=== PATIENT | male | born 1940 | race Caucasian/White ===

== ENCOUNTER → 2018-06-19 09:41 | Outpatient (CLI) | payer MEDICARE, OTHER, SELFPAY ==
[2018-06-19 12:58] LABS: AST(SGOT) 15 U/L (15-37); Alanine Aminotransfer ALT/SGPT 25 U/L (16-61); Albumin, Serum 3.4 g/dL (3.2-5.0); Alkaline Phosphatase 57 U/L (45-117); Anion Gap 9 (5-15); BUN 15 mg/dL (7-18); BUN/Creat Ratio 12.3 RATIO (10-20); Calcium,Total 8.4 mg/dL (8.5-10.1); Chloride 105 mmol/L (98-107); Cholesterol 121 mg/dL (200); Creatinine, Serum 1.22 mg/dL (0.70-1.30); EST Glomerular Filtration Rate 61 mL/min (>60); Est Glom Filt Rate - Afr Amer 74 mL/min (>60); Globulin 3.5 g/dL (2.2-4.2); Glucose 121 mg/dL (74-106); High Density Lipoprotein 38 mg/dL; Potassium 3.9 mmol/L (3.5-5.1); Protein, Total 6.9 g/dL (6.4-8.2); Sodium Level 142 mmol/L (136-145); Thyroid Stim Hormone (TSH) 1.68 uIU/mL (0.358-3.74); Triglycerides 117 mg/dL; Very Low Density Lipoprotein 23 mg/dL (5-40)
== END ==
PROVIDERS: Visit Provider Family Medicine
DX: E11.9 Type 2 diabetes mellitus without complications (principal)
CPT/HCPCS: 36415; 80053; 80061; 84443

== ENCOUNTER → 2018-11-09 12:41 | Outpatient (CLI) | payer MEDICARE, OTHER, SELFPAY ==
[2018-11-09 14:32] LABS: Erythrocyte Sedimentation Rate 11 mm/hr (0-20)
[2018-11-09 14:35] LABS: Hemoglobin 14.3 g/dl (13.0-16.5); Mean Corp Hgb Conc 33.3 g/gl (32-36); Mean Corpuscular Hgb 32.5 pg (27.0-32.0); Mean Corpuscular Volume 97.7 fL (80-94); Mean Platelet Vol. 9.5 fl (6.2-12.0); Platelet Count 201 K/mm3 (150-450); RBC Distribution Width CV 12.6 % (11.6-14.6); RBC Distribution Width SD 45.4 fl (35.1-43.9); White Blood Count 7.2 K/mm3 (4.4-11.0)
[2018-11-09 14:37] LABS: Scan Indicated on CBC? Y/N NO
[2018-11-09 15:00] LABS: Vitamin B12 381 pg/mL (211-911); Vitamin D,25 Hydroxy 15.9 ng/mL (29.95-100.01)
[2018-11-09 15:07] LABS: AST(SGOT) 19 U/L (15-37); Alanine Aminotransfer ALT/SGPT 28 U/L (16-61); Albumin, Serum 3.8 g/dL (3.2-5.0); Alkaline Phosphatase 73 U/L (45-117); Anion Gap 8 (5-15); BUN 19 mg/dL (7-18); BUN/Creat Ratio 15.1 RATIO (10-20); Calcium,Total 8.8 mg/dL (8.5-10.1); Chloride 106 mmol/L (98-107); Creatinine, Serum 1.26 mg/dL (0.70-1.30); EST Glomerular Filtration Rate 59 mL/min (>60); Est Glom Filt Rate - Afr Amer 71 mL/min (>60); Globulin 3.8 g/dL (2.2-4.2); Glucose 89 mg/dL (74-106); Iron 137 ug/dL (65-175); Protein, Total 7.6 g/dL (6.4-8.2); Sodium Level 141 mmol/L (136-145); Thyroid Stim Hormone (TSH) 1.56 uIU/mL (0.358-3.74)
== END ==
PROVIDERS: Family Provider Family Medicine; PCP Family Medicine; Referring Provider Family Medicine; Visit Provider Family Medicine
DX: R53.83 Other fatigue (principal)
CPT/HCPCS: 36415; 80053; 82306; 82607; 83540; 84443; 85027; 85652

== ENCOUNTER → 2019-10-16 10:22 | Outpatient (CLI) | payer MEDICARE, OTHER, SELFPAY ==
[2019-10-16 13:14] LABS: ALB/GLOB Ratio 0.9 RATIO (0.9-2.4); AST(SGOT) 15 U/L (15-37); Alanine Aminotransfer ALT/SGPT 29 U/L (16-61); Albumin, Serum 3.7 g/dL (3.2-5.0); Alkaline Phosphatase 77 U/L (45-117); Anion Gap 4 (5-15); BUN 23 mg/dL (7-18); BUN/Creat Ratio 18.7 RATIO (10-20); Calcium,Total 9.3 mg/dL (8.5-10.1); Chloride 105 mmol/L (98-107); Cholesterol 171 mg/dL (200); Creatinine, Serum 1.23 mg/dL (0.70-1.30); EST Glomerular Filtration Rate 61 mL/min (>60); Est Glom Filt Rate - Afr Amer 73 mL/min (>60); Globulin 4.1 g/dL (2.2-4.2); Glucose 125 mg/dL (74-106); High Density Lipoprotein 44 mg/dL; Potassium 3.7 mmol/L (3.5-5.1); Protein, Total 7.8 g/dL (6.4-8.2); Sodium Level 140 mmol/L (136-145); Thyroid Stim Hormone (TSH) 1.53 uIU/mL (0.358-3.74); Triglycerides 126 mg/dL; Very Low Density Lipoprotein 25 mg/dL (5-40)
== END ==
PROVIDERS: PCP Family Medicine; Referring Provider Family Medicine; Visit Provider Family Medicine
DX: E11.9 Type 2 diabetes mellitus without complications (principal)
CPT/HCPCS: 36415; 80053; 80061; 84403; 84443

== ENCOUNTER → 2020-06-03 14:36 | Outpatient (CLI) | payer MEDICARE, OTHER, SELFPAY ==
--- NOTE | 2020-06-03 14:39 | RAD_ITS ---
STUDY: X-RAY - RIGHT SHOULDER REASON FOR EXAM: Male, 79 years old. Lingle pop in right shoulder, pain x3 days. TECHNIQUE: 3 view(s) of the shoulder. COMPARISON: None. FINDINGS: There is cephalad migration of the humeral head consistent with rotator cuff pathology. There are mild degenerative osteoarthritic changes of the right shoulder. There is degenerative arthrosis of the acromioclavicular joint without inferior osseous spur formation. Normal acromion. Normal humeral head and visualized proximal humerus. The soft tissue structures are unremarkable. Normal visualized pulmonary apex. Carotid artery atherosclerosis noted. RAD/Shoulder min 2 Views IMPRESSION: Cephalad migration of the right humeral head suggesting chronic rotator cuff pathology. Glenohumeral and acromioclavicular joint arthrosis. Carotid atherosclerosis. Electronically Signed: Julio Cesar Corona MD ([place]) at 9:09 EDT , Service support ,
== END ==
PROVIDERS: PCP Family Medicine; Referring Provider Family Medicine; Visit Provider Family Medicine
DX: M25.519 Pain in unspecified shoulder (principal)
CPT/HCPCS: 73030

== ENCOUNTER → 2020-07-31 10:36 | Outpatient (CLI) | payer MEDICARE, OTHER, SELFPAY ==
[2020-07-31 12:54] LABS: AST(SGOT) 20 U/L (15-37); Alanine Aminotransfer ALT/SGPT 36 U/L (16-61); Albumin, Serum 3.9 g/dL (3.2-5.0); Alkaline Phosphatase 90 U/L (45-117); Anion Gap 6 (5-15); BUN 21 mg/dL (7-18); BUN/Creat Ratio 14.7 RATIO (10-20); Calcium,Total 9.6 mg/dL (8.5-10.1); Chloride 106 mmol/L (98-107); Cholesterol 165 mg/dL (200); Creatinine, Serum 1.43 mg/dL (0.70-1.30); EST Glomerular Filtration Rate 51 mL/min (>60); Est Glom Filt Rate - Afr Amer 61 mL/min (>60); Globulin 4.1 g/dL (2.2-4.2); Glucose 118 mg/dL (74-106); High Density Lipoprotein 41 mg/dL; Potassium 3.6 mmol/L (3.5-5.1); Sodium Level 138 mmol/L (136-145); Triglycerides 117 mg/dL; Very Low Density Lipoprotein 23 mg/dL (5-40)
== END ==
PROVIDERS: PCP Family Medicine; Referring Provider Family Medicine; Visit Provider Family Medicine
DX: I10 Essential (primary) hypertension (principal)
CPT/HCPCS: 36415; 80053; 80061

== ENCOUNTER → 2020-08-01 13:22 | Outpatient (CLI) | payer MEDICARE, OTHER, SELFPAY ==
[2020-08-01 15:21] LABS: Erythrocyte Sedimentation Rate 25 mm/hr (0-20)
[2020-08-01 15:25] LABS: Absolute Lymphocyte Count 2.07 X10^3/uL (0.83-4.51); Absolute Neutrophil Count 4.8 X10^3/uL (2.0-7.7); Basophil# 0.04 X10^3/uL; Basophil% 0.5 % (0-1); Eosinophil# 0.15 X10^3/uL; Eosinophils% 1.9 % (0-5); Hematocrit 43.2 % (40-54); Lymphocyte # 2.07 X10^3/ul (4.0); Lymphocyte % 26.5 % (19-41); Mean Corp Hgb Conc 34.7 g/dL (32-36); Mean Corpuscular Hgb 33.4 pg (27.0-32.0); Mean Corpuscular Volume 96.2 fL (80-94); Mean Platelet Vol. 9.6 fl (6.2-12.0); Monocyte# 0.73 X10^3/uL; Monocyte% 9.3 % (0-10); NRBC Flagged by Analyzer 0 % (0-5); Neutrophil % 61.5 % (47-70); Platelet Count 235 K/mm3 (150-450); RBC Distribution Width CV 12.1 % (11.6-14.6); RBC Distribution Width SD 43.1 fl (35.1-43.9); Red Blood Count 4.49 M/mm3 (4.6-6.2); White Blood Count 7.8 K/mm3 (4.4-11.0)
[2020-08-01 15:54] LABS: ALB/GLOB Ratio 0.9 RATIO (0.9-2.4); AST(SGOT) 25 U/L (15-37); Alanine Aminotransfer ALT/SGPT 48 U/L (16-61); Albumin, Serum 3.7 g/dL (3.2-5.0); Alkaline Phosphatase 84 U/L (45-117); Anion Gap 8 (5-15); BUN 22 mg/dL (7-18); BUN/Creat Ratio 16.5 RATIO (10-20); Calcium,Total 9.3 mg/dL (8.5-10.1); Chloride 104 mmol/L (98-107); Creatinine, Serum 1.33 mg/dL (0.70-1.30); EST Glomerular Filtration Rate 55 mL/min (>60); Est Glom Filt Rate - Afr Amer 67 mL/min (>60); Globulin 4.1 g/dL (2.2-4.2); Glucose 136 mg/dL (74-106); Potassium 3.8 mmol/L (3.5-5.1); Protein, Total 7.8 g/dL (6.4-8.2); Sodium Level 137 mmol/L (136-145); Thyroid Stim Hormone (TSH) 1.02 uIU/mL (0.358-3.74)
== END ==
PROVIDERS: PCP Family Medicine; Referring Provider Family Medicine; Visit Provider Family Medicine
DX: R53.83 Other fatigue (principal)
CPT/HCPCS: 36415; 80053; 84443; 84484; 85025; 85652

== ENCOUNTER → 2020-08-13 10:23 | Outpatient (CLI) | payer MEDICARE, OTHER, SELFPAY ==
[2020-08-15 07:10] LABS: SARS-COV-2 TOTAL ABS Reactive (Nonreactive)
== END ==
PROVIDERS: PCP Family Medicine; Referring Provider Family Medicine; Visit Provider Family Medicine
DX: U07.1 COVID-19 (principal)
CPT/HCPCS: 36415; 86769

== ENCOUNTER → 2020-12-17 14:33 | Outpatient (CLI) | payer MEDICARE, OTHER, SELFPAY ==
--- NOTE | 2020-12-17 14:36 | RAD_ITS ---
INDICATION: LEG PAIN EXAMINATION/TECHNIQUE: X-RAY - XR Spine Lumbar Min 4 Views COMPARISON: None. FINDINGS: VERTEBRAE: Age indeterminate severe compression deformity of T12. 5 mm anterolisthesis L3 on L4. Preservation of the normal lumbar lordosis. Moderate to severe multilevel facet arthropathy. DISCS: Moderate to severe multilevel disc space narrowing and osteophytosis. INCLUDED ABDOMEN: Included bowel gas pattern is non-obstructive. Vascular calcifications. RAD/L/S Spine Min 4 Views IMPRESSION: Age indeterminate severe compression deformity of T12. Grade 1 anterolisthesis L3 on L4. Moderate to severe multilevel lumbar spondylosis and facet arthropathy. Electronically Signed: Adelfo Asher MD at 16:12 EDT Tel , Service support ,
== END ==
PROVIDERS: PCP Family Medicine; Referring Provider Family Medicine; Visit Provider Family Medicine
DX: M79.605 Pain in left leg (principal); M79.604 Pain in right leg
CPT/HCPCS: 72110

== ENCOUNTER → 2021-01-01 13:36 | Outpatient (CLI) | payer MEDICARE, OTHER, SELFPAY ==
--- NOTE | 2021-01-01 13:39 | ART_ITS ---
Reason For Study: PVD Procedure A bilateral lower extremity continuous wave Doppler with analog waveform analysis and ankle brachial indexes. Left Segmental Pressures Left brachial= 145mmHg. Left posterior tibial artery = 188mmHg. Left dorsalis pedis artery = 186mmHg. Left digit = 130 mmHg. The left dorsalis pedis waveforms are triphasic. The left posterior tibial artery waveforms are triphasic. Right Segmental Pressures Right brachial= 149mmHg. Right posterior tibial artery = 187mmHg. Right dorsalis pedis artery = 154mmHg. Right digit = 120 mmHg. The right dorsalis pedis waveforms are triphasic. The right posterior tibial artery waveforms are triphasic. Indices The right ankle brachial index by the dorsalis pedis is 1.03. The right ankle brachial index by the posterior tibial artery is 1.26. The right digital-brachial index is 0.81. The left ankle brachial index by the dorsalis pedis is 1.25. The left ankle brachial index by the posterior tibial artery is 1.26. The left digital-brachial index is 0.87. VL/Ankle Brachial Index Interpretation Summary Triphasic Doppler waveforms are noted at ankle level bilaterally. Pulse-volume recordings appear satisfactory at ankle and digital level bilaterally. Resting ankle-brachial ind ices are normal bilaterally. Digital-brachial indices are normal bilaterally. There is no evidence of significant arterial occlusive disease in the lower ext remities bilaterally. Ordering Physician: Jaciel Garcia Referring Physician: Jaciel Garcia Performed By: Audrey Sanchez RVT and Student
== END ==
PROVIDERS: PCP Family Medicine; Referring Provider Family Medicine; Visit Provider Family Medicine
DX: I73.9 Peripheral vascular disease, unspecified (principal); M79.604 Pain in right leg; M79.605 Pain in left leg
CPT/HCPCS: 93922

== ENCOUNTER → 2021-02-25 15:01 | Outpatient (CLI) | payer MEDICARE, OTHER, SELFPAY ==
[2021-02-25 17:49] LABS: Absolute Lymphocyte Count 1.96 X10^3/uL (0.83-4.51); Absolute Neutrophil Count 4.2 X10^3/uL (2.0-7.7); Basophil# 0.04 X10^3/uL; Basophil% 0.6 % (0-1); Eosinophil# 0.21 X10^3/uL; Eosinophils% 2.9 % (0-5); Hematocrit 42.2 % (40-54); Hemoglobin 14.3 g/dL (13.0-16.5); Lymphocyte # 1.96 X10^3/ul (0.83-4.51); Lymphocyte % 27.5 % (19-41); Mean Corp Hgb Conc 33.9 g/dL (32-36); Mean Corpuscular Hgb 32.6 pg (27.0-32.0); Mean Corpuscular Volume 96.3 fL (80-94); Mean Platelet Vol. 9.7 fl (6.2-12.0); Monocyte% 9.8 % (0-10); NRBC Flagged by Analyzer 0 % (0-5); Neutrophil # 4.21 X10^3/uL (2.7-7.7); Neutrophil % 58.9 % (47-70); Platelet Count 228 K/mm3 (150-450); RBC Distribution Width CV 12.5 % (11.6-14.6); RBC Distribution Width SD 44.7 fl (35.1-43.9); Red Blood Count 4.38 M/mm3 (4.6-6.2); White Blood Count 7.1 K/mm3 (4.4-11.0)
[2021-02-25 18:05] LABS: Vitamin B12 290 pg/mL (211-911); Vitamin D,25 Hydroxy 73.8 ng/mL
[2021-02-25 18:07] LABS: Microalbumin,Random Urine 12.5 mg/L (NO RANGE EST.); Microalbumin:Creatinine Ratio 30.3 mg/g CRE (<30 mg/g CRE)
[2021-02-25 18:08] LABS: Anion Gap 7 (5-15); BUN 26 mg/dL (7-18); BUN/Creat Ratio 20.2 RATIO (10-20); Chloride 104 mmol/L (98-107); Cholesterol 175 mg/dL (200); Creatinine, Serum 1.29 mg/dL (0.70-1.30); EST Glomerular Filtration Rate 57 mL/min (>60); Est Glom Filt Rate - Afr Amer 69 mL/min (>60); Glucose 91 mg/dL (74-106); High Density Lipoprotein 38 mg/dL; Potassium 3.8 mmol/L (3.5-5.1); Sodium Level 138 mmol/L (136-145); Thyroid Stim Hormone (TSH) 1.53 uIU/mL (0.358-3.74); Triglycerides 208 mg/dL; Very Low Density Lipoprotein 42 mg/dL (5-40)
== END ==
PROVIDERS: PCP Family Medicine; Visit Provider Family Medicine
DX: N18.30 Chronic kidney disease, stage 3 unspecified (principal); E55.9 Vitamin D deficiency, unspecified; E53.8 Deficiency of other specified B group vitamins; E11.9 Type 2 diabetes mellitus without complications
CPT/HCPCS: 36415; 80048; 80061; 82043; 82306; 82570; 82607; 84443; 85025

== ENCOUNTER → 2021-05-18 08:57 | Outpatient (CLI) | payer MEDICARE, OTHER, SELFPAY | PROVIDERS: PCP Family Medicine; Referring Provider Family Medicine; Visit Provider Family Medicine | DX: Z20.822 Contact with and (suspected) exposure to COVID-19 (principal) | CPT/HCPCS: 87635; U0005; U0003 ==

== ENCOUNTER → 2021-07-22 10:11 | Outpatient (CLI) | payer MEDICARE, OTHER, SELFPAY ==
[2021-07-22 12:21] LABS: Absolute Lymphocyte Count 2.06 X10^3/uL (0.83-4.51); Absolute Neutrophil Count 4.1 X10^3/uL (2.0-7.7); Basophil# 0.03 X10^3/uL; Basophil% 0.4 % (0-1); Eosinophil# 0.23 X10^3/uL; Eosinophils% 3.2 % (0-5); Hematocrit 43.3 % (40-54); Hemoglobin 15.1 g/dL (13.0-16.5); Lymphocyte # 2.06 X10^3/ul (0.83-4.51); Mean Corp Hgb Conc 34.9 g/dL (32-36); Mean Corpuscular Hgb 33.5 pg (27.0-32.0); Mean Platelet Vol. 9.7 fl (6.2-12.0); Monocyte# 0.66 X10^3/uL; Monocyte% 9.3 % (0-10); NRBC Flagged by Analyzer 0 % (0-5); Neutrophil # 4.11 X10^3/uL (2.7-7.7); Platelet Count 235 K/mm3 (150-450); RBC Distribution Width SD 45.8 fl (35.1-43.9); Red Blood Count 4.51 M/mm3 (4.6-6.2); White Blood Count 7.1 K/mm3 (4.4-11.0)
[2021-07-22 12:38] LABS: ALB/GLOB Ratio 0.8 RATIO (0.9-2.4); AST(SGOT) 27 U/L (15-37); Alanine Aminotransfer ALT/SGPT 50 U/L (16-61); Albumin, Serum 3.5 g/dL (3.2-5.0); Alkaline Phosphatase 79 U/L (45-117); Anion Gap 10 (5-15); BUN 19 mg/dL (7-18); BUN/Creat Ratio 14.2 RATIO (10-20); CRP 3.94 mg/L (0.0-3.0); Calcium,Total 9.5 mg/dL (8.5-10.1); Chloride 103 mmol/L (98-107); Creatinine, Serum 1.34 mg/dL (0.70-1.30); EST Glomerular Filtration Rate 55 mL/min (>60); Est Glom Filt Rate - Afr Amer 66 mL/min (>60); Globulin 4.3 g/dL (2.2-4.2); Glucose 140 mg/dL (74-106); Potassium 3.9 mmol/L (3.5-5.1); Protein, Total 7.8 g/dL (6.4-8.2); Sodium Level 140 mmol/L (136-145); Thyroid Stim Hormone (TSH) 1.36 uIU/mL (0.358-3.74)
== END ==
PROVIDERS: PCP Family Medicine; Referring Provider Family Medicine; Visit Provider Family Medicine
DX: R53.83 Other fatigue (principal)
CPT/HCPCS: 36415; 80053; 84443; 85025; 86140

== ENCOUNTER 2021-11-23 14:00 | Outpatient (RCR) | payer MEDICARE, OTHER, SELFPAY ==
--- NOTE | 2021-08-04 09:54 | HP.PTEVAL_ITS ---
Patient's Visit Information CHET TODD is a 81 year old M referred to Physical Therapy by Dr. Jaciel Garcia MD with a diagnosis of Cervical DDD. Date of Evaluation: 08/03/21 Physical Therapist: Renzo Garcia DPT - Visit Plan Frequency: 2x /Week Duration: 4 Weeks Plan: Improve cervical ROM using manual traction, cross friction massage, or trigger point massage and continued stretching. Continue to progress pt with exercises to strengthen and improve posture, as well as strengthen deep neck flexors. - Subjective Pt present to PT with neck pain, he states he went through therapy at [facility], and was seeing neurosurgeon about 10-15 years ago. Pt reports he was maintaining on his own, but now he has been having difficulty turning head in car. Pt reports waking up in the morning with arms tingly. Pt reports he needs to have a pillow under his head just right to sleep, otherwise he is up at night. Pt states turning his head either direction causes increased pain. Pt reports he is driving still, and it is hard to turn head to look back. Pt states he will take a tylenol if pain is really bad. Pt states he still does a lot of physical work including cutting and splaying wood, this also can cause some pain in his neck. Patient states to make pain in neck have some relief he will extend his neck and that typically improves symptoms. Pt states the pain is a constant dull ache, and he states he experiences headaches almost everyday in the morning. - Pain Neck Pain Intensity (Out of 10): 0 Pain Intensity Range: 0, 5 - Objective ROM: cervical : flexion WNL, extension min loss (painful), right sidebending max loss (painful), right rotation min loss , left sidebending max loss, left rotation min loss. STRENGTH: Cervical WFL. PALPATION: tenderness with palpation to cervical spinous processes C2-C7, TTP to upper traps and levator scap bilaterally (right side is worse), several trigger points in upper trapezius muscle on R side. Pt felt relief with sub-occipital release. OBSERVATION: forward shoulder posture. NEURO: light touch WNL B UE, reflexes biceps and triceps: 2+ - Special Tests C/S Radiculapathy - Left Spurlings: Negative C/S Radiculapathy - Right Spurlings: Negative - Balance/Special Test Scores Oswestry Neck Score: 13 - Goals Goal 1:: Pt will be independent with HEP. Goal Time Frame: 2-4 Weeks Goal 2:: STG: Pt will be able to turn head when driving with 0-2/10 pain to improve daily function. Goal Time Frame: 2-4 Weeks Goal 3:: LTG: Pt will improve cervical R and L sidebending to mod loss of motion. Goal Time Frame: 2-4 Weeks Goal 4:: LTG: Pt will improve bilateral cervical rotation to WNL to improve ability to backup when driving. Goal Time Frame: 2-4 Weeks Goal 5:: LTG: Pt will be able to make it through day with 0-2/10 pain in c ervical spine. Goal Time Frame: 2-4 Weeks Goal 6:: LTG: Pt will improve neck oswestry index to < 20% disability to indicate improved daily function. Goal Time Frame: 2-4 Weeks - Rehabilitation Potential Physical Therapy Diagnosis: limited cervical ROM, neck pain, poor posture Rehabilitation Potential: Good - Anticipated Interventions Patient/Client Instruction: Educate patient on: Condition, Plan of Care, Benefits of Fitness Program For the Purpose of:: To decrease pain, To increase ROM, To improve ability to perform ADL's, To increase tolerance to activity/condition/position, To improve performance and independence with ADL's, To improve ability of physical actions for home/community/work/leisure, To improve health of tissue, To decrease soft tissue restriction, To increase flexibility/ROM, To improve health and function, To improve self management Therapeutic Exercise to Include: Strength training, Postural training, Flexibilty training, Passive ROM, Active ROM For the Purpose of:: To decrease pain, To increase ROM, To improve ability to perform ADL's, To increase tolerance to activity/condition/position, To improve performance and independence with ADL's, To improve ability of physical actions for home/community/work/leisure, To improve health of tissue, To decrease soft tissue restriction, To increase flexibility/ROM, To improve health and function, To improve tolerance to ADL's Manual Therapy Techniques to Include: Trigger point massage, Massage, Mobilization, Passive ROM, Soft tissue mobilization For the Purpose of:: To decrease pain, To increase ROM, To improve ability to perform ADL's, To increase tolerance to activity/condition/position, To improve performance and independence with ADL's, To improve ability of physical actions for home/community/work/leisure, To improve health of tissue, To decrease soft tissue restriction, To increase flexibility/ROM, To improve self management, To improve tolerance to ADL's TENS: Yes Other electric stimulation: Yes For the Purpose of:: To decrease pain, To increase ROM, To increase flexibility/ROM Thank you for the opportunity to evaluate your patient. For Medicare and Medicare HMO plans, please review the plan of care and approve it. It will need to be FAXED BACK to us at [phone] for Medicare purposes. For Medicare only, by signing this I certify the plan of care. Please let me know if there are questions or concerns regarding this plan of care. Physician Signature: Date:
--- NOTE | 2021-09-11 11:51 | HP.PTREVAL ---
Dr. Jaciel Garcia MD, It has been my pleasure to treat CHET TODD over the last 8 visits for Cervical DDD. Please see the progress note below for an update on the physical therapy plan of care! Subjective: Pt. reports he was out sick with a sinus infection. Pt. reports being able to look up at the stars which he has not been able to do for years. He has been able to look over his shoulders with driving without less issues. Pt. arrived today with a script for his R shoulder pain, weak external rotators. Objective/Function: CERVICAL ROM: flexion full no issues, ext min loss mild increase NW, SB min loss bilat NE, rotation min loss to R, mod loss to L rotation. Stiffness noted throughout, decreased overall pain. R shoulder: flexion 170ded mild increase NW, abd 160 deg mild increase NW, functional ER C3 mild increase NW, functional IR L2 increase NW. MMT: R shoulder flexion 4+/5 increase NW, abd 4/5 increase NW, IR 5/5, ER 4-/5 increase NW. Plan Plan: Cont. with cervical spine ROM and stability. I assessed his shoulder today. He has marked weakness with his external rotators and some slight tightness with over head motions. I want to add in shoulder stability, RTC strengthening and deltoid strengthening in minimal painful ranges. 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 HEP: shoulder ER in SL, mid row, LAE, and to continue with towel SNAGS. Balance/Gait/Functional tests - Balance/Special Test Scores Oswestry Neck Score: 8 Goals Goal 1:: Pt will be independent with HEP. Goal Time Frame: 2-4 Weeks Goal Progress: Progressing Goal 2:: STG: Pt will be able to turn head when driving with 0-2/10 pain to improve daily function. 09/10/21 NEW GOAL: Pt. to chop wood and complete all house hold chores without increase in symptoms. Goal Time Frame: 2-4 Weeks Goal Progress: Progressing Goal 3:: LTG: Pt will improve cervical R and L side bending to mod loss of motion. 09/10/21 NEW GOAL: Pt. to have full ROM of R shoulder without increase in symptoms. Goal Time Frame: 2-4 Weeks Goal Progress: Progressing Goal 4:: LTG: Pt will improve bilateral cervical rotation to WNL to improve ability to backup when driving. Goal Time Frame: 2-4 Weeks Goal Progress: Progressing Goal 5:: LTG: Pt will be able to make it through day with 0-2/10 pain in cervical spine. 09/10/21 NEW GOAL: Pt. to have increased R shoulder strength to 5-/5 throughout without increase in symptoms. Goal Time Frame: 2-4 Weeks Goal Progress: Progressing Goal 6:: LTG: Pt will improve neck oswestry index to < 20% disability to indicate improved daily function. Goal Time Frame: 2-4 Weeks Goal Progress: Progressing Anticipated Interventions Patient/Client Instruction: Educate patient on: Condition, Plan of Care, Benefits of Fitness Program For the Purpose of:: To decrease pain, To increase ROM, To improve ability to perform ADL's, To increase tolerance to activity/condition/position, To improve performance and independence with ADL's, To improve ability of physical actions for home/community/work/leisure, To improve health of tissue, To decrease soft tissue restriction, To increase flexibility/ROM, To improve health and function, To improve self management Therapeutic Exercise to Include: Strength training, Postural training, Flexibilty training, Passive ROM, Active ROM For the Purpose of:: To decrease pain, To increase ROM, To improve ability to perform ADL's, To increase tolerance to activity/condition/position, To improve performance and independence with ADL's, To improve ability of physical actions for home/community/work/leisure, To improve health of tissue, To decrease soft tissue restriction, To increase flexibility/ROM, To improve health and function, To improve tolerance to ADL's Manual Therapy Techniques to Include: Trigger point massage, Massage, Mobilization, Passive ROM, Soft tissue mobilization For the Purpose of:: To decrease pain, To increase ROM, To improve ability to perform ADL's, To increase tolerance to activity/condition/position, To improve performance and independence with ADL's, To improve ability of physical actions for home/community/work/leisure, To improve health of tissue, To decrease soft tissue restriction, To increase flexibility/ROM, To improve self management, To improve tolerance to ADL's TENS: Yes Other electric stimulation: Yes For the Purpose of:: To decrease pain, To increase ROM, To increase flexibility/ROM Please do not hesitate to contact me at [phone] by phone or if you have questions or concerns regarding this new plan of care! Sincerely, AMY VillarealT
--- NOTE | 2021-09-30 14:38 | HP.PTREVAL ---
Dr. Jaciel Garcia MD, It has been my pleasure to treat CHET TODD over the last 12 visits for Cervical DDD. Please see the progress note below for an update on the physical therapy plan of care! Subjective: The pain in my shoulder and neck increases to 4/10 at worst. Objective/Function: B shoulder ROM is WNL and equal at this time. MMT: R shoulder flex and ER= 4-/5. All other B UE MMT= 5/5 throughout. Cervical spine ROM is now WNL all planes with the exception of B sidebend which is moderately limited. R shoulder and cervical spine pain 0/10 at rest, 4/10 at worst. Pt is I with HEP Plan Plan: cont or discharge Balance/Gait/Functional tests - Balance/Special Test Scores Oswestry Low Back Score: 0 Oswestry Neck Score: 8 Goals Goal 1:: Pt will be independent with HEP. Goal Time Frame: 2-4 Weeks Goal Progress: Goal Met Goal 2:: STG: Pt will be able to turn head when driving with 0-2/10 pain to improve daily function. 09/10/21 NEW GOAL: Pt. to chop wood and complete all house hold chores without increase in symptoms. Goal Time Frame: 2-4 Weeks Goal Progress: Progressing Goal 3:: LTG: Pt will improve cervical R and L side bending to mod loss of motion. 09/10/21 NEW GOAL: Pt. to have full ROM of R shoulder without increase in symptoms. Goal Time Frame: 2-4 Weeks Goal Progress: Goal Met Goal 4:: LTG: Pt will improve bilateral cervical rotation to WNL to improve ability to backup when driving. Goal Time Frame: 2-4 Weeks Goal Progress: Goal Met Goal 5:: LTG: Pt will be able to make it through day with 0-2/10 pain in cervical spine. 09/10/21 NEW GOAL: Pt. to have increased R shoulder strength to 5-/5 throughout without increase in symptoms. Goal Time Frame: 2-4 Weeks Goal Progress: Progressing Goal 6:: LTG: Pt will improve neck oswestry index to < 20% disability to indicate improved daily function. Goal Time Frame: 2-4 Weeks Goal Progress: Progressing Anticipated Interventions Patient/Client Instruction: Educate patient on: Condition, Plan of Care, Benefits of Fitness Program For the Purpose of:: To decrease pain, To increase ROM, To improve ability to perform ADL's, To increase tolerance to activity/condition/position, To improve performance and independence with ADL's, To improve ability of physical actions for home/community/work/leisure, To improve health of tissue, To decrease soft tissue restriction, To increase flexibility/ROM, To improve health and function, To improve self management Therapeutic Exercise to Include: Strength training, Postural training, Flexibilty training, Passive ROM, Active ROM For the Purpose of:: To decrease pain, To increase ROM, To improve ability to perform ADL's, To increase tolerance to activity/condition/position, To improve performance and independence with ADL's, To improve ability of physical actions for home/community/work/leisure, To improve health of tissue, To decrease soft tissue restriction, To increase flexibility/ROM, To improve health and function, To improve tolerance to ADL's Manual Therapy Techniques to Include: Trigger point massage, Massage, Mobilization, Passive ROM, Soft tissue mobilization For the Purpose of:: To decrease pain, To increase ROM, To improve ability to perform ADL's, To increase tolerance to activity/condition/position, To improve performance and independence with ADL's, To improve ability of physical actions for home/community/work/leisure, To improve health of tissue, To decrease soft tissue restriction, To increase flexibility/ROM, To improve self management, To improve tolerance to ADL's TENS: Yes Other electric stimulation: Yes For the Purpose of:: To decrease pain, To increase ROM, To increase flexibility/ROM Please do not hesitate to contact me at [phone] by phone or if you have questions or concerns regarding this new plan of care! Sincerely, Cristi Alvarado, PT, ATC
--- NOTE | 2021-10-27 15:15 | HP.PTREVAL ---
Dr. Jaciel Garcia MD, It has been my pleasure to treat CHET TODD over the last 13 visits for Cervical DDD. Please see the progress note below for an update on the physical therapy plan of care! Subjective: Pt. arrives today with reports of overall doing better. HE has increased reps and resistances with all exercises well. Pt. reports having some stiffness in his neck, but is moving his arm much better. Pt. still has weakness with ER motions. Objective/Function: Cervical spine: good ROM, mild loss of Cervical rotation to L side no pain. Pt. has mod/min loss with B Sidebending. R shoulder ROM: Pt. has great ROM of B shoulders without increase in symptoms. flexion: 175deg, abd 170deg mild increase NW, functional ER C6 mild increase NW, T 10 mild increase NW. MMT: flexion 4+/5 increase NW, abd 4+/5 increase NW, ext 5/5, ER 4/5, IR 5/5. + speeds testing, + empty can, + tenderness to palpation of biceps tendon in groove. He still has signs of rotator and biceps pathology. I would like him to work on ER and deltoid strength to his routine. Plan Plan: Pt. to follow up in ~1 month after working on ER strengthening, deltoid strengthening and bicep eccentrics. Balance/Gait/Functional tests - Balance/Special Test Scores Oswestry Low Back Score: 0 Oswestry Neck Score: 3 Goals Goal 1:: Pt will be independent with HEP. Goal Time Frame: 2-4 Weeks Goal Progress: Goal Met Goal 2:: STG: Pt will be able to turn head when driving with 0-2/10 pain to improve daily function. 09/10/21 NEW GOAL: Pt. to chop wood and complete all house hold chores without increase in symptoms. Goal Time Frame: 2-4 Weeks Goal Progress: Progressing Goal 3:: LTG: Pt will improve cervical R and L side bending to mod loss of motion. 09/10/21 NEW GOAL: Pt. to have full ROM of R shoulder without increase in symptoms. Goal Time Frame: 2-4 Weeks Goal Progress: Goal Met Goal 4:: LTG: Pt will improve bilateral cervical rotation to WNL to improve ability to backup when driving. Goal Time Frame: 2-4 Weeks Goal Progress: Goal Met Goal 5:: LTG: Pt will be able to make it through day with 0-2/10 pain in cervical spine. 09/10/21 NEW GOAL: Pt. to have increased R shoulder strength to 5-/5 throughout without increase in symptoms. Goal Time Frame: 2-4 Weeks Goal Progress: Progressing Goal 6:: LTG: Pt will improve neck oswestry index to < 20% disability to indicate improved daily function. Goal Time Frame: 2-4 Weeks Goal Progress: Goal Met Anticipated Interventions Patient/Client Instruction: Educate patient on: Condition, Plan of Care, Benefits of Fitness Program For the Purpose of:: To decrease pain, To increase ROM, To improve ability to perform ADL's, To increase tolerance to activity/condition/position, To improve performance and independence with ADL's, To improve ability of physical actions for home/community/work/leisure, To improve health of tissue, To decrease soft tissue restriction, To increase flexibility/ROM, To improve health and function, To improve self management Therapeutic Exercise to Include: Strength training, Postural training, Flexibilty training, Passive ROM, Active ROM For the Purpose of:: To decrease pain, To increase ROM, To improve ability to perform ADL's, To increase tolerance to activity/condition/position, To improve performance and independence with ADL's, To improve ability of physical actions for home/community/work/leisure, To improve health of tissue, To decrease soft tissue restriction, To increase flexibility/ROM, To improve health and function, To improve tolerance to ADL's Manual Therapy Techniques to Include: Trigger point massage, Massage, Mobilization, Passive ROM, Soft tissue mobilization For the Purpose of:: To decrease pain, To increase ROM, To improve ability to perform ADL's, To increase tolerance to activity/condition/position, To improve performance and independence with ADL's, To improve ability of physical actions for home/community/work/leisure, To improve health of tissue, To decrease soft tissue restriction, To increase flexibility/ROM, To improve self management, To improve tolerance to ADL's TENS: Yes Other electric stimulation: Yes For the Purpose of:: To decrease pain, To increase ROM, To increase flexibility/ROM Please do not hesitate to contact me at [phone] by phone or if you have questions or concerns regarding this new plan of care! Sincerely, Renzo Garcia DPT
--- NOTE | 2021-11-24 14:42 | HP.PTDCSUM ---
It has been my pleasure to treat CHET TODD referred by Dr. Jaciel Garcia MD, with the diagnosis of Cervical DDD for a total of 14 visit(s). Discharge Date: 11/23/21 Please see the following information for a summary of their discharge status. Subjective: Pt. reports overall doing well. I feel like I am 90% better. He reports being HEP compliant. He reports working on his arm strength without issues. Pt. reports no neck pain. Neck Pain Intensity (Out of 10): 0 R shoulder Pain Intensity (Out of 10): 0 % Improvement: 90 Objective/Function: Pt. overall has good R shoulder ROM both passively and actively. Pt. still has weakness in his R external rotators R side 8#, L side 14#. So about 2/3rds the strength for R to L. Pt. has close to equal else where, ~3-4# difference from R to L. I want him to continue to work on this increase his strength. He most likely has some sort of RTC pathology, but he is increasing his strength and is tolerating well. He no longer has any pain in his neck. He will be DC to [facility] with RTC external rotation strengthening as this point in time. Goal 1:: Pt will be independent with HEP. Goal Progress: Goal Met Goal 2:: STG: Pt will be able to turn head when driving with 0-2/10 pain to improve daily function. 09/10/21 NEW GOAL: Pt. to chop wood and complete all house hold chores without increase in symptoms. Goal Progress: Goal Met Goal 3:: LTG: Pt will improve cervical R and L side bending to mod loss of motion. 09/10/21 NEW GOAL: Pt. to have full ROM of R shoulder without increase in symptoms. Goal Progress: Goal Met Goal 4:: LTG: Pt will improve bilateral cervical rotation to WNL to improve ability to backup when driving. Goal Progress: Goal Met Goal 5:: LTG: Pt will be able to make it through day with 0-2/10 pain in cervical spine. 09/10/21 NEW GOAL: Pt. to have increased R shoulder strength to 5-/5 throughout without increase in symptoms. Goal Progress: Progressing Goal 6:: LTG: Pt will improve neck oswestry index to < 20% disability to indicate improved daily function. Goal Progress: Goal Met Plan: DC to [facility]P. Discharge Comments: Pt. reports overall doing well. He was initially treated with cervical ROM which improved. He was then evaluated for his R shoulder ER weakness. He has been working on this over the past few months, mostly independent after PT instruction. He is doing much better. He still has some weakness in his R shoulder, but has improved. At this point in time I would like him to continue to work on his strengthening independently. Pt. consents. Pt. will be DC from PT at this point in time. If there are questions or concerns regarding this patient's physical therapy, please feel free to call me at [phone]. Thank you for the referral of this patient. Sincerely, Rnezo Espinoza Sipos, DPT Balance/Gait/Functional tests - Balance/Special Test Scores Oswestry Low Back Score: 0 Oswestry Neck Score: 1
== END 2021-11-23 19:00 | disposition home or self-care (01) ==
LOC: PT 14:00
PROVIDERS: PCP Family Medicine; Referring Provider Family Medicine; Visit Provider Family Medicine
DX: M50.30 Other cervical disc degeneration, unspecified cervical region (principal)
CPT/HCPCS: 97110; 97140; 97161; 97164

== ENCOUNTER → 2021-12-17 | Outpatient (CLI) | payer MEDICARE, OTHER, SELFPAY ==
[2021-12-17 18:26] LABS: Anion Gap 8 (5-15); BUN 25 mg/dL (7-18); BUN/Creat Ratio 16.9 RATIO (10-20); Calcium,Total 8.8 mg/dL (8.5-10.1); Chloride 104 mmol/L (98-107); Creatinine, Serum 1.48 mg/dL (0.70-1.30); EST Glomerular Filtration Rate 49 mL/min (>60); Est Glom Filt Rate - Afr Amer 59 mL/min (>60); Glucose 113 mg/dL (74-106); Potassium 3.3 mmol/L (3.5-5.1); Sodium Level 140 mmol/L (136-145)
== END | disposition home or self-care (01) ==
LOC: MFPLAB 16:55
PROVIDERS: PCP Family Medicine; Visit Provider Nurse Practitioner Family
DX: R11.2 Nausea with vomiting, unspecified (principal)
CPT/HCPCS: 36415; 80048

== ENCOUNTER → 2022-01-06 | Outpatient (CLI) | payer MEDICARE, OTHER, SELFPAY ==
--- NOTE | 2022-01-06 14:27 | RAD_ITS ---
STUDY: X-RAY - LUMBOSACRAL SPINE REASON FOR EXAM: Male, 81 years old. DORSALGIA- HIP/ BACK PAIN TECHNIQUE: 7 view(s) of the lumbosacral spine were obtained. COMPARISON: 12/17/2020 FINDINGS: Normal lumbar lordosis. Stable spondylolisthesis at L4-5. Flexion-extension views show no instability. Stable T12 compression fracture. No acute compression fractures. Stable diffuse disc space narrowing lower lumbar spine. Normal bilateral sacral ala, sacroiliac joints, and visualized sacrum. RAD/L/S Spine w Bend Min 6 Vw IMPRESSION: Stable degenerative disc disease and spondylolisthesis. No acute bony abnormalities. Electronically Signed: Bentley Burdick MD at 21:39 EDT ,
== END | disposition home or self-care (01) ==
PROVIDERS: PCP Family Medicine; Referring Provider Family Medicine; Visit Provider Family Medicine
DX: M54.9 Dorsalgia, unspecified (principal)
CPT/HCPCS: 72114

== ENCOUNTER → 2022-01-19 | Outpatient (CLI) | payer MEDICARE, OTHER, SELFPAY ==
--- NOTE | 2022-01-19 13:54 | BD_ITS ---
STUDY: DUAL ENERGY X-RAY ABSORPTIOMETRY / DXA REASON FOR EXAM: Male, 81 years old. M85.89. Compression of the T12 vertebrae. TECHNIQUE: Bone Mineral Density (BMD) measurements of lumbar spine and bilateral hips were obtained. COMPARISON: None. FINDINGS: Lumbar Spine (L1-L4): g/cm2 (1.158) / T-score (0.8) / Z-score (2.0) Findings are suggestive of normal bone density with a low fracture risk. Left Femur Total: g/cm2 (1.100) / T-score (0.4) / Z-score (1.5) Left Femoral Neck: g/cm2 (0.837) / T-score (-0.7) / Z-score (0.9) Right Femur Total: g/cm2 (1.149) / T-score (0.8) / Z-score (1.8) Right Femoral Neck: g/cm2 (0.860) / T-score (-0.5) / Z-score (1.0) BD/Dexa Bone Density Study IMPRESSION: The patient is considered normal as outlined below according to World Higinio Organization (WHO) criteria with a low fracture risk. Reference Information: The T-score is the number of standard deviations above or below the standard which is normal for young adults at their peak bone mineral density. The World Health Organization (WHO) interprets the T-scores as follows: Above -1 Normal bone density Between -1 and -2.5 Osteopenia Equal to / or below -2.5 Osteoporosis As a practical clinical guideline, osteopenia may be graded as follows: Mild -1 through -1.5 Moderate -1.6 through -2.0 Severe -2.1 through -2.4 The Z-score is the number of standard deviations above or below age-matched controls. A Z-score of less than -1.5 would be considered abnormal. References: 1. NIH Osteoporosis and Related Bone Diseases www osteo.org 2. International Society for Clinical Densitometry www iscd.org 3. National Osteoporosis Foundation www nof.org Electronically Signed: Greg Carlos MD at 9:40 EDT ,
== END | disposition home or self-care (01) ==
LOC: OPBD 13:38
PROVIDERS: PCP Family Medicine; Visit Provider Family Medicine
DX: M85.89 Other specified disorders of bone density and structure, multiple sites (principal); M51.37 Other intervertebral disc degeneration, lumbosacral region
CPT/HCPCS: 77080

== ENCOUNTER → 2022-05-05 | Outpatient (CLI) | payer MEDICARE, OTHER, SELFPAY ==
[2022-05-05 18:10] LABS: Erythrocyte Sedimentation Rate 26 mm/hr (0-20)
[2022-05-05 18:17] LABS: Hematocrit 42.8 % (40-54); Hemoglobin 14.6 g/dL (13.0-16.5); Mean Corp Hgb Conc 34.1 g/dL (32-36); Mean Corpuscular Hgb 32.9 pg (27.0-32.0); Mean Corpuscular Volume 96.4 fL (80-94); Mean Platelet Vol. 9.7 fl (6.2-12.0); Platelet Count 221 K/mm3 (150-450); RBC Distribution Width CV 12.7 % (11.6-14.6); RBC Distribution Width SD 44.4 fl (35.1-43.9); Red Blood Count 4.44 M/mm3 (4.6-6.2); White Blood Count 7.6 K/mm3 (4.4-11.0)
[2022-05-05 18:47] LABS: Vitamin D,25 Hydroxy 69.2 ng/mL
[2022-05-05 18:56] LABS: Anion Gap 7 (5-15); BUN 23 mg/dL (7-18); BUN/Creat Ratio 19.3 RATIO (10-20); CRP < 2.90 mg/L (0.0-3.0); Calcium,Total 9.2 mg/dL (8.5-10.1); Chloride 104 mmol/L (98-107); Creatinine, Serum 1.19 mg/dL (0.70-1.30); EST Glomerular Filtration Rate 62 mL/min (>60); Est Glom Filt Rate - Afr Amer 76 mL/min (>60); Ferritin 84 ng/mL (26-388); Glucose 106 mg/dL (74-106); Iron 124 ug/dL (65-175); Magnesium 1.7 mg/dL (1.6-2.6); Potassium 4.3 mmol/L (3.5-5.1); Sodium Level 140 mmol/L (136-145); Thyroid Stim Hormone (TSH) 1.66 uIU/mL (0.358-3.74)
[2022-05-09 16:34] LABS: ANTINUCLEAR ANTIBODIES DIRECT Negative (Negative)
== END | disposition home or self-care (01) ==
LOC: MFPLAB 14:46
PROVIDERS: PCP Family Medicine; Referring Provider Family Medicine; Visit Provider Family Medicine
DX: G62.9 Polyneuropathy, unspecified (principal); E11.9 Type 2 diabetes mellitus without complications; E55.9 Vitamin D deficiency, unspecified
CPT/HCPCS: 36415; 80048; 82306; 82728; 83540; 83735; 84443; 85027; 85652; 86038; 86140

== ENCOUNTER → 2022-05-11 | Outpatient (CLI) | payer MEDICARE, OTHER, SELFPAY ==
[2022-05-11 16:05] LABS: Vitamin B12 977 pg/mL (211-911)
== END | disposition home or self-care (01) ==
LOC: MFPLAB 14:00
PROVIDERS: PCP Family Medicine; Visit Provider Family Medicine
DX: E53.8 Deficiency of other specified B group vitamins (principal)
CPT/HCPCS: 36415; 82607

== ENCOUNTER → 2022-08-04 | Outpatient (CLI) | payer MEDICARE, OTHER, SELFPAY ==
--- NOTE | 2022-08-04 15:01 | RAD_ITS ---
STUDY: X-RAY - RIGHT KNEE REASON FOR EXAM: Male, 82 years old. PAIN TECHNIQUE: 4 view(s) of the knee. COMPARISON: None. FINDINGS: Normal visualized distal femur. Normal visualized proximal tibia and fibula. Normal proximal tibiofibular articulation. There is severe degenerative arthrosis of the medial femorotibial compartment with severe joint space narrowing. Normal lateral femorotibial compartment. There is moderate degenerative arthrosis of the patellofemoral articulation. There is deformity of the knee joint. There are atherosclerotic calcifications. RAD/Knee 4 or More Views IMPRESSION: Degenerative arthrosis. Varus deformity of the knee joint. Electronically Signed: Greg Carlos MD at 15:39 EST ,
== END | disposition home or self-care (01) ==
LOC: MTRAD 15:00
PROVIDERS: PCP Family Medicine; Referring Provider Family Medicine; Visit Provider Family Medicine
DX: M25.561 Pain in right knee (principal)
CPT/HCPCS: 73564

== ENCOUNTER → 2022-11-10 | Outpatient (CLI) | payer MEDICARE, OTHER, SELFPAY ==
--- NOTE | 2022-11-10 10:00 | MRI_ITS ---
HISTORY: Low back pain, left leg pain x several months. TECHNIQUE: Multiplanar and multisequence MR images of the lumbar spine were obtained without intravenous contrast. 108 images. COMPARISON: Complex R5 1122. FINDINGS: VERTEBRAE: Chronic mild T12 compression fracture. Lumbar vertebral body heights maintained. Degenerative bone marrow endplate changes at multiple levels particularly L2-3 and L3-4. ALIGNMENT: Mild scoliosis. Chronic 3 mm retrolisthesis of L1-2 and 4 mm anterolisthesis of L4-5. CONUS: Normal morphology and position of the conus medullaris at T12. INTERVERTEBRAL DISCS: T12-L1: Mild disc bulge without significant central canal stenosis or foraminal narrowing based on the sagittal images. L1-2: Mild disc bulge and facet arthropathy without significant central canal stenosis. Mild bilateral foraminal narrowing. L2-3: Moderate posterior disc bulge osteophyte complex with facet arthropathy resulting in mild-moderate central canal stenosis, moderate left foraminal narrowing with abutment of the left L2 nerve root, and moderate right foraminal narrowing. L3-4: Moderate posterior disc bulge osteophyte complex with facet arthropathy and mildly prominent dorsal epidural fat resulting in moderate-severe narrowing of the thecal sac and bilateral foraminal narrowing with probable left L3 nerve root impingement and right L3 nerve root abutment. L4-5: Moderate posterior disc bulge osteophyte complex with facet arthropathy and prominent dorsal epidural fat resulting in moderate-severe narrowing of the thecal sac, moderate-severe left foraminal narrowing with probable left L4 nerve root impingement, and moderate right foraminal narrowing. L5-S1: Moderate posterior disc bulge osteophyte complex with facet arthropathy resulting in mild central canal stenosis and moderate bilateral foraminal narrowing with probable right L5 nerve root impingement. SOFT TISSUES: Mild posterior subcutaneous cutaneous edema. MRI/Spine Lumbar (Routine) IMPRESSION: Multilevel degenerative disc disease of the lumbar spine resulting in spinal canal stenosis, foraminal narrowing, and probable nerve root impingement as above. Electronically Signed: Dayanara Regan MD at 10:20 EDT ,
== END | disposition home or self-care (01) ==
LOC: MRI 09:36
PROVIDERS: PCP Family Medicine; Referring Provider Family Medicine; Visit Provider Family Medicine
DX: M51.36 Other intervertebral disc degeneration, lumbar region (principal)
CPT/HCPCS: 72148

== ENCOUNTER → 2023-03-09 | Outpatient (CLI) | payer MEDICARE, OTHER, SELFPAY ==
[2023-03-09 10:08] LABS: Absolute Lymphocyte Count 2.16 X10^3/uL (0.83-4.51); Absolute Neutrophil Count 5.9 X10^3/uL (2.0-7.7); Basophil# 0.04 X10^3/uL; Basophil% 0.4 % (0-1); Eosinophil# 0.12 X10^3/uL; Eosinophils% 1.3 % (0-5); Hematocrit 46.5 % (40-54); Hemoglobin 16.1 g/dL (13.0-16.5); Lymphocyte # 2.16 X10^3/ul (0.83-4.51); Lymphocyte % 23.9 % (19-41); Mean Corp Hgb Conc 34.6 g/dL (32-36); Mean Corpuscular Hgb 32.4 pg (27.0-32.0); Mean Corpuscular Volume 93.6 fL (80-94); Mean Platelet Vol. 9.4 fl (6.2-12.0); Monocyte# 0.74 X10^3/uL; Monocyte% 8.2 % (0-10); NRBC Flagged by Analyzer 0 % (0-5); Neutrophil # 5.94 X10^3/uL (2.7-7.7); Neutrophil % 65.8 % (47-70); POSITIVE MORPHOLOGY YES; Platelet Count 197 K/mm3 (150-450); RBC Distribution Width CV 12.4 % (11.6-14.6); RBC Distribution Width SD 43.2 fl (35.1-43.9); Red Blood Count 4.97 M/mm3 (4.6-6.2)
[2023-03-09 10:29] LABS: Differential Indicated SCAN CRITERIA MET
[2023-03-09 10:42] LABS: Vitamin B12 1109 pg/mL (211-911)
[2023-03-09 11:12] LABS: ALB/GLOB Ratio 0.7 RATIO (0.9-2.4); AST(SGOT) 29 U/L (15-37); Alanine Aminotransfer ALT/SGPT 51 U/L (16-61); Albumin, Serum 3.2 g/dL (3.2-5.0); Alkaline Phosphatase 119 U/L (45-117); Anion Gap 10 (5-15); BUN 20 mg/dL (7-18); BUN/Creat Ratio 13.4 RATIO (10-20); Calcium,Total 8.9 mg/dL (8.5-10.1); Chloride 103 mmol/L (98-107); Cholesterol 145 mg/dL (200); Creatinine, Serum 1.49 mg/dL (0.70-1.30); EST Glomerular Filtration Rate 48 mL/min (>60); Est Glom Filt Rate - Afr Amer 58 mL/min (>60); Globulin 4.7 g/dL (2.2-4.2); Glucose 159 mg/dL (74-106); High Density Lipoprotein 28 mg/dL; Potassium 3.3 mmol/L (3.5-5.1); Protein, Total 7.9 g/dL (6.4-8.2); Sodium Level 136 mmol/L (136-145); Thyroid Stim Hormone (TSH) 2.38 uIU/mL (0.358-3.74); Triglycerides 203 mg/dL; Very Low Density Lipoprotein 41 mg/dL (5-40)
== END | disposition home or self-care (01) ==
PROVIDERS: PCP Family Medicine; Referring Provider Family Medicine; Visit Provider Family Medicine
DX: R11.0 Nausea (principal); E11.40 Type 2 diabetes mellitus with diabetic neuropathy, unspecified; R82.998 Other abnormal findings in urine
CPT/HCPCS: 36415; 80053; 80061; 82607; 84403; 84443; 85025; 87086

== ENCOUNTER → 2023-03-18 | Outpatient (CLI) | payer MEDICARE, OTHER, SELFPAY ==
[2023-03-18 18:39] LABS: Anion Gap 7 (5-15); BUN 16 mg/dL (7-18); Calcium,Total 9.1 mg/dL (8.5-10.1); Chloride 102 mmol/L (98-107); Creatinine, Serum 1.33 mg/dL (0.70-1.30); EST Glomerular Filtration Rate 55 mL/min (>60); Est Glom Filt Rate - Afr Amer 66 mL/min (>60); Glucose 165 mg/dL (74-106); Potassium 4.3 mmol/L (3.5-5.1); Sodium Level 136 mmol/L (136-145)
== END | disposition home or self-care (01) ==
LOC: MTLAB 14:58
PROVIDERS: PCP Family Medicine; Referring Provider Family Medicine; Visit Provider Family Medicine
DX: R79.89 Other specified abnormal findings of blood chemistry (principal)
CPT/HCPCS: 36415; 80048

== ENCOUNTER → 2023-04-05 | Outpatient (CLI) | payer MEDICARE, OTHER, SELFPAY ==
--- NOTE | 2023-04-05 09:13 | RAD_ITS ---
STUDY: X-RAY - RIGHT KNEE REASON FOR EXAM: Male, 82 years old patient with right-sided knee pain. TECHNIQUE: 4 view(s) of the knee. COMPARISON: Radiographs of the right knee dated August 04, 2022. FINDINGS: Normal visualized distal femur. Normal visualized proximal tibia and fibula. Normal proximal tibiofibular articulation. There is no demonstrated fracture. There is severe degenerative arthrosis of the medial femorotibial compartment with severe joint space narrowing. There is moderate degenerative arthrosis of the lateral femorotibial compartment with moderate joint space narrowing. There is moderate degenerative arthrosis of the patellofemoral articulation. There is a soft tissue prominence in the suprapatellar region suggesting a small volume joint effusion. There are atherosclerotic calcifications. There is mild soft tissue swelling. RAD/Knee 4 or More Views IMPRESSION: Moderate to severe degenerative arthropathy with mild subluxation of the tibia. Electronically Signed: Yane Peres MD at 5:55 EDT ,
--- NOTE | 2023-04-05 09:15 | RAD_ITS ---
STUDY: X-RAY - LEFT KNEE REASON FOR EXAM: Male, 82 years old patient with knee pain. TECHNIQUE: 4 view(s) of the knee. COMPARISON: Prior comparable comparison studies are not available for review at this time. FINDINGS: The patient has had a total knee arthroplasty. There is a distal femoral and proximal tibial prosthesis. There are posterior changes of the posterior patella. Normal proximal tibiofibular articulation. Normal medial femorotibial compartment. Normal lateral femorotibial compartment. Normal patellofemoral articulation. There is no demonstrated joint effusion. There are atherosclerotic calcifications. There is mild soft tissue swelling. RAD/Knee 4 or More Views IMPRESSION: Postoperative changes of the knee without obvious complication. Electronically Signed: Yane Peres MD at 5:50 EDT ,
== END | disposition home or self-care (01) ==
LOC: MTRAD 08:52
PROVIDERS: PCP Family Medicine; Referring Provider Family Medicine; Visit Provider Family Medicine
DX: M17.0 Bilateral primary osteoarthritis of knee (principal); Z96.652 Presence of left artificial knee joint
CPT/HCPCS: 73564

== ENCOUNTER → 2023-07-11 | Outpatient (CLI) | payer MEDICARE, OTHER, SELFPAY ==
--- NOTE | 2023-07-11 08:24 | RAD_ITS ---
STUDY: X-RAY - ESOPHAGUS (BARIUM SWALLOW) WITH FLUOROSCOPY REASON FOR EXAM: Male, 82 years old. DYSPHAGIA TECHNIQUE: 19 view(s) of the esophagus were obtained following swallowing of barium. FLUOROSCOPY TIME (if supplied): (30 seconds) minutes/seconds. 17.19 mGy COMPARISON: None. FINDINGS: There is no demonstrated esophageal foreign body. There is no demonstrated stricture or mucosal abnormality. Normal gastroesophageal junction, without a demonstrated hiatal hernia. The patient ingested a 12 mm tablet of barium. The tablet is trapped at the gastroesophageal junction. Normal visualized aortic arch and descending thoracic aorta. Normal visualized pulmonary parenchyma. Normal visualized osseous structures of the thorax. RAD/Esophagus Dual Contrast IMPRESSION: The ingested 12 mm tablet of barium is trapped at the gastroesophageal junction. Electronically Signed: Greg Carlos MD at 10:59 EST ,
== END | disposition home or self-care (01) ==
LOC: RAD 08:12
PROVIDERS: PCP Family Medicine; Visit Provider Family Medicine
DX: R13.10 Dysphagia, unspecified (principal)
CPT/HCPCS: 74221

== ENCOUNTER → 2023-10-03 | Outpatient (CLI) | payer MEDICARE, OTHER, SELFPAY ==
--- OUTSIDE RECORDS SUMMARY | 2023-10-03 17:09 | XMS RPT_ITS | CCD ---
Author Name Unknown Address [address] [place] [address] Organization [facility] Care Team Providers Care Repair Armature Winder Name Role Phone DARCY MECHE L Unavailable Unavailable BACHCINDYER MECHE L Unavailable Unavailable NO REFERRING Unavailable Unavailable JIE GARCIA Unavailable Unavailable JIE GARCIA Unavailable Unavailable NO REFERRING Unavailable Unavailable BACHELDER, MECHE L Unavailable Unavailable BACHELDER, MECHE L Unavailable Unavailable BACHELDER, MECHE L Unavailable Unavailable IM[facility] Unavailable Unavailable BACHELDER, MECHE L Unavailable Unavailable [facility] Unavailable Unavailable BACHCINDYER, MECHE L Unavailable Unavailable [facility] Unavailable Unavailable Adelfo aGrcia MD Primary Care Provider Allergies Allergy Classification Reported Allergen(s) Allergy Type Date of Onset Reaction(s) Facility (3 sources) Angiotensin Converting Enzyme (Tonny) Inhibitors; Translations: [TONNY INHIBITORS] Propensity to adverse reactions (disorder) 6 Cough [facility] Repository (3 sources) Penicillins; Translations: [PENICILLINS] Propensity to adverse reactions (disorder) 6 Hives [facility] Repository (1 source) A.C.E INHIBITORS; Translations: [A.C.E INHIBITORS] Propensity to adverse reactions (disorder) [facility] Repository Medications Completed/Discontinued Medications Medication Drug Class(es) Dates Sig (Normalized) Sig (Original) amLODIPine 5 mg oral tablet (2 sources) Dihydropyridine Calcium Channel Mirna Start: 09-22-2021 take 1 tablet by mouth once daily amLODIPine (NORVASC) 5 mg tablet Take 5 mg by mouth once daily. 0 09/22/2021 Active Problems Active Problems Problem Classification Problem Date Documented Da te Episodic/Chronic Diabetes mellitus without complication (5 sources) Type 2 diabetes mellitus without complications; Translations: [Type 2 diabetes mellitus] Onset: 04-05-2017 11-17-2015 Chronic Disorders of lipid metabolism (3 sources) Hyperlipidemia, unspecified; Translations: [Hyperlipidemia] Onset: 04-15-2017 11-17-2015 Chronic Essential hypertension (5 sources) Essential (primary) hypertension; Translations: [Essential hypertension] Onset: 04-05-2017 11-17-2015 Chronic Other ear and sense organ disorders (1 source) Unspecified otitis externa, right ear; Translations: [UNS OTITIS EXTERNA RT EA] Onset: 04-13-2017 Chronic Other skin disorders (1 source) Seborrheic keratosis; Translations: [Other seborrheic keratosis] Episodic Superficial injury; contusion (1 source) Tick bite; Translations: [Insect bite (nonvenomous) of other part of head, initial encounter] Episodic Unclassified (3 sources) Pure hypercholesterolemi a, unspecified; Translations: [PURE HYPERCHOLESTEROLEMI ] Onset: 04-05-2017 Unclassified (1 source) Unknown / UNK(Unknown) Onset: 11-17-2015 Past or Other Problems Problem Classification Problem Date Documented Da te Episodic/Chronic Other ear and sense organ disorders (2 sources) Otalgia, right ear; Translations: [OTALGIA RIGHT EAR] Onset: 04-13-2017 Episodic Results Test Name Value Interpretation Reference Range Facil ity Vital Signs Date Time Vital Sign Value Performing Clinician Tara blair 01-08-2022 18:09-0400 Body temperature 98.01 [degF] Matias Willis MD Work Phone: [facility] 01-08-2022 18:09-0400 Body weight 77.38 kg Matias Willis MD Work Phone: [facility] 01-08-2022 18:09-0400 Diastolic blood pressure 82 mm[Hg] Matias Willis MD Work Phone: [facility] 01-08-2022 18:09-0400 Heart rate 77 /min Matias Willis MD Work Phone: [facility] 01-08-2022 18:09-0400 Respiratory rate 18 /min Matias Willis MD Work Phone: [facility] 01-08-2022 18:09-0400 SaO2% (BldA) [Mass fraction] 97 % Matias Willis MD Work Phone: [facility] 01-08-2022 18:09-0400 Systolic blood pressure 128 mm[Hg] Matias Willis MD Work Phone: [facility] 01-06-2022 19:32-0400 Body temperature 97.5 [degF] Dianne Erickson APRN.PERSONAL [employer]ES INSURANCE ADVISOR Work Phone: [facility] 01-06-2022 19:32-0400 Body weight 78.2 kg Dianne Erickson APRN.PERSONAL LINES INSURANCE ADVISOR Work Phone: [facility] 01-06-2022 19:32-0400 Diastolic blood pressure 82 mm[Hg] Dianne Erickson APRN.PERSONAL LINES INSURANCE ADVISOR Work Phone: [facility] 01-06-2022 19:32-0400 Heart rate 57 /min Dianne Erickson APRN.PERSONAL LINES INSURANCE ADVISOR Work Phone: [facility] 01-06-2022 19:32-0400 Respiratory rate 16 /min Dianne Erickson APRN.PERSONAL LINES INSURANCE ADVISOR Work Phone: [facility] 01-06-2022 19:32-0400 SaO2% (BldA) [Mass fraction] 97 % Dianne Erickson APRN.PERSONAL LINES INSURANCE ADVISOR Work Phone: [facility] 01-06-2022 19:32-0400 Systolic blood pressure 136 mm[Hg] Dianne Erickson APRN.PERSONAL LINES INSURANCE ADVISOR Work Phone: [facility] Encounters Encounter Date Encounter Type Care Provider Facility Start: 01-08-2022 End: 01-08-2022 Patient encounter procedure Matias Willis MD Work Phone: [facility] Plan of Treatment Date Care Activity Detail Author Start: 08-29-2021 ADVANCE DIRECTIVE DISCUSSION ADVANCE DIRECTIVE DISCUSSION [facility] Start: 12-12-2018 Hepatitis B surface antibody level LDL CHOLESTEROL [facility] Start: 05-31-2018 ANNUAL PCP TEAM CLINICAL LAB SPECIALIST ZORAIDA DISEASE VISIT ANNUAL PCP TEAM CHRONIC DISEASE VISIT [facility] Start: 04-05-2018 Hepatitis B screening URINE AL BUMIN:CREATININE RATIO [facility] Start: 11-02-2017 3 comp foot exam completed DIABETIC FOOT EXAM [facility] Start: 10-06-2017 Hemoglobin A1c/Hemoglobin.total in Blood HBA1C [facility] Start: 07-08-2016 Hepatitis C antibody , confirmatory test DILATED RETINAL EXAM [facility] Start: 1991 SHINGRIX VACCINE (1 of 2) ESPINO GRIX VACCINE (1 of 2) [facility] Start: 1960 Urine microalbumin profile DTAP,TDAP ,TD (1 - Tdap) [facility] Start: 1959 BP CONTROLLED (<130/80) BP CONTROLLE D (<130/80) [facility] Start: 1953 Adult depression scr eening assessment DEPRESSION SCREENING [facility] Start: 1946 COVID-19 VACCINE (#1) COVID-19 VACCI NE (#1) [facility] Immunizations Immunization Date Immunization Notes Care Provider Drew wilhelm 05-31-2017 influenza, high dose seasonal, preservative-free Dianne Dre MOBILE PHLEBOTOMIST.PERSONAL LINES INSURANCE ADVISOR Work Phone: [facility] 05-14-2016 pneumococcal conjuga te vaccine, 13 valent Dianne Dre MOBILE PHLEBOTOMIST.PERSONAL LINES INSURANCE ADVISOR Work Phone: [facility] 05-19-2015 influenza, high dose seasonal, preservative-free Dianne Dre MOBILE PHLEBOTOMIST.PERSONAL LINES INSURANCE ADVISOR Work Phone: [facility] 08-29-2009 pneumococcal polysaccharide vaccine, 23 valent Dianne Dre MOBILE PHLEBOTOMIST.PERSONAL LINES INSURANCE ADVISOR Work Phone: [facility] Payers Date Payer Category Payer Private Health Insurance [employer] A ETNA MEDICARE SUPPLEMENT [id number] 2015-Present [phone] [address] [address] [place] [address] Indemnity [id number] 2006 Medicare MEDICARE MEDICAR E A AND B [id number] 2006-Present [phone] [address] [address] [place] [address] Medicare [id number] Medicare [id number] Social History Date Type Detail Facility Start: 11-17-2015 Tobacco smoking stat us NHIS Ex-smoker [facility] Start: 11-17-2015 Tobacco use and exposure Smoke less tobacco non-user [facility] Start: 01-06-2022 End: 01-08-2022 Alcohol intake Current non-drinker of alcohol (finding) [facility] Start: 1940 Sex Assigned At Not on file [facility] Start: 12-27-2021 End: 01-06-2022 Exposure to SARS-CoV-2 (event) Not sure [facility] Progress note 01-08-2022 Note Date & Type Note Facility 01-08-2022 Note HNO ID: [id number] Author: Matias Willis MD Service: ? Author Type: Physician Type: Progress Notes Filed: 01/08/2022 6:30 PM Note Text: Patient presents with: tick in lower back: noticed it today HPI: Noticed a tick on his back after his shower today. He has tried no treatment. He had a tick removed from his kline here 2 days ago. MEDICATIONS: amLODIPine (NORVASC) 5 mg tablet Take 5 mg by mouth once daily. celecoxib (CELEBREX) 200 mg capsule Take 200 mg by mouth once daily. omeprazole (PRILOSEC) 40 mg capsule Take 40 mg by mouth once daily. lovastatin (MEVACOR) 20 mg tablet Take 1 tablet by mouth once daily. 1 tablet(s) By mouth Daily metFORMIN (GLUCOPHAGE) 500 mg tablet Take 1 tablet by mouth once daily. 1 tablet(s) by mouth daily metoprolol tartrate, short acting, (LOPRESSOR) 50 mg tablet Take 1 tablet by mouth once daily. 1 tablet(s) by mouth daily aspirin, enteric coated (ASPIRIN, ENTERIC COATED) 81 mg EC tablet Take 81 mg by mouth once daily. 1 tablet(s) by mouth daily ALLERGIES: ALLERGIES Allergen Reactions - Tonny Inhibitors Cough - Penicillins Hives VITALS: BP 128/82 Pulse 77 Temp 36.7 ?C (98 ?F) (Tympanic) Resp 18 Wt 77.4 kg (170 lb 9.6 oz) SpO2 97% BMI 29.28 kg/m? PE: Pleasant, in no acute distress. SKIN: 5mm brown waxy flattened papule mid back. ASSESSMENT/PLAN: 1. 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 Education about tick removal provided. Matias Willis MD [facility] History of Present illness Narrative 01-08-2022 Matias Willis MD - 01/08/2022 6:17 PM EDT Note Date & Type Note Facility 01-08-2022 History of Presen t illness Narrative Patient presents with: tick in lower back: noticed it today HPI: Noticed a tick on his back after his shower today. He has tried no treatment. He had a tick removed from his kline here 2 days ago. MEDICATIONS: amLODIPine (NORVASC) 5 mg tablet Take 5 mg by mouth once daily. celecoxib (CELEBREX) 200 mg capsule Take 200 mg by mouth once daily. omeprazole (PRILOSEC) 40 mg capsule Take 40 mg by mouth once daily. lovastatin (MEVACOR) 20 mg tablet Take 1 tablet by mouth once daily. 1 tablet(s) By mouth Daily metFORMIN (GLUCOPHAGE) 500 mg tablet Take 1 tablet by mouth once daily. 1 tablet(s) by mouth daily metoprolol tartrate, short acting, (LOPRESSOR) 50 mg tablet Take 1 tablet by mouth once daily. 1 tablet(s) by mouth daily aspirin, enteric coated (ASPIRIN, ENTERIC COATED) 81 mg EC tablet Take 81 mg by mouth once daily. 1 tablet(s) by mouth daily ALLERGIES: ALLERGIES Allergen Reactions Tonny Inhibitors Cough Penicillins Hives VITALS: BP 128/82 Pulse 77 Temp 36.7 C (98 F) (Tympanic) Resp 18 Wt 77.4 kg (170 lb 9.6 oz) SpO2 97% BMI 29.28 kg/m PE: Pleasant, in no acute distress. SKIN: 5mm brown waxy flattened papule mid back. ASSESSMENT/PLAN: 1. 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 Education about tick removal provided. Matias Willis MD documented in this encounter [facility] Progress note 01-06-2022 Note Date & Type Note Facility 01-06-2022 Note HNO ID: [id number] Author: Dianne Erickson APRN.PERSONAL LINES INSURANCE ADVISOR Service: ? Author Type: Nurse Practitioner Type: Progress Notes Filed: 01/06/2022 7:45 PM Note Text: Subjective Patient came in with complains of tick on right side of jaw under kline. patient said he was just outside a couple hours ago. could not have been on any longer than that. deneis any other symptoms at this time. The history is provided by the patient. No director of corporate communications was used. Review of Systems Constitutional: Negative. Skin: Negative. Objective Physical Exam Constitutional: Appearance: Normal appearance. HENT: Head: Comments: Tick removed successfully. Cardiovascular: Pulses: Normal pulses. Neurological: Mental Status: He is alert. PAST MEDICAL HISTORY Diagnosis Date - Acute sinusitis - Allergic rhinitis seasonal allergies - Backache T12 compression fracture - Benign polyp of large intestine - Biliary calculus - Bunion - Constipation - Essential hypertension - Ex-smoker - Fatigue - Gastroesophageal reflux disease - Hyperlipidemia - Hypokalemia - Impaired glucose tolerance - Knee pain - Neck pain - Osteoarthritis of multiple joints - Radiculitis - Type 2 diabetes mellitus (HCC) PAST SURGICAL HISTORY Procedure Laterality Date - ARTHRODESIS ANKLE OPEN - ARTHRP KNE CONDYLEANDPLATU MEDIALANDLAT COMPARTMENTS - CHOLECYSTECTOMY 2016 DR RICHMOND ALLERGIES Tonny Inhibitors and Penicillins MEDICATIONS amLODIPine (NORVASC) 5 mg tablet Take 5 mg by mouth once daily. celecoxib (CELEBREX) 200 mg capsule Take 200 mg by mouth once daily. omeprazole (PRILOSEC) 40 mg capsule Take 40 mg by mouth once daily. lovastatin (MEVACOR) 20 mg tablet Take 1 tablet by mouth once daily. 1 tablet(s) By mouth Daily metFORMIN (GLUCOPHAGE) 500 mg tablet Take 1 tablet by mouth once daily. 1 tablet(s) by mouth daily metoprolol tartrate, short acting, (LOPRESSOR) 50 mg tablet Take 1 tablet by mouth once daily. 1 tablet(s) by mouth daily aspirin, enteric coated (ASPIRIN, ENTERIC COATED) 81 mg EC tablet Take 81 mg by mouth once daily. 1 tablet(s) by mouth daily FAMILY HISTORY Problem Relation Age of Onset - Cancer Maternal Grandfather - Coronary Artery Disease Father - other (Heart disease) Father - other (Endometrial cancer) Paternal Grandmother - Hypertension Mother - Coronary Artery Disease Paternal Grandfather - other (Heart disease) Paternal Grandfather Social History Tobacco Use - Smoking status: Former Smoker - Smokeless tobacco: Never Used Substance Use Topics - Alcohol use: No - Drug use: Not on file Comment: None Reported PAST MEDICAL HISTORY Diagnosis Date - Acute sinusitis - Allergic rhinitis seasonal allergies - Backache T12 compression fracture - Benign polyp of large intestine - Biliary calculus - Bunion - Constipation - Essential hypertension - Ex-smoker - Fatigue - Gastroesophageal reflux disease - Hyperlipidemia - Hypokalemia - Impaired glucose tolerance - Knee pain - Neck pain - Osteoarthritis of multiple joints - Radiculitis - Type 2 diabetes mellitus (HCC) PAST SURGICAL HISTORY Procedure Laterality Date - ARTHRODESIS ANKLE OPEN - ARTHRP KNE CONDYLEANDPLATU MEDIALANDLAT COMPARTMENTS - CHOLECYSTECTOMY 2016 DR RICHMOND ALLERGIES Tonny Inhibitors and Penicillins MEDICATIONS amLODIPine (NORVASC) 5 mg tablet Take 5 mg by mouth once daily. celecoxib (CELEBREX) 200 mg capsule Take 200 mg by mouth once daily. omeprazole (PRILOSEC) 40 mg capsule Take 40 mg by mouth once daily. lovastatin (MEVACOR) 20 mg tablet Take 1 tablet by mouth once daily. 1 tablet(s) By mouth Daily metFORMIN (GLUCOPHAGE) 500 mg tablet Take 1 tablet by mouth once daily. 1 tablet(s) by mouth daily metoprolol tartrate, short acting, (LOPRESSOR) 50 mg tablet Take 1 tablet by mouth once daily. 1 tablet(s) by mouth daily aspirin, enteric coated (ASPIRIN, ENTERIC COATED) 81 mg EC tablet Take 81 mg by mouth once daily. 1 tablet(s) by mouth daily FAMILY HISTORY Problem Relation Age of Onset - Cancer Maternal Grandfather - Coronary Artery Disease Father - other (Heart disease) Father - other (Endometrial cancer) Paternal Grandmother - Hypertension Mother - Coronary Artery Disease Paternal Grandfather - other (Heart disease) Paternal Grandfather Social History Tobacco Use - Smoking status: Former Smoker - Smokeless tobacco: Never Used Substance Use Topics - Alcohol use: No - Drug use: Not on file Comment: None Reported ASSESSMENT/PLAN: 1. Tick bite of other part of head, initial encounter - ICD9: 910.4, E906.4, ICD10: S00.86XA, W57.XXXA Tick removed successfully no medication needed at this time. Instructed to monitor for any symptoms. Patient was okay with this care plan. Dianne Erickson APRN.BEST [facility] History of Present illness Narrative 01-06-2022 Dianne Erickson APRN.BEST - 01/06/2022 7:31 PM EDT Note Date & Type Note Facility 01-06-2022 History of Presen t illness Narrative Images from the original note were not included. Subjective Patient came in with complains of tick on right side of jaw under kline. patient said he was just outside a couple hours ago. could not have been on any longer than that. deneis any other symptoms at this time. The history is provided by the patient. No director of corporate communications was used. Review of Systems Constitutional: Negative. Skin: Negative. Objective Physical Exam Constitutional: Appearance: Normal appearance. HENT: Head: Comments: Tick removed successfully. Cardiovascular: Pulses: Normal pulses. Neurological: Mental Status: He is alert. PAST MEDICAL HISTORY Diagnosis Date Acute sinusitis Allergic rhinitis seasonal allergies Backache T12 compression fracture Benign polyp of large intestine Biliary calculus Bunion Constipation Essential hypertension Ex-smoker Fatigue Gastroesophageal reflux disease Hyperlipidemia Hypokalemia Impaired glucose tolerance Knee pain Neck pain Osteoarthritis of multiple joints Radiculitis Type 2 diabetes mellitus (HCC) PAST SURGICAL HISTORY Procedure Laterality Date ARTHRODESIS ANKLE OPEN ARTHRP KNE CONDYLE&PLATU MEDIAL&LAT COMPARTMENTS CHOLECYSTECTOMY 2016 DR RICHMOND ALLERGIES Tonny Inhibitors and Penicillins MEDICATIONS amLODIPine (NORVASC) 5 mg tablet Take 5 mg by mouth once daily. celecoxib (CELEBREX) 200 mg capsule Take 200 mg by mouth once daily. omeprazole (PRILOSEC) 40 mg capsule Take 40 mg by mouth once daily. lovastatin (MEVACOR) 20 mg tablet Take 1 tablet by mouth once daily. 1 tablet(s) By mouth Daily metFORMIN (GLUCOPHAGE) 500 mg tablet Take 1 tablet by mouth once daily. 1 tablet(s) by mouth daily metoprolol tartrate, short acting, (LOPRESSOR) 50 mg tablet Take 1 tablet by mouth once daily. 1 tablet(s) by mouth daily aspirin, enteric coated (ASPIRIN, ENTERIC COATED) 81 mg EC tablet Take 81 mg by mouth once daily. 1 tablet(s) by mouth daily FAMILY HISTORY Problem Relation Age of Onset Cancer Maternal Grandfather Coronary Artery Disease Father other (Heart disease) Father other (Endometrial cancer) Paternal Grandmother Hypertension Mother Coronary Artery Disease Paternal Grandfather other (Heart disease) Paternal Grandfather Social History Tobacco Use Smoking status: Former Smoker Smokeless tobacco: Never Used Substance Use Topics Alcohol use: No Drug use: Not on file Comment: None Reported PAST MEDICAL HISTORY Diagnosis Date Acute sinusitis Allergic rhinitis seasonal allergies Backache T12 compression fracture Benign polyp of large intestine Biliary calculus Bunion Constipation Essential hypertension Ex-smoker Fatigue Gastroesophageal reflux disease Hyperlipidemia Hypokalemia Impaired glucose tolerance Knee pain Neck pain Osteoarthritis of multiple joints Radiculitis Type 2 diabetes mellitus (HCC) PAST SURGICAL HISTORY Procedure Laterality Date ARTHRODESIS ANKLE OPEN ARTHRP KNE CONDYLE&PLATU MEDIAL&LAT COMPARTMENTS CHOLECYSTECTOMY 2016 DR RICHMOND ALLERGIES Tonny Inhibitors and Penicillins MEDICATIONS amLODIPine (NORVASC) 5 mg tablet Take 5 mg by mouth once daily. celecoxib (CELEBREX) 200 mg capsule Take 200 mg by mouth once daily. omeprazole (PRILOSEC) 40 mg capsule Take 40 mg by mouth once daily. lovastatin (MEVACOR) 20 mg tablet Take 1 tablet by mouth once daily. 1 tablet(s) By mouth Daily metFORMIN (GLUCOPHAGE) 500 mg tablet Take 1 tablet by mouth once daily. 1 tablet(s) by mouth daily metoprolol tartrate, short acting, (LOPRESSOR) 50 mg tablet Take 1 tablet by mouth once daily. 1 tablet(s) by mouth daily aspirin, enteric coated (ASPIRIN, ENTERIC COATED) 81 mg EC tablet Take 81 mg by mouth once daily. 1 tablet(s) by mouth daily FAMILY HISTORY Problem Relation Age of Onset Cancer Maternal Grandfather Coronary Artery Disease Father other (Heart disease) Father other (Endometrial cancer) Paternal Grandmother Hypertension Mother Coronary Artery Disease Paternal Grandfather other (Heart disease) Paternal Grandfather Social History Tobacco Use Smoking status: Former Smoker Smokeless tobacco: Never Used Substance Use Topics Alcohol use: No Drug use: Not on file Comment: None Reported ASSESSMENT/PLAN: 1. Tick bite of other part of head, initial encounter - ICD9: 910.4, E906.4, ICD10: S00.86XA, W57.XXXA Tick removed successfully no medication needed at this time. Instructed to monitor for any symptoms. Patient was okay with this care plan. Dianne Erickson APRN.CNP documented in this encounter [facility] History of Past illness Narrative 04-04-2017 Note Date & Type Note Facility documented as of this encounter (statuses as of 01/06/2022) [facility] History of Past illness Narrative 04-04-2017 Note Date & Type Note Facility documented as of this encounter (statuses as of 01/08/2022) [facility] Evaluation note Note Date & Type Note Facility documented in this encounter [facility] Evaluation note Note Date & Type Note Facility documented in this encounter [facility] Summary Purpose Family History No Family History Records FoundNo Family History Records FoundNo Family History Records Found Advance Directives Documents on File Type Date Recorded Patient Professor Of Communication Expl 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 Advance Directive(s) 12/13/2021 8:54 AM Additional Source Comments (unrecognized sect ion and content) No Status Records FoundNo Status Records FoundNo Status Records Found INFORMATION SOURCE (unrecogn ized section and content) DATE CREATED AUTHOR AUTHOR'S ORGANIZ ATION 08/23/2018 [facility] DATE CREATED AUTHOR AUTHOR'S ORGANIZ ATION 01/08/2022 [facility] Source Comments (unrecognize d section and content) In the event this informatio n is protected by the Federal Confidentiality of Alcohol and Drug Abuse Patient Records regulations: The Federal rules restrict any use of the information to criminally investigate or prosecute any alcohol or drug abuse patient[facility] the event this information is protected by the Federal Confidentiality of Alcohol and Drug Abuse Patient Records regulations: The Federal rules restrict any use of the information to criminally investigate or prosecute any alcohol or drug abuse patient.[facility] Reason for Visit (unrecogniz ed section and content) Reason Comments tick in lower back noticed it today Care Teams (unrecognized sec tion and content) FOR RECORDS PERTAINING TO PATIENTS WHO ARE OR HAVE BEEN ENROLLED IN A CHEMICAL DEPENDENCY/SUBSTANCEABUSE PROGRAM, SOME INFORMATION MAY BE OMITTED. This clinical summary was aggregated from multiple sources. Caution should be exercised in using it in the provision of clinical care. This summary normalizes information from multiple sources, and as a consequence, information in this document may materially change the coding, format and clinical context of patient data. In addition, data may be omitted in some cases. CLINICAL DECISIONS SHOULD BE BASED ON THE PRIMARY CLINICAL RECORDS. [facility] [employer] [facility]. provides no warranty or guarantee of the accuracy or completeness of information in this document.
[2023-10-03 18:15] LABS: Anion Gap 4 (5-15); BUN 21 mg/dL (7-18); BUN/Creat Ratio 18.8 RATIO (10-20); Calcium,Total 9.1 mg/dL (8.5-10.1); Chloride 106 mmol/L (98-107); Creatinine, Serum 1.12 mg/dL (0.70-1.30); EST Glomerular Filtration Rate 67 mL/min (>60); Est Glom Filt Rate - Afr Amer 81 mL/min (>60); Glucose 103 mg/dL (74-106); Potassium 3.8 mmol/L (3.5-5.1); Sodium Level 137 mmol/L (136-145)
== END | disposition home or self-care (01) ==
LOC: MFPLAB 14:58
PROVIDERS: PCP Family Medicine; Visit Provider Family Medicine
DX: N18.30 Chronic kidney disease, stage 3 unspecified (principal)
CPT/HCPCS: 36415; 80048

== ENCOUNTER → 2023-11-08 | Outpatient (CLI) | payer MEDICARE, OTHER, SELFPAY ==
[2023-11-08 18:45] LABS: Anion Gap 7 (5-15); BUN 21 mg/dL (7-18); BUN/Creat Ratio 17.4 RATIO (10-20); Calcium,Total 8.8 mg/dL (8.5-10.1); Chloride 105 mmol/L (98-107); Creatinine, Serum 1.21 mg/dL (0.70-1.30); EST Glomerular Filtration Rate 61 mL/min (>60); Est Glom Filt Rate - Afr Amer 74 mL/min (>60); Glucose 119 mg/dL (74-106); Potassium 3.9 mmol/L (3.5-5.1); Sodium Level 139 mmol/L (136-145)
== END | disposition home or self-care (01) ==
LOC: MFPLAB 14:00
PROVIDERS: PCP Family Medicine; Visit Provider Family Medicine
DX: N18.30 Chronic kidney disease, stage 3 unspecified (principal)
CPT/HCPCS: 36415; 80048

== ENCOUNTER → 2023-12-28 | Outpatient (CLI) | payer MEDICARE, OTHER, SELFPAY ==
[2023-12-28 12:36] LABS: Anion Gap 7 (5-15); BUN 23 mg/dL (7-18); BUN/Creat Ratio 18.1 RATIO (10-20); Calcium,Total 9.5 mg/dL (8.5-10.1); Chloride 105 mmol/L (98-107); Creatinine, Serum 1.27 mg/dL (0.70-1.30); EST Glomerular Filtration Rate 58 mL/min (>60); Est Glom Filt Rate - Afr Amer 70 mL/min (>60); Glucose 163 mg/dL (74-106); Potassium 3.7 mmol/L (3.5-5.1); Sodium Level 139 mmol/L (136-145)
== END | disposition home or self-care (01) ==
LOC: MFPLAB 11:18
PROVIDERS: PCP Family Medicine; Visit Provider Family Medicine
DX: E11.59 Type 2 diabetes mellitus with other circulatory complications (principal)
CPT/HCPCS: 36415; 80048

== ENCOUNTER → 2024-04-17 | Outpatient (CLI) | payer MEDICARE, OTHER, SELFPAY ==
[2024-04-17 12:35] LABS: Vitamin B12 350 pg/mL (211-911); Vitamin D,25 Hydroxy 89.2 ng/mL
[2024-04-17 12:36] LABS: Absolute Lymphocyte Count 2.18 X10^3/uL (0.83-4.51); Absolute Neutrophil Count 3.4 X10^3/uL (2.0-7.7); Basophil# 0.03 X10^3/uL; Basophil% 0.5 % (0-1); Eosinophil# 0.16 X10^3/uL; Eosinophils% 2.5 % (0-5); Hematocrit 41.4 % (40-54); Hemoglobin 14.1 g/dL (13.0-16.5); Lymphocyte # 2.18 X10^3/ul (0.83-4.51); Lymphocyte % 34.2 % (19-41); Mean Corp Hgb Conc 34.1 g/dL (32-36); Mean Corpuscular Hgb 33.6 pg (27.0-32.0); Mean Corpuscular Volume 98.6 fL (80-94); Mean Platelet Vol. 9.3 fl (6.2-12.0); Monocyte# 0.63 X10^3/uL; Monocyte% 9.9 % (0-10); NRBC Flagged by Analyzer 0 % (0-5); Neutrophil # 3.35 X10^3/uL (2.7-7.7); Neutrophil % 52.4 % (47-70); Platelet Count 224 K/mm3 (150-450); RBC Distribution Width CV 12.9 % (11.6-14.6); RBC Distribution Width SD 46.6 fl (35.1-43.9); White Blood Count 6.4 K/mm3 (4.4-11.0)
[2024-04-17 13:17] LABS: ALB/GLOB Ratio 0.9 RATIO (0.9-2.4); AST(SGOT) 19 U/L (15-37); Alanine Aminotransfer ALT/SGPT 27 U/L (16-61); Albumin, Serum 3.5 g/dL (3.2-5.0); Alkaline Phosphatase 85 U/L (45-117); Anion Gap 8 (5-15); BUN 19 mg/dL (7-18); BUN/Creat Ratio 15.3 RATIO (10-20); Calcium,Total 9.9 mg/dL (8.5-10.1); Chloride 105 mmol/L (98-107); Cholesterol 164 mg/dL (200); Creatinine, Serum 1.24 mg/dL (0.70-1.30); EST Glomerular Filtration Rate 59 mL/min (>60); Est Glom Filt Rate - Afr Amer 72 mL/min (>60); Globulin 3.9 g/dL (2.2-4.2); Glucose 144 mg/dL (74-106); High Density Lipoprotein 44 mg/dL; Iron 140 ug/dL (65-175); Potassium 3.7 mmol/L (3.5-5.1); Protein, Total 7.4 g/dL (6.4-8.2); Sodium Level 141 mmol/L (136-145); Triglycerides 156 mg/dL; Very Low Density Lipoprotein 31 mg/dL (5-40)
== END | disposition home or self-care (01) ==
LOC: MFPLAB 10:14
PROVIDERS: PCP Family Medicine; Visit Provider Family Medicine
DX: K14.5 Plicated tongue (principal); E11.9 Type 2 diabetes mellitus without complications; E55.9 Vitamin D deficiency, unspecified
CPT/HCPCS: 36415; 80053; 80061; 82306; 82607; 83540; 84443; 85025

== ENCOUNTER → 2024-06-04 | Outpatient (CLI) | payer MEDICARE, OTHER, SELFPAY ==
[2024-06-04 18:07] LABS: Absolute Lymphocyte Count 2.48 X10^3/uL (0.83-4.51); Absolute Neutrophil Count 5.6 X10^3/uL (2.0-7.7); Basophil# 0.04 X10^3/uL; Basophil% 0.4 % (0-1); Eosinophil# 0.11 X10^3/uL; Eosinophils% 1.2 % (0-5); Hematocrit 42.6 % (40-54); Hemoglobin 14.5 g/dL (13.0-16.5); Lymphocyte # 2.48 X10^3/ul (0.83-4.51); Lymphocyte % 27.3 % (19-41); Mean Corpuscular Hgb 33.2 pg (27.0-32.0); Mean Corpuscular Volume 97.5 fL (80-94); Monocyte# 0.84 X10^3/uL; Monocyte% 9.3 % (0-10); NRBC Flagged by Analyzer 0 % (0-5); Neutrophil # 5.57 X10^3/uL (2.7-7.7); Neutrophil % 61.4 % (47-70); Platelet Count 282 K/mm3 (150-450); RBC Distribution Width CV 12.2 % (11.6-14.6); RBC Distribution Width SD 44.6 fl (35.1-43.9); Red Blood Count 4.37 M/mm3 (4.6-6.2); White Blood Count 9.1 K/mm3 (4.4-11.0)
[2024-06-04 18:34] LABS: ALB/GLOB Ratio 0.8 RATIO (0.9-2.4); AST(SGOT) 15 U/L (15-37); Alanine Aminotransfer ALT/SGPT 19 U/L (16-61); Albumin, Serum 3.6 g/dL (3.2-5.0); Alkaline Phosphatase 93 U/L (45-117); Anion Gap 9 (5-15); BUN 24 mg/dL (7-18); Calcium,Total 9.8 mg/dL (8.5-10.1); Chloride 99 mmol/L (98-107); Creatinine, Serum 1.33 mg/dL (0.70-1.30); EST Glomerular Filtration Rate 55 mL/min (>60); Est Glom Filt Rate - Afr Amer 66 mL/min (>60); Globulin 4.5 g/dL (2.2-4.2); Glucose 146 mg/dL (74-106); Magnesium 2.2 mg/dL (1.6-2.6); Potassium 3.5 mmol/L (3.5-5.1); Protein, Total 8.1 g/dL (6.4-8.2); Sodium Level 136 mmol/L (136-145); Troponin-I HS 8 pg/mL (3.0-78.0)
== END | disposition home or self-care (01) ==
PROVIDERS: PCP Family Medicine; Referring Provider Family Medicine; Visit Provider Family Medicine
DX: I48.91 Unspecified atrial fibrillation (principal)
CPT/HCPCS: 36415; 80053; 83735; 84443; 84484; 85025

== ENCOUNTER → 2024-06-15 | Outpatient (CLI) | payer MEDICARE, OTHER, SELFPAY ==
--- NOTE | 2024-06-15 13:35 | ECHOD_ITS ---
Reason For Study: New onset A. fib Procedure This was a 2D Doppler, Color Flow transthoracic echocardiogram. Exam performed in department. Left Ventricle Normal LV size. Left ventricular systolic function is normal. The left ventricular ejection fraction is 60 %. Stage 1 diastolic dysfunction. No regional wall motion abnormalities noted. Right Ventricle Normal right ventricle. Normal systolic function. Atria Normal left atrium. Normal right atrium. Mitral Valve Normal mitral valve. Mild (1+) eccentric mitral valve insufficiency. Tricuspid Valve Normal tricuspid valve. Mild tricuspid valve insufficiency. Pulmonary artery systolic pressure is 26 mmHg. Aortic Valve Trisinus/trileaflet aortic valve. Mild (1+) aortic valve insufficiency. Pulmonic Valve Normal pulmonic valve. Great Vessels Normal aortic root. The pulmonary artery is normal size. Inferior vena cava collapse with respiration. Pericardium/Pleural No pericardial effusion. MMode/2D Measurements & Calculations LVIDd: 4.5 cm IVSd: 0.85 cm Ao root diam: 3.0 cm LVIDs: 2.7 cm LVPWd: 1.00 cm RVDd: 3.6 cm FS: 39.1 % LAV(MOD-bp): 49.7 ml LVAd ap4: 28.2 cm2 LVAd ap2: 31.0 cm2 LAV(MOD-bp) Indexed: 27.5 ml/m2 LVLd ap4: 8.4 cm LVLd ap2: 8.4 cm LAV(MOD-sp2): 55.3 ml EDV(MOD-sp4): 77.2 ml EDV(MOD-sp2): 96.0 ml LAV(MOD-sp4): 43.4 ml EDV(sp4-el): 80.0 ml EDV(sp2-el): 96.9 ml LVAs ap4: 16.6 cm2 LVAs ap2: 16.5 cm2 LVLs ap4: 7.2 cm LVLs ap2: 7.3 cm ESV(MOD-sp4): 32.2 ml ESV(MOD-sp2): 33.0 ml ESV(sp4-el): 32.5 ml ESV(sp2-el): 31.7 ml EF(MOD-sp4): 58.3 % EF(MOD-sp2): 65.6 % EF(sp4-el): 59.4 % SV(MOD-sp4): 45.0 ml SV(MOD-sp2): 63.0 ml SV(sp4-el): 47.5 ml LA dimension(2D): 3.5 cm LA A4 area: 17.7 cm2 RA A4 area: 15.7 cm2 TAPSE: 1.7 cm Time Measurements MV dec time: 0.33 sec Doppler Measurements & Calculations MV E max elliot: 48.9 cm/sec Lat Peak E' Elliot: 10.6 cm/sec Med Peak E' Elliot: 5.5 cm/sec MV A max elliot: 72.0 cm/sec E/E' lat: 4.6 E/E' med: 8.8 MV E/A: 0.68 MV dec slope: 150.3 cm/sec2 Ao V2 max: 164.9 cm/sec AI max elliot: 359.2 cm/sec Ao max P.9 mmHg AI max P.7 mmHg Ao V2 mean: 105.3 cm/sec AI dec slope: 116.3 cm/sec2 Ao mean P.1 mmHg AI P1/2t: 904.9 msec Ao V2 VTI: 38.1 cm AV (velocity ratio): 0.80 LV V1 max: 117.6 cm/sec PA V2 max: 126.4 cm/sec TR max elliot: 241.0 cm/sec LV V1 max P.5 mmHg TR max P.2 mmHg LV V1 mean P.9 mmHg LV V1 mean: 79.4 cm/sec LV V1 VTI: 30.3 cm ECHO/Echo Complete Interpretation Summary Normal LV size. Left ventricular systolic function is normal. The left ventricular ejection fraction is 60 %. Stage 1 diastolic dysfunction. The global longitudinal strain is normal. The global longitudinal strain = -19. 9 % (normal). Ordering Physician: Adelfo Garcia Referring Physician: Adelfo Garcia Performed By: Faviola Sage RDCS
== END | disposition home or self-care (01) ==
LOC: CVS 13:31
PROVIDERS: PCP Family Medicine; Referring Provider Family Medicine; Visit Provider Family Medicine
DX: I48.91 Unspecified atrial fibrillation (principal); R06.2 Wheezing
CPT/HCPCS: 93306

== ENCOUNTER → 2024-09-21 | Outpatient (CLI) | payer MEDICARE, OTHER, SELFPAY ==
[2024-09-24 12:56] LABS: Vitamin B12 522 pg/mL (211-911)
== END | disposition home or self-care (01) ==
LOC: MFPLAB 15:10
PROVIDERS: PCP Family Medicine; Referring Provider Family Medicine; Visit Provider Family Medicine
DX: E53.8 Deficiency of other specified B group vitamins (principal)
CPT/HCPCS: 36415; 82607

== ENCOUNTER → 2024-10-03 | Outpatient (CLI) | payer MEDICARE, OTHER, SELFPAY ==
[2024-10-03 18:21] LABS: Erythrocyte Sedimentation Rate 12 mm/hr (0-20)
[2024-10-03 18:22] LABS: Absolute Lymphocyte Count 2.27 X10^3/uL (0.83-4.51); Absolute Neutrophil Count 4.4 X10^3/uL (2.0-7.7); Basophil# 0.04 X10^3/uL; Basophil% 0.5 % (0-1); Eosinophil# 0.26 X10^3/uL; Eosinophils% 3.3 % (0-5); Hematocrit 41.7 % (40-54); Hemoglobin 14.2 g/dL (13.0-16.5); Lymphocyte # 2.27 X10^3/ul (0.83-4.51); Lymphocyte % 29.1 % (19-41); Mean Corp Hgb Conc 34.1 g/dL (32-36); Mean Corpuscular Hgb 32.7 pg (27.0-32.0); Mean Corpuscular Volume 96.1 fL (80-94); Mean Platelet Vol. 9.9 fl (6.2-12.0); Monocyte# 0.77 X10^3/uL; Monocyte% 9.9 % (0-10); NRBC Flagged by Analyzer 0 % (0-5); Neutrophil # 4.43 X10^3/uL (2.7-7.7); Neutrophil % 56.8 % (47-70); Platelet Count 239 K/mm3 (150-450); RBC Distribution Width CV 12.3 % (11.6-14.6); RBC Distribution Width SD 43.6 fl (35.1-43.9); Red Blood Count 4.34 M/mm3 (4.6-6.2); White Blood Count 7.8 K/mm3 (4.4-11.0)
[2024-10-03 18:30] LABS: Vitamin D,25 Hydroxy 99.7 ng/mL
[2024-10-03 18:33] LABS: ALB/GLOB Ratio 0.9 RATIO (0.9-2.4); AST(SGOT) 15 U/L (15-37); Alanine Aminotransfer ALT/SGPT 25 U/L (16-61); Albumin, Serum 3.5 g/dL (3.2-5.0); Alkaline Phosphatase 73 U/L (45-117); Anion Gap 8 (5-15); BUN 22 mg/dL (7-18); BUN/Creat Ratio 16.4 RATIO (10-20); Calcium,Total 9.1 mg/dL (8.5-10.1); Chloride 103 mmol/L (98-107); Creatinine, Serum 1.34 mg/dL (0.70-1.30); EST Glomerular Filtration Rate 54 mL/min (>60); Est Glom Filt Rate - Afr Amer 65 mL/min (>60); Glucose 127 mg/dL (74-106); Protein, Total 7.5 g/dL (6.4-8.2); Sodium Level 138 mmol/L (136-145)
== END | disposition home or self-care (01) ==
PROVIDERS: PCP Family Medicine; Referring Provider Family Medicine; Visit Provider Family Medicine
DX: R53.83 Other fatigue (principal); E55.9 Vitamin D deficiency, unspecified
CPT/HCPCS: 36415; 80053; 82306; 84443; 85025; 85652

== ENCOUNTER → 2025-01-08 | Outpatient (CLI) | payer MEDICARE, OTHER, SELFPAY ==
--- NOTE | 2025-01-09 10:20 | STRESSREP ---
Stress Test Report Pharmacologic myocardial perfusion stress test. 84-year-old man with a history of shortness of breath and atrial fibrillation Resting EKG demonstrates sinus rhythm with a rate of 64 bpm. Resting blood pressure is 178/90 mmHg. 0.4 mg of regadenoson was infused per usual protocol followed by rapid intravenous saline flush injection. Continuous EKG monitoring was performed. The maximum heart rate was 90 bpm which was 65% of max impacted heart rate the maximum workload was 1 metabolic equivalent. At rest there were no ST or T wave changes noted to suggest ischemia and at peak infusion nonspecific ST changes were noted which did not meet the criteria for ischemia. No clinical angina is noted. The final blood pressure was 158/72 mmHg. Myocardial perfusion protocol. 11.8 mCi of technetium 99m sestamibi was injected at rest. 0.4 mg of regadenoson was infused per usual protocol. At peak infusion 35.3 mCi of technetium 99m sestamibi was injected stress images were obtained stress and rest images were reconstructed and compared in the short axis vertical long and horizontal long axis. Gated images were also obtained. Perfusion SPECT analysis: Review of the stress images demonstrate normal uptake of tracer noted in all areas of the myocardium. The resting images similar demonstrated normal uptake of tracer noted in all areas of the myocardium. No areas of reversibility are noted to suggest ischemia and no previous infarct is noted. Gated SPECT analysis: The gated ejection fraction is 59%. Conclusion: Normal pharmacologic myocardial perfusion stress test. Preserved ejection fraction.
== END | disposition home or self-care (01) ==
LOC: CVS 06:45
PROVIDERS: PCP Family Medicine; Referring Provider Nurse Practitioner Family; Visit Provider Nurse Practitioner Family
DX: R06.02 Shortness of breath (principal); I48.91 Unspecified atrial fibrillation; E11.9 Type 2 diabetes mellitus without complications
CPT/HCPCS: 78452; 93017; A9500; A4216; J2785

== ENCOUNTER 2025-01-23 14:00 | Outpatient (RCR) | payer MEDICARE, OTHER, SELFPAY ==
--- NOTE | 2024-12-05 14:14 | HP.PTEVAL ---
Patient's Visit Information Visit Information Visit Information: CHET TODD is a 84 year old M referred to Physical Therapy by Dr. Mohan Brooke DO with a diagnosis of B bursitis of the hips. Date of Evaluation: 12/05/24 Physical Therapist: Spencer Manrique, DPT, OCS, CSCS Visit Plan Frequency: 3x /Week Duration: 4-6 Weeks Plan: 3x/week for 3-6 weeks... IE HEP: priiformis stretch 20 5x daily adn keep hips , knees, back and ankles moving when sitting. Treeat with 1. B nonthermal US to torchanteric bursa area. 2. rollout and stretch B gluts and ITB and stretch, teach for HEP, leg pulls 3. hip and core strength ex mat to HEP 4. Lumbar ROM ex on mat and core strength to HEP Gradual progression from modalities to ex during his duration of therapy. Montior R knee pain as it is bone on bone. Subjective Subjective: R knee hurts all time adn just had 3rd injectrion which will help. 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 will gt a brace for L ankle from [employer] and L ankle support. Is here b/c hips hurt, can walk a couple 100 feet and then L hip starts hurting then R. laterally. 02/05 with ambulating too much adn comforatble at rest. Sleeping is OK as far as hips go. Retired. 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 No regular ex. Hobbies: [employer] and sitting is fine. Live with who does grocery shopping. 2 story house. No problem but cannot run up and down them. Basic ADLS all I. Pain L hip: Pain Intensity (Out of 10): 0 Pain Intensity Range: 6 Comment: hips with walking. comfortable at rest. Objective Objective: R antalgia avoiding knee flexion with I gait, L toeing out. R foot fused and not pushing off, R knee varus. Short steps lacking weight shift and mild B trendelenberg. -3-91 AROM R knee with pain end range, 0-110 L. Hip AROM to 0 extension B, 20 abduction, 100 flexion, rotations are 45 er and 10 IR, slight pain IR L. + FADDIR L, - WILL B, - scour in hips. ankle aROM R is minimal and fused, L is WFL, strength 4-/5. knee strength 3+ R knee ext adn 4- knee flexion, L is 4-. reflexes 1/3 patella adn achilles B. Sensation LE WNL to gross light touch. Lumbar AROM max limited in ext adn flexion adn mod in B SB, some pain with ext. - SLR, - slump test. HS max tight at -40 90/90, itb mod tight not able to drop to table in sidelying, piriformis mod tight and tender through gluts and piriformis area moderately. Balance/Special Test Scores Lower Extremity Functional Score: 45 Goals Goal 1:: Pt feel hip pain is 75% better and 1/10 at worst Goal Time Frame: 4-6 Weeks Goal 2:: I appropriate HEP to minimize hip pain and max improved activity Goal Time Frame: 4-6 Weeks Goal 3:: LEFS sccore 50 Goal Time Frame: 4-6 Weeks Goal 4:: exit chair without hesitation or pain outside of knee Goal Time Frame: 4-6 Weeks Goal 5:: Back to chopping wood in [place] Goal Time Frame: 4-6 Weeks Rehabilitation Potential Physical Therapy Diagnosis: hip bursitis and sedentarism causing weakness tightness and diminished mobility. Rehabilitation Potential: Good Anticipated Interventions Patient/Client Instruction: Educate patient on: Condition and Plan of Care For the Purpose of:: To decrease pain, To increase ROM, To improve nutrient delivery to tissue, To improve muscle performance and motor function, To increase tolerance to activity/condition/position, To improve ability of physical actions for home/community/work/leisure and To improve gait and locomotor functions Therapeutic Exercise to Include: Strength training, Postural training, Flexibilty training, Passive ROM and Active ROM For the Purpose of:: To decrease pain, To increase ROM, To improve nutrient delivery to tissue, To improve muscle performance and motor function, To increase tolerance to activity/condition/position and To improve gait and locomotor functions Manual Therapy Techniques to Include: Mobilization, Passive ROM and Soft tissue mobilization For the Purpose of:: To decrease pain, To increase ROM and To improve nutrient delivery to tissue Thermo therapy (hot pack): Yes Ultrasound (thermal/non thermal): Yes (nonthermal) Text: Thank you for the opportunity to evaluate your patient. For Medicare and Medicare HMO plans, please review the plan of care and approve it. It will need to be FAXED BACK to us at [phone] for Medicare purposes. For Medicare only, by signing this I certify the plan of care. Please let me know if there are questions or concerns regarding this plan of care. Physician Signature: Date:
--- NOTE | 2025-01-23 14:18 | HP.PTDCSUM ---
Discharge Summary D/C summary: It has been my pleasure to treat CHET TODD referred by Dr. Mohan Brooke DO, with the diagnosis of B bursitis of the hips for a total of 10 visit(s). Discharge Date: 01/23/25 Please see the following information for a summary of their discharge status. Subjective Subjective: Doing good. I can be out and work and takes a long time before starts to hurt. 300% better. LB is mostly constant pain . L hip laterally is where it starts to hurt. Lasting way longer. Exercises are going well at home. No f/u with doctor Brendon. Pain L hip: Pain Intensity (Out of 10): 2 R hip: Pain Intensity (Out of 10): 2 Overall Improvement % Improvement: 80 Objective Objective/Function: Good back ROM today, still missing extension but only mild transient central pain. Walking with R antalgia slightly and diminished hip ROM but I and able to do what he needs to do at home. Feeling better overall, L knee and back are limiting factors now for which I recommneded he see his pain managemment doctor who he has not seen in a year and possibly back therapy a part of his future maybe in the pool. Goals Goal 1:: Pt feel hip pain is 75% better and 1/10 at worst Goal Progress: 80% Goal 2:: I appropriate HEP to minimize hip pain and max improved activity Goal Progress: Goal Met Goal 3:: LEFS sccore 50 Goal Progress: Progressing Goal 4:: exit chair without hesitation or pain outside of knee Goal Progress: Goal Met Goal 5:: Back to chopping wood in [place] Goal Progress: Progressing Plan Plan: d/c to HEP, pt to seek pain management doctor for his back pain whihc is now more limiting than hips. D/C Information d/c sentence: If there are questions or concerns regarding this patient's physical therapy, please feel free to call me at [phone]. Thank you for the referral of this patient. Sincerely, Spencer Manrique, DPT, OCS, CSCS Balance/Gait/Functional tests Balance/Special Test Scores Lower Extremity Functional Score: 48 Improvement % Improvement: 80
== END 2025-01-23 19:00 | disposition home or self-care (01) ==
LOC: PT 14:00
PROVIDERS: PCP Family Medicine; Referring Provider Orthopaedic Surgery; Visit Provider Orthopaedic Surgery
DX: M25.551 Pain in right hip (principal); M25.552 Pain in left hip
CPT/HCPCS: 97035; 97110; 97140; 97162; 97164; 97530

== ENCOUNTER → 2025-03-22 | Outpatient (CLI) | payer MEDICARE, OTHER, SELFPAY ==
[2025-03-22 12:30] LABS: Hematocrit 39.8 % (40-54); Hemoglobin 14.1 g/dL (13.0-16.5); Immature Granulocytes Count 0.070 X10^3/uL (0.0-0.0); Mean Corp Hgb Conc 35.4 g/dL (32-36); Mean Corpuscular Volume 94.8 fL (80-94); Mean Platelet Vol. 10.0 fl (6.2-12.0); NRBC Flagged by Analyzer 0 % (0-5); Platelet Count 220 K/mm3 (150-450); RBC Distribution Width CV 12.0 % (11.6-14.6); RBC Distribution Width SD 41.5 fl (35.1-43.9); Red Blood Count 4.20 M/mm3 (4.6-6.2); White Blood Count 7.9 K/mm3 (4.4-11.0)
[2025-03-22 14:05] LABS: Anion Gap 11 (5-15); BUN 21 mg/dL (4-19); BUN/Creat Ratio 15.0 RATIO (10-20); Calcium,Total 9.2 mg/dL (7.6-11.0); Carbon Dioxide 24.5 mmol/L (21.0-32.0); Chloride 98 mmol/L (98-108); Glucose 465 mg/dL (70-99); Potassium 4.3 mmol/L (3.3-5.1)
--- OUTSIDE RECORDS SUMMARY | 2025-03-22 18:34 | XMS RPT_ITS | CCD ---
Author Organization [facility] Care Team Providers Care Production Underwriter Name Role Phone BACHCINDYER MECHE L Unavailable Unavailable BACHELDER, MECHE L Unavailable Unavailable NO REFERRING DR Unavailable Unavailable BASCH, JIE Unavailable Unavailable BASCH, JIE Unavailable Unavailable NO REFERRING DR Unavailable Unavailable BACHELDER, MECHE L Unavailable Unavailable BACHELDER, MECHE L Unavailable Unavailable BACHELDER, MECHE L Unavailable Unavailable IMCA Unavailable Unavailable BACHELDER, MECHE L Unavailable Unavailable [facility] Unavailable Unavailable BACHELDER, MECHE L Unavailable Unavailable [facility] Unavailable Unavailable Adelfo Garcia MD Primary Care Provider Unavailable Primary Care Provider Unavailabl e Dr. Adelfo Garcia MD Primary Care Provider Dr. Adelfo Garcia MD Attending Provider Dr. Adelfo Garcia MD Referring Provider Dr. Mohan Brooke DO Attending Provider Santa ROLLED GOLD PLATER-C, Gilmer Vo Attending Provider Dr. Mohan Brooke DO Referring Provider Roof ROLLED GOLD PLATER-C, Gilmer Vo Referring Provider Roof ROLLED GOLD PLATER-C, Gilmer H Other Provider Julita MARTINEZ, Dr. Quiñones Attending Provider Dr. Adelfo Garcia MD Primary Care Provider Dr. Aedlfo Garcia MD Referring Provider [phone] Dr. Mohan Brooke DO Referring Provider [place] ROLLED GOLD PLATER-C, Galo Attending Provider Adelfo Garcia Primary Care Unavailable Roof ROLLED GOLD PLATER, Gilmer H Referring Unavailable Roof ROLLED GOLD PLATER, Gilmer H Attending Unavailable [place]available Mohan Brooke Attending Unavailable Mohan Brooke Referring Unavailable Roof ROLLED GOLD PLATER, Gilmer Vo Attending Unavailable [facility], [facility] Unavailable Ranney, Christopher Referring Unavailable [place], [facility] Unavailable Ranney, Christopher Referring Unavailable Ranney, Adelfo Attending Unavailable [place], [facility] Unavailable Ranney, Christopher Referring Unavailable Ranney, Fidencioer Attending Unavailable [place], [facility] Unavailable Ranney, Christopher Referring Unavailable Danny Lopez Attending Unavailable [facility], [facility] Unavailable Ishmael Cancino Attending Unavailable [place] [employer] G[employer]ATER, Gilmer H Consulting Unavailable [facility], [facility] Unavailable Ishmael Cancino Attending Unavailable [place] ROLLED GOLD PLATER, Gilmer H Referring Unavailable [place], [facility] Unavailable Kaelney, Christopher Referring Unavailable Mohan Brooke Attending Unavailable [facility], [facility] Unavailable Ranney, Christopher Referring Unavailable Mohan Brooke Attending Unavailable [facility], [place] Primary Care Unavailable Ranney, Christopher Referring Unavailable Ranney, Fidencioer Attending Unavailable [place] Referring Unavailable [place] Unavailable KaelneyAdelfo Attending Unavailable [facility], [place] Primary Care Unavailable KaelneyAdelfo Attending [facility]available [place] Referring Unavailable [place], [facility] Unavailable Roof ROLLED GOLD PLATER, Gilmer Vo Attending Unavailable Kaelney, Christopher Referring Unavailable Mohan Brooke Attending Unavailable [facility], [facility] Unavailable [place], Christopher Referring Unavailable [place], [facility] Unavailable Mohan Brooke Attending Unavailable [place], Christopher Referring Unavailable Galo Dupont Attending Unavailable [place], [facility] Unavailable [place], Christopher Referring Unavailable [place], [facility] Unavailable Patricio Alves Attending Unavailable [facility], [facility] Unavailable [place] ROLLED GOLD PLATER, Gilmer H Attending Unavailable Ranney, Christopher Referring Unavailable Ranney, Christopher Referring Unavailable Mohan Brooke Attending Unavailable [place], [facility] Unavailable [place], [facility] Unavailable Kaelney, Christopher Referring Unavailable Mohan Brooke Attending Unavailable Allergies Allergy Classification Reported Allergen(s) Allergy Type Date of Onset Reaction(s) Facility (3 sources) Angiotensin Converting Enzyme (Sherri) Inhibitors; Translations: [SHERRI INHIBITORS] Propensity to adverse reactions (disorder) 6 Cough [facility] Repository (9 sources) Penicillins; Translations: [PENICILLINS] Propensity to adverse reactions (disorder) 6 Hives [facility] Repository (1 source) A.C.E INHIBITORS; Translations: [A.C.E INHIBITORS] Propensity to adverse reactions (disorder) [facility] Repository Medications Current Medications Medication Drug Class(es) Dates Sig (Normalized) Sig (Original) apixaban 5 mg oral tablet (20 sources) Factor Xa Inhibitor Start: 01-16-2025 take 1 tablet by mouth twice daily Apixaban (Eliquis) 5 mg tablet Active 5 mg PO TWICE A DAY 180 3 January 16, 2025 12:00am Faxing to [facility] This is a dose increase! Start: 06-26-2024 End: 01-16-2025 take 1 tablet by mouth twice daily Apixaban (Eliquis) 2.5 mg tablet Discontinued 2.5 mg PO TWICE A DAY 180 3 December 12, 2024 4:22pm January 16, 2025 2:19pm Sending to [facility] cholecalciferol 0.05 mg oral capsule (5 sources) Vitamin D Start: 06-26-2024 take 1 capsule by mouth once daily Cholecalciferol (Vitamin D3) 50 mcg (2,000 unit) capsule Active 50 ug PO daily June 26, 2024 12:00am hydroCHLOROthiazide 12.5 mg oral capsule (10 sources) Thiazide Diuretic Start: 02-29-2024 End: 07-17-2024 take 1 capsule by mouth once daily Hydrochlorothiazide 12.5 mg capsule Active 12.5 mg PO daily 90 July 17, 2024 2:23pm hydrocortisone 25 mg/ml topical cream (5 sources) Corticosteroid Start: 06-26-2024 Hydrocortisone 2.5 % cream Active 1 NMA TOPICAL TWICE A DAY as needed June 26, 2024 12:00am ipratropium bromide 0.042 mg/actuat metered dose nasal spray (5 sources) Anticholinergic Start: 06-26-2024 Ipratropium [place] 42 mcg (0.06 %) spray,non-aerosol Active 2 NMA INTRANASAL TWICE A DAY June 26, 2024 12:00am metoprolol tartrate 25 mg oral tablet (14 sources) beta-Adrenergic Mirna Start: 02-18-2025 take 1 tablet by mouth twice daily Metoprolol Tartrate 25 mg tablet Active 25 mg PO TWICE A DAY 180 February 18, 2025 2:14pm Start: 07-17-2024 End: 01-23-2025 take 1 tablet by mouth twice daily Metoprolol Tartrate 25 mg tablet Discontinued 25 mg PO TWICE A DAY 180 August 06, 2024 3:47pm January 23, 2025 10:06am Start: 05-31-2017 take 1 tablet by zaheer th once daily, then take 1 tablet by mouth once daily metoprolol tartrate, short acting, (LOPRESSOR) 50 mg tablet Indications: Essential hypertension Take 1 tablet by mouth once daily. 1 tablet(s) by mouth daily 90 tablet 1 05/31/2017 Active Comment on above: Take 1 tablet by zaheer once daily. 1 tablet(s) by mouth daily omeprazole 40 mg delayed release oral capsule (7 sources) Proton Pump Inhibitor Start: 02-29-2024 take 1 capsule by mouth once daily Omeprazole 40 mg capsule,delayed release(DR/EC) Active 40 mg PO daily February 29, 2024 12:00am Start: 10-27-2021 take 1 capsule by mo [facility] once daily omeprazole (PRILOSEC) 40 mg capsule Take 40 mg by mouth once daily. 0 10/27/2021 Active Comment on above: Take 40 mg by mouth once daily. Completed/Discontinued Medications Medication Drug Class(es) Dates Sig (Normalized) Sig (Original) acetaminophen 250 mg / aspirin 250 mg / caffeine 65 mg oral tablet (5 sources) Platelet Aggregation Inhibitor, Nonsteroidal Anti-inflammatory Drug, Central Nervous System Stimulant, Methylxanthine Start: 06-26-2024 End: 11-28-2024 Aspirin-Acetaminoph en-Caffeine (Excedrin Extra Strength) 250-250-65 mg tablet Discontinued 1 {tbl} PO EVERY 4-6 HOURS as needed June 26, 2024 12:00am November 28, 2024 1:09pm amLODIPine 5 mg oral tablet (2 sources) Dihydropyridine Calcium Channel Mirna Start: 01-25-2022 take 1 tablet by mouth once daily amLODIPine (NORVASC) 5 mg tablet Take 5 mg by mouth once daily. 0 09/22/2021 Active Comment on above: Take 5 mg by mouth o nce daily. aspirin 81 mg delayed release oral tablet (2 sources) Platelet Aggregation Inhibitor, Nonsteroidal Anti-inflammatory Drug take 1 tablet by mouth once daily aspirin, enteric coated (ASPIRIN, ENTERIC COATED) 81 mg EC tablet Take 81 mg by mouth once daily. 1 tablet(s) by mouth daily 0 Active Comment on above: Take 81 mg by mouth once daily. 1 tablet(s) by mouth daily celecoxib 200 mg oral capsule (2 sources) Nonsteroidal Anti-inflammatory Drug Start: 11-16-2021 take 1 capsule by mouth once daily celecoxib (CELEBREX) 200 mg capsule Take 200 mg by mouth once daily. 0 11/16/2021 Active Comment on above: Take 200 mg by mouth once daily. 24 hr dilTIAZem hydrochloride 120 mg extended release oral capsule (3 sources) Calcium Channel Mirna Start: 01-23-2025 End: 02-18-2025 take 1 capsule by mouth once daily Diltiazem Hcl 120 mg capsule,extended release 24 hr Discontinued 120 mg PO DAILY 30 January 23, 2025 12:00am February 18, 2025 2:14pm lovastatin 20 mg oral tablet (2 sources) HMG-CoA Reductase Inhibitor Start: 05-31-2017 take 1 tablet by mouth once daily, then take 1 tablet by mouth once daily lovastatin (MEVACOR) 20 mg tablet Indications: Hyperlipidemia, unspecified hyperlipidemia type Take 1 tablet by mouth once daily. 1 tablet(s) By mouth Daily 90 tablet 1 05/31/2017 Active Comment on above: Take 1 tablet by zaheer th once daily. 1 tablet(s) By mouth Daily metFORMIN hydrochloride 500 mg oral tablet (2 sources) Biguanide Start: 05-31-2017 take 1 tablet by mouth once daily, then take 1 tablet by mouth once daily metFORMIN (GLUCOPHAGE) 500 mg tablet Indications: Type 2 diabetes mellitus without complication, without long-term current use of insulin (HCC) Take 1 tablet by mouth once daily. 1 tablet(s) by mouth daily 90 tablet 1 05/31/2017 Active Comment on above: Take 1 tablet by zaheer th once daily. 1 tablet(s) by mouth daily Problems Active Problems Problem Classification Problem Date Documented Date Episodic/Chronic Cardiac dysrhythmias (18 sources) Atrial fibrillation; Translations: [Unspecified atrial fibrillation] Onset: 12-12-2024 07-17-2024 Chronic Diabetes mellitus without complication (20 sources) Type 2 diabetes mellitus without complications; Translations: [Type 2 diabetes mellitus] Onset: 04-05-2017 11-17-2015 Chronic Disorders of lipid metabolism (3 sources) Hyperlipidemia, unspecified; Translations: [Hyperlipidemia] Onset: 04-15-2017 11-17-2015 Chronic Essential hypertension (5 sources) Essential (primary) hypertension; Translations: [Essential hypertension] Onset: 04-05-2017 11-17-2015 Chronic Headache; including migraine (1 source) Headache; including migraine; Translations: [Headache, unspecified] Onset: 05-11-2024 Nausea and vomiting (16 sources) Nausea; Translations: [Nausea] 12-12-2024 Episodic Osteoarthritis (20 sources) Osteoarthritis of right knee joint; Translations: [Unilateral primary osteoarthritis, right knee] Onset: 11-14-2024 06-26-2024 Chronic Other connective tissue disease (10 sources) Trochanteric bursitis; Translations: [Trochanteric bursitis, right hip] 11-28-2024 Episodic Other ear and sense organ disorders (1 source) Unspecified otitis externa, right ear; Translations: [UNS OTITIS EXTERNA RT EA] Onset: 04-13-2017 Chronic Other lower respiratory disease (16 sources) Dyspnea; Translations: [Shortness of breath] 12-12-2024 Episodic Other lower respiratory disease (2 sources) Shortness of breath; Translations: [Shortness of breath] Onset: 01-30-2025 Episodic Other non-traumatic joint disorders (1 source) Pain in right hip; Translations: [Pain in right hip] Onset: 02-26-2025 Episodic Other non-traumatic joint disorders (1 source) Pain in left hip; Translations: [Pain in left hip] Onset: 02-26-2025 Episodic Other skin disorders (1 source) Seborrheic keratosis; Translations: [Other seborrheic keratosis] Episodic Other upper respiratory disease (5 sources) Congestion of nasal sinus; Translations: [Nasal congestion] 04-28-2024 Episodic Other upper respiratory infections (2 sources) Bacterial sinusitis; Translations: [Chronic sinusitis, unspecified] 02-27-2025 Chronic Spondylosis; intervertebral disc disorders; other back problems (11 sources) Low back pain; Translations: [Low back pain] 11-28-2024 Episodic Superficial injury; contusion (1 source) Tick bite; Translations: [Insect bite (nonvenomous) of other part of head, initial encounter] Episodic Unclassified (3 sources) Pure hypercholesterolemia, unspecified; Translations: [PURE HYPERCHOLESTEROLEMI] Onset: 04-05-2017 Unclassified (1 source) Unknown / UNK(Unknown) Onset: 11-17-2015 Unclassified (5 sources) M25.551 - Pain in right hip,M25.552 - Pain in left hip,M54.50 - Low back pain, unspecified Unclassified (1 source) Bilateral hip pain Past or Other Problems Problem Classification Problem Date Documented Da te Episodic/Chronic Diseases of mouth; excluding dental (1 source) Plicated tongue; Translations: [Plicated tongue] Onset: 05-04-2024 Episodic Malaise and fatigue (6 sources) Fatigue; Translations: [Other fatigue] Onset: 10-19-2024 07-17-2024 Episodic Nutritional deficiencies (1 source) Deficiency of other specified B group vitamins; Translations: [Deficiency of other specified B group vitamins] Onset: 10-12-2024 Episodic Other ear and sense organ disorders (2 sources) Otalgia, right ear; Translations: [OTALGIA RIGHT EAR] Onset: 04-13-2017 Episodic Other upper respiratory disease (1 source) Nasal congestion; Translations: [Nasal congestion] Onset: 05-11-2024 Episodic Results Test Name Value Interpretation Reference Range Facility Urgent Care Visit Reporton 0 02-27-2025 Urgent Care Visit Report [facility] [address], [address] [place] [address] OFFICE VISIT Date of Service: 02/27/25 MR#: [id number] Acct: [id number] Name: CHET JERONIMO Rep #: [id number] : 1940 Provider: MARIE Dupont Age/Sex: 84/M Location: [facility] Status: Signed Intake Vital Signs 02/18/25 13:01 02/27/25 14:28 Height 5 ft 4 in Weight: 174 lb BMI 29.8 BP 121/72 H 128/56 H Blood Pressure Location Lt brachial Lt brachial Position Sitting Sitting Respiration 18 16 Pulse 72 50 L Pulse Source Monitor NIBP Temp 97.9 F Temp Source Oral Pulse Oximetry (%) 95 96 Oxygen Delivery Method room air Intake Visit Reasons: CONCERN FOR SINUS INFECTION Chief Complaint: fatigue, ear pressure, congest, drainage, ST Allergies Penicillins Adverse Reaction (Verified 02/27/25 14:29) Hives Have you fallen in the past year?: No [facility] Medical History (Updated 02/27/25 @ 14:33 by MARIE Rocha) Bacterial sinusitis Shortness of breath Fatigue Osteoarthritis of right knee Type 2 diabetes mellitus Atrial fibrillation Surgical History History of cholecystectomy History of ankle surgery History of arthroplasty of left knee Family History Father Heart disease Social History household members: spouse Smoking Status: Former smoker how long ago did patient quit smokin alcohol intake: never substance use type: does not use caffeine: Yes Type: coffee Number of servings: 3 HPI HPI Chief Complaint: fatigue, ear pressure, congest, drainage, ST Details: CHET JERONIMO, is a 84 M who presents to the office today for HPI: Patient presents today with concerns for possible early onset of sinus infection. He states that for the last 2 days he has had sinus pain, pressure, drainage, and cough. He also notes irritation of his throat. He states that he typically gets these type of sinus infections about twice a year. ROS: As noted in HPI Physical Exam: VITALS: Reviewed. GEN: Healthy appearing, well-developed, NAD. PSYCH: AOx3. Normal memory, mood, and affect. HEENT -Eyes: -No discharge or redness; -Ears: -Mouth and throat: Moist mucous membranes. NECK: CV: Regular rate and rhythm LUNGS: Normal respiratory effort. Lungs clear bilaterally. SKIN: Warm, well perfused. No skin rashes or abnormal lesions noted. MSK: Normal gait. NEURO: Ambulating with no limitations. Normal muscle strength and tone. No focal deficits. Coding Level of Care Code Off vis,new,level 3 Diagnoses Bacterial sinusitis J32.9; B96.89 Assessment and Plan Assessment and Plan (1) Bacterial sinusitis: Status: Acute Plan: Discussed with patient that recommendations would be to delay antibiotic treatment for another week with sinus issues however patient states that his symptoms feel typical of his sinus infections. Patient was given a prescription as noted below and I did recommend that he delay filling this for several days to see if his symptoms do otherwise improved. Discussed with him that symptoms may be viral in origin. Medications: New doxycycline monohydrate 100 mg PO BID 10 caps 0RF Clinical Quality Measures Falls Risk Screening/Assistive Devices Have you fallen in the past year?: No 02/27/25 1436 Date Galo Lu Signature: Date (if applicable) CC: Normal [facility] Urgent Care Visit Report [facility] [address], [address] [place] [address] OFFICE VISIT Date of Service: 02/27/25 MR#: [id number] Acct: [id number] Name: CHET JERONIMO Rep #: [id number] : 1940 Provider: MARIE Dupont Age/Sex: 84/M Location: [facility] Status: Signed Intake Vital Signs 02/18/25 13:01 02/27/25 14:28 Height 5 ft 4 in Weight: 174 lb BMI 29.8 BP 121/72 H 128/56 H Blood Pressure Location Lt brachial Lt brachial Position Sitting Sitting Respiration 18 16 Pulse 72 50 L Pulse Source Monitor NIBP Temp 97.9 F Temp Source Oral Pulse Oximetry (%) 95 96 Oxygen Delivery Method room air Intake Visit Reasons: CONCERN FOR SINUS INFECTION Chief Complaint: fatigue, ear pressure, congest, drainage, ST Press Cleaner Required: No Is patient in pain?: No Allergies Penicillins Adverse Reaction (Verified 02/27/25 14:29) Hives Have you fallen in the past year?: No Nurse's Note: fatigue, ear pressure, congest, drainage, ST x 2 days. significant hx sinus infections, feels same. denies fever. B12 injection today with PCP but they would not see for MD visit same day. [facility] Medical History (Updated 02/27/25 @ 14:33 by MARIE Rocha) Bacterial sinusitis Shortness of breath Fatigue Osteoarthritis of right knee Type 2 diabetes mellitus Atrial fibrillation Surgical History History of cholecystectomy History of ankle surgery History of arthroplasty of left knee Family History Father Heart disease Social History household members: spouse Smoking Status: Former smoker how long ago did patient quit smokin alcohol intake: never substance use type: does not use caffeine: Yes Type: coffee Number of servings: 3 HPI HPI Chief Complaint: fatigue, ear pressure, congest, drainage, ST Details: CHET JERONIMO, is a 84 M who presents to the office today for Coding Level of Care Code Off vis,est,level 3 Assessment and Plan Assessment and Plan Medications: New doxycycline monohydrate 100 mg PO BID 10 caps 0RF Clinical Quality Measures Falls Risk Screening/Assistive Devices Have you fallen in the past year?: No 02/27/25 1513 Date Galo SALAZAR Cosigner Signature: Date (if applicable) CC: Normal [facility] Cardiology Visit Reporton Cardiology Visit Report [facility] [address] [place] [address] OFFICE VISIT Date of Service: 02/18/25 MR#: [id number] Acct: [id number] Name: CHET JERONIMO Rep #: [id number] : 1940 Provider: MARIE jay Age/Sex: 84/M Location: [facility] Status: Signed HPI HPI History of Present Illness Details: Patient is a pleasant 84-year-old white male that comes in today for new patient visit. The patient was in [place] earlier in fall and developed a severe sinusitis. He noticed in mid May that he was getting more short of breath than usual which started about a year ago. He was also profoundly fatigued. The patient was evaluated in his primary care office and was noted to be in atrial fibrillation by report. The ECG that was sent dated June 04, 2024 appears to be sinus rhythm with PACs but it is very difficult to read. IT is a photocopy. The computer read it as atrial fibrillation. The EKG in the office here on 07/17/2024 shows sinus bradycardia with first-degree AV block and occasional PACs. He denies chest, arm, jaw, or neck discomfort. He denies palpitations. He denies bilateral lower extremity edema. He denies claudication. He denies shortness of breath with activity, shortness of breath at rest, orthopnea, or PND. He denies chronic cough. He denies significant, sudden weight gain. He states dizziness and lightheadedness. He denies near-syncope or syncope. He denies blood in urine, blood in stool, or epistaxis. He denies fever with chills. He denies myalgia. He denies fatigue. His exercise level has remained stable, however; he notes hard to breath intermittently. Intake Vital Signs 01/16/25 13:35 02/18/25 13:01 Height 5 ft 4 in 5 ft 4 in Weight: 174 lb 174 lb BMI 29.8 29.8 BP 146/74 H 121/72 H Blood Pressure Location Lt brachial Lt brachial Position Sitting Sitting Respiration 16 18 Pulse 52 L 72 Pulse Source NIBP Monitor Pulse Oximetry (%) 95 Intake Visit Reasons: 4-6 W FU Press Cleaner Required: No Is patient in pain?: No Allergies Penicillins Adverse Reaction (Verified 02/18/25 14:00) Hives Medications ???Medication ???Instructions ???Recorded ???Confirmed ???Type omeprazole 40 mg capsule,delayed 40 mg PO QDAY 02/29/24 02/18/25 Hi story release cholecalciferol (vitamin D3) 50 50 mcg PO QDAY 06/26/24 02/18/25 H istory mcg (2,000 unit) capsule hydrocortisone 2.5 % topical cream 1 applic topical BID PRN 4 02/18/25 History ipratropium bromide 42 mcg (0.06 2 spray intranasal BID 06/26/24 History %) nasal spray hydrochlorothiazide 12.5 mg capsule 12.5 mg PO QDAY #90 caps 02/18/25 Rx apixaban 5 mg tablet (Eliquis) 5 mg PO BID [facility]ing [facility] 02/18[facility]25 Rx [facility] tabs metoprolol tartrate 25 mg tablet 25 mg PO BID #180 tabs 02/18/25 Rx Ejection fraction %: 60 Have you fallen in the past year?: No Nurse's Note: patient thinks he is is taking diltiazem but not sure [facility] Medical History Shortness of breath Fatigue Osteoarthritis of right knee Type 2 diabetes mellitus Atrial fibrillation Surgical History History of cholecystectomy History of ankle surgery History of arthroplasty of left knee Family History Father Heart disease Social History household members: spouse Smoking Status: Former smoker how long ago did patient quit smokin alcohol intake: never substance use type: does not use caffeine: Yes Type: coffee Number of servings: 3 ROS Const Const: Negative for fatigue, weakness, headache(s) or frequent falls Eyes Eyes: Negative for blurry vision ENT ENT: Positive for dizziness; Negative for headache(s), Nosebleed/epistaxis, lip swelling or tongue swelling Cardio Chest Pain: No Palpitations: No Edema: None Muscle aches with walking: None Resp Respiratory: Negative for SOB with activity, SOB at rest or SOB orthopnea SOB lying down GI GI: Negative nausea, vomiting, heartburn, bright, red blood in stools or black,tarry stools : Negative for hematuria Musc Musc: Negative for joint pain Neuro Neuro: Positive for dizziness and lightheadedness; Negative for near syncope, syncope, frequent falls, headache(s), weakness or blurry vision Endo Endo: Negative for fatigue Allergy Allergy/Immunology: Negative for throat swelling, Negative for tongue swelling and Negative for lip swelling Cardiology Exam Const Appearance: cooperative, healthy appearing, comfortable and no acute distress Nutritional Appearance: overweight Orientation: alert, awake and orient (more content not included)... Normal [facility] PT D/C Summary (1)on 025 PT D/C Summary (1) [facility] [address] [place] [address] / REHABILITATION SERVICES DISCHARGE SUMMARY MR#: [id number] Acct: [id number] Name: CHET JERONIMO Rep #: [id number] : 1940 84 From: Spencer Manrique DPT, OCS, CSCS Referring Dr.: Dr. Mohan Brooke DO Status: R EG RCR Insurance: MEDICARE PART A B [employer] SR SUPPLEMENT INS Discharge Summary D/C summary: It has been my pleasure to treat CHET JERONIMO referred by Dr. Mohan Brooke DO, with the diagnosis of B bursitis of the hips for a total of 10 visit(s). Discharge Date: 01/23/25 Please see the following information for a summary of their discharge status. Subjective Subjective: Doing good. I can be out and work and takes a long time before starts to hurt. 300% better. LB is mostly constant pain . L hip laterally is where it starts to hurt. Lasting way longer. Exercises are going well at home. No f/u with doctor Brendon. Pain L hip: Pain Intensity (Out of 10): 2 R hip: Pain Intensity (Out of 10): 2 Overall Improvement % Improvement: 80 Objective Objective/Function: Good back ROM today, still missing extension but only mild transient central pain. Walking with R antalgia slightly and diminished hip ROM but I and able to do what he needs to do at home. Feeling better overall, L knee and back are limiting factors now for which I recommneded he see his pain managemment doctor who he has not seen in a year and possibly back therapy a part of his future maybe in the pool. Goals Goal 1:: Pt feel hip pain is 75% better and 1/10 at worst Goal Progress: 80% Goal 2:: I appropriate HEP to minimize hip pain and max improved activity Goal Progress: Goal Met Goal 3:: LEFS sccore 50 Goal Progress: Progressing Goal 4:: exit chair without hesitation or pain outside of knee Goal Progress: Goal Met Goal 5:: Back to chopping wood in [place] Goal Progress: Progressing Plan Plan: d/c to HEP, pt to seek pain management doctor for his back pain whihc is now more limiting than hips. D/C Information d/c sentence: If there are questions or concerns regarding this patient's physical therapy, please feel free to call me at [phone]. Thank you for the referral of this patient. Sincerely, Spencer Manrique, DPT, OCS, CSCS Balance/Gait/Functional tests Balance/Special Test Scores Lower Extremity Functional Score: 48 Improvement % Improvement: 80 01/23/25 1418 CC: Dr. Adelfo Garcia MD; Dr. Mohan Brooke DO EBG Signed Normal [facility] Cardiology Visit Reporton Cardiology Visit Report [facility] [address] [place] [address] OFFICE VISIT Date of Service: 01/16/25 MR#: [id number] Acct: [id number] Name: CHET JERONIMO Rep #: [id number] : 1940 Provider: MARIE jay Age/Sex: 84/M Location: [facility] Status: Signed HPI HPI History of Present Illness Details: Patient is a pleasant 84-year-old white male that comes in today for new patient visit. The patient was in [place] earlier in fall and developed a severe sinusitis. He noticed in mid May that he was getting more short of breath than usual which started about a year ago. He was also profoundly fatigued. The patient was evaluated in his primary care office and was noted to be in atrial fibrillation by report. The ECG that was sent dated June 04, 2024 appears to be sinus rhythm with PACs but it is very difficult to read. IT is a photocopy. The computer read it as atrial fibrillation. The EKG in the office here on 07/17/2024 shows sinus bradycardia with first-degree AV block and occasional PACs. He denies chest, arm, jaw, or neck discomfort. He denies palpitations. He denies bilateral lower extremity edema. He denies claudication. He states shortness of breath with activity after walking long distances. This is improved since last visit. He denies shortness of breath at rest, orthopnea, or PND. He denies chronic cough. He denies significant, sudden weight gain. He denies lightheadedness, dizziness, near-syncope, or syncope. He denies blood in urine, blood in stool, or epistaxis. He denies fever with chills. He denies myalgia. He denies fatigue. His exercise level has remained stable and limited by back and hip pain. Intake Vital Signs 12/12/24 13:40 01/16/25 13:35 Height 5 ft 4 in 5 ft 4 in Weight: 174 lb 174 lb BMI 29.8 29.8 BP 134/61 H 146/74 H Blood Pressure Location Lt brachial Lt brachial Position Sitting Sitting Respiration 18 16 Pulse 52 L 52 L Pulse Source NIBP NIBP Intake Visit Reasons: 4-6 WK FU Press Cleaner Required: No Is patient in pain?: No Allergies Penicillins Adverse Reaction (Verified 01/16/25 13:39) Hives Medications ???Medication ???Instructions ???Recorded ???Confirmed ???Type omeprazole 40 mg capsule,delayed 40 mg PO QDAY 02/29/24 01/16/25 Hi story release cholecalciferol (vitamin D3) 50 50 mcg PO QDAY 06/26/24 01/16/25 H istory mcg (2,000 unit) capsule hydrocortisone 2.5 % topical cream 1 applic topical BID PRN 2 4 01/16/25 History ipratropium bromide 42 mcg (0.06 2 spray intranasal BID 06/26/24 History %) nasal spray hydrochlorothiazide 12.5 mg capsule 12.5 mg PO QDAY #90 caps 01/16/25 Rx metoprolol tartrate 25 mg tablet 25 mg PO BID #180 tabs 08/06/24 Rx apixaban 2.5 mg tablet (Eliquis) 2.5 mg PO BID Sending to [facility] 12/12/24 01/16/25 Rx [facility] #180 tabs Ejection fraction %: 60 Have you fallen in the past year?: No PFSH Medical History Shortness of breath Fatigue Osteoarthritis of right knee Type 2 diabetes mellitus Atrial fibrillation Surgical History History of cholecystectomy History of ankle surgery History of arthroplasty of left knee Family History Father Heart disease Social History household members: spouse Smoking Status: Former smoker how long ago did patient quit smokin alcohol intake: never substance use type: does not use caffeine: Yes Type: coffee Number of servings: 3 ROS Const Const: Negative for fatigue or weakness Eyes Eyes: Negative for change in vision ENT ENT: Negative for dizziness or balance problems Cardio Chest Pain: No Palpitations: No Edema: None Resp Respiratory: Positive for SOB with activity; Negative for SOB at rest or SOB orthopnea SOB lying down GI GI: Positive for nausea (Get stomach pain and nausea with metoprolol); Negative heartburn Musc Musc: Negative for balance problems Neuro Neuro: Negative for dizziness, lightheadedness, near syncope, syncope or weakness Endo Endo: Negative for fatigue Cardiology Exam Const Appearance: cooperative, healthy appearing, comfortable and no acute distress Nutritional Appearance: well nourished and overweight Orientation: alert, awake and oriented x3 Head Head: normal to inspection Ears: hearing grossly normal bilaterally Nose: external nose normal Face and Sinus: face symmetric Mouth: moist mucous membranes Eyes General: appearance normal, both eyes and all related structures Eyelids: eyelids normal EOM: EOM intact bilaterally Neck Neck: normal visual inspection (more content not included)... Normal [facility] Cardiovascular stress test r eportOrdered By: Ishmael Cancino on 01-09-2025 Study report [facility] [address] [place] [address] MR#: [id number] Acct: [id number] Name: CHET JERONIMO Rep #: [id number] : 1940 84 From: Ishmael Cancino MD Primary Care: Dr. Adelfo Garcia MD Status: REG CLI Referring Dr: Gilmer Pratt NP, NP-Yovana Sex: M C Stress Test Report Pharmacologic myocardial perfusion stress test. 84-year-old man with a history of shortness of breath and atrial fibrillation Resting EKG demonstrates sinus rhythm with a rate of 64 bpm. Resting blood pressure is 178/90 mmHg. 0.4 mg of regadenoson was infused per usual protocol followed by rapid intravenous saline flush injection. Continuous EKG monitoringwas performed. The maximum heart rate was 90 bpm which was 65% of max impacted heart rate the maximum workload was 1 metabolic equivalent. At rest there were no ST or T wave changes noted to suggest ischemia and at peak infusion nonspecific ST changes were noted which did not meet the criteria for ischemia. No clinical angina is noted. The final blood pressure was 158/72 mmHg. Myocardial perfusion protocol. 11.8 mCi of technetium 99m sestamibi was injected at rest. 0.4 mg of regadenoson was infused per usual protocol. At peak infusion 35.3 mCi of technetium 99m sestamibi was injected stress images were obtained stress and rest images were reconstructed and compared in the short axis vertical long and horizontal long axis. Gated images were also obtained. Perfusion SPECT analysis: Review of the stress images demonstrate normal uptake of tracer noted in all areas of the myocardium. The resting images similar demonstrated normal uptake of tracer noted in all areas of the myocardium. No areas of reversibility are noted to suggest ischemia and no previous infarct is noted. Gated SPECT analysis: The gated ejection fraction is 59%. Conclusion: Normal pharmacologic myocardial perfusion stress test. Preserved ejection fraction. 01/09/25 1021 Date _ Ishmael Cancino MD CC: MARIE Pratt; Dr. Adelfo Garcia MD ~ Date Dictated: 01/09/25 1020 Date Transcribed: 01/09/25 1020 Mail Opener: CO Signed [facility] Work Phone: Stress Reporton 01-09-2025 Stress Report [facility] [address] [place] [address] MR#: [id number] Acct: [id number] Name: CHET JERONIMO Rep #: [id number] : 1940 84 From: Ishmael Cancino MD Primary Care: Dr. Adelfo Garcia MD Status: REG CLI Referring Dr: Gilmer Pratt NP ROLLED GOLD PLATER-C Sex: M C Stress Test Report Pharmacologic myocardial perfusion stress test. 84-year-old man with a history of shortness of breath and atrial fibrillation Resting EKG demonstrates sinus rhythm with a rate of 64 bpm. Resting blood pressure is 178/90 mmHg. 0.4 mg of regadenoson was infused per usual protocol followed by rapid intravenous saline flush injection. Continuous EKG monitoring was performed. The maximum heart rate was 90 bpm which was 65% of max impacted heart rate the maximum workload was 1 metabolic equivalent. At rest there were no ST or T wave changes noted to suggest ischemia and at peak infusion nonspecific ST changes were noted which did not meet the criteria for ischemia. No clinical angina is noted. The final blood pressure was 158/72 mmHg. Myocardial perfusion protocol. 11.8 mCi of technetium 99m sestamibi was injected at rest. 0.4 mg of regadenoson was infused per usual protocol. At peak infusion 35.3 mCi of technetium 99m sestamibi was injected stress images were obtained stress and rest images were reconstructed and compared in the short axis vertical long and horizontal long axis. Gated images were also obtained. Perfusion SPECT analysis: Review of the stress images demonstrate normal uptake of tracer noted in all areas of the myocardium. The resting images similar demonstrated normal uptake of tracer noted in all areas of the myocardium. No areas of reversibility are noted to suggest ischemia and no previous infarct is noted. Gated SPECT analysis: The gated ejection fraction is 59%. Conclusion: Normal pharmacologic myocardial perfusion stress test. Preserved ejection fraction. 01/09/25 1021 Date Ishmael Cancino MD CC: MARIE Pratt; Dr. Adelfo Garcia MD Date Dictated: 01/09/25 1020 Date Transcribed: 01/09/25 1020 Mail Opener: [place] Signed [facility] 36on 12-28-2024 36 S: Elena Purcell called the clinical access center B: Follow up on a fax that was sent to [facility] A: This patient is not listed as a patient at [facility]. R: They will call back during business hours. Patient instructed to call back with worsening symptoms, concerns or questions. Reason for Disposition ? [1] Caller requesting NON-URGENT health information AND [2] PCP's office is the best resource Protocols used: Information Only Call - [facility] Card[facility] Visit Reporton Cardiology Visit Report [facility] [address] [place] [address] OFFICE VISIT Date of Service: 12/12/24 MR#: [id number] Acct: [id number] Name: CHET JERONIMO Rep #: [id number] : 1940 Provider: MARIE jay Age/Sex: 84/M Location: [facility] Status: Signed HPI HPI History of Present Illness Details: Patient is a pleasant 84-year-old white male that comes in today for new patient visit. The patient was in [place] earlier in fall and developed a severe sinusitis. He noticed in mid May that he was getting more short of breath than usual which started about a year ago. He was also profoundly fatigued. The patient was evaluated in his primary care office and was noted to be in atrial fibrillation by report. The ECG that was sent dated June 04, 2024 appears to be sinus rhythm with PACs but it is very difficult to read. IT is a photocopy. The computer read it as atrial fibrillation. The EKG in the office here on 07/17/2024 shows sinus bradycardia with first-degree AV block and occasional PACs. He denies chest, arm, jaw, or neck discomfort. He denies palpitations. He denies bilateral lower extremity edema. He denies claudication. He states shortness of breath with activity after walking long distances. This is unchanged from previous. He denies shortness of breath at rest, orthopnea, or PND. He denies chronic cough. He denies significant, sudden weight gain. He denies lightheadedness, dizziness, near-syncope, or syncope. He denies blood in urine, blood in stool, or epistaxis. He denies fever with chills. He denies myalgia. He denies fatigue. His exercise level has remained stable. Intake Vital Signs 07/17/24 12:07 11/28/24 13:00 12/12/24 13:40 Height 5 ft 4 in 5 ft 4 in 5 ft 4 in Weight: 174 lb BMI 29.8 BP 134/61 H Blood Pressure Location Lt brachial Position Sitting Respiration 18 Pulse 52 L Pulse Source NIBP Intake Visit Reasons: 6 M FU Press Cleaner Required: No Is patient in pain?: No Allergies Penicillins Adverse Reaction (Verified 12/12/24 13:48) Hives Medications ???Medication ???Instructions ???Recorded ???Confirmed ???Type omeprazole 40 mg capsule,delayed 40 mg PO QDAY 02/29/24 12/12/24 Hi story release cholecalciferol (vitamin D3) 50 50 mcg PO QDAY 06/26/24 12/12/24 H istory mcg (2,000 unit) capsule hydrocortisone 2.5 % topical cream 1 applic topical BID PRN 4 12/12/24 History ipratropium bromide 42 mcg (0.06 2 spray intranasal BID 06/26/24 History %) nasal spray apixaban 2.5 mg tablet (Eliquis) 2.5 mg PO BID #60 tabs 07/17/24 Rx hydrochlorothiazide 12.5 mg capsule 12.5 mg PO QDAY #90 caps 12/12/24 Rx metoprolol tartrate 25 mg tablet 25 mg PO BID #180 tabs 08/06/24 Rx Ejection fraction %: 60 Have you fallen in the past year?: No Nurse's Note: Nauseated at times after taking metoprolol. [facility] Medical History (Updated 12/12/24 @ 14:29 by Gilmer Pratt ROLLED GOLD PLATER, ROLLED GOLD PLATER-C) Shortness of breath Fatigue Osteoarthritis of right knee Type 2 diabetes mellitus Atrial fibrillation Surgical History History of cholecystectomy History of ankle surgery History of arthroplasty of left knee Family History Father Heart disease Social History (Updated 12/12/24 @ 13:53 by Sydnee Cormier) household members: spouse Smoking Status: Former smoker how long ago did patient quit smokin alcohol intake: never substance use type: does not use caffeine: Yes Type: coffee Number of servings: 3 ROS Const Const: Negative for fatigue or weakness Eyes Eyes: Negative for change in vision ENT ENT: Negative for dizziness or balance problems Cardio Chest Pain: No Palpitations: No Edema: None Muscle aches with walking: None Resp Respiratory: Positive for SOB with activity (After walking short distance. Unchanged); Negative for SOB at rest or SOB orthopnea SOB lying down GI GI: Negative nausea or heartburn : Negative for hematuria or frequent nighttime urination/ nocturia Musc Musc: Negative for balance problems Skin Skin: Negative non-healing lesions or rash Neuro Neuro: Negative for dizziness, lightheadedness, near syncope, syncope or weakness Endo Endo: Negative for fatigue Allergy Allergy/Immunology: Negative for rash Cardiology Exam Const Appearance: cooperative, healthy appearing, comfortable and no acute distress Nutritional Appearance: well nourished and overweight Orientation: alert, awake and oriented x3 Head Head: normal to inspection Ears: hearing grossly normal bilaterally Nose: external nose normal Face and Sinus: face symmetric Mouth: moist mucous membranes Eyes (more content not included)... Normal [facility] Inital Evaluation (1) - PTon 12-05-2024 Inital Evaluation (1) - PT [facility] [address] [place] [address]. [address] [place] [address] / REHABILITATION SERVICES INITIAL EVALUATION MR#: [id number] Acct: [id number] Name: CHET JERONIMO Rep #: [id number] : 1940 84 From: Spencer Manrique DPT, OCS, CSCS Referring Dr.: Dr. Mohan Brooke, DO Status: R EG RCR Insurance: MEDICARE PART A B [employer] SR SUPPLEMENT INS Patient's Visit Information Visit Information Visit Information: CHET JERONIMO is a 84 year old M referred to Physical Therapy by Dr. Mohan Brooke DO with a diagnosis of B bursitis of the hips. Date of Evaluation: 12/05/24 Physical Therapist: Spencer Manrique, DPT, OCS, CSCS Visit Plan Frequency: 3x /Week Duration: 4-6 Weeks Plan: 3x/week for 3-6 weeks... IE HEP: priiformis stretch 20 5x daily adn keep hips , knees, back and ankles moving when sitting. Treeat with 1. B nonthermal US to torchanteric bursa area. 2. rollout and stretch B gluts and ITB and stretch, teach for HEP, leg pulls 3. hip and core strength ex mat to HEP 4. Lumbar ROM ex on mat and core strength to HEP Gradual progression from modalities to ex during his duration of therapy. Montior R knee pain as it is bone on bone. Subjective Subjective: R knee hurts all time adn just had 3rd injectrion which will help. 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 will gt a brace for L ankle from [employer] and L ankle support. Is here b/c hips hurt, can walk a couple 100 feet and then L hip starts hurting then R. laterally. 02/05 with ambulating too much adn comforatble at rest. Sleeping is OK as far as hips go. Retired. 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 No regular ex. Hobbies: [place] and sitting is fine. Live with who does grocery shopping. 2 story house. No problem but cannot run up and down them. Basic ADLS all I. Pain L hip: Pain Intensity (Out of 10): 0 Pain Intensity Range: 6 Comment: hips with walking. comfortable at rest. Objective Objective: R antalgia avoiding knee flexion with I gait, L toeing out. R foot fused and not pushing off, R knee varus. Short steps lacking weight shift and mild B trendelenberg. -3-91 AROM R knee with pain end range, 0-110 L. Hip AROM to 0 extension B, 20 abduction, 100 flexion, rotations are 45 er and 10 IR, slight pain IR L. + FADDIR L, - WILL B, - scour in hips. ankle aROM R is minimal and fused, L is WFL, strength 4-/5. knee strength 3+ R knee ext adn 4- knee flexion, L is 4-. reflexes 1/3 patella adn achilles B. Sensation LE WNL to gross light touch. Lumbar AROM max limited in ext adn flexion adn mod in B SB, some pain with ext. - SLR, - slump test. HS max tight at -40 90/90, itb mod tight not able to drop to table in sidelying, piriformis mod tight and tender through gluts and piriformis area moderately. Balance/Special Test Scores Lower Extremity Functional Score: 45 Goals Goal 1:: Pt feel hip pain is 75% better and 1/10 at worst Goal Time Frame: 4-6 Weeks Goal 2:: I appropriate HEP to minimize hip pain and max improved activity Goal Time Frame: 4-6 Weeks Goal 3:: LEFS sccore 50 Goal Time Frame: 4-6 Weeks Goal 4:: exit chair without hesitation or pain outside of knee Goal Time Frame: 4-6 Weeks Goal 5:: Back to chopping wood in [place] Goal Time Frame: 4-6 Weeks Rehabilitation Potential Physical Therapy Diagnosis: hip bursitis and sedentarism causing weakness tightness and diminished mobility. Rehabilitation Potential: Good Anticipated Interventions Patient/Client Instruction: Educate patient on: Condition and Plan of Care For the Purpose of:: To decrease pain, To increase ROM, To improve nutrient delivery to tissue, To improve muscle performance and motor function, To increase tolerance to activity/condition/posi tion, To improve ability of physical actions for home/community/work/lei sure and To improve gait and locomotor functions Therapeutic Exercise to Include: Strength training, Postural training, Flexibilty training, Passive ROM and Active ROM For the Purpose of:: To decrease pain, To increase ROM, To improve nutrient delivery to tissue, To improve muscle performance and motor function, To increase tolerance to activity/condition/posi tion and To improve gait and locomotor functions Manual Therapy Techniques to Include: Mobilization, Passive ROM and Soft tissue mobilization For the Purpose of:: To decrease pain, To increase ROM and To improve nutrient delivery to tissue Thermo therapy (hot pack): Yes Ultrasound (thermal/non thermal): Yes (nonthermal) Text: Thank you for the opportunity to evaluate your patient. For Medicare and Medicare HMO plans, please review the plan of care and approve it. It will need to be FAXED BA (more content not included)... Normal [facility] Orthopedic Visit Reporton Orthopedic Visit Report [facility] [address] [place] [address] OFFICE VISIT Date of Service: 11/28/24 MR#: [id number] Acct: [id number] Name: CHET JERONIMO Rep #: [id number] : 1940 Provider: Dr. Mohan shaw DO Age/Sex: 84/M Location: [facility] Status: Signed with Addenda ADDENDUM by Dr. Mohan Brooke DO on 12/10/24 at 1507 Assessment and Plan Assessment and Plan (1) Greater trochanteric bursitis of both hips: Status: Acute (2) Lumbago: Status: Acute Qualifiers: Chronicity: chronic Back pain laterality: bilateral (3) Osteoarthritis of right knee: Status: Acute Qualifiers: Osteoarthritis type: primary Qualified Code(s): M17.11 - Unilateral primary osteoarthritis, right knee Orders: Orders Euflexxa Injection 11/28/24 Referrals Physical Therapy Referral M25.551 - Pain in right hip, M25.552 - Pain in left hip, M54.50 - Low back pain, unspecified 12/10/24 1507 Date Mohan Brooke DO cc: * Signed Intake Vital Signs 07/17/24 12:07 11/21/24 13:23 11/28/24 13:00 Height 5 ft 4 in 5 ft 4 in 5 ft 4 in Intake Visit Reasons: RIGHT KNEE Chief Complaint: Right nancy 3rdEufelxxa Accompanied by: Self Is patient in pain?: No Allergies Penicillins Adverse Reaction (Verified 11/28/24 13:08) Hives Medications ???Medication ???Instructions ???Recorded ???Confirmed ???Type omeprazole 40 mg capsule,delayed 40 mg PO QDAY 02/29/24 11/28/24 Hi story release cholecalciferol (vitamin D3) 50 50 mcg PO QDAY 06/26/24 11/28/24 H istory mcg (2,000 unit) capsule hydrocortisone 2.5 % topical cream 1 applic topical BID PRN 2 4 11/28/24 History ipratropium bromide 42 mcg (0.06 2 spray intranasal BID 06/26/24 History %) nasal spray apixaban 2.5 mg tablet (Eliquis) 2.5 mg PO BID #60 tabs 07/17/24 Rx hydrochlorothiazide 12.5 mg capsule 12.5 mg PO QDAY #90 caps 11/28/24 Rx metoprolol tartrate 25 mg tablet 25 mg PO BID #180 tabs 08/06/24 Rx Have you fallen in the past year?: No PFSH Medical History Shortness of breath Fatigue Osteoarthritis of right knee Type 2 diabetes mellitus Atrial fibrillation Surgical History History of cholecystectomy History of ankle surgery History of arthroplasty of left knee Family History Father Heart disease Social History household members: spouse Smoking Status: Former smoker alcohol intake: never HPI RIGHT KNEE Details: This documentation accurately reflects the service provided and the decisions made by me, Dr. Mohan Brooke, DO 11/28/24 0828. Part of today???s visit was documented by Kalie Travis MA, acting as scribe. CHET JERONIMO is a 84 year old M here today for 3rd Euflexxa right knee injection. He also complains of chronic low back pain and bilateral lateral hip pain. Ortho Exam General General: Yes no acute distress Neurologic: Yes alert and Yes oriented x3 Psychologic: Yes reasonable and appropriate Right Knee Skin/Wound: Yes CDI, No erythema, No ecchymosis and No swelling Homans Sign: No 2+: Effusion Knee ROM: No ROM-Extension -20 to 0 (5) and Yes ROM-Flexion 0-140 (110) Examination: Yes Med jt line tenderness, No Lat jt line tenderness and Yes TTP Pes Anserine Stability: NML: Anterior Drawer, NML: Valgus 0, NML: Valgus 30, NML: Varus 0 and NML: Varus 30 Patella Grind: Yes KNEE: He does have varus deformity that is fixed 5 degree flexion contracture small joint effusion 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 Under sterile conditions, injected the patients right knee with 3rd Euflexxa. The patient tolerated the injection well without any noted complication. Patient should call our office if redness develops, pain worsens or if they have any concerns. Is this Buy Bill?: Yes Office Meds Euflexxa 10 mg/mL (mw 2.4-3.6 million) intra-articular syringe Performing Provider: Mohan Brooke DO Performing Location: [facility] Administered by: Mohan Brooke DO on 11/28/24 13:21 Dose Route Admin Location Dispensed Lot Number Expiration Date [facility] Man ufacturer 20 mg intra-articular Right knee 2 mL [id number] 08/18/25 [address]-5 [employer] Supplemental Info 04/05/2023 x-ray right knee: Advanc (more content not included)... Normal [facility] Orthopedic Visit Reporton Orthopedic Visit Report [facility] [address] [place] [address] [address] [place] [address] OFFICE VISIT Date of Service: 11/21/24 MR#: [id number] Acct: [id number] Name: CHET JERONIMO Rep #: [id number] : 1940 Provider: Dr. Mohan shaw DO Age/Sex: 84/M Location: [email or web address] Status: Signed Intake Vital Signs 07/17/24 12:07 03/26/25 13:23 Height 5 ft 4 in 5 ft 4 in Weight: 172 lb BMI 29.5 BP 150/70 H Blood Pressure Location Lt brachial Position Sitting Respiration 18 Pulse 57 L Pulse Source Monitor Pulse Oximetry (%) 98 Oxygen Delivery Method room air Intake Visit Reasons: RIGHT KNEE Chief Complaint: Right nancy 2nd Eufelxxa Accompanied by: Self Is patient in pain?: No Allergies Penicillins Adverse Reaction (Verified 11/21/24 13:25) Hives Medications ???Medication ???Instructions ???Recorded ???Confirmed ???Type omeprazole 40 mg capsule,delayed 40 mg PO QDAY 02/29/24 11/21/24 Hi story release mxaqtir-zesysnjqjwlhf-c affeine 250 1 tab PO Q4-6H PRN 06/26/2410/28 History mg-250 mg-65 mg tablet (Excedrin Extra Strength) cholecalciferol (vitamin D3) 50 50 mcg PO QDAY 06/26/24 11/21/24 H istory mcg (2,000 unit) capsule hydrocortisone 2.5 % topical cream 1 applic topical BID PRN 4 11/21/24 History ipratropium bromide 42 mcg (0.06 2 spray intranasal BID 06/26/24 History %) nasal spray apixaban 2.5 mg tablet (Eliquis) 2.5 mg PO BID #60 tabs 07/17/24 Rx hydrochlorothiazide 12.5 mg capsule 12.5 mg PO QDAY #90 caps 11/21/24 Rx metoprolol tartrate 25 mg tablet 25 mg PO BID #180 tabs 08/06/24 Rx Have you fallen in the past year?: No PFSH Medical History Shortness of breath Fatigue Osteoarthritis of right knee Type 2 diabetes mellitus Atrial fibrillation Surgical History History of cholecystectomy History of ankle surgery History of arthroplasty of left knee Family History Father Heart disease Social History (Reviewed 11/21/24 @ 13:25 by RORY Wood household members: spouse Smoking Status: Former smoker alcohol intake: never HPI RIGHT KNEE Details: This documentation accurately reflects the service provided and the decisions made by me, Dr. Mohan Brooke DO 11/21/24 0822. Part of today???s visit was documented by Kalie Pearce MA, acting as scribe. CHET JERONIMO is a 84 year old M here today for right knee 2nd Euflexxa injection. Patient thinks the injections are helping. Patient came into the office today for his 2nd Euflexxa injection for his right knee. Injection was given today, he tolerated it well. Patient will come back in one week for his 3rd Euflexxa. Ortho Exam General General: Yes no acute distress Neurologic: Yes alert and Yes oriented x3 Psychologic: Yes reasonable and appropriate Right Knee Skin/Wound: Yes CDI, No erythema, No ecchymosis and No swelling Homans Sign: No 2+: Effusion Knee ROM: No ROM-Extension -20 to 0 (5) and Yes ROM-Flexion 0-140 (110) Examination: Yes Med jt line tenderness, No Lat jt line tenderness and Yes TTP Pes Anserine Stability: NML: Anterior Drawer, NML: Valgus 0, NML: Valgus 30, NML: Varus 0 and NML: Varus 30 Patella Grind: Yes KNEE: He does have varus deformity that is fixed 5 degree flexion contracture small joint effusion 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 Under sterile conditions, injected the patients right knee with 20 mg Euflexxa . The patient tolerated the injection well without any noted complication. Patient should call our office if redness develops, pain worsens or if they have any concerns. Is this Buy Bill?: Yes Office Meds Euflexxa 10 mg/mL (mw 2.4-3.6 million) intra-articular syringe Performing Provider: Mohan Brooke DO Performing Location: [facility] Administered by: Mohan Brooke DO on 11/21/24 13:41 Dose Route Admin Location Dispensed Lot Number Expiration Date NDC Man ufacturer 10 mg intra-articular Right knee 2 mL [id number] 08/18/25 [address]-9 [employer] Supplemental Info 04/05/2023 x-ray right knee: Advanced knee arthrosis dcuz-um-aesk medial compartment with varus deformity moderate patellofemoral arthrosis Coding Level of Care Code Off vis,est,level 3 Diagnoses Primary osteoarthritis of right knee M17.11 Osteoarthritis type: primary Assessment and Plan Assessment and Plan (1) Osteoarthritis of right knee: Status: A (more content not included)... Normal [facility] Orthopedic Visit Reporton Orthopedic Visit Report [facility] [address] [place] [address] [address] [place] [address] OFFICE VISIT Date of Service: 11/14/24 MR#: [id number] Acct: [id number] Name: CHET JERONIMO Rep #: [id number] : 1940 Provider: Dr. Mohan shaw DO Age/Sex: 84/M Location: [email or web address] Status: Signed Intake Vital Signs 07/17/24 12:07 Height 5 ft 4 in Weight: 172 lb BMI 29.5 BP 150/70 H Blood Pressure Location Lt brachial Position Sitting Respiration 18 Pulse 57 L Pulse Source Monitor Pulse Oximetry (%) 98 Oxygen Delivery Method room air Intake Visit Reasons: RIGHT KNEE Allergies Penicillins Adverse Reaction (Verified 11/14/24 13:20) Hives Medications ???Medication ???Instructions ???Recorded ???Confirmed ???Type omeprazole 40 mg capsule,delayed 40 mg PO QDAY 02/29/24 11/14/24 Hi story release uxlfcbw-fzjystodxvciq-v affeine 250 1 tab PO Q4-6H PRN 06/26/2410/27 History mg-250 mg-65 mg tablet (Excedrin Extra Strength) cholecalciferol (vitamin D3) 50 50 mcg PO QDAY 06/26/24 11/14/24 H istory mcg (2,000 unit) capsule hydrocortisone 2.5 % topical cream 1 applic topical BID PRN 4 11/14/24 History ipratropium bromide 42 mcg (0.06 2 spray intranasal BID 06/26/24 History %) nasal spray apixaban 2.5 mg tablet (Eliquis) 2.5 mg PO BID #60 tabs 07/17/24 Rx hydrochlorothiazide 12.5 mg capsule 12.5 mg PO QDAY #90 caps 11/14/24 Rx metoprolol tartrate 25 mg tablet 25 mg PO BID #180 tabs 08/06/24 Rx Have you fallen in the past year?: No PFSH Medical History Shortness of breath Fatigue Osteoarthritis of right knee Type 2 diabetes mellitus Atrial fibrillation Surgical History History of cholecystectomy History of ankle surgery History of arthroplasty of left knee Family History Father Heart disease Social History household members: spouse Smoking Status: Former smoker alcohol intake: never HPI RIGHT KNEE Details: This documentation accurately reflects the service provided and the decisions made by me, Dr. Mohan Brooke, DO 11/14/24 0903. Part of today???s visit was documented by Suad AUGUSTIN, acting as scribe. CHET JERONIMO is a 84 year old M here today for 1st Euflexxa right knee. Ortho Exam General General: Yes no acute distress Neurologic: Yes alert and Yes oriented x3 Psychologic: Yes reasonable and appropriate Right Knee Skin/Wound: Yes CDI, No erythema, No ecchymosis and No swelling Homans Sign: No 2+: Effusion Knee ROM: No ROM-Extension -20 to 0 (5) and Yes ROM-Flexion 0-140 (110) Examination: Yes Med jt line tenderness, No Lat jt line tenderness and Yes TTP Pes Anserine Stability: NML: Anterior Drawer, NML: Valgus 0, NML: Valgus 30, NML: Varus 0 and NML: Varus 30 Patella Grind: Yes KNEE: He does have varus deformity that is fixed 5 degree flexion contracture small joint effusion 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 Under sterile conditions, injected the patients right knee with 20mg/2mL of Euflexxa. The patient tolerated the injection well without any noted complication. Patient should call our office if redness develops, pain worsens or if they have any concerns. Is this Buy Bill?: Yes Office Injections/Aspirations Procedure Detail Procedure performed by: Mohan Brooke Medication Given: Yes Ortho Injections/Aspirations Yes Knee Right Details: Obtained consent for aspiration. Under sterile conditions, aspirated 41cc of clear yellow synovial fluid from the patients right knee. The patient tolerated the aspiration well without any noted complications. Patient should call our office if redness develops, pain worsens or if they have any concerns. 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 Normal [facility] Absolute lymphocyte countOrd ered By: Adelfo Garcia on 10-03-2024 Lymphocytes Auto (Unsp spec) [#/Vol] 2.27 10*3/uL 0.83-4.51 [facility] Absolute neutrophil countOrd ered By: Adelfo Garcia on 10-03-2024 Neutrophils (Bld) [#/Vol] 4.4 10*3/uL 2.0-7.7 [facility] Albumin to globulin ratioOrd ered By: Adelfo Garcia on 10-03-2024 Albumin/Globulin [Mass ratio] 0.9 {ratio} 0.9-2.4 [facility] Automated lymphocyte count a s percentage of total leukocytesOrdered By: Adelfo Garcia on 10-03-2024 Lymphocytes/100 WBC Auto (Unsp spec) 29.1 % 19-41 [facility] Basophil percentageOrdered B y: Adelfo Garcia on 10-03-2024 Basophils/100 WBC (Bld) 0.5 % 0-1 [facility] Bilirubin, totalOrdered By: Adelfo Garcia on 10-03-2024 Bilirubin [Mass/Vol] 0.30 mg/dL 0.20-1.00 [facility] Comment on above: For patients on eltr ombopag therapy, use of Dimension Mckenney TBIL is not recommended. Blood urea nitrogen (BUN)/cr eatinine ratioOrdered By: Adelfo Garcia on 10-03-2024 Urea nitrogen/Creatinine [Mass ratio] 16.4 mg/mg 10-20 [facility] Carbon dioxide measurementOr dered By: Adelfo Garcia on 10-03-2024 CO2 [Moles/Vol] 27.0 mmol/L 21.0-32.0 [facility] Chloride measurementOrdered By: Adelfo Garcia on 10-03-2024 Chloride [Moles/Vol] 103 mmol/L 98-107 [facility] Comprehensive Metabolic Prof ilon 10-03-2024 Albumin [Mass/Vol] 3.5 g/dL Normal 3.2-5.0 [facility] Comment on above: Order Comment: Order Date: 10/03/24Order Info: 0786-1 - CMPOrder Info: 3016-3 - TSH Performed By: #### L 501.9520, L506.1000, L500.4050, L101.9900 ####[facility] [address] [place], [address] Albumin/Globulin [Mass ratio] 0.9 {ratio} Normal 0.9-2.4 [facility] Comment on above: Order Comment: Order Date: 10/03/24Order Info: 0786-1 - CMPOrder Info: 3016-3 - TSH Performed By: #### L 501.9520, L506.1000, L500.4050, L101.9900 ####[facility] [address] [place], [address] ALK P 73 U/L Normal 45-117 [facility] Comment on above: Order Comment: Order Date: 10/03/24Order Info: 0786-1 - CMPOrder Info: 3016-3 - TSH Performed By: #### L 501.9520, L506.1000, L500.4050, L101.9900 ####[facility] [address] [place], [address] ALT [Catalytic activity/Vol] 25 U/L Normal 16-61 [facility] Comment on above: Order Comment: Order Date: 10/03/24Order Info: 0786-1 - CMPOrder Info: 3016-3 - TSH Performed By: #### L 501.9520, L506.1000, L500.4050, L101.9900 ####[facility] [address] [place], [address] AST [Catalytic activity/Vol] 15 U/L Normal 15-37 [facility] Comment on above: Order Comment: Order Date: 10/03/24Order Info: 0786-1 - CMPOrder Info: 3015-3 - TSH Performed By: #### L 501.9520, L506.1000, L500.4050, L101.9900 ####[facility] [address] [place], [address] Bilirubin [Mass/Vol] 0.30 mg/dL Normal 0.20-1.00 [facility] Comment on above: Order Comment: Order Date: 10/03/24Order Info: 0786-1 - CMPOrder Info: 3016-3 - TSH Result Comment: For patients on eltrombopag therapy, use of Dimension Mckenney TBIL is not recommended. Performed By: #### L 501.9520, L506.1000, L500.4050, L101.9900 ####[facility] [address] [place], [address] BUN/CRE 16.4 RATIO Normal 10-20 [facility] Comment on above: Order Comment: Order Date: 10/03/24Order Info: 0786-1 - CMPOrder Info: 3016-3 - TSH Performed By: #### L 501.9520, L506.1000, L500.4050, L101.9900 ####[facility] [address] [place], [address] CA,Total 9.1 mg/dL Normal 8.5-10.1 [facility] Comment on above: Order Comment: Order Date: 10/03/24Order Info: 0786-1 - CMPOrder Info: 3015-10 - TSH Performed By: #### L 501.9520, L506.1000, L500.4050, L101.9900 ####[facility] [address] [place], [address] Chloride [Moles/Vol] 103 mmol/L Normal 98-107 [facility] Comment on above: Order Comment: Order Date: 10/03/24Order Info: 0786-1 - CMPOrder Info: 3015-10 - TSH Performed By: #### L 501.9520, L506.1000, L500.4050, L101.9900 ####[facility] [address] [place], [address] CO2 [Moles/Vol] 27.0 mmol/L Normal 21.0-32.0 [facility] Comment on above: Order Comment: Order Date: 10/03/24Order Info: 0786-1 - CMPOrder Info: 3015-10 - TSH Performed By: #### L 501.9520, L506.1000, L500.4050, L101.9900 ####[facility] [address] [place], [address] Creatinine [Mass/Vol] 1.34 mg/dL High 0.70-1.30 [facility] Comment on above: Order Comment: Order Date: 10/03/24Order Info: 0786-1 - CMPOrder Info: 3015-10 - TSH Result Comment: The validity of the calculated GFR GFRAA in patients over 70 years has not been determined. Clinical correlation is essential. Performed By: #### L 501.9520, L506.1000, L500.4050, L101.9900 ####[facility] [address] [place], [address] EST GFR - AA 65 mL/min Normal >60 [facility] Comment on above: Order Comment: Order Date: 10/03/24Order Info: 0786-1 - CMPOrder Info: 301-3 - TSH Result Comment: Afri can Zimbabwean GFR Calc Performed By: #### L 501.9520, L506.1000, L500.4050, L101.9900 ####[facility] [address] [place], [address] GAP 8 Normal 5-15 [facility] Comment on above: Order Comment: Order Date: 10/03/24Order Info: 0786-1 - CMPOrder Info: 3 - TSH Performed By: #### L 501.9520, L506.1000, L500.4050, L101.9900 ####[facility] [address] [place], [address] GFR/1.73 sq M.predicted among non-blacks MDRD (S/P/Bld) [Vol rate/Area] 54 mL/min/{1.73_m2} Low >60 [facility] Comment on above: Order Comment: Order Date: 10/03/24Order Info: 0786-1 - CMPOrder Info: 3015-3 - TSH Result Comment: Non- GFR Calc Performed By: #### L 501.9520, L506.1000, L500.4050, L101.9900 ####[facility] [address] [place], [address] Globulin (S) [Mass/Vol] 4.0 g/dL Normal 2.2-4.2 [facility] Comment on above: Order Comment: Order Date: 10/03/24Order Info: 0786-1 - CMPOrder Info: 3015-10 - TSH Performed By: #### L 501.9520, L506.1000, L500.4050, L101.9900 ####[facility] [address] [place], [address] Glucose [Mass/Vol] 127 mg/dL High 74-106 [facility] Comment on above: Order Comment: Order Date: 10/03/24Order Info: 0786-1 - CMPOrder Info: 3015-3 - TSH Result Comment: Fast ing Glucose result greater than or equal to 126 mg/dL suggests DIABETES MELLITUS per A.D.A. criteria. Performed By: #### L 501.9520, L506.1000, L500.4050, L101.9900 ####[facility] [address] [place], [address] Potassium [Moles/Vol] 4.0 mmol/L Normal 3.5-5.1 [facility] Comment on above: Order Comment: Order Date: 10/03/24Order Info: 0786-1 - CMPOrder Info: 3015-10 - TSH Performed By: #### L 501.9520, L506.1000, L500.4050, L101.9900 ####[facility] [address] [place], [address] Sodium [Moles/Vol] 138 mmol/L Normal 136-145 [facility] Comment on above: Order Comment: Order Date: 10/03/24Order Info: 0786-1 - CMPOrder Info: 3 - TSH Performed By: #### L 501.9520, L506.1000, L500.4050, L101.9900 ####[facility] [address] [place], [address] T PROT 7.5 g/dL Normal 6.4-8.2 [facility] Comment on above: Order Comment: Order Date: 10/03/24Order Info: 0786-1 - CMPOrder Info: 3 - TSH Performed By: #### L 501.9520, L506.1000, L500.4050, L101.9900 ####[facility] [address] [place], [place], [address] Urea nitrogen [Mass/Vol] 22 mg/dL High 7-18 [facility] Comment on above: Order Comment: Order Date: 10/03/24Order Info: 0786-1 - CMPOrder Info: 3016-3 - TSH Performed By: #### L 501.9520, L506.1000, L500.4050, L101.9900 ####[facility] [address] [place], [address] Eosinophil percentageOrdered By: Adelfo Garcia on 10-03-2024 Eosinophils/100 WBC (Bld) 3.3 % 0-5 [facility] Erythrocyte Sed Rateon 10-03 SED RATE 12 mm/hr Normal 0-20 [facility] Comment on above: Order Comment: Order Date: 10/03/24 Order Info: 0184-1 - CBCD Order Info: [id number] - SED Performed By: #### L 501.9520, L506.1000, L500.4050, L101.9900 #### [facility] [address] [place], [place], [address] Erythrocyte distribution wid th ratioOrdered By: Adelfo Garcia on 10-03-2024 Erythrocyte distribution width (RBC) [Ratio] 12.3 % 11.6-14.6 [facility] Erythrocyte distribution wid th standard deviationOrdered By: Adelfo Garcia on 10-03-2024 Erythrocyte distribution width (RBC) [Ratio] 43.6 fl 35.1-43.9 [facility] Erythrocyte sedimentation ra teOrdered By: Adelfo Garcia on 10-03-2024 ESR (Bld) [Velocity] 12 mm/h 0-20 [facility] Glomerular filtration rate ( GFR) estimationOrdered By: Adelfo Garcia on 10-03-2024 GFR/1.73 sq M.predicted among non-blacks MDRD (S/P/Bld) [Vol rate/Area] 54 mL/min/{1.73_m2} Low >60 [facility] Comment on above: Non- GFR Calc Glucose measurementOrdered B y: Adelfo Garcia on 10-03-2024 Glucose [Mass/Vol] 127 mg/dL High 74-106 [facility] Comment on above: Fasting Glucose resu lt greater than or equal to 126 mg/dL suggests DIABETES MELLITUS per A.D.A. criteria. Hematocrit Auto (Bld) [Volum e fraction]Ordered By: Adelfo Garcia on 10-03-2024 Hematocrit (Bld) [Volume fraction] 41.7 % 40-54 [facility] Hemoglobin measurementOrdere d By: Adelfo Garcia on 10-03-2024 Hemoglobin (Bld) [Mass/Vol] 14.2 g/dL 13.0-16.5 [facility] Immature granulocytes/100 WB C Auto (Bld)Ordered By: Adelfo Garcia on 10-03-2024 Immature granulocytes/100 WBC (Bld) 0.400 % 0.0-0.9 [facility] Comment on above: IG% - Immature Granu locytes (promyelocytes, myelocytes and metamyelocytes) > 1% indicates that a LEFT SHIFT is Present. Laboratory - Chemistry and C hemistry - challengeOrdered By: Adelfo Garcia on 10-03-2024 AST [Catalytic activity/Vol] 15 U/L 15-37 [facility] MCV (mean corpuscular volume ) determinationOrdered By: Adelfo Garcia on 10-03-2024 MCV (RBC) [Entitic vol] 96.1 fL High 80-94 [facility] Mean corpuscular hemoglobin (MCH) determinationOrdered By: Adelfo Garcia on 10-03-2024 MCH (RBC) [Entitic mass] 32.7 pg High 27.0-32.0 [facility] Mean corpuscular hemoglobin concentration (MCHC) determinationOrdered By: Adelfo Garcia on 10-03-2024 MCHC (RBC) [Mass/Vol] 34.1 g/dL 32-36 [facility] Mean platelet volume determi nationOrdered By: Adelfo Garcia on 10-03-2024 Platelet mean volume (Bld) [Entitic vol] 9.9 fL 6.2-12.0 [facility] Monocyte percentageOrdered B y: Adelfo Garcia on 10-03-2024 Monocytes/100 WBC (Bld) 9.9 % 0-10 [facility] Neutrophil percentageOrdered By: Adelfo Garcia on 10-03-2024 Neutrophils/100 WBC (Bld) 56.8 % 47-70 [facility] Nucleated red blood cell per centageOrdered By: Adelfo Garcia on 10-03-2024 Nucleated RBC/100 WBC (Bld) [Ratio] 0 % 0-5 [facility] Platelet countOrdered By: Amilcar Garcia on 10-03-2024 Platelets (Bld) [#/Vol] 239 10*3/uL 150-450 [facility] Potassium measurementOrdered By: Adelfo Garcia on 10-03-2024 Potassium [Moles/Vol] 4.0 mmol/L 3.5-5.1 [facility] RBC Auto (Bld) [#/Vol]Ordere d By: Adelfo Garcia on 10-03-2024 RBC (Bld) [#/Vol] 4.34 10*6/uL Low 4.6-6.2 [facility] Serum anion gap measurementO rdered By: Adelfo Garcia on 10-03-2024 Anion gap [Moles/Vol] 8 mmol/L 5-15 [facility] Serum globulin measurementOr dered By: Adelfo Garcia on 10-03-2024 Globulin (S) [Mass/Vol] 4.0 g/dL 2.2-4.2 [facility] Serum or plasma alanine toledo otransferase (ALT) measurementOrdered By: Adelfo Garcia on 10-03-2024 ALT [Catalytic activity/Vol] 25 U/L 16-61 [facility] Serum or plasma albumin june urement (mass/volume)Ordered By: Adelfo Garcia on 10-03-2024 Albumin [Mass/Vol] 3.5 g/dL 3.2-5.0 [facility] Serum or plasma alkaline tashi sphatase measurementOrdered By: Adelfo Garcia on 10-03-2024 ALP [Catalytic activity/Vol] 73 U/L 45-117 [facility] Serum or plasma calcium june urement (mass/volume)Ordered By: Adelfo Garcia on 10-03-2024 Calcium [Mass/Vol] 9.1 mg/dL 8.5-10.1 [facility] Serum or plasma creatinine m easurement (mass/volume)Ordered By: Adelfo Garcia on 10-03-2024 Creatinine [Mass/Vol] 1.34 mg/dL High 0.70-1.30 [facility] Comment on above: The validity of the calculated GFR & GFRAA in patients over 70 years has not been determined. Clinical correlation is essential. Serum or plasma thyroid stim ulating hormone (TSH) measurement (units/volume)Ordered By: Adelfo Garcia on 10-03-2024 TSH Qn 1.830 uIU/mL 0.358-3.740 [facility] Serum or plasma urea nitroge n measurement (mass/volume)Ordered By: Adelfo Garcia on 10-03-2024 Urea nitrogen [Mass/Vol] 22 mg/dL High 7-18 [facility] Sodium levelOrdered By: Gela Garcia on 10-03-2024 Sodium [Moles/Vol] 138 mmol/L 136-145 [facility] Thyroid Stim Hormone (TSH)on 10-03-2024 TSH 1.830 uIU/mL Normal 0.358-3.740 [facility] Comment on above: Order Comment: Order Date: 10/03/24Order Info: 0786-1 - CMPOrder Info: 3016-3 - TSH Performed By: #### L 501.9520, L506.1000, L500.4050, L101.9900 ####[facility] [address] [place], [address] Total proteinOrdered By: Jermaine Garcia on 10-03-2024 Protein [Mass/Vol] 7.5 g/dL 6.4-8.2 [facility] Vitamin D,25 Hydroxyon 10-03 Vitamin D 25-OH 99.7 ng/mL Normal [facility] Comment on above: Order Comment: Order Date: 10/03/24 Order Info: 32283-4 - VITD25 Result Comment: Patti min D 25(OH) Status Range Deficiency <20 ng/mL (50nmol/L) Insufficiency 20 - 30 ng/mL (50 - 75 nmol/L) Sufficiency 30 - 100 ng/mL (75 - 250 nmol/L) Toxicity >100 ng/mL (>250 nmol/L) Performed By: #### L 501.9520, L506.1000, L500.4050, L101.9900 #### [facility] [address] [place], [address] White blood cell (WBC) count Ordered By: Adelfo Garcia on 10-03-2024 WBC (Bld) [#/Vol] 7.8 10*3/uL 4.4-11.0 [facility] Vitamin B12on 09-24-2024 Cobalamin (Vitamin B12) [Mass/Vol] 522 pg/mL Normal -911 [facility] Comment on above: Order Comment: Order Date: 04/18/24Order Info: 9 - B12 Performed By: #### L 503.0105 ####[facility] [address] [place], [place], [address] Vitamin B12 measurementOrder ed By: Adelfo Garcia on 09-21-2024 Cobalamin (Vitamin B12) [Mass/Vol] 522 pg/mL -911 [facility] 12 Lead EKG performed by [facility] on 07-17-2024 12 Lead EKG performed by [facility] [address] [place] [address] 12 Lead EKG performed by [facility] 07/17/24 1317 MR#: [id number] Acct: [id number] Name: CHET JERONIMO Rep #: [id number] : 1940 83 From: Danny Lopez MD Attending Dr: Dr. Danny Lopez MD Status: DE P AMB Ordering Dr: Danny Lopez MD Date: 07/17/24 [place] [facility] Sex: M C Admitted: [facility]/12 Lead EKG performed by [facility] ECG Report Interpretation ---Sinus Bradycardia -First degree A-V block - occasional PAC Tom = 242 # PACs = 1.BORDERLINE RHYTHMElectronically signed on 07/17/2024 at 14:[address] Danny Juarezwood Software Version [id number] 07/17/24 1448 Date Danny Lopez MD CC: Dr. Adelfo Garcia MD Date Dictated: 07/17/241316 Date Transcribed: 07/17/241316 Mail Opener: Signed Normal [facility] Cardiology Visit Reporton Cardiology Visit Report [facility] [address] [place] [address]. [address] [place] [address] OFFICE VISIT Date of Service: 07/17/24 MR#: [id number] Acct: [id number] Name: CHET JERONIMO Rep #: [id number] : 1940 Provider: Dr. Danny anthony MD Age/Sex: 83/M Location: [facility] Status: Signed HPI HPI History of Present Illness Details: Patient is a pleasant 83-year-old white male that comes in today for new patient visit. The patient was in [place] earlier this fall and developed a severe sinusitis. He noticed in mid May that he was getting more short of breath than usual which started about a year ago. He was also profoundly fatigued. The patient was evaluated in his primary care office and was noted to be in atrial fibrillation by report. The ECG that was sent dated June 04, 2024 appears to be sinus rhythm with PACs but it is very difficult to read. Is a photocopy. The computer read it as atrial fibrillation. The EKG in the office here today shows sinus bradycardia with first-degree AV block and occasional PACs. The patient reports that over the last 2 weeks he is getting back to his baseline and feels pretty good. His chads Vascor comes out is 4. He is currently on Eliquis but cannot afford it long-term he has been given samples. We actually supplied him with a 30-day card as well. Patient denies any previous cardiac history his lipids have been controlled his lab work done June 04 showed a hemoglobin of 14.5 hematocrit 42.6 platelet count was 282,000 his BUN was 24 with a creatinine of 1.33 and a GFR estimated 55. Currently he is on Eliquis 2.5 mg twice daily given is 83 years of age and his creatinine clearance of 55. Liver function tests were normal on those on that blood work. Electrolytes were all within normal limits as well as a TSH of 1.35. Patient had a 2D echocardiogram done June 15 as LV size was normal with normal function and EF of 60% RV was normal both atria were normal size there was mild 1+ eccentric mitral valve insufficiency tricuspid valve had mild insufficiency there was mild 1+ aortic insufficiency otherwise the echocardiogram was unremarkable. 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 Required: No Allergies Penicillins Adverse Reaction (Verified 07/17/24 13:17) Hives Medications ???Medication ???Instructions ???Recorded ???Confirmed ???Type omeprazole 40 mg capsule,delayed 40 mg PO QDAY 02/29/24 07/17/24 History release wldloao-nttlrgciokwtg-j affeine 250 1 tab PO Q4-6H PRN 06/26/24 07/17/24 History mg-250 mg-65 mg tablet (Excedrin Extra Strength) cholecalciferol (vitamin D3) 50 50 mcg PO QDAY 06/26/24 07/17/24 History mcg (2,000 unit) capsule hydrocortisone 2.5 % topical cream 1 applic topical BID PRN 06/26/24 07/17/24 History ipratropium bromide 42 mcg (0.06 2 spray intranasal BID 06/26/24 07/17/24 History %) nasal spray apixaban 2.5 mg tablet (Eliquis) 2.5 mg PO BID #60 tabs 07/17/24 07/17/24 Rx hydrochlorothiazide 12.5 mg capsule 12.5 mg PO QDAY #90 caps 07/17/24 07/17/24 Rx metoprolol tartrate 25 mg tablet 25 mg PO BID 07/17/24 07/17/24 History Ejection fraction %: 60 Have you fallen in the past year?: No PFSH Medical History Shortness of breath Fatigue Osteoarthritis of right knee Type 2 diabetes mellitus Atrial fibrillation Surgical History History of cholecystectomy History of ankle surgery History of arthroplasty of left knee Family History Father Heart disease Social History household members: spouse Smoking Status: Former smoker alcohol intake: never ROS Const Const: Negative for fatigue or weakness Eyes Eyes: Negative for change in vision ENT ENT: Negative for dizziness or balance problems Cardio Chest Pain: No Palpitations: No Edema: None Resp Respiratory: Negative for SOB with activity, SOB at rest or SOB orthopnea SOB lying down GI GI: Negative nausea or heartburn Musc Musc: Negative for balance problems Neuro Neuro: Negative for dizziness, lightheadedness, near syncope, syncope or weakness Endo En (more content not included)... Normal [facility] Echo Completeon 06-15-[address] [facility] [address] [place] [address] Echo Complete 06/15/24 1345 MR#: [id number] Acct: [id number] Name: CHET JERONIMO Rep #: [id number] : 1940 83 From: Ishmael Cancino MD Attending Dr: Dr. Adelfo Garcia MD Status: REG CLI Ordering Dr: Adelfo Garcia MD Date: 06/15/24 Location: [facility] Sex: M C Admitted: Reason For Study: New onset A. fib Procedure This was a 2D Doppler, Color Flow transthoracic echocardiogram. Exam performed in department. Left Ventricle Normal LV size. Left ventricular systolic function is normal. The left ventricular ejection fraction is 60 %. Stage 1 diastolic dysfunction. No regional wall motion abnormalities noted. Right Ventricle Normal right ventricle. Normal systolic function. Atria Normal left atrium. Normal right atrium. Mitral Valve Normal mitral valve. Mild (1+) eccentric mitral valve insufficiency. Tricuspid Valve Normal tricuspid valve. Mild tricuspid valve insufficiency. Pulmonary artery systolic pressure is 26 mmHg. Aortic Valve Trisinus/trileaflet aortic valve. Mild (1+) aortic valve insufficiency. Pulmonic Valve Normal pulmonic valve. Great Vessels Normal aortic root. The pulmonary artery is normal size. Inferior vena cava collapse with respiration. Pericardium/Pleural No pericardial effusion. MMode/2D Measurements Calculations LVIDd: 4.5 cm IVSd: 0.85 cm Ao root diam: 3.0 cm LVIDs: 2.7 cm LVPWd: 1.00 cm RVDd: 3.6 cm FS: 39.1 % LAV(MOD-bp): 49.7 ml LVAd ap4: 28.2 cm2 LVAd ap2: 31.0 cm2 LAV(MOD-bp) Indexed: 27.5 ml/m2 LVLd ap4: 8.4 cm LVLd ap2: 8.4 cm LAV(MOD-sp2): 55.3 ml EDV(MOD-sp4): 77.2 ml EDV(MOD-sp2): 96.0 ml LAV(MOD-sp4): 43.4 ml EDV(sp4-el): 80.0 ml EDV(sp2-el): 96.9 ml LVAs ap4: 16.6 cm2 LVAs ap2: 16.5 cm2 LVLs ap4: 7.2 cm LVLs ap2: 7.3 cm ESV(MOD-sp4): 32.2 ml ESV(MOD-sp2): 33.0 ml ESV(sp4-el): 32.5 ml ESV(sp2-el): 31.7 ml EF(MOD-sp4): 58.3 % EF(MOD-sp2): 65.6 % EF(sp4-el): 59.4 % SV(MOD-sp4): 45.0 ml SV(MOD-sp2): 63.0 ml SV(sp4-el): 47.5 ml LA dimension(2D): 3.5 cm LA A4 area: 17.7 cm2 RA A4 area: 15.7 cm2 TAPSE: 1.7 cm Time Measurements MV dec time: 0.33 sec Doppler Measurements Calculations MV E max javier: 48.9 cm/sec Lat Peak E' Javier: 10.6 cm/sec Med Peak E' Javier: 5.5 cm/sec MV A max javier: 72.0 cm/sec E/E' lat: 4.6 E/E' med: 8.8 MV E/A: 0.68 MV dec slope: 150.3 cm/sec2 Ao V2 max: 164.9 cm/sec AI max javier: 359.2 cm/sec Ao max P.9 mmHg AI max P.7 mmHg Ao V2 mean: 105.3 cm/sec AI dec slope: 116.3 cm/sec2 Ao mean P.1 mmHg AI P1/2t: 904.9 msec Ao V2 VTI: 38.1 cm AV (velocity ratio): 0.80 LV V1 max: 117.6 cm/sec PA V2 max: 126.4 cm/sec TR max javier: 241.0 cm/sec LV V1 max P.5 mmHg TR max P.2 mmHg LV V1 mean P.9 mmHg LV V1 mean: 79.4 cm/sec LV V1 VTI: 30.3 cm ECHO/Echo Complete Interpretation Summary Normal LV size. Left ventricular systolic function is normal. The left ventricular ejection fraction is 60 %. Stage 1 diastolic dysfunction. The global longitudinal strain is normal. The global longitudinal strain = -19.9 % (normal). Ordering Physician: Adelfo Garcia Referring Physician: Adelfo Garcia Performed By: Faviola Sage RDCS 06/18/24 1907 Date Ishmael Cancino MD CC: Dr. Adelfo Garcia MD Date Dictated: 06/15/24 1345 Date Transcribed: 06/18/241906 Mail Opener: Signed Normal [facility] CBC W/Diff, Automatedon 10-0 -2023 Absolute Lymph 2.48 X10 3/uL Normal 0.83-4.51 [facility] Comment on above: Order Comment: Order Date: 06/04/24Order Info: 0184-1 - CBCD Performed By: #### L 100.0100, L501.9520, L500.4050, L501.5200 ####[facility] [address] [place], [address] Absolute Neut 5.6 X10 3/uL Normal 2.0-7.7 [facility] Comment on above: Order Comment: Order Date: 06/04/24Order Info: 0184-1 - CBCD Performed By: #### L 100.0100, L501.9520, L500.4050, L501.5200 ####[facility] [address] [place], [address] Basophils/100 WBC (Bld) 0.4 % Normal 0-1 [facility] Comment on above: Order Comment: Order Date: 06/04/24Order Info: 0184-1 - CBCD Performed By: #### L 100.0100, L501.9520, L500.4050, L501.5200 ####[facility] [address] [place], [address] Eosinophils/100 WBC (Bld) 1.2 % Normal 0-5 [facility] Comment on above: Order Comment: Order Date: 06/04/24Order Info: 0184-1 - CBCD Performed By: #### L 100.0100, L501.9520, L500.4050, L501.5200 ####[facility] [address] [place], [address] Erythrocyte distribution width (RBC) [Ratio] 12.2 % Normal 11.6-14.6 [facility] Comment on above: Order Comment: Order Date: 06/04/24Order Info: 0184-1 - CBCD Performed By: #### L 100.0100, L501.9520, L500.4050, L501.5200 ####[facility] [address] [place], [address] Hematocrit (Bld) [Volume fraction] 42.6 % Normal 40-54 [facility] Comment on above: Order Comment: Order Date: 06/04/24Order Info: 0184-1 - CBCD Performed By: #### L 100.0100, L501.9520, L500.4050, L501.5200 ####[facility] [address] [place], [address] Hemoglobin (Bld) [Mass/Vol] 14.5 g/dL Normal 13.0-16.5 [facility] Comment on above: Order Comment: Order Date: 06/04/24Order Info: 0184-1 - CBCD Performed By: #### L 100.0100, L501.9520, L500.4050, L501.5200 ####[facility] [address] [place], [address] IG% 0.400 Normal 0.0-0.9 [facility] Comment on above: Order Comment: Order Date: 06/04/24Order Info: 0184-1 - CBCD Result Comment: IG% - Immature Granulocytes (promyelocytes, myelocytes and metamyelocytes) > 1% indicates that a LEFT SHIFT is Present. Performed By: #### L 100.0100, L501.9520, L500.4050, L501.5200 ####[facility] [address] [place], [address] Lymphocytes/100 WBC (Bld) 27.3 % Normal 19-41 [facility] Comment on above: Order Comment: Order Date: 06/04/24Order Info: 0184-1 - CBCD Performed By: #### L 100.0100, L501.9520, L500.4050, L501.5200 ####[facility] [address] [place], [address] MCH (RBC) [Entitic mass] 33.2 pg High 27.0-32.0 [facility] Comment on above: Order Comment: Order Date: 06/04/24Order Info: 0184-1 - CBCD Performed By: #### L 100.0100, L501.9520, L500.4050, L501.5200 ####[facility] [address] [place], [address] MCHC (RBC) [Mass/Vol] 34.0 g/dL Normal 32-36 [facility] Comment on above: Order Comment: Order Date: 06/04/24Order Info: 018- - CBCD Performed By: #### L 100.0100, L501.9520, L500.4050, L501.5200 ####[facility] [address] [place], [address] MCV (RBC) [Entitic vol] 97.5 fL High 80-94 [facility] Comment on above: Order Comment: Order Date: 06/04/24Order Info: 0184- - CBCD Performed By: #### L 100.0100, L501.9520, L500.4050, L501.5200 ####[facility] [address] [place], [address] Monocytes/100 WBC (Bld) 9.3 % Normal 0-10 [facility] Comment on above: Order Comment: Order Date: 06/04/24Order Info: 0184-1 - CBCD Performed By: #### L 100.0100, L501.9520, L500.4050, L501.5200 ####[facility] [address] [place], [address] Neutrophils/100 WBC (Bld) 61.4 % Normal 47-70 [facility] Comment on above: Order Comment: Order Date: 06/04/24Order Info: 0184-1 - CBCD Performed By: #### L 100.0100, L501.9520, L500.4050, L501.5200 ####[facility] [address] [place], [address] Nucleated RBC (Bld) [#/Vol] 0 10*3/uL Normal 0-5 [facility] Comment on above: Order Comment: Order Date: 06/04/24Order Info: 0184-1 - CBCD Performed By: #### L 100.0100, L501.9520, L500.4050, L501.5200 ####[facility] [address] [place], [address] Platelet mean volume (Bld) [Entitic vol] 9.0 fL Normal 6.2-12.0 [facility] Comment on above: Order Comment: Order Date: 06/04/24Order Info: 0184-1 - CBCD Performed By: #### L 100.0100, L501.9520, L500.4050, L501.5200 ####[facility] [address] [place], [address] Platelets (Bld) [#/Vol] 282 10*3/uL Normal 150-450 [facility] Comment on above: Order Comment: Order Date: 06/04/24Order Info: 0184-1 - CBCD Performed By: #### L 100.0100, L501.9520, L500.4050, L501.5200 ####[facility] [address] [place], [address] RBC (Bld) [#/Vol] 4.37 10*6/uL Low 4.6-6.2 [facility] Comment on above: Order Comment: Order Date: 06/04/24Order Info: 0184-1 - CBCD Performed By: #### L 100.0100, L501.9520, L500.4050, L501.5200 ####[facility] [address] [place], [address] RDW SD 44.6 fl High 35.1-43.9 [facility] Comment on above: Order Comment: Order Date: 06/04/24Order Info: 0184-1 - CBCD Performed By: #### L 100.0100, L501.9520, L500.4050, L501.5200 ####[facility] [address] [place], [address] WBC (Bld) [#/Vol] 9.1 10*3/uL Normal 4.4-11.0 [facility] Comment on above: Order Comment: Order Date: 06/04/24Order Info: 0184- - CBCD Performed By: #### L 100.0100, L501.9520, L500.4050, L501.5200 ####[facility] [address] [place], [address] Comprehensive Metabolic Prof mson 06-04-2024 Albumin [Mass/Vol] 3.6 g/dL Normal 3.2-5.0 [facility] Comment on above: Order Comment: Order Date: 06/04/24Order Info: 0786-1 - CMPOrder Info: 02004-8 - MGOrder Info: 3016-3 - TSH1 Performed By: #### L 100.0100, L501.9520, L500.4050, L501.5200 ####[facility] [address] [place], [address] Albumin/Globulin [Mass ratio] 0.8 {ratio} Low 0.9-2.4 [facility] Comment on above: Order Comment: Order Date: 06/04/24Order Info: 0786-1 - CMPOrder Info: 53395-4 - MGOrder Info: 30101-29 - TSH1 Performed By: #### L 100.0100, L501.9520, L500.4050, L501.5200 ####[facility] [address] [place], [address] ALK P 93 U/L Normal 45-117 [facility] Comment on above: Order Comment: Order Date: 06/04/24Order Info: 785-1 - CMPOrder Info: - MGOrder Info: 3 - TSH1 Performed By: #### L 100.0100, L501.9520, L500.4050, L501.5200 ####[facility] [address] [place], [address] ALT [Catalytic activity/Vol] 19 U/L Normal 16-61 [facility] Comment on above: Order Comment: Order Date: 06/04/24Order Info: 785- - CMPOrder Info: - MGOrder Info: 3015-10 - TSH1 Performed By: #### L 100.0100, L501.9520, L500.4050, L501.5200 ####[facility] [address] [place], [address] AST [Catalytic activity/Vol] 15 U/L Normal 15-37 [facility] Comment on above: Order Comment: Order Date: 06/04/24Order Info: 785- - CMPOrder Info: MGOrder Info: 3015-10 - TSH1 Performed By: #### L 100.0100, L501.9520, L500.4050, L501.5200 ####[facility] [address] [place], [address] Bilirubin [Mass/Vol] 0.60 mg/dL Normal 0.20-1.00 [facility] Comment on above: Order Comment: Order Date: 06/04/24Order Info: 07-1 - CMPOrder Info: - MGOrder Info: 3 - TSH1 Result Comment: For patients on eltrombopag therapy, use of Dimension Mckenney TBIL is not recommended. Performed By: #### L 100.0100, L501.9520, L500.4050, L501.5200 ####[facility] [address] [place], [address] BUN/CRE 18.0 RATIO Normal 10-20 [facility] Comment on above: Order Comment: Order Date: 06/04/24Order Info: 0786-1 - CMPOrder Info: 10682-6 - MGOrder Info: 3015-3 - TSH1 Performed By: #### L 100.0100, L501.9520, L500.4050, L501.5200 ####[facility] [address] [place], [address] CA,Total 9.8 mg/dL Normal 8.5-10.1 [facility] Comment on above: Order Comment: Order Date: 06/04/24Order Info: 07- - CMPOrder Info: - MGOrder Info: 3015-3 - TSH1 Performed By: #### L 100.0100, L501.9520, L500.4050, L501.5200 ####[facility] [address] [place], [address] Chloride [Moles/Vol] 99 mmol/L Normal 98-107 [facility] Comment on above: Order Comment: Order Date: 06/04/24Order Info: 0786-1 - CMPOrder Info: - MGOrder Info: 3015-3 - TSH1 Performed By: #### L 100.0100, L501.9520, L500.4050, L501.5200 ####[facility] [address] [place], [address] CO2 [Moles/Vol] 27.0 mmol/L Normal 21.0-32.0 [facility] Comment on above: Order Comment: Order Date: 06/04/24Order Info: 0786-1 - CMPOrder Info: - MGOrder Info: 3 - TSH1 Performed By: #### L 100.0100, L501.9520, L500.4050, L501.5200 ####[facility] [address] [place], [address] Creatinine [Mass/Vol] 1.33 mg/dL High 0.70-1.30 [facility] Comment on above: Order Comment: Order Date: 06/04/24Order Info: 0786-1 - CMPOrder Info: 36505-5 - MGOrder Info: 3016-3 - TSH1 Result Comment: The validity of the calculated GFR GFRAA in patients over 70 years has not been determined. Clinical correlation is essential. Performed By: #### L 100.0100, L501.9520, L500.4050, L501.5200 ####[facility] [address] [place], [address] EST GFR - AA 66 mL/min Normal >60 [facility] Comment on above: Order Comment: Order Date: 06/04/24Order Info: 0786-1 - CMPOrder Info: 25317-3 - MGOrder Info: 3016-3 - TSH1 Result Comment: Afri can Zimbabwean GFR Calc Performed By: #### L 100.0100, L501.9520, L500.4050, L501.5200 ####[facility] [address] [place], [address] GAP 9 Normal 5-15 [facility] Comment on above: Order Comment: Order Date: 06/04/24Order Info: 0786-1 - CMPOrder Info: 98177-0 - MGOrder Info: 3016-3 - TSH1 Performed By: #### L 100.0100, L501.9520, L500.4050, L501.5200 ####[facility] [address] [place], [address] GFR/1.73 sq M.predicted among non-blacks MDRD (S/P/Bld) [Vol rate/Area] 55 mL/min/{1.73_m2} Low >60 [facility] Comment on above: Order Comment: Order Date: 06/04/24Order Info: 785-1 - CMPOrder Info: 81696-0 - MGOrder Info: 3015-10 - TSH1 Result Comment: Non- GFR Calc Performed By: #### L 100.0100, L501.9520, L500.4050, L501.5200 ####[facility] [address] [place], [address] Globulin (S) [Mass/Vol] 4.5 g/dL High 2.2-4.2 [facility] Comment on above: Order Comment: Order Date: 06/04/24Order Info: 785- - CMPOrder Info: 63213-0 - MGOrder Info: 3 - TSH1 Performed By: #### L 100.0100, L501.9520, L500.4050, L501.5200 ####[facility] [address] [place], [address] Glucose [Mass/Vol] 146 mg/dL High 74-106 [facility] Comment on above: Order Comment: Order Date: 06/04/24Order Info: 785- - CMPOrder Info: - MGOrder Info: 3015-10 - TSH1 Result Comment: Fast ing Glucose result greater than or equal to 126 mg/dL suggests DIABETES MELLITUS per A.D.A. criteria. Performed By: #### L 100.0100, L501.9520, L500.4050, L501.5200 ####[facility] [address] [place], [address] Potassium [Moles/Vol] 3.5 mmol/L Normal 3.5-5.1 [facility] Comment on above: Order Comment: Order Date: 06/04/24Order Info: 07-1 - CMPOrder Info: 17860-7 - MGOrder Info: 63 - TSH1 Performed By: #### L 100.0100, L501.9520, L500.4050, L501.5200 ####[facility] [address] [place], [address] Sodium [Moles/Vol] 136 mmol/L Normal 136-145 [facility] Comment on above: Order Comment: Order Date: 06/04/24Order Info: 0786-1 - CMPOrder Info: 29798-7 - MGOrder Info: 3016-3 - TSH1 Performed By: #### L 100.0100, L501.9520, L500.4050, L501.5200 ####[facility] [address] [place], [address] T PROT 8.1 g/dL Normal 6.4-8.2 [facility] Comment on above: Order Comment: Order Date: 06/04/24Order Info: 0786-1 - CMPOrder Info: 82429-7 - MGOrder Info: 3016-3 - TSH1 Performed By: #### L 100.0100, L501.9520, L500.4050, L501.5200 ####[facility] [address] [place], [address] Urea nitrogen [Mass/Vol] 24 mg/dL High 7-18 [facility] Comment on above: Order Comment: Order Date: 06/04/24Order Info: 0786-1 - CMPOrder Info: 23916-2 - MGOrder Info: 3016-3 - TSH1 Performed By: #### L 100.0100, L501.9520, L500.4050, L501.5200 ####[facility] [address] [place], [address] L501.4020on 06-04-2024 TROPONIN-I HS 8 pg/mL Normal 3.0-78.0 [facility] Comment on above: Order Comment: Order Date: 06/04/24Order Info: 0786-1 - CMPOrder Info: 52345-7 - MGOrder Info: 3016-3 - TSH1 Result Comment: Plea se Note: New Test Units and Gender Specific Reference Ranges. For more information see Policy Stat Procedure Mckenney High Sensitivity Troponin (TNIH) and attachments. Performed By: #### L 501.4020 ####[facility] [address] [place], [address] Magnesiumon 06-04-2024 Magnesium [Mass/Vol] 2.2 mg/dL Normal 1.6-2.6 [facility] Comment on above: Order Comment: Order Date: 06/04/24Order Info: [id number] - CMPOrder Info: [id number] - MGOrder Info: [id number] - TSH1 Performed By: #### L 100.0100, L501.9520, L500.4050, L501.5200 ####[facility] [address] [place], [address] Thyroid Stim Hormone (TSH)on 06-04-2024 TSH 1.350 uIU/mL Normal 0.358-3.740 [facility] Comment on above: Order Comment: Order Date: 06/04/24Order Info: 0786-1 - CMPOrder Info: [id number] - MGOrder Info: [id number] - TSH1 Performed By: #### L 100.0100, L501.9520, L500.4050, L501.5200 ####[facility] [address] [place], [address] Office Visit Reporton 2023 Office Visit Report [facility] [address] [place] [address] OFFICE VISIT Date of Service: 04/28/24 MR#: [id number] Acct: [id number] Patient: CHET JERONIMO Rep #: [id number] : 1940 Provider: MARIE jay Age/Sex: 83/M Location: [facility] Status: Signed Intake Vital Signs 02/29/24 14:12 04/28/24 11:48 Height 5 ft 4 in 5 ft 4 in Weight: 170 lb BMI 29.2 Intake Visit Reasons: SINUS COMPLAINTS Allergies Penicillins Adverse Reaction (Verified 04/28/24 11:49) Hives Medications ???Medication ???Instructions ???Recorded ???Confirmed ???Type hydrochlorothiazide 12.5 mg capsule 12.5 mg PO QDAY 02/29/24 04/28/24 History omeprazole 40 mg capsule,delayed 40 mg PO QDAY 02/29/24 04/28/24 History release Have you fallen in the past year?: No PFSH Medical History Cholecystectomy planned Surgical History History of ankle surgery History of arthroplasty of left knee Family History Father Heart disease Social History household members: spouse Smoking Status: Former smoker alcohol intake: never HPI HPI Details: CHET JERONIMO, is a 83 M who presents to the office today for Sinus issues and GRANGER for 3 days in a row. Patient has pressure in his sinus, patient states this has been going on for several days. Patient granddaughter is getting Tuesday and he would like to rule out Covid prior to the upcoming ceremony. Patient states that he typically will experience similar symptoms at this time of year and often will require an antibiotic for treatment. Patient does note that he recently started a prescription nasal spray that he is unsure of the name of this morning which has helped to decrease his sinus congestion and increased postnasal drip. Patient denies symptoms of fever, cough, shortness of breath, and sore throat. Patient has not utilized any npjd-key-kmsqlzf treatment aside from acetaminophen for headache relief. Patient denies contact with any other individuals with similar symptoms prior to onset. ROS Const Constitutional: Positive for headache(s); No chills or fever(s) ENT ENT: Positive for nasal congestion, sinus pressure, sinus pain and headache(s); No ear or mastoid pain, nasal discharge or sore throat Resp Respiratory: No cough, chest congestion, excessive phlegm production, shortness of breath or wheezing Cardio Cardiology: No chest pain at rest, chest pain with exertion, dyspnea on exertion, irregular heart rhythm or palpitations Neuro Neurology: Positive for headache(s) Aller/Imm Allergy/Immunologic: No seasonal allergy symptoms or wheezing Exam Const General: cooperative and no acute distress HENMT Ears: external ears normal and TM's normal bilaterally Nose: mucous membranes and turbinates abnormal erythematous bilaterally and nasal discharge purulent Face and sinus: sinus tenderness frontal and maxillary Mouth: oral mucosae normal Throat: posterior oropharynx normal Eyes Conjunctivae: conjunctivae normal Sclera: sclerae normal Neck Lymphatic: lymphadenopathy (left anterior cervical, small and non-tender) Resp Auscultation: Bilateral: Clear to Auscultation Cardio Rate: regular rate Rhythm: regular rhythm Heart Sounds: S1 normal and S2 normal Results POC MARYLU CoV-2 PCR POC MARYLU CoV-2 PCR Not Detected Last Edit by Maura Khan MA on 04/28/24 12:19 Coding Level of Care Code New Pt Off vis,new,level 3 Patient Type New Medical Decision Making Low Complexity Diagnoses Sinus congestion R09.81 Assessment and Plan Assessment and Plan (1) Sinus congestion: Status: Acute Plan: Negative POC testing for COVID, see results elsewhere. Discussed significant sinus congestion but short duration of symptoms therefore not indicating a need for antibiotic treatment at this time. Discussed likely viral etiology as well as conservative care which patient can utilize vxst-shy-frujjxy including intranasal corticosteroid and saline nasal rinses. Patient encouraged to follow-up if symptoms persist for 7 to 10 days without improvement either back in the now clinic or with PCP. Patient voiced understanding agreement with plan. Orders: Orders POC Rapid MARYLU Cov-2 PCR Today R51.9 - Headache, unspecified Clinical Quality Measures Falls Risk Screening/Assistive Devices Have you fallen in the past year?: No 05/06/24 1146 Date [facility] ROLLED GOLD PLATER ROLLED GOLD PLATER-C 04/28/24 1217 Cosigner Signature: Date (if applicable) Patricio Alves CC: Normal [facility] Orthopedic Visit Reporton Orthopedic Visit Report [facility] [address] [place] [address] OFFICE VISIT Date of Service: 04/23/24 MR#: [id number] Acct: [id number] Name: CHET JERONIMO Rep #: [id number] : 1940 Provider: Dr. Mohan shaw DO Age/Sex: 83/M Location: [facility] Status: Signed Intake Vital Signs 02/29/24 14:12 Height 5 ft 4 in Weight: 172 lb 8 oz BMI 29.6 Intake Visit Reasons: RIGHT KNEE Allergies Penicillins Adverse Reaction (Verified 04/23/24 13:41) Hives Medications ???Medication ???Instructions ???Recorded ???Confirmed ???Type hydrochlorothiazide 12.5 mg capsule 12.5 mg PO QDAY 02/29/24 04/23/24 History omeprazole 40 mg capsule,delayed 40 mg PO QDAY 02/29/24 04/23/24 History release Have you fallen in the past year?: No PFSH Medical History Cholecystectomy planned Surgical History History of ankle surgery History of arthroplasty of left knee Family History Father Heart disease Social History household members: spouse Smoking Status: Former smoker alcohol intake: never HPI RIGHT KNEE Details: This documentation accurately reflects the service provided and the decisions made by me, Dr. Mohan Brooke, DO 04/23/24 0807. Part of today???s visit was documented by Suad AUGUSTIN, acting as scribe. CHET JERONIMO is a 83 year old M here today for his 3rd right knee Euflexxa injection. He states that he has noticed improvement with the injection and has been able to walk more. Ortho Exam General General: Yes no acute distress and Yes well groomed Neurologic: Yes alert and Yes oriented x3 Psychologic: Yes reasonable and appropriate Right Knee Skin/Wound: Yes CDI, No erythema, No ecchymosis and No swelling Homans Sign: No Knee ROM: No ROM-Extension -20 to 0 (5) and Yes ROM-Flexion 0-140 (110) Examination: Yes Med jt line tenderness, No Lat jt line tenderness and Yes TTP Pes Anserine Stability: NML: Anterior Drawer, NML: Valgus 0, NML: Valgus 30, NML: Varus 0 and NML: Varus 30 Patella Grind: Yes KNEE: He does have varus deformity that is fixed 5 degree flexion contracture small joint effusion 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 Under sterile conditions, injected the patients right knee with 20mg/2mL of Euflexxa. The patient tolerated the injection well without any noted complication. Patient should call our office if redness develops, pain worsens or if they have any concerns. Is this Buy Bill?: Yes Office Meds Euflexxa 10 mg/mL (mw 2.4-3.6 million) intra-articular syringe Performing Provider: Mohan Brooke DO Performing Location: [facility] Administered by: Mohan Brooke DO on 04/23/24 13:46 Dose Route Admin Location Dispensed Lot Number Expiration Date [facility] Michael ufacturer 20 mg intra-articular right knee 2 mL [id number] 01/22/25 [address]-0 [employer] Supplemental Info 04/05/2023 x-ray right knee: Advanced knee arthrosis nzce-sd-smkv medial compartment with varus deformity moderate patellofemoral arthrosis Coding Level of Care Code Off vis,est,level 3 Diagnoses Primary osteoarthritis of right knee M17.11 Osteoarthritis type: primary CPT Codes Euflexxa Procedure (2827711N) Assessment and Plan Assessment and Plan (1) Osteoarthritis of right knee: Status: Acute Qualifiers: Osteoarthritis type: primary Qualified Code(s): M17.11 - Unilateral primary osteoarthritis, right knee Orders: Orders Euflexxa Injection Today M17.11 - Unilateral primary osteoarthritis, right knee Plan Third right knee Flex injection given today without difficulty patient may have these again in 6 months if he likes if he wishes to further discuss total knee arthroplasty that is also an option. He has done steroid injection and did not get much relief with that but has already noticed some improvement with the gel shots Clinical Quality Measures Falls Risk Screening/Assistive Devices Have you fallen in the past year?: No 04/23/24 1357 Date Mohan Orta Signature: Date (if applicable) CC: Normal [facility] CBC W/Diff, Automatedon 08-2 0-2024 Absolute Lymph 2.18 X10 3/uL Normal 0.83-4.51 [facility] Comment on above: Order Comment: Order Date: 04/04/24Order Info: 0184-1 - CBCD Performed By: #### L 503.0105, L506.1000, L100.0100, L500.4100, L500.4050, L501.9520, L503.6150 ####[facility] [address] [place], [place], [address] Absolute Neut 3.4 X10 3/uL Normal 2.0-7.7 [facility] Comment on above: Order Comment: Order Date: 04/04/24Order Info: 0184-1 - CBCD Performed By: #### L 503.0105, L506.1000, L100.0100, L500.4100, L500.4050, L501.9520, L503.6150 ####[facility] [address] [place], [address] Basophils/100 WBC (Bld) 0.5 % Normal 0-1 [facility] Comment on above: Order Comment: Order Date: 04/04/24Order Info: 0184-1 - CBCD Performed By: #### L 503.0105, L506.1000, L100.0100, L500.4100, L500.4050, L501.9520, L503.6150 ####[facility] [address] [place], [address] Eosinophils/100 WBC (Bld) 2.5 % Normal 0-5 [facility] Comment on above: Order Comment: Order Date: 04/04/24Order Info: 0184-1 - CBCD Performed By: #### L 503.0105, L506.1000, L100.0100, L500.4100, L500.4050, L501.9520, L503.6150 ####[facility] [address] [place], [address] Erythrocyte distribution width (RBC) [Ratio] 12.9 % Normal 11.6-14.6 [facility] Comment on above: Order Comment: Order Date: 04/04/24Order Info: 0184-1 - CBCD Performed By: #### L 503.0105, L506.1000, L100.0100, L500.4100, L500.4050, L501.9520, L503.6150 ####[facility] [address] [place], [address] Hematocrit (Bld) [Volume fraction] 41.4 % Normal 40-54 [facility] Comment on above: Order Comment: Order Date: 04/04/24Order Info: 0184-1 - CBCD Performed By: #### L 503.0105, L506.1000, L100.0100, L500.4100, L500.4050, L501.9520, L503.6150 ####[facility] [address] [place], [address] Hemoglobin (Bld) [Mass/Vol] 14.1 g/dL Normal 13.0-16.5 [facility] Comment on above: Order Comment: Order Date: 04/04/24Order Info: 0184-1 - CBCD Performed By: #### L 503.0105, L506.1000, L100.0100, L500.4100, L500.4050, L501.9520, L503.6150 ####[facility] [address] [place], [address] IG% 0.500 Normal 0.0-0.9 [facility] Comment on above: Order Comment: Order Date: 04/04/24Order Info: 0184-1 - CBCD Result Comment: IG% - Immature Granulocytes (promyelocytes, myelocytes and metamyelocytes) > 1% indicates that a LEFT SHIFT is Present. Performed By: #### L 503.0105, L506.1000, L100.0100, L500.4100, L500.4050, L501.9520, L503.6150 ####[facility] [address] [place], [address] Lymphocytes/100 WBC (Bld) 34.2 % Normal 19-41 [facility] Comment on above: Order Comment: Order Date: 04/04/24Order Info: 0184-1 - CBCD Performed By: #### L 503.0105, L506.1000, L100.0100, L500.4100, L500.4050, L501.9520, L503.6150 ####[facility] [address] [place], [address] MCH (RBC) [Entitic mass] 33.6 pg High 27.0-32.0 [facility] Comment on above: Order Comment: Order Date: 04/04/24Order Info: 0184-1 - CBCD Performed By: #### L 503.0105, L506.1000, L100.0100, L500.4100, L500.4050, L501.9520, L503.6150 ####[facility] [address] [place], [address] MCHC (RBC) [Mass/Vol] 34.1 g/dL Normal 32-36 [facility] Comment on above: Order Comment: Order Date: 04/04/24Order Info: 0184-1 - CBCD Performed By: #### L 503.0105, L506.1000, L100.0100, L500.4100, L500.4050, L501.9520, L503.6150 ####[facility] [address] [place], [address] MCV (RBC) [Entitic vol] 98.6 fL High 80-94 [facility] Comment on above: Order Comment: Order Date: 04/04/24Order Info: 0184- - CBCD Performed By: #### L 503.0105, L506.1000, L100.0100, L500.4100, L500.4050, L501.9520, L503.6150 ####[facility] [address] [place], [address] Monocytes/100 WBC (Bld) 9.9 % Normal 0-10 [facility] Comment on above: Order Comment: Order Date: 04/04/24Order Info: 018- - CBCD Performed By: #### L 503.0105, L506.1000, L100.0100, L500.4100, L500.4050, L501.9520, L503.6150 ####[facility] [address] [place], [address] Neutrophils/100 WBC (Bld) 52.4 % Normal 47-70 [facility] Comment on above: Order Comment: Order Date: 04/04/24Order Info: 018- - CBCD Performed By: #### L 503.0105, L506.1000, L100.0100, L500.4100, L500.4050, L501.9520, L503.6150 ####[facility] [address] [place], [address] Nucleated RBC (Bld) [#/Vol] 0 10*3/uL Normal 0-5 [facility] Comment on above: Order Comment: Order Date: 04/04/24Order Info: 0184-1 - CBCD Performed By: #### L 503.0105, L506.1000, L100.0100, L500.4100, L500.4050, L501.9520, L503.6150 ####[facility] [address] [place], [address] Platelet mean volume (Bld) [Entitic vol] 9.3 fL Normal 6.2-12.0 [facility] Comment on above: Order Comment: Order Date: 04/04/24Order Info: 0184-1 - CBCD Performed By: #### L 503.0105, L506.1000, L100.0100, L500.4100, L500.4050, L501.9520, L503.6150 ####[facility] [address] [place], [address] Platelets (Bld) [#/Vol] 224 10*3/uL Normal 150-450 [facility] Comment on above: Order Comment: Order Date: 04/04/24Order Info: 0184-1 - CBCD Performed By: #### L 503.0105, L506.1000, L100.0100, L500.4100, L500.4050, L501.9520, L503.6150 ####[facility] [address] [place], [address] RBC (Bld) [#/Vol] 4.20 10*6/uL Low 4.6-6.2 [facility] Comment on above: Order Comment: Order Date: 04/04/24Order Info: 0184-1 - CBCD Performed By: #### L 503.0105, L506.1000, L100.0100, L500.4100, L500.4050, L501.9520, L503.6150 ####[facility] [address] [place], [address] RDW SD 46.6 fl High 35.1-43.9 [facility] Comment on above: Order Comment: Order Date: 04/04/24Order Info: 0184-1 - CBCD Performed By: #### L 503.0105, L506.1000, L100.0100, L500.4100, L500.4050, L501.9520, L503.6150 ####[facility] [address] [place], [place], [address] WBC (Bld) [#/Vol] 6.4 10*3/uL Normal 4.4-11.0 [facility] Comment on above: Order Comment: Order Date: 04/04/24Order Info: 0184-1 - CBCD Performed By: #### L 503.0105, L506.1000, L100.0100, L500.4100, L500.4050, L501.9520, L503.6150 ####[facility] [address] [place], [place], [id number] Comprehensive Metabolic Prof mson 04-17-2024 Albumin [Mass/Vol] 3.5 g/dL Normal 3.2-5.0 [facility] Comment on above: Order Comment: Order Date: 04/04/24Order Info: 0786-1 - CMPOrder Info: [id number] - LIPIDOrder Info: [id number] - TSHOrder Info: 2498-4 - FE Performed By: #### L 503.0105, L506.1000, L100.0100, L500.4100, L500.4050, L501.9520, L503.6150 ####[facility] [address] [place], [place], [id number] Albumin/Globulin [Mass ratio] 0.9 {ratio} Normal 0.9-2.4 [facility] Comment on above: Order Comment: Order Date: 04/04/24Order Info: 0786-1 - CMPOrder Info: [id number] - LIPIDOrder Info: [id number] - TSHOrder Info: 2498-4 - FE Performed By: #### L 503.0105, L506.1000, L100.0100, L500.4100, L500.4050, L501.9520, L503.6150 ####[facility] [address] [place], [address] ALK P 85 U/L Normal 45-117 [facility] Comment on above: Order Comment: Order Date: 04/04/24Order Info: 0786-1 - CMPOrder Info: [id number] - LIPIDOrder Info: [id number] - TSHOrder Info: 2498-4 - FE Performed By: #### L 503.0105, L506.1000, L100.0100, L500.4100, L500.4050, L501.9520, L503.6150 ####[facility] [address] [place], [address] ALT [Catalytic activity/Vol] 27 U/L Normal 16-61 [facility] Comment on above: Order Comment: Order Date: 04/04/24Order Info: 07-1 - CMPOrder Info: [id number] - LIPIDOrder Info: [id number] - TSHOrder Info: [id number] - FE Performed By: #### L 503.0105, L506.1000, L100.0100, L500.4100, L500.4050, L501.9520, L503.6150 ####[facility] [address] [place], [address] AST [Catalytic activity/Vol] 19 U/L Normal 15-37 [facility] Comment on above: Order Comment: Order Date: 04/04/24Order Info: [id number] - CMPOrder Info: [id number] - LIPIDOrder Info: [id number] - TSHOrder Info: [id number] - FE Performed By: #### L 503.0105, L506.1000, L100.0100, L500.4100, L500.4050, L501.9520, L503.6150 ####[facility] [address] [place], [address] Bilirubin [Mass/Vol] 0.60 mg/dL Normal 0.20-1.00 [facility] Comment on above: Order Comment: Order Date: 04/04/24Order Info: 86-1 - CMPOrder Info: [id number] - LIPIDOrder Info: 3 - TSHOrder Info: [id number] - FE Result Comment: For patients on eltrombopag therapy, use of Dimension Mckenney TBIL is not recommended. Performed By: #### L 503.0105, L506.1000, L100.0100, L500.4100, L500.4050, L501.9520, L503.6150 ####[facility] [address] [place], [address] BUN/CRE 15.3 RATIO Normal 10-20 [facility] Comment on above: Order Comment: Order Date: 04/04/24Order Info: 86-1 - CMPOrder Info: [id number] - LIPIDOrder Info: 3 - TSHOrder Info: [id number] - FE Performed By: #### L 503.0105, L506.1000, L100.0100, L500.4100, L500.4050, L501.9520, L503.6150 ####[facility] [address] [place], [address] CA,Total 9.9 mg/dL Normal 8.5-10.1 [facility] Comment on above: Order Comment: Order Date: 04/04/24Order Info: 785-1 - CMPOrder Info: [id number] - LIPIDOrder Info: 3 - TSHOrder Info: [id number] - FE Performed By: #### L 503.0105, L506.1000, L100.0100, L500.4100, L500.4050, L501.9520, L503.6150 ####[facility] [address] [place], [address] Chloride [Moles/Vol] 105 mmol/L Normal 98-107 [facility] Comment on above: Order Comment: Order Date: 04/04/24Order Info: 86-1 - CMPOrder Info: [id number] - LIPIDOrder Info: 3 - TSHOrder Info: [id number] - FE Performed By: #### L 503.0105, L506.1000, L100.0100, L500.4100, L500.4050, L501.9520, L503.6150 ####[facility] [address] [place], [address] CO2 [Moles/Vol] 28.0 mmol/L Normal 21.0-32.0 [facility] Comment on above: Order Comment: Order Date: 04/04/24Order Info: 86-1 - CMPOrder Info: [id number] - LIPIDOrder Info: 6-3 - TSHOrder Info: [id number] FE Performed By: #### L 503.0105, L506.1000, L100.0100, L500.4100, L500.4050, L501.9520, L503.6150 ####[facility] [address] [place], [address] Creatinine [Mass/Vol] 1.24 mg/dL Normal 0.70-1.30 [facility] Comment on above: Order Comment: Order Date: 04/04/24Order Info: [id number] - CMPOrder Info: [id number] - LIPIDOrder Info: 3 - TSHOrder Info: [id number] Result Comment: The validity of the calculated GFR GFRAA in patients over 70 years has not been determined. Clinical correlation is essential. Performed By: #### L 503.0105, L506.1000, L100.0100, L500.4100, L500.4050, L501.9520, L503.6150 ####[facility] [address] [place], [address] EST GFR - AA 72 mL/min Normal >60 [facility] Comment on above: Order Comment: Order Date: 04/04/24Order Info: 785-1 - CMPOrder Info: [id number] - LIPIDOrder Info: 6-3 - TSHOrder Info: [id number] Result Comment: Afri can [place]an GFR Calc Performed By: #### L 503.0105, L506.1000, L100.0100, L500.4100, L500.4050, L501.9520, L503.6150 ####[facility] [address] [place], [place], [phone] GAP 8 Normal 5-15 [facility] Comment on above: Order Comment: Order Date: 04/04/24Order Info: 0786-1 - CMPOrder Info: [id number] - LIPIDOrder Info: 3 - TSHOrder Info: [id number] - FE Performed By: #### L 503.0105, L506.1000, L100.0100, L500.4100, L500.4050, L501.9520, L503.6150 ####[facility] [address] [place], [place], [phone] GFR/1.73 sq M.predicted among non-blacks MDRD (S/P/Bld) [Vol rate/Area] 59 mL/min/{1.73_m2} Low >60 [facility] Comment on above: Order Comment: Order Date: 04/04/24Order Info: 785- - CMPOrder Info: [id number] - LIPIDOrder Info: [id number] - TSHOrder Info: [id number] - FE Result Comment: Non- GFR Calc Performed By: #### L 503.0105, L506.1000, L100.0100, L500.4100, L500.4050, L501.9520, L503.6150 ####[facility] [address] [place], [place], [phone] Globulin (S) [Mass/Vol] 3.9 g/dL Normal 2.2-4.2 [facility] Comment on above: Order Comment: Order Date: 04/04/24Order Info: 86-1 - CMPOrder Info: [id number] - LIPIDOrder Info: [id number] - TSHOrder Info: [id number] - FE Performed By: #### L 503.0105, L506.1000, L100.0100, L500.4100, L500.4050, L501.9520, L503.6150 ####[facility] [address] [place], [address] Glucose [Mass/Vol] 144 mg/dL High 74-106 [facility] Comment on above: Order Comment: Order Date: 04/04/24Order Info: 0786-1 - CMPOrder Info: [id number] - LIPIDOrder Info: [id number] - TSHOrder Info: [id number] - FE Result Comment: Fast ing Glucose result greater than or equal to 126 mg/dL suggests DIABETES MELLITUS per A.D.A. criteria. Performed By: #### L 503.0105, L506.1000, L100.0100, L500.4100, L500.4050, L501.9520, L503.6150 ####[facility] [address] [place], [address] Potassium [Moles/Vol] 3.7 mmol/L Normal 3.5-5.1 [facility] Comment on above: Order Comment: Order Date: 04/04/24Order Info: 07-1 - CMPOrder Info: [id number] - LIPIDOrder Info: 3 - TSHOrder Info: [id number] - FE Performed By: #### L 503.0105, L506.1000, L100.0100, L500.4100, L500.4050, L501.9520, L503.6150 ####[facility] [address] [place], [address] Sodium [Moles/Vol] 141 mmol/L Normal 136-145 [facility] Comment on above: Order Comment: Order Date: 04/04/24Order Info: 86-1 - CMPOrder Info: [id number] - LIPIDOrder Info: 3 - TSHOrder Info: [id number] - FE Performed By: #### L 503.0105, L506.1000, L100.0100, L500.4100, L500.4050, L501.9520, L503.6150 ####[facility] [address] [place], [address] T PROT 7.4 g/dL Normal 6.4-8.2 [facility] Comment on above: Order Comment: Order Date: 04/04/24Order Info: 0786-1 - CMPOrder Info: [id number] - LIPIDOrder Info: [id number] - TSHOrder Info: [id number] - FE Performed By: #### L 503.0105, L506.1000, L100.0100, L500.4100, L500.4050, L501.9520, L503.6150 ####[facility] [address] [place], [address] Urea nitrogen [Mass/Vol] 19 mg/dL High 7-18 [facility] Comment on above: Order Comment: Order Date: 04/04/24Order Info: 785-1 - CMPOrder Info: [id number] - LIPIDOrder Info: [id number] - TSHOrder Info: [id number] - FE Performed By: #### L 503.0105, L506.1000, L100.0100, L500.4100, L500.4050, L501.9520, L503.6150 ####[facility] [address] [place], [address] Ironon 04-17-2024 Iron [Mass/Vol] 140 ug/dL Normal 65-175 [facility] Comment on above: Order Comment: Order Date: 04/04/24Order Info: [id number] - CMPOrder Info: [id number] - LIPIDOrder Info: [id number] - TSHOrder Info: [id number] - FE Performed By: #### L 503.0105, L506.1000, L100.0100, L500.4100, L500.4050, L501.9520, L503.6150 ####[facility] [address] [place], [address] Lipid Profileon 04-17-2024 Cholesterol [Mass/Vol] 164 mg/dL Normal 200 [facility] Comment on above: Order Comment: Order Date: 04/04/24Order Info: [id number] - CMPOrder Info: [id number] - LIPIDOrder Info: 3 - TSHOrder Info: [id number] Result Comment: <200 mg/dL Desirable 200-240 mg/dL Borderline >240 mg/dL High Risk Performed By: #### L 503.0105, L506.1000, L100.0100, L500.4100, L500.4050, L501.9520, L503.6150 ####[facility] [address] [place], [address] Cholesterol in HDL [Mass/Vol] 44 mg/dL Normal [facility] Comment on above: Order Comment: Order Date: 04/04/24Order Info: [id number] - CMPOrder Info: [id number] - LIPIDOrder Info: [id number] - TSHOrder Info: [id number] Result Comment: The drugs N-Acetylcysteine and Metamizole may falsely depress this assay. Reference Range HDL <40 mg/dL Low HDL Cholesterol HDL >or= 60 mg/dL High HDL Cholesterol Performed By: #### L 503.0105, L506.1000, L100.0100, L500.4100, L500.4050, L501.9520, L503.6150 ####[facility] [address] [place], [address] Cholesterol in LDL [Mass/Vol] 89 mg/dL Normal 0-130 [facility] Comment on above: Order Comment: Order Date: 04/04/24Order Info: [id number] - CMPOrder Info: [id number] - LIPIDOrder Info: 3 - TSHOrder Info: [id number] Performed By: #### L 503.0105, L506.1000, L100.0100, L500.4100, L500.4050, L501.9520, L503.6150 ####[facility] [address] [place], [address] Cholesterol in VLDL [Mass/Vol] 31 mg/dL Normal 5-40 [facility] Comment on above: Order Comment: Order Date: 04/04/24Order Info: [id number] - CMPOrder Info: [id number] - LIPIDOrder Info: 3 - TSHOrder Info: [id number] - Performed By: #### L 503.0105, L506.1000, L100.0100, L500.4100, L500.4050, L501.9520, L503.6150 ####[facility] [address] [place], [address] Triglyceride [Mass/Vol] 156 mg/dL Normal [facility] Comment on above: Order Comment: Order Date: 04/04/24Order Info: [id number] - CMPOrder Info: - LIPIDOrder Info: [id number] - TSHOrder Info: [id number] - Result Comment: The drugs N-Acetylcysteine and Metamizole may falsely depress this assay. Serum Triglycerides Reference Interval Normal <150 mg/dL Borderline high 150 - 199 mg/dL High 200 - 499 mg/dL Very High > or = 500 mg/dL Performed By: #### L 503.0105, L506.1000, L100.0100, L500.4100, L500.4050, L501.9520, L503.6150 ####[facility] [address] [place], [address] Thyroid Stim Hormone (TSH)on 04-17-2024 TSH 1.610 uIU/mL Normal 0.358-3.740 [facility] Comment on above: Order Comment: Order Date: 04/04/24Order Info: [id number] - CMPOrder Info: - LIPIDOrder Info: [id number] - TSHOrder Info: [id number] Performed By: #### L 503.0105, L506.1000, L100.0100, L500.4100, L500.4050, L501.9520, L503.6150 ####[facility] [address] [place], [address] Vitamin B12on 04-17-2024 Cobalamin (Vitamin B12) [Mass/Vol] 350 pg/mL Normal 211-911 [facility] Comment on above: Order Comment: Order Date: 04/04/24Order Info: [id number] - [id number] Info: [id number] - VITD25 Performed By: #### L 503.0105, L506.1000, L100.0100, L500.4100, L500.4050, L501.9520, L503.6150 ####[facility] [address] [place], [address] Vitamin D,25 Hydroxyon 04-17 Vitamin D 25-OH 89.2 ng/mL Normal [facility] Comment on above: Order Comment: Order Date: 04/04/24Order Info: [id number] - Z51Cfvec Info: [id number] - VITD25 Result Comment: Patti min D 25(OH) Status Range Deficiency <20 ng/mL (50nmol/L) Insufficiency 20 - 30 ng/mL (50 - 75 nmol/L) Sufficiency 30 - 100 ng/mL (75 - 250 nmol/L) Toxicity >100 ng/mL (>250 nmol/L) Performed By: #### L 503.0105, L506.1000, L100.0100, L500.4100, L500.4050, L501.9520, L503.6150 ####[facility] [address] [place], [place], [address] Orthopedic Visit Reporton Orthopedic Visit Report [facility] [facility] [address] [place], [place] [address] OFFICE VISIT Date of Service: 04/16/24 MR#: [id number] Acct: [id number] Name: CHET JERONIMO Rep #: [id number] : 1940 Provider: Dr. Mohan Caba so, DO Age/Sex: 83/M Location: [email or web address] Status: Signed Intake Vital Signs 02/29/24 14:12 Height 5 ft 4 in Weight: 172 lb 8 oz BMI 29.6 Intake Visit Reasons: RIGHT KNEE Accompanied by: Self Allergies Penicillins Adverse Reaction (Verified 04/09/24 13:39) Hives Have you fallen in the past year?: No PFSH Medical History Cholecystectomy planned Surgical History History of ankle surgery History of arthroplasty of left knee Family History Father Heart disease Social History household members: spouse Smoking Status: Former smoker alcohol intake: never HPI RIGHT KNEE Details: This documentation accurately reflects the service provided and the decisions made by me, Dr. Mohan Brooke, DO 04/16/24 0851. Part of today???s visit was documented by Suad AUGUSTIN, acting as scribe. CHET JERONIMO is a 83 year old M here today for 2nd right knee Euflexxa injection. He had no reaction to the first injection. Ortho Exam General General: Yes no acute distress and Yes well groomed Neurologic: Yes alert and Yes oriented x3 Psychologic: Yes reasonable and appropriate Right Knee Skin/Wound: Yes CDI, No erythema, No ecchymosis and No swelling Homans Sign: No Knee ROM: No ROM-Extension -20 to 0 (5) and Yes ROM-Flexion 0-140 (110) Examination: Yes Med jt line tenderness, No Lat jt line tenderness and Yes TTP Pes Anserine Stability: NML: Anterior Drawer, NML: Valgus 0, NML: Valgus 30, NML: Varus 0 and NML: Varus 30 Patella Grind: Yes KNEE: He does have varus deformity that is fixed 5 degree flexion contracture small joint effusion 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 Under sterile conditions, injected the patients right knee with 20mg/2mL of Euflexxa. The patient tolerated the injection well without any noted complication. Patient should call our office if redness develops, pain worsens or if they have any concerns. Is this Buy Bill?: Yes Office Meds Euflexxa 10 mg/mL (mw 2.4-3.6 million) intra-articular syringe Performing Provider: Mohan Brooke DO Performing Location: [facility] Administered by: Mohan Brooke DO on 04/16/24 13:47 Dose Route Admin Location Dispensed Lot Number Expiration Date NDC Man ufacturer 20 mg intra-articular right knee 2 mL [id number] 01/22/25 [address]-5 [employer] Supplemental Info 04/05/2023 x-ray right knee: Advanced knee arthrosis [id number] medial compartment with varus deformity moderate patellofemoral arthrosis Coding Level of Care Code Off vis,est,level 3 Diagnoses Primary osteoarthritis of right knee M17.11 Osteoarthritis type: primary CPT Codes Euflexxa Procedure ([id number]) Assessment and Plan Assessment and Plan (1) Osteoarthritis of right knee: Status: Acute Qualifiers: Osteoarthritis type: primary Qualified Code(s): M17.11 - Unilateral primary osteoarthritis, right knee Orders: Orders Euflexxa Injection Today M17.11 - Unilateral primary osteoarthritis, right knee Plan Second right knee Euflexxa injection given today follow-up in 1 week for third. Clinical Quality Measures Falls Risk Screening/Assistive Devices Have you fallen in the past year?: No 04/16/24 1456 Date Mohan Brooke DO Cosigner Signature: Date (if applicable) CC: Normal [facility] Orthopedic Visit Reporton Orthopedic Visit Report [facility] [address] [place] [address] OFFICE VISIT Date of Service: 04/09/24 MR#: [id number] Acct: [id number] Name: CHET JERONIMO Rep #: [id number] : 1940 Provider: Dr. Mohan shaw DO Age/Sex: 83/M Location: [email or web address] Status: Signed Intake Vital Signs 02/29/24 14:12 Height 5 ft 4 in Weight: 172 lb 8 oz BMI 29.6 Intake Visit Reasons: RIGHT KNEE Allergies Penicillins Adverse Reaction (Verified 04/09/24 13:39) Hives Medications ???Medication ???Instructions ???Recorded ???Confirmed ???Type hydrochlorothiazide 12.5 mg capsule 12.5 mg PO QDAY 02/29/24 04/09/24 History omeprazole 40 mg capsule,delayed 40 mg PO QDAY 02/29/24 04/09/24 History release Have you fallen in the past year?: No PFSH Medical History Cholecystectomy planned Surgical History History of ankle surgery History of arthroplasty of left knee Family History Father Heart disease Social History household members: spouse Smoking Status: Former smoker alcohol intake: never HPI RIGHT KNEE Details: This documentation accurately reflects the service provided and the decisions made by me, Dr. Mohan Brooke, DO 04/09/24 0820. Part of today???s visit was documented by Suad AUGUSTIN, acting as scribe. CHET JERONIMO is a 83 year old M here today for 1st right knee Euflexxa injection. Ortho Exam General General: Yes no acute distress and Yes well groomed Neurologic: Yes alert and Yes oriented x3 Psychologic: Yes reasonable and appropriate Right Knee Skin/Wound: Yes CDI, No erythema, No ecchymosis and No swelling Homans Sign: No Knee ROM: No ROM-Extension -20 to 0 (5) and Yes ROM-Flexion 0-140 (110) Examination: Yes Med jt line tenderness, No Lat jt line tenderness and Yes TTP Pes Anserine Stability: NML: Anterior Drawer, NML: Valgus 0, NML: Valgus 30, NML: Varus 0 and NML: Varus 30 Patella Grind: Yes KNEE: He does have varus deformity that is fixed 5 degree flexion contracture small joint effusion 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 Under sterile conditions, injected the patients right knee with 20mg/2mL of Euflexxa. The patient tolerated the injection well without any noted complication. Patient should call our office if redness develops, pain worsens or if they have any concerns. Is this Buy Bill?: Yes Office Meds Euflexxa 10 mg/mL (mw 2.4-3.6 million) intra-articular syringe Performing Provider: Mohan Brooke DO Performing Location: [facility] Administered by: Mohan Brooke DO on 04/09/24 13:46 Dose Route Admin Location Dispensed Lot Number Expiration Date [facility] Man ufacturer 20 mg intra-articular right knee 2 mL [id number] 01/22/25 [address]-7 [employer] Supplemental Info 04/05/2023 x-ray right knee: Advanced knee arthrosis [id number] medial compartment with varus deformity moderate patellofemoral arthrosis Coding Level of Care Code Off vis,est,level 3 Diagnoses Primary osteoarthritis of right knee M17.11 Osteoarthritis type: primary CPT Codes Euflexxa Procedure ([id number]) Assessment and Plan Assessment and Plan (1) Osteoarthritis of right knee: Status: Acute Qualifiers: Osteoarthritis type: primary Qualified Code(s): M17.11 - Unilateral primary osteoarthritis, right knee Orders: Orders Euflexxa Injection Today M17.11 - Unilateral primary osteoarthritis, right knee Plan First right knee Euflexxa injection given today follow-up in 1 week for next Clinical Quality Measures Falls Risk Screening/Assistive Devices Have you fallen in the past year?: No 04/09/24 1403 Date Mohan Brooke DO Cosigner Signature: Date (if applicable) CC: [facility] Basophil percentageOrdered B y: Adelfo Garcia on 12-28-2023 Chloride [Moles/Vol] 105 mmol/L 98-107 [facility] Glucose [Mass/Vol] 163 mg/dL 74-106 [facility] Comment on above: Fasting Glucose resu lt greater than or equal to 126 mg/dL suggests DIABETES MELLITUS per A.D.A. criteria. Potassium [Moles/Vol] 3.7 mmol/L 3.5-5.1 [facility] Sodium [Moles/Vol] 139 mmol/L 136-145 [facility] Laboratory - Chemistry and C hemistry - challengeOrdered By: Adelfo Garcia on 12-28-2023 CO2 [Moles/Vol] 27.0 mmol/L 21.0-32.0 [facility] Urea nitrogen/Creatinine [Mass ratio] 18.1 mg/mg 10-20 [facility] No Panel InformationOrdered By: Adelfo Garcia on 12-28-2023 Estimated GFR (MDRD) Amer 70 mL/min >60 [facility] Comment on above: GFR Calc Estimated GFR (MDRD) Non-Af Amer 58 mL/min >60 [facility] Comment on above: Non- GFR Calc Serum or plasma calcium june urement (mass/volume)Ordered By: Adelfo Garcia on 12-28-2023 Calcium [Mass/Vol] 9.5 mg/dL 8.5-10.1 [facility] Serum or plasma creatinine m easurement (mass/volume)Ordered By: Adelfo Garcia on 12-28-2023 Creatinine [Mass/Vol] 1.27 mg/dL 0.70-1.30 [facility] Comment on above: The validity of the calculated GFR & GFRAA in patients over 70 years has not been determined. Clinical correlation is essential. Serum or plasma urea nitroge n measurement (mass/volume)Ordered By: Adelfo Garcia on 12-28-2023 Urea nitrogen [Mass/Vol] 23 mg/dL 7-18 [facility] Thin prep Papanicolaou smear with manual screeningOrdered By: Adelfo Garcia on 12-28-2023 Thin prep Papanicolaou smear with manual screening 7 5-15 [facility] Basophil percentageOrdered B y: Jaciel Garcia on 11-08-2023 Chloride [Moles/Vol] 105 mmol/L 98-107 [facility] Glucose [Mass/Vol] 119 mg/dL 74-106 [facility] Comment on above: Fasting Glucose resu lt from 100 to 125 mg/dL suggests IMPAIRED HOMEOSTASIS per A.D.A. criteria. Potassium [Moles/Vol] 3.9 mmol/L 3.5-5.1 [facility] Sodium [Moles/Vol] 139 mmol/L 136-145 [facility] Laboratory - Chemistry and C hemistry - challengeOrdered By: Jaciel Garcia on 11-08-2023 CO2 [Moles/Vol] 27.0 mmol/L 21.0-32.0 [facility] Urea nitrogen/Creatinine [Mass ratio] 17.4 mg/mg 10-20 [facility] No Panel InformationOrdered By: Jaciel Garcia on 11-08-2023 Estimated GFR (MDRD) Amer 74 mL/min >60 [facility] Comment on above: GFR Calc Estimated GFR (MDRD) Non-Af Amer 61 mL/min >60 [facility] Comment on above: Non- GFR Calc Serum or plasma calcium june urement (mass/volume)Ordered By: Jaciel Garcia on 11-08-2023 Calcium [Mass/Vol] 8.8 mg/dL 8.5-10.1 [facility] Serum or plasma creatinine m easurement (mass/volume)Ordered By: Jaciel Garcia on 11-08-2023 Creatinine [Mass/Vol] 1.21 mg/dL 0.70-1.30 [facility] Comment on above: The validity of the calculated GFR & GFRAA in patients over 70 years has not been determined. Clinical correlation is essential. Serum or plasma urea nitroge n measurement (mass/volume)Ordered By: Jaciel Garcia on 11-08-2023 Urea nitrogen [Mass/Vol] 21 mg/dL 7-18 [facility] Thin prep Papanicolaou smear with manual screeningOrdered By: Jaciel Garcia on 11-08-2023 Thin prep Papanicolaou smear with manual screening 7 5-15 [facility] Basophil percentageOrdered B y: Jaciel Garcia on 10-03-2023 Chloride [Moles/Vol] 106 mmol/L 98-107 [facility] Glucose [Mass/Vol] 103 mg/dL 74-106 [facility] Comment on above: Fasting Glucose resu lt from 100 to 125 mg/dL suggests IMPAIRED HOMEOSTASIS per A.D.A. criteria. Potassium [Moles/Vol] 3.8 mmol/L 3.5-5.1 [facility] Sodium [Moles/Vol] 137 mmol/L 136-145 [facility] Laboratory - Chemistry and C hemistry - challengeOrdered By: Jaciel Garcia on 10-03-2023 CO2 [Moles/Vol] 27.0 mmol/L 21.0-32.0 [facility] Urea nitrogen/Creatinine [Mass ratio] 18.8 mg/mg 10-20 [facility] No Panel InformationOrdered By: Jaceil Garcia on 10-03-2023 Estimated GFR (MDRD) Amer 81 mL/min >60 [facility] Comment on above: GFR Calc Estimated GFR (MDRD) Non-Af Amer 67 mL/min >60 [facility] Comment on above: Non- GFR Calc Serum or plasma calcium june urement (mass/volume)Ordered By: Jaciel Garcia on 10-03-2023 Calcium [Mass/Vol] 9.1 mg/dL 8.5-10.1 [facility] Serum or plasma creatinine m easurement (mass/volume)Ordered By: Jaciel Garcia on 10-03-2023 Creatinine [Mass/Vol] 1.12 mg/dL 0.70-1.30 [facility] Comment on above: The validity of the calculated GFR & GFRAA in patients over 70 years has not been determined. Clinical correlation is essential. Serum or plasma urea nitroge n measurement (mass/volume)Ordered By: Jaciel Garcia on 10-03-2023 Urea nitrogen [Mass/Vol] 21 mg/dL 7-18 [facility] Thin prep Papanicolaou smear with manual screeningOrdered By: Jaciel Garcia on 10-03-2023 Thin prep Papanicolaou smear with manual screening 4 5-15 [facility] Basophil percentageOrdered B y: Mouna Franklin on 03-18-2023 Chloride [Moles/Vol] 102 mmol/L 98-107 [facility] Glucose [Mass/Vol] 165 mg/dL 74-106 [facility] Comment on above: Fasting Glucose resu lt greater than or equal to 126 mg/dL suggests DIABETES MELLITUS per A.D.A. criteria. Potassium [Moles/Vol] 4.3 mmol/L 3.5-5.1 [facility] Sodium [Moles/Vol] 136 mmol/L 136-145 [facility] Laboratory - Chemistry and C hemistry - challengeOrdered By: Mouna Franklin on 03-18-2023 CO2 [Moles/Vol] 27.0 mmol/L 21.0-32.0 [facility] Urea nitrogen/Creatinine [Mass ratio] 12.0 mg/mg 10-20 [facility] No Panel InformationOrdered By: Mouna Franklin on 03-18-2023 Estimated GFR (MDRD) Amer 66 mL/min >60 [facility] Comment on above: GFR Calc Estimated GFR (MDRD) Non-Af Amer 55 mL/min >60 [facility] Comment on above: Non- GFR Calc Serum or plasma calcium june urement (mass/volume)Ordered By: Mouna Franklin on 03-18-2023 Calcium [Mass/Vol] 9.1 mg/dL 8.5-10.1 [facility] Serum or plasma creatinine m easurement (mass/volume)Ordered By: Mouna Franklin on 03-18-2023 Creatinine [Mass/Vol] 1.33 mg/dL 0.70-1.30 [facility] Comment on above: The validity of the calculated GFR & GFRAA in patients over 70 years has not been determined. Clinical correlation is essential. Serum or plasma urea nitroge n measurement (mass/volume)Ordered By: Mouna Franklin on 03-18-2023 Urea nitrogen [Mass/Vol] 16 mg/dL - [facility] Thin prep Papanicolaou smear with manual screeningOrdered By: Mouna Franklin on 03-18-2023 Thin prep Papanicolaou smear with manual screening 7 5-15 [facility] Absolute lymphocyte countOrd ered By: Jaciel Garcia on 03-09-2023 Lymphocytes Auto (Unsp spec) [#/Vol] 2.16 10*3/uL 0.83-4.51 [facility] Basophil percentageOrdered B y: Jaciel Garcia on 03-09-2023 Basophils/100 WBC (Bld) 0.4 % 0-1 [facility] Eosinophils/100 WBC (Bld) 1.3 % 0-5 [facility] Neutrophils (Bld) [#/Vol] 5.9 10*3/uL 2.0-7.7 [facility] Neutrophils/100 WBC (Bld) 65.8 % 47-70 [facility] WBC (Bld) [#/Vol] 9.0 10*3/uL 4.4-11.0 [facility] Bilirubin [Mass/Vol] 0.70 mg/dL 0.20-1.00 [facility] Comment on above: For patients on eltr ombopag therapy, use of Dimension [place] TBIL is not recommended. Chloride [Moles/Vol] 103 mmol/L 98-107 [facility] Cholesterol [Mass/Vol] 145 mg/dL <200 [facility] Comment on above: <200 mg/dL Desirable 200-240 mg/dL Borderline >240 mg/dL High Risk Glucose [Mass/Vol] 159 mg/dL 74-106 [facility] Comment on above: Fasting Glucose resu lt greater than or equal to 126 mg/dL suggests DIABETES MELLITUS per A.D.A. criteria. Potassium [Moles/Vol] 3.3 mmol/L 3.5-5.1 [facility] Protein [Mass/Vol] 7.9 g/dL 6.4-8.2 [facility] Sodium [Moles/Vol] 136 mmol/L 136-145 [facility] Testosterone [Mass/Vol] 118.42 ng/dL [facility] Comment on above: CENTRAL 90% REFERENC E RANGES MALE AGE <50 197.44 - 669.58 ng/dL MALE AGE > or = 50 187.72 - 684.19 ng/dL FEMALE AGE <50 8.38 - 35.01 ng/dL FEMALE AGE > or = 50 <7.00 - 35.92 ng/dL Effective as of 7/27/21 Triglyceride [Mass/Vol] 203 mg/dL <199 [facility] Comment on above: The drugs N-Acetylcy steine and Metamizole may falsely depress this assay.Serum Triglycerides Reference Interval Normal <150 mg/dL Borderline high 150 - 199 mg/dL High 200 - 499 mg/dL Very High > or = 500 mg/dL Blood erythrocytes count (nu mber/volume)Ordered By: Jaciel Garcia on 03-09-2023 RBC (Bld) [#/Vol] 4.97 10*6/uL 4.6-6.2 [facility] Blood hemoglobin measurement (mass/volume)Ordered By: Jaciel Garcia on 03-09-2023 Hemoglobin (Bld) [Mass/Vol] 16.1 g/dL 13.0-16.5 [facility] Blood lymphocytes/100 leukoc ytesOrdered By: Jaciel Garcia on 03-09-2023 Lymphocytes/100 WBC (Bld) 23.9 % 19-41 [facility] Blood monocytes/100 leukocyt esOrdered By: Jaciel Garcia on 03-09-2023 Monocytes/100 WBC (Bld) 8.2 % 0-10 [facility] Blood platelet mean volumeOr dered By: Jaciel Garcia on 03-09-2023 Platelet mean volume (Bld) [Entitic vol] 9.4 fL 6.2-12.0 [facility] Culture, urineOrdered By: Amilcar Franklin on 03-09-2023 Bacteria identified Cx Nom (U) Culture exhibits no growth. [facility] Determination of erythrocyte mean corpuscular volume (MCV)Ordered By: Jaciel Garcia on 03-09-2023 MCV (RBC) [Entitic vol] 93.6 fL 80-94 [facility] Hematocrit Auto (Bld) [Volum e fraction]Ordered By: Jaciel Garcia on 03-09-2023 Hematocrit (Bld) [Volume fraction] 46.5 % 40-54 [facility] Laboratory - Chemistry and C hemistry - challengeOrdered By: Jaciel Garcia on 03-09-2023 ALP [Catalytic activity/Vol] 119 U/L 45-117 [facility] ALT [Catalytic activity/Vol] 51 U/L 16-61 [facility] CO2 [Moles/Vol] 23.0 mmol/L 21.0-32.0 [facility] Cobalamin (Vitamin B12) [Mass/Vol] 1109 pg/mL 211-911 [facility] Globulin (S) [Mass/Vol] 4.7 g/dL 2.2-4.2 [facility] Urea nitrogen/Creatinine [Mass ratio] 13.4 mg/mg 10-20 [facility] Laboratory - Hematology and Cell countsOrdered By: Jaciel Garcia on 03-09-2023 Erythrocyte distribution width (RBC) [Entitic vol] 43.2 fL 35.1-43.9 [facility] Erythrocyte distribution width (RBC) [Ratio] 12.4 % 11.6-14.6 [facility] Immature granulocytes/100 WBC (Bld) 0.400 % 0.0-0.9 [facility] Comment on above: IG% - Immature Granu locytes (promyelocytes, myelocytes and metamyelocytes) > 1% indicates that a LEFT SHIFT is Present. MCH (RBC) [Entitic mass] 32.4 pg 27.0-32.0 [facility] Nucleated RBC/100 WBC (Bld) [Ratio] 0 % 0-5 [facility] MCHC Auto (RBC) [Mass/Vol]Or dered By: Jaciel Garcia on 03-09-2023 MCHC (RBC) [Mass/Vol] 34.6 g/dL 32-36 [facility] No Panel InformationOrdered By: Jaciel Garcia on 03-09-2023 Estimated GFR (MDRD) Amer 58 mL/min >60 [facility] Comment on above: GFR Calc Estimated GFR (MDRD) Non-Af Amer 48 mL/min >60 [facility] Comment on above: Non- GFR Calc Thyroid Stimulating Hormone (TSH) 2.38 uIU/mL 0.358-3.74 [facility] Platelets bldOrdered By: Jermaine Garcia on 03-09-2023 Platelets (Bld) [#/Vol] 197 10*3/uL 150-450 [facility] Serum or plasma albumin june urement (mass/volume)Ordered By: Jaciel Garcia on 03-09-2023 Albumin [Mass/Vol] 3.2 g/dL 3.2-5.0 [facility] Serum or plasma albumin/glob ulin mass ratioOrdered By: Jaciel Garcia on 03-09-2023 Albumin/Globulin [Mass ratio] 0.7 {ratio} 0.9-2.4 [facility] Serum or plasma calcium june urement (mass/volume)Ordered By: Jaciel Garcia on 03-09-2023 Calcium [Mass/Vol] 8.9 mg/dL 8.5-10.1 [facility] Serum or plasma cholesterol in HDL measurement (mass/volume)Ordered By: Jaciel Garcia on 03-09-2023 Cholesterol in HDL [Mass/Vol] 28 mg/dL >40 [facility] Comment on above: The drugs N-Acetylcy steine and Metamizole may falsely depress this assay. Reference Range HDL <40 mg/dL Low HDL Cholesterol HDL >or= 60 mg/dL High HDL Cholesterol Serum or plasma cholesterol in VLDL measurement (mass/volume)Ordered By: Jaciel Garcia on 03-09-2023 Cholesterol in VLDL [Mass/Vol] 41 mg/dL 5-40 [facility] Serum or plasma creatinine m easurement (mass/volume)Ordered By: Jaciel Garcia on 03-09-2023 Creatinine [Mass/Vol] 1.49 mg/dL 0.70-1.30 [facility] Comment on above: The validity of the calculated GFR & GFRAA in patients over 70 years has not been determined. Clinical correlation is essential. Serum or plasma low density lipoprotein (LDL) cholesterol measurement (mass/volume)Ordered By: Jaciel Garcia on 03-09-2023 Cholesterol in LDL [Mass/Vol] 76 mg/dL 0-130 [facility] Serum or plasma urea nitroge n measurement (mass/volume)Ordered By: Jaciel Garcia on 03-09-2023 Urea nitrogen [Mass/Vol] 20 mg/dL 7-18 [facility] Thin prep Papanicolaou smear with manual screeningOrdered By: Jaciel Garcia on 03-09-2023 Thin prep Papanicolaou smear with manual screening 29 U/L 15-37 [facility] Thin prep Papanicolaou smear with manual screening 10 5-15 [facility] Laboratory - Chemistry and C hemistry - challengeon 05-11-2022 Cobalamin (Vitamin B12) [Mass/Vol] 977 pg/mL 211-911 [facility] Work Phone: Basophil percentageon 2021 Chloride [Moles/Vol] 104 mmol/L 98-107 [facility] Work Phone: Glucose [Mass/Vol] 106 mg/dL 74-106 [facility] Work Phone: Comment on above: Fasting Glucose resu lt from 100 to 125 mg/dL suggests IMPAIRED HOMEOSTASIS per A.D.A. criteria. Potassium [Moles/Vol] 4.3 mmol/L 3.5-5.1 [facility] Work Phone: Sodium [Moles/Vol] 140 mmol/L 136-145 [facility] Work Phone: WBC (Bld) [#/Vol] 7.6 10*3/uL 4.4-11.0 [facility] Work Phone: Blood erythrocytes count (nu mber/volume)on 05-05-2022 RBC (Bld) [#/Vol] 4.44 10*6/uL 4.6-6.2 [facility] Work Phone: Blood hemoglobin measurement (mass/volume)on 05-05-2022 Hemoglobin (Bld) [Mass/Vol] 14.6 g/dL 13.0-16.5 [facility] Work Phone: Blood platelet mean volumeon 05-05-2022 Platelet mean volume (Bld) [Entitic vol] 9.7 fL 6.2-12.0 [facility] Work Phone: Determination of erythrocyte mean corpuscular volume (MCV)on 05-05-2022 MCV (RBC) [Entitic vol] 96.4 fL 80-94 [facility] Work Phone: Erythrocyte sedimentation ra michaelle 05-05-2022 ESR (Bld) [Velocity] 26 mm/h 0-20 [facility] Work Phone: [phone] Hematocrit Auto (Bld) [Volum e fraction]on 05-05-2022 Hematocrit (Bld) [Volume fraction] 42.8 % 40-54 [facility] Work Phone: [phone] Iron measurement (mass/mass) on 05-05-2022 Iron (Unsp spec) [Mass/Mass] 124 ug/dL 65-175 [facility] Work Phone: [phone] Laboratory - Chemistry and C hemistry - challengeon 05-05-2022 CO2 [Moles/Vol] 29.0 mmol/L 21.0-32.0 [facility] Work Phone: [phone] Magnesium [Mass/Vol] 1.7 mg/dL 1.6-2.6 [facility] Work Phone: [phone] Urea nitrogen/Creatinine [Mass ratio] 19.3 mg/mg 10-20 [facility] Work Phone: [phone] Laboratory - Hematology and Cell countson 05-05-2022 Erythrocyte distribution width (RBC) [Entitic vol] 44.4 fL 35.1-43.9 [facility] Work Phone: [phone] Erythrocyte distribution width (RBC) [Ratio] 12.7 % 11.6-14.6 [facility] Work Phone: [phone] MCH (RBC) [Entitic mass] 32.9 pg 27.0-32.0 [facility] Work Phone: [phone] MCHC Auto (RBC) [Mass/Vol]on 05-05-2022 MCHC (RBC) [Mass/Vol] 34.1 g/dL 32-36 [facility] Work Phone: [phone] No Panel Informationon 05-05 Anti-Nuclear Antibody Screen Negative Negative [facility] Work Phone: [phone] Comment on above: Performed at: [address] [id number] Director: Guy Hines PhD, Phone: [phone] Estimated GFR (MDRD) Amer 76 mL/min >60 [facility] Work Phone: Comment on above: GFR Calc Estimated GFR (MDRD) Non-Af Amer 62 mL/min >60 [facility] Work Phone: Comment on above: Non- GFR Calc Thyroid Stimulating Hormone (TSH) 1.66 uIU/mL 0.358-3.74 [facility] Work Phone: Vitamin D 25-Hydroxy 69.2 ng/mL [facility] Work Phone: Comment on above: Vitamin D 25(OH) Sta tus Range Deficiency <20 ng/mL (50nmol/L) Insufficiency 20 - 30 ng/mL (50 - 75 nmol/L) Sufficiency 30 - 100 ng/mL (75 - 250 nmol/L) Toxicity >100 ng/mL (>250 nmol/L) Platelets bldon 05-05-2022 Platelets (Bld) [#/Vol] 221 10*3/uL 150-450 [facility] Work Phone: Serum or plasma C reactive p rotein measurement (mass/volume)on 05-05-2022 CRP [Mass/Vol] mg/L 0.0-3.0 [facility] Work Phone: Comment on above: C-Reactive Protein ( CRP) provides useful information for thediagnosis, therapy and monitoring of inflammatory processesand associated diseases. For the evaluation of Relative Riskfor Cardiovascular Disease, a High Sensitivity CRP (HSCRP)should be ordered. Serum or plasma calcium june urement (mass/volume)on 05-05-2022 Calcium [Mass/Vol] 9.2 mg/dL 8.5-10.1 [facility] Work Phone: Serum or plasma creatinine m easurement (mass/volume)on 05-05-2022 Creatinine [Mass/Vol] 1.19 mg/dL 0.70-1.30 [facility] Work Phone: Comment on above: The validity of the calculated GFR & GFRAA in patients over 70 years has not been determined. Clinical correlation is essential. Serum or plasma ferritin lilia surement (mass/volume)on 05-05-2022 Ferritin [Mass/Vol] 84 ng/mL 26-388 [facility] Work Phone: Serum or plasma urea nitroge n measurement (mass/volume)on 05-05-2022 Urea nitrogen [Mass/Vol] 23 mg/dL 7-18 [facility] Work Phone: Thin prep Papanicolaou smear with manual screeningon 05-05-2022 Thin prep Papanicolaou smear with manual screening 7 01-10 [facility] Work Phone: CNOVon 01-08-2022 CNOV Office Visit (UCWSTR ) CHET JERONIMO ([id number]) 1940 M Date Time Provider Department 01/08/22 6:15 PM MATIAS WILLIS [facility] During your visit today, we recorded the following information about you: Temperature Pulse Respiration Blood pressure 98 degrees 77/minute 18/minute 128/82 Weight 77.4 kg Matias Willis MD 01/08/2022 6:30 PM Signed Patient presents with: tick in lower back: [...] mouth daily ALLERGIES: ALLERGIES Allergen Reactions - Sherri Inhibitors Cough - Penicillins Hives VITALS: BP [...] about tick removal provided. 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 - celecoxib (CELEBREX) 200 mg capsule Take 200 mg by mouth once daily. - omeprazole (PRILOSEC) 40 mg capsule Take 40 mg by mouth once daily. - lovastatin (MEVACOR) 20 mg tablet Take 1 tablet by mouth once daily. 1 tablet(s) By mouth Daily - metFORMIN (GLUCOPHAGE) 500 mg tablet Take 1 tablet by mouth once daily. 1 tablet(s) by mouth daily - metoprolol tartrate, short acting, (LOPRESSOR) 50 mg tablet Take 1 tablet by mouth once daily. 1 tablet(s) by mouth daily - aspirin, enteric coated (ASPIRIN, ENTERIC COATED) 81 mg EC tablet Take 81 mg by mouth once daily. 1 tablet(s) by mouth daily Problem List As Of Date 01/08/2022 Noted Resolved Acute sinusitis [J01.90] 04/04/2017 Essential hypertension [I10] Hyperlipidemia [E78.5] Type 2 diabetes mellitus (HCC) [E11.9] Encounter Status:Closed by MATIAS WILLIS on 01/08/22 Normal [facility] CNOVon 01-06-2022 CNOV Office Visit (UCWSTR ) CHET JERONIMO ([id number]) 1940 M Date Time Provider Department 01/06/22 7:30 PM J CARLOS ROLAND [facility] During your visit today, we recorded the following information about you: Temperature Pulse Respiration Blood pressure 97.5 degrees 57/minute 16/minute 136/82 Weight 78.2 kg J Carlos Roland APRN.[employer] 01/06/2022 7:45 PM Signed Subjective Patient came in with complains of tick on right side of jaw under kline. patient said he was just outside a couple hours ago. could not have been on any longer than that. deneis any other symptoms at this time. The history is provided by the patient. No heel painter was used. Review of Systems Constitutional: Negative. [...] COMPARTMENTS - CHOLECYSTECTOMY 2016 DR RICHMOND ALLERGIES Sherri Inhibitors and Penicillins MEDICATIONS amLODIPine (NORVASC) 5 [...] COMPARTMENTS - CHOLECYSTECTOMY 2016 DR RICHMOND ALLERGIES Sherri Inhibitors and Penicillins MEDICATIONS amLODIPine (NORVASC) 5 [...] encounter - ICD9: 910.4, E906.4, ICD10: S00.86XA, W57.XX (more content not included)... Normal [facility] Basophil percentageon 2021 Chloride [Moles/Vol] 104 mmol/L 98-107 [facility] Work Phone: Glucose [Mass/Vol] 113 mg/dL 74-106 [facility] Work Phone: Comment on above: Fasting Glucose resu lt from 100 to 125 mg/dL suggests IMPAIRED HOMEOSTASIS per A.D.A. criteria. Potassium [Moles/Vol] 3.3 mmol/L 3.5-5.1 [facility] Work Phone: Sodium [Moles/Vol] 140 mmol/L 136-145 [facility] Work Phone: Laboratory - Chemistry and C hemistry - challengeon 12-17-2021 CO2 [Moles/Vol] 28.0 mmol/L 21.0-32.0 [facility] Work Phone: [phone] Urea nitrogen/Creatinine [Mass ratio] 16.9 mg/mg 10-20 [facility] Work Phone: No Panel Informationon 12-17 Estimated GFR (MDRD) Amer 59 mL/min >60 [facility] Work Phone: Comment on above: GFR Calc Estimated GFR (MDRD) Non-Af Amer 49 mL/min >60 [facility] Work Phone: Comment on above: Non- GFR Calc Serum or plasma calcium june urement (mass/volume)on 12-17-2021 Calcium [Mass/Vol] 8.8 mg/dL 8.5-10.1 [facility] Work Phone: Serum or plasma creatinine m easurement (mass/volume)on 12-17-2021 Creatinine [Mass/Vol] 1.48 mg/dL 0.70-1.30 [facility] Work Phone: Comment on above: The validity of the calculated GFR & GFRAA in patients over 70 years has not been determined. Clinical correlation is essential. Serum or plasma urea nitroge n measurement (mass/volume)on 12-17-2021 Urea nitrogen [Mass/Vol] 25 mg/dL 7-18 [facility] Work Phone: Thin prep Papanicolaou smear with manual screeningon 12-17-2021 Thin prep Papanicolaou smear with manual screening 8 5-15 [facility] Work Phone: ED NOTEon 12-13-2021 ED NOTE HNO ID: [id number] Author: Mayra Viera RN Service: ? Author Type: Registered Nurse Type: ED Notes Filed: 12/13/2021 8:48 AM Note Text: Dr Torres at bedside to remove tick Normal [facility] ED NOTE HNO ID: [id number] Author: Mayra Viera RN Service: ? Author Type: Registered Nurse Type: ED Notes Filed: 12/13/2021 8:29 AM Note Text: Pt arrives c/o tick bite to left side Normal [facility] ED PROV NOTEon 12-13-2021 ED PROV NOTE HNO ID: [id number] Author: Adelfo Torres MD Service: Emergency Medicine Author Type: Physician Type: ED Provider Notes Filed: 12/13/2021 1:18 PM Note Text: ED Provider Note Patient Name: Chet Jeronimo : 1940 SERVICE DATE: 12/13/21 History Patient presents with: Insect Bite Patient presents the emergency room with concern over embedded tick, his left lower abdomen just above his belt line. Patient states he thinks it is only been there since last night as he did not know some he took a shower last evening. Patient however is been in the ER, with multiple deer, he states he noted a tick crawling on his left upper arm yesterday as well. Patient has no rash no pain no nausea no vomiting no fevers. Animal Bite Contact animal: Insect Location: Torso Torso injury location: Abdomen Time since incident: unknown. Pain details: Quality: Unable to specify Severity: No pain Relieved by: Nothing Worsened by: Nothing Ineffective treatments: None tried Associated symptoms: no fever, no numbness, no rash and no swelling PAST MEDICAL HISTORY Diagnosis Date - Acute [...] MEDIALANDLAT COMPARTMENTS - CHOLECYSTECTOMY 2016 DR RICHMOND FAMILY HISTORY Problem Relation Age of Onset - Cancer Maternal Grandfather - Coronary Artery Disease Father - other (Heart disease) Father - other (Endometrial cancer) Paternal Grandmother - Hypertension Mother - Coronary Artery Disease Paternal Grandfather - other (Heart disease) Paternal Grandfather Social History Tobacco Use - Smoking status: Former Smoker - Smokeless tobacco: Never Used Substance and Sexual Activity - Alcohol use: No - Drug use: Not on file Comment: None Reported - Sexual activity: Not on file Comment: None Reported ALLERGIES Allergen Reactions - Sherri Inhibitors Cough - Penicillins Hives Review of Systems Constitutional: Negative for fever. Respiratory: Negative for shortness of breath. Cardiovascular: Negative for chest pain. Gastrointestinal: Negative for nausea and vomiting. Skin: Negative for rash. Neurological: Negative for numbness. All other systems reviewed and are negative. Physical Exam Vitals [12/13/21 0825] BP Pulse Temp Temp src Resp SpO2 Weight Height 154/72 76 36.3 ?C (97.3 ?F) Temporal 16 98 % 79.4 kg (175 lb) -- Physical Exam Vitals and nursing note reviewed. Constitutional: General: He is not in acute distress. Appearance: Normal appearance. He is not ill-appearing or toxic-appearing. HENT: Head: Normocephalic and atraumatic. Eyes: General: Right eye: No discharge. Left eye: No discharge. Pulmonary: Effort: No respiratory distress. Skin: General: Skin is warm and dry. Comments: Left lateral aspect the patient's abdomen, just above his belt line, he has a small tick, embedded into the skin, there is a mild rim of erythema less than a centimeter round the tick, there is no streaking, no surrounding acute rash, there is no target lesions Neurological: General: No focal deficit present. Mental Status: He is alert and oriented to person, place, and time. Mental status is at baseline. Psychiatric: Mood and Affect: Mood normal. Behavior: Behavior normal. Diagnostic Testing ED Labs Ordered and Reviewed - No data to display Procedures ED Course / Clinical Impression Clinical Impressions as of 12/13/21 1315 Tick bite with subsequent removal of tick MDM / Disposition / Plan This 81-year-old male patient presents the emergency part with concerns of embedded tick, left lower abdomen. The tick was removed without difficulty using direct pressure, hemostat, directly at the head, it appears the entire tick was removed. I had a long conversation with patient, about the duration of this tick with embedded in his skin, and we are unable to determine a good timeline. Patient is concerned that has been the yard the past couple days, his other ticks on his body, and therefore we cannot determine if the tick was attached for less than 48 hours. Secondary to the above, we have empirically elected to treat the patient with 1 dose of 200 mg of doxycycline for preventative treatment of hopefully tickborne illnesses. Antibiotic ointment was applied, with a Band-Aid to the site. Did discuss with patient, complications of infection, pending Lyme disease, other tickborne illnesses (more content not included)... Normal [facility] OBSOLETEon 08-20-2018 OBSOLETE Refill (OTFGFL) CHET DIAZ ([id number]) 1940 MDate Time Provider Rlanuqlitu60/23/18 LYUDMILA CLARKE OTFGFL During your visit today, we recorded the following information about you:Nata Pierson 08/21/2018 10:14 AM SignedPharmacy faxed requesting the following refillRefill(s) Requested:Pending Prescriptions Disp Refills RANITIDINE 150 MG TABLET 180 tablet 3 Sig: TAKE 1 TABLET BY MOUTH TWICE A DAY JIMENEZ: YesALLERGIESAllergen Reactions- Sherri Inhibitors Cough- Penicillins HivesPhone Number: [phone] (home) [phone] (cell)Last Visit date: Visit date not foundFuture appointment: Visit date not foundThe patients preferred pharmacy has been captured for this encounter? yesRequest is for script(s) to be escript to pharmacy.Nata Jorgensen Dangelo 08/21/2018 11:24 AM SignedDr Mariya please disregard this refill request for Mr. Jeronimo. It has beenover a year since you had last seen the pt and when I spoke to the pt he is nolonger taking the medicine.Nata Heavenergies As of Date: 08/20/2018 Noted Allergy ReactionACE INHIBITORS 09/19/2015 3 - CoughPENICILLINS 09/19/2015 4 - HivesDate Reviewed: 06/17/2017Reviewed by: Jie ([facility]) - Dionna AssessedReadilene for Visit: Refill Request [94]Order(s):ranitidine (ZANTAC) 150 mg tabletTAKE 1 TABLET BY MOUTH TWICE A DAYDisp: 180 tabletRfl: 3Prescriptions as of 08/20/2018 Sig: RANITIDINE 150 MG TABLET TAKE 1 TABLET BY MOUTH TWICE * ASPIRIN 81 MG TABLET,DELAYED * Take 81 mg by mouth once lisa* LOVASTATIN 20 MG TABLET Take 1 tablet by mouth once d* METFORMIN 500 MG TABLET Take 1 tablet by mouth once d* METOPROLOL TARTRATE 50 MG TAB* Take 1 tablet by mouth once d*Problem List As Of Date 08/20/2018 Noted Resolved Acute sinusitis [J01.90] 04/04/2017 Essential hypertension [I10] Hyperlipidemia [E78.5] Type 2 diabetes mellitus (HCC) [E11.9]Prescriptions ordered this encounter Disp Refills Start End RANITIDINE 150 MG TABLET 180 * 3 08/21/2018 Sig: TAKE 1 TABLET BY MOUTH TWICE A DAYMedications Discontinued During This Encounter ranitidine (ZANTAC) 150 mg tablet 08/21/2018 Class: Historical Med Route: ORAL Sig: Take 150 mg by mouth twice daily. Disc: Reason for discontinue is not on file. Status:Closed by LYUDMILA CLARKE MD on 08/21/18 Normal [facility] Comprehensive Panelon 2017 Albumin 3.7 g/dL Normal 3.4-5.0 [facility] Comment on above: Performed By: #### L P14 ####[address] [address] Alkaline phosphatase (ALP) 62 U/L Normal 46-116 [facility] Comment on above: Performed By: #### L P14 ####[address] [address] ALT-SGPT Blood 27 U/L Normal 14-63 [facility] Comment on above: Performed By: #### L P14 ####[address] [address] Anion gap 8 mmol/L Normal 8-20 [facility] Comment on above: Performed By: #### L P14 ####[address] [address] AST-SGOT Blood 14 U/L Low 15-37 [facility] Comment on above: Performed By: #### L P14 ####[address] [address] Bilirubin Ql (U) 0.8 mg/dL Normal 0.2-1.0 [facility] Comment on above: Performed By: #### L P14 ####[address] [address] BUN (urea nitrogen) 21 mg/dL Normal 7-25 [facility] Comment on above: Performed By: #### L P14 ####[address] [address] BUN/Creatinine Ratio 18 mg/mg Normal 10-20 [facility] Comment on above: Performed By: #### L P14 ####[address] [place], [place] [address] Calcium 9.4 mg/dL Normal 8.5-10.1 [facility] Comment on above: Performed By: #### L P14 ####[facility] [place], [place] [address] Chloride 107 mmol/L Normal 98-107 [facility] Comment on above: Performed By: #### L P14 ####[facility] [place], [place] [address] CO2 27 mmol/L Normal 21-32 [facility] Comment on above: Performed By: #### L P14 ####[facility] [place] [address] Creatinine 1.16 mg/dL Normal 0.67-1.17 [facility] Comment on above: Performed By: #### L P14 ####[place] [address] Glucose mass conc 132 mg/dL High 70-99 [facility] Comment on above: Performed By: #### L P14 ####[place] [address] Potassium molar conc 3.8 mmol/L Normal 3.5-5.1 [facility] Comment on above: Performed By: #### L P14 ####[address] [address] Protein 7.4 g/dL Normal 6.4-8.2 [facility] Comment on above: Performed By: #### L P14 ####[place] [address] Sodium 138 mmol/L Normal 136-145 [facility] Comment on above: Performed By: #### L P14 ####[address] [address] Lipid Profileon 12-12-2017 Cholesterol 125 mg/dL Normal 0-199 [facility] Comment on above: Performed By: #### L LIPD ####[address] [address] Cholesterol to HDL Ratio 3.0 {ratio} Normal 2.1-7.3 [facility] Comment on above: Performed By: #### L LIPD ####[address] [address] HDL Cholesterol 42 mg/dL Normal >40 [facility] Comment on above: Performed By: #### L LIPD ####[address] [address] LDL Cholesterol 64 mg/dL Normal 0-150 [facility] Comment on above: Performed By: #### L LIPD ####[address] [address] Risk Factor 3.0 Normal [facility] Comment on above: Result Comment: Card iac Risk Factor The CHD risk factor is based on the total Chol/HDL ratio. Otherfactors affect CHD risk such as hypertension, smoking, diabetes,severe obesity and premature CHD. Cardiac Risk Total Chol/HDL ratio Men Women 1/2 avg risk 3.4-4.9 3.3-6.3 Avg risk 5.0-9.5 6.4-7.0 2x avg risk 9.6-23.3 7.1-10.9 3x avg risk >23.4 >11.0 Performed By: #### L LIPD ####[address] [address] Triglyceride Blood 97 mg/dL Normal 0-149 [facility] Comment on above: Performed By: #### L LIPD ####[address] [address] MDRD eGFRon 12-12-2017 eGFR (non-black) mL/min/{1.73_m2} Normal >60mL/m in/1. 73m2 [facility] Comment on above: Result Comment: If t he patient is , multiply the result by 1.210. Performed By: #### L GFR ####[address] [place] [address] TSHon 12-12-2017 Thyroid stimulating hormone (TSH) 1.05 uIU/mL Normal 0.34-4.82 [facility] Comment on above: Performed By: #### L TSH ####[facility] [place] [address] Hemoglobin A1Con 04-06-2017 Glucose mass conc 126 mg/dL Normal [facility] Comment on above: Performed By: #### L A1C ####[place] [address] Hemoglobin A1c/Hemoglobin.total mass fraction (Bld) 6.0 % Normal 4.5-6.2 [facility] Comment on above: Performed By: #### L A1C ####[place] [address] Comprehensive Panelon 2016 Albumin 3.4 g/dL Normal 3.4-5.0 [facility] Comment on above: Performed By: #### L P14 ####[place] [address] Alkaline phosphatase (ALP) 66 U/L Normal 46-116 [facility] Comment on above: Performed By: #### L P14 ####[place] [address] ALT-SGPT Blood 22 U/L Normal 12-78 [facility] Comment on above: Performed By: #### L P14 ####[place] [address] Anion gap 10 mmol/L Normal 8-20 [facility] Comment on above: Performed By: #### L P14 ####[place] [address] AST-SGOT Blood 16 U/L Normal 15-37 [facility] Comment on above: Performed By: #### L P14 ####[place] [address] Bilirubin Ql (U) 0.8 mg/dL Normal 0.2-1.0 [facility] Comment on above: Performed By: #### L P14 ####[address], [place] [address] BUN (urea nitrogen) 17 mg/dL Normal 7-25 [facility] Comment on above: Performed By: #### L P14 ####[facility] [place], [place] [address] BUN/Creatinine Ratio 16 mg/mg Normal 10-20 [facility] Comment on above: Performed By: #### L P14 ####[facility] [place], [place] [address] Calcium 9.1 mg/dL Normal 8.5-10.1 [facility] Comment on above: Performed By: #### L P14 ####[address] [address] Chloride 106 mmol/L Normal 98-107 [facility] Comment on above: Performed By: #### L P14 ####[place] [address] CO2 29 mmol/L Normal 21-32 [facility] Comment on above: Performed By: #### L P14 ####[place] [address] Creatinine 1.09 mg/dL Normal 0.67-1.17 [facility] Comment on above: Performed By: #### L P14 ####[address] [address] Glucose mass conc 121 mg/dL High 70-99 [facility] Comment on above: Performed By: #### L P14 ####[address] [address] Potassium molar conc 3.7 mmol/L Normal 3.5-5.1 [facility] Comment on above: Performed By: #### L P14 ####[address] [address] Protein 7.2 g/dL Normal 6.4-8.2 [facility] Comment on above: Performed By: #### L P14 ####[address] [address] Sodium 141 mmol/L Normal 136-145 [facility] Comment on above: Performed By: #### L P14 ####[facility] [facility] [place], [place] [address] Lipid Profileon 04-05-2017 Cholesterol 132 mg/dL Normal 0-199 [facility] Comment on above: Performed By: #### L LIPD ####[address] [address] Cholesterol to HDL Ratio 2.9 {ratio} Normal 2.1-7.3 [facility] Comment on above: Performed By: #### L LIPD ####[address] [address] HDL Cholesterol 45 mg/dL Normal >40 [facility] Comment on above: Performed By: #### L LIPD ####[address] [address] LDL Cholesterol 68 mg/dL Normal 0-150 [facility] Comment on above: Performed By: #### L LIPD ####[address] [address] Risk Factor 2.9 Normal [facility] Comment on above: Result Comment: Card iac Risk Factor The CHD risk factor is based on the total Chol/HDL ratio. Otherfactors affect CHD risk such as hypertension, smoking, diabetes,severe obesity and premature CHD. Cardiac Risk Total Chol/HDL ratio Men Women 1/2 avg risk 3.4-4.9 3.3-6.3 Avg risk 5.0-9.5 6.4-7.0 2x avg risk 9.6-23.3 7.1-10.9 3x avg risk >23.4 >11.0 Performed By: #### L LIPD ####[address] [address] Triglyceride Blood 96 mg/dL Normal 0-149 [facility] Comment on above: Performed By: #### L LIPD ####[address], [place] [address] MDRD eGFRon 04-05-2017 eGFR (non-black) mL/min/{1.73_m2} Normal >60mL/m in/1. 73m2 [facility] Comment on above: Result Comment: If t he patient is , multiply the result by 1.210. Performed By: #### L GFR ####[place] [address] Microalbumin,Randomon 2016 INR Coag RelTime (Bld) 1.27 mg/dL Normal 0.20-2.50 [facility] Comment on above: Performed By: #### M ALBR ####[place] [address] MA/Creat Ratio 6.35 mg/g Normal 0.10-30.00 [facility] Comment on above: Performed By: #### M ALBR ####[place] [address] Creatinine,Urine 200.0 mg/dL Normal [facility] Comment on above: Performed By: #### M ALBR ####[address] [address] Vital Signs Date Time Vital Sign Value Performing Clinician Tara blair 02-27-2025 14:28-0400 Body temperature 97.9 [degF] Dr. Adelfo Garcia MD Work Phone: [facility] 02-27-2025 14:28-0400 Diastolic blood pressure 56 mm[Hg] Dr. Adelfo Garcia MD Work Phone: [facility] 02-27-2025 14:28-0400 Heart rate 50 /min Dr. Adelfo Garcia MD Work Phone: [facility] 02-27-2025 14:28-0400 Respiratory rate 16 /min Dr. Adelfo Garcia MD Work Phone: [facility] 02-27-2025 14:28-0400 SaO2% (BldA) [Mass fraction] 96 % Dr. Adelfo Garcia MD Work Phone: [facility] 02-27-2025 14:28-0400 Systolic blood pressure 128 mm[Hg] Dr. Adelfo Garcia MD Work Phone: [facility] 02-18-2025 13:01-0400 Body mass index (BMI) [Ratio] 29.8 kg/m2 Dr. Adelfo Garcia MD Work Phone: [facility] 02-18-2025 13:01-0400 Body weight 78.[address] Adelfo Garcia MD Work Phone: 4(356)158-198503 [address] 02-18-2025 13:01-0400 Diastolic blood pressure 72 mm[Hg] Dr. Adelfo Garcia MD Work Phone: 8(566)336-741569 [place] [address] 02-18-2025 13:01-0400 Heart rate 72 /min Dr. Adelfo Garcia MD Work Phone: 8(816)667-496403 [address] 02-18-2025 13:01-0400 Respiratory rate 18 /min Dr. Adelfo Garcia MD Work Phone: 4(038)811-425603 [address] 02-18-2025 13:01-0400 SaO2% (BldA) [Mass fraction] 95 % Dr. Adelfo Garcia MD Work Phone: 0(743)003-958405 [place] [address] 02-18-2025 13:01-0400 Systolic blood pressure 121 mm[Hg] Dr. Adelfo Garcia MD Work Phone: 4(065)650-014205 [place] [address] 01-16-2025 13:35-0400 Body height 162.[address] Adelfo Garcia MD Work Phone: 8(324)729-786303 [address] 01-16-2025 13:35-0400 Body mass index (BMI) [Ratio] 29.8 kg/m2 Dr. Adelfo Garcia MD Work Phone: 5(668)256-598805 [place] [address] 01-16-2025 13:35-0400 Body weight 78.[address] Adelfo Garcia MD Work Phone: 0(845)474-484705 [place] [address] 01-16-2025 13:35-0400 Diastolic blood pressure 74 mm[Hg] Dr. Adelfo Garcia MD Work Phone: [facility] 01-16-2025 13:35-0400 Heart rate 52 /min Dr. Adelfo Garcia MD Work Phone: [facility] 01-16-2025 13:35-0400 Respiratory rate 16 /min Dr. Adelfo Garcia MD Work Phone: [facility] 01-16-2025 13:35-0400 Systolic blood pressure 146 mm[Hg] Dr. Adelfo Garcia MD Work Phone: [facility] 12-12-2024 13:40-0400 Body height 162.[address] Adelfo Garcia MD Work Phone: [facility] 12-12-2024 13:40-0400 Body mass index (BMI) [Ratio] 29.8 kg/m2 Dr. Adelfo Garcia MD Work Phone: [facility] 12-12-2024 13:40-0400 Body weight 78.[address] Adelfo Garcia MD Work Phone: [facility] 12-12-2024 13:40-0400 Diastolic blood pressure 61 mm[Hg] Dr. Adelfo Garcia MD Work Phone: [facility] 12-12-2024 13:40-0400 Heart rate 52 /min Dr. Adelfo Garcia MD Work Phone: [facility] 12-12-2024 13:40-0400 Respiratory rate 18 /min Dr. Adelfo Garcia MD Work Phone: [facility] 12-12-2024 13:40-0400 Systolic blood pressure 134 mm[Hg] Dr. Adelfo Garcia MD Work Phone: [facility] 01-08-2022 18:09-0400 Body temperature 98.01 [degF] Matias Willis MD Work Phone: [facility] 01-08-2022 18:09-0400 Body weight 77.38 kg Matias Willis MD Work Phone: [facility] 01-08-2022 18:09-0400 Diastolic blood pressure 82 mm[Hg] Matias Willis MD Work Phone: [facility] 01-08-2022 18:09-0400 Heart rate 77 /min Matias Willis MD Work Phone: [facility] 01-08-2022 18:09-0400 Respiratory rate 18 /min Matias Willis MD Work Phone: [facility] 01-08-2022 18:09-0400 SaO2% (BldA) [Mass fraction] 97 % Matias Willis MD Work Phone: [facility] 01-08-2022 18:09-0400 Systolic blood pressure 128 mm[Hg] Matias Willis MD Work Phone: [facility] 01-06-2022 19:32-0400 Body temperature 97.5 [degF] J Carlos Roland APRN.WHOLESALE BUYER Work Phone: [facility] 01-06-2022 19:32-0400 Body weight 78.2 kg J Carlos Roland APRN.WHOLESALE BUYER Work Phone: [facility] 01-06-2022 19:32-0400 Diastolic blood pressure 82 mm[Hg] J Carlos Roland APRN.WHOLESALE BUYER Work Phone: [facility] 01-06-2022 19:32-0400 Heart rate 57 /min J Carlos Roland APRN.WHOLESALE BUYER Work Phone: [facility] 01-06-2022 19:32-0400 Respiratory rate 16 /min J Carlos Roland APRN.WHOLESALE BUYER Work Phone: [facility] 01-06-2022 19:32-0400 SaO2% (BldA) [Mass fraction] 97 % J Carlos Roland APRN.WHOLESALE BUYER Work Phone: [facility] 01-06-2022 19:32-0400 Systolic blood pressure 136 mm[Hg] J Carlos Roland WHOLESALE BUYER Work Phone: [facility] Encounters Encounter Date Encounter Type Care Provider Facility Start: 02-27-2025 End: 02-27-2025 Patient encounter procedure Galo Dupont [employer]-C -[facility] Work Phone: Start: 02-27-2025 End: 02-27-[address] Adelfo Garcia MD Work Phone: -[facility] Start: 02-18-2025 End: 02-18-2025 Patient encounter procedure Gilmer Pratt [employer]-C -[facility] Work Phone: Start: 02-18-2025 End: 02-18-[address] Adelfo Garcia MD Work Phone: [facility] Work Phone: Start: 01-23-2025 End: 01-23-[address] Adelfo Garcia MD Work Phone: [facility] Work Phone: Start: 01-23-2025 End: 01-23-[address] Mohan Brooke DO -Physical Therapy Work Phone: Start: 01-16-2025 End: 01-16-2025 Patient encounter procedure Gilmer Pratt [employer]-C -[facility] Work Phone: Start: 01-16-2025 End: 01-16-[address] Adelfo Garcia MD Work Phone: [facility] Work Phone: Start: 01-09-2025 ambulatory Gilmer Pratt [employer]ED [employer]ATER Facility :[facility] Start: 01-09-2025 Non-patient / Non-visit Dr. Ishmael Cancino MD -[facility] Start: 01-08-2025 End: 01-08-[address] Adelfo Garcia MD Work Phone: [facility] Work Phone: Start: 01-08-2025 End: 01-08-2025 Patient encounter procedure Gilmer Pratt [employer]ED [employer]-C -Cardiovascular Services Work Phone: Start: 01-08-2025 End: 01-08-2025 ambulatory Adelfo Garcia Facility:[facility] Start: 01-03-[address] Mohan samaniego DO -Physical Therapy Work Phone: Start: 12-28-2024 End: 12-28-2024 [facility] Start: 12-28-2024 End: 12-28-2024 Patient encounter procedure Cassandra Duran RN [facility] Clinical Communication Start: 12-12-2024 End: 12-12-2024 Patient encounter procedure Gilmer Pratt [employer]-C -[facility] Work Phone: Start: 12-12-2024 End: 12-12-2024 ambulatory Gilmer Pratt NP Facility:[facility] Start: 11-28-2024 End: 11-28-[address] Mohan Brooke DO -[facility] Work Phone: Start: 11-28-2024 End: 11-28-2024 ambulatory Adelfo Garcia Facility:[facility] Start: 11-21-2024 End: 11-21-[address] Mohan Brooke DO -[facility] Work Phone: Start: 11-21-2024 End: 11-21-2024 ambulatory Adelfo Garcia Facility:[facility] Start: 11-14-2024 End: 11-14-2024 ambulatory Adelfo Garcia Facility:[facility] Start: 11-14-2024 End: 11-14-[address] Mohan Brooke DO -[facility] Work Phone: Start: 10-03-2024 End: 10-03-[address] Adelfo Garcia MD -Laboratory [place] Work Phone: Start: 10-03-2024 End: 10-03-2024 ambulatory Adelfo Garcia Facility:[facility] Start: 09-21-2024 End: 09-21-[address] Adelfo Garcia MD -Laboratory [facility] Start: 09-21-2024 End: 09-21-2024 ambulatory Adelfo Garcia Facility:[facility] Start: 07-17-2024 End: 07-17-2024 ambulatory Adelfo Garcia Facility:[facility] Start: 06-15-2024 ambulatory Adelfo Garcia Faci lity:[facility] Start: 06-15-2024 End: 06-15-2024 ambulatory Adelfo Garcia Facility:[facility] Start: 06-04-2024 End: 06-04-2024 ambulatory Adelfo Garcia Facility:[facility] Start: 04-28-2024 End: 04-28-2024 ambulatory Adelfo Garcia Facility:[facility] Start: 04-23-2024 End: 04-23-2024 ambulatory Adelfo Garcia Facility:[facility] Start: 04-16-2024 End: 04-17-2024 ambulatory Adelfo Garcia Facility:[facility] Start: 04-09-2024 End: 04-09-2024 ambulatory Adelfo Garcia Facility:[facility] Start: 12-28-2023 End: 12-28-[address] [facility] Work Phone: Start: 12-28-2023 End: 12-28-[address] [facility] Start: 11-08-2023 End: 11-08-[address] [facility] Work Phone: Start: 11-08-2023 End: 11-08-[address] [facility] Start: 10-03-2023 End: 10-03-[address] [facility] Work Phone: Start: 10-03-2023 End: 10-03-2023 Patient encounter procedure [facility] Start: 07-11-2023 End: 07-11-[address] [facility] Work Phone: Start: 07-11-2023 End: 07-11-[address] [facility]-Radiology, [facility] Work Phone: Start: 04-05-2023 End: 04-05-[address] [facility] Work Phone: Start: 04-05-2023 End: 04-05-[address] [facility] Work [facility]: Start: 03-18-2023 End: 03-18-[address] [facility] Work Phone: Start: 03-09-2023 End: 03-09-[address] [facility] Work Phone: Start: 03-09-2023 End: 03-09-2023 [facility] Start: 11-10-2022 End: 11-10-[address] [facility] Work Phone: Start: 11-10-2022 End: 11-10-[address] [facility]-MRI - [facility] Start: 08-04-2022 End: 08-04-[address] [facility] Work Phone: Start: 08-04-2022 End: 08-04-[address] [facility] Start: 05-11-2022 End: 05-11-[address] [facility] Work Phone: Start: 05-11-2022 End: 05-11-[address] [facility] Start: 05-05-2022 End: 05-05-2022 [facility] Start: 01-19-2022 End: 01-19-[address] [facility]-Outpatient Bone Densitometry Start: 01-08-2022 End: 01-08-2022 Patient encounter procedure Matias Willis MD Work Phone: [facility] Comment on above: Seborrheic keratoses (Primary Dx) Start: 01-06-2022 End: 01-06-2022 Patient encounter procedure J Carlos Roland CHIDI.WHOLESALE BUYER Work Phone: [facility] Comment on above: Tick bite of other p art of head, initial encounter (Primary Dx) Start: 01-06-2022 End: 01-06-[address] [facility]-Radiology, [place] Start: 12-17-2021 End: 12-17-[address] [facility] [place] [facility] Start: 11-23-2021 End: 11-23-[address] [facility]-Physical Therapy Start: 11-29-2017 Ambulatory MECHE L CARMELER [facility] Start: 05-31-2017 End: 05-31-2017 Ambulatory MECHE L BACHCINDYER Facility:[facility] Start: 04-15-2017 End: 04-15-2017 Ambulatory MECHE L CARMELER Facility:[facility] Start: 04-13-2017 End: 04-13-2017 Emergency department patient visit JIE GARCIA Facility:[facility] Start: 04-05-2017 End: 04-06-2017 Ambulatory MECHE L CARMELER Facility:[facility] Start: 04-04-2017 End: 04-04-2017 Ambulatory MECHE L BACHCINDYER Facility:[facility] Procedures Date Procedure Procedure Detail Performing Clinician Start: 01-08-2025 Cardiovascular stres s test using pharmacologic stress agent Dr. Adelfo Garcia MD Work Phone: Start: 10-03-2024 Measurement of renal function Dr. Adelfo Garcia MD Work Phone: Comment on above: GFR Calc Start: 10-03-2024 Vitamin D, 25-hydrox y measurement Dr. Adelfo Garcia MD Work Phone: Comment on above: Vitamin D 25(OH) Sta tus Range Deficiency <20 ng/mL (50nmol/L) Insufficiency 20 - 30 ng/mL (50 - 75 nmol/L) Sufficiency 30 - 100 ng/mL (75 - 250 nmol/L) Toxicity >100 ng/mL (>250 nmol/L) Start: 07-11-2023 Radiography of esophagus Start: 04-05-2023 End: 04-05-2023 Radiologic examination of knee Start: 03-09-2023 Urine culture Start: 11-10-2022 MRI of lumbar spine Start: 08-04-2022 Radiologic examinati on of knee Start: 01-19-2022 Dual energy X-ray absorptiometry Start: 01-06-2022 Complete x-ray serie s of lumbar spine with bending views Plan of Treatment Date Care Activity Detail Author Start: 11-28-[address] [facility] Work Phone: Start: 01-19-2022 Dual energy X-ray absorptiometry Dexa Bone Density Study [facility] Work Phone: Start: 08-29-2021 ADVANCE DIRECTIVE DISCUSSION ADVANCE DIRECTIVE DISCUSSION [facility] Start: 12-12-2018 Hepatitis B surface antibody level LDL CHOLESTEROL [facility] Start: 05-31-2018 ANNUAL PCP TEAM CHRONIC DISEASE VISIT ANNUAL PCP TEAM CHRONIC DISEASE VISIT [facility] Start: 04-05-2018 Hepatitis B screening URINE ALBUMIN:CREATININE RATIO [facility] Start: 11-02-2017 3 comp foot exam completed DIABETIC FOOT EXAM [facility] eulalio Start: 10-06-2017 Hemoglobin A1c/Hemoglobin.total in Blood HBA1C [facility] Start: 07-08-2016 Hepatitis C antibody, confirmatory test DILATED RETINAL EXAM [facility] Start: 1991 SHINGRIX VACCINE (1 of 2) SHINGRIX VACCINE (1 of 2) [facility] Start: 1960 Urine microalbumin profile DTAP,TDAP,TD (1 - Tdap) [facility] Start: 1959 BP CONTROLLED (<130/80) BP CONTROLLED (<130/80) [facility] Start: 1953 Adult depression screening assessment DEPRESSION SCREENING [facility] Start: 1946 COVID-19 VACCINE (#1) COVID-19 VACCINE (#1) [facility] Patient referral [facility] Work Phone: Immunizations Immunization Date Immunization Notes Care Provider Drew wilhelm 05-31-2017 influenza, high dose seasonal, preservative-free J Carlos Roland APRN.WHOLESALE BUYER Work Phone: [facility] 05-14-2016 pneumococcal conjuga te vaccine, 13 valent J Carlos Roland APRN.WHOLESALE BUYER Work Phone: [facility] 05-19-2015 influenza, high dose seasonal, preservative-free J Carlos Dre MURILLO.WHOLESALE BUYER Work Phone: [facility] 08-29-2009 pneumococcal polysaccharide vaccine, 23 valent J Carlos Dre ROGERN.WHOLESALE BUYER Work Phone: [facility] Payers Date Payer Category Payer Private Health Insurance [facility] [id number] 2024 Self-pay [id number] 2015 Private Health Insurance [employer] A ETNA MEDICARE SUPPLEMENT [id number] 2015-Present [phone] [address] [address] [place] [address] Indemnity [id number] 2006 Medicare MEDICARE MEDICAR E A AND B [id number] 2006-Present [phone] [address] [address] [place] [address] Medicare [id number] 2006 Medicare [id number] Medicare [id number] Unknown [id number] [id number] .2.462 Unknown [id number] 2.16840.1.835143.3.579 .2.462 Unknown [id number] 2.16.840.1.907373.3.579 .2.462 Unknown [id number] 2.16.840.1.098250.3.579 .2.462 Unknown [id number] 2.16.840.1.035140.3.579 .2.462 Unknown [id number] 2.16.840.1.122180.3.579 .2.462 Unknown [id number] 2.16.840.1.931972.3.579 .2.462 Unknown [id number] 2.16.840.1.114762.3.579 .2.462 Unknown [id number] 2.16.840.1.892219.3.579 .2.462 Unknown [id number] 2.16.840.1.685387.3.579 .2.462 Unknown [id number] 2.16.840.1.725607.3.579 .2.462 Unknown [id number] 2.16.840.1.689079.3.579 .2.462 Unknown [id number] 2.16.840.1.239693.3.579 .2.462 Unknown [id number] 2.16840.1.325192.3.579 .2.462 Unknown [id number] 2.16.840.1.467745.3.579 .2.462 Unknown [id number] 2.16.840.1.284145.3.579 .2.462 Unknown [id number] 2.16840.1.575690.3.579 .2.462 Unknown [id number] 2.16840.1.987753.3.579 .2.462 Unknown [id number] 2.840.1.929293.3.579 .2.462 Unknown [id number] 2.16840.1.349213.3.579 .2.462 Unknown [id number] 2.840.1.138159.3.579 .2.462 Social History Date Type Detail Facility Tobacco smoking status [facility] Unknown if ever smoked [facility] Work Phone: Start: 1940 Sex Assigned At Male [facility] Start: 11-17-2015 End: 12-12-2024 Tobacco smoking status [facility] Ex-smoker [facility] Start: 11-17-2015 Tobacco use and exposure Smokeless tobacco non-user [facility] Start: 01-06-2022 End: 01-08-2022 Alcohol intake Current non-drinker of alcohol (finding) [facility] Start: 1940 Sex Assigned At Not on file [facility] Start: 12-27-2021 End: 01-06-2022 Exposure to SARS-CoV-2 (event) Not sure [facility] Tobacco smoking status [facility] Tobacco smoking consumption unknown [facility] Start: 03-29-2022 Sex Male (finding) [facility] Gender identity Not on file [facility] Clinical Notes 04-04-2017 to 01-23-2025 Note Date & Type Note Facility 01-23-2025 Discharge summary Note Date/Time January 23, 2025 7:00p m [facility] [address] [place] [address] / REHABILITATION SERVICES DISCHARGE SUMMARY MR#: [id number] Acct: [id number] Name: CHET JERONIMO Rep #: [id number] : 1940 84 From: Spencer Manrique DPT, OCS, CSCS Referring Dr.: Dr. Mohan Brooke DO Status: REG RCR Insurance: MEDICARE PART A B AETNA SR SUPPLEMENT INS Discharge Summary D/C summary: It has been my pleasure to treat CHET JERONIMO referred by Dr. Mohan Brooke DO, with the diagnosis of B bursitis of the hips for a total of 10 visit(s). Discharge Date: 01/23/25 Please see the following information for a summary of their discharge status. Subjective Subjective: Doing good. I can be out and work and takes a long time before starts to hurt. 300% better. LB is mostly constant pain . L hip laterally is where it starts to hurt. Lasting way longer. Exercises are going well at home. No f/u with doctor Brendon. Pain L hip: Pain Intensity (Out of 10): 2 R hip: Pain Intensity (Out of 10): 2 Overall Improvement % Improvement: 80 Objective Objective/Function: Good back ROM today, still missing extension but only mild transient central pain. Walking with R antalgia slightly and diminished hip ROM but I and able to do what he needs to do at home. Feeling better overall, L knee and back are limiting factors now for which I recommneded he see his pain managemment doctor who he has not seen in a year and possibly back therapy a part of his future maybe in the pool. Goals Goal 1:: Pt feel hip pain is 75% better and 1/10 at worst Goal Progress: 80% Goal 2:: I appropriate HEP to minimize hip pain and max improved activity Goal Progress: Goal Met Goal 3:: LEFS sccore 50 Goal Progress: Progressing Goal 4:: exit chair without hesitation or pain outside of knee Goal Progress: Goal Met Goal 5:: Back to chopping wood in [place] Goal Progress: Progressing Plan Plan: d/c to HEP, pt to seek pain management doctor for his back pain whihc is now more limiting than hips. D/C Information d/c sentence: If there are questions or concerns regarding this patient's physical therapy, please feel free to call me at [phone]. Thank you for the referral of thispatient. Sincerely, Spencer Manrique DPT, OCS, CSCS Balance/Gait/Functional tests Balance/Special Test Scores Lower Extremity Functional Score: 48 Improvement % Improvement: 80 <Electronically signed by SARAHI Brown DPT, CSCS> 01/23/25 1418 CC: Dr. Adelfo Garcia MD; Dr. Mohan Brooke, DO ~ [facility] Signed [facility] Work Phone: 1(671) 711-893305-28-[address] [facility] [address] [place] [address]. [address] [place] [address] / REHABILITATION SERVICES DISCHARGE SUMMARY MR#: [id number] Acct: [id number] Name: CHET JERONIMO Rep #: [id number] : 1940 84 From: Spencer Manrique DPT, SARAHI, CSCS Referring Dr.: Dr. Mohan Brooke, DO Status: REG RCR Insurance: MEDICARE PART A B AETNA SR SUPPLEMENT INS Discharge Summary D/C summary: It has been my pleasure to treat CHET JERONIMO referred by Dr. Mohan Brooke DO, with the diagnosis of B bursitis of the hips for a total of 10 visit(s). Discharge Date: 01/23/25 Please see the following information for a summary of their discharge status. Subjective Subjective: Doing good. I can be out and work and takes a long time before starts to hurt. 300% better. LB is mostly constant pain . L hip laterally is where it starts to hurt. Lasting way longer. Exercises are going well at home. No f/u with doctor Brnedon. Pain L hip: Pain Intensity (Out of 10): 2 R hip: Pain Intensity (Out of 10): 2 Overall Improvement % Improvement: 80 Objective Objective/Function: Good back ROM today, still missing extension but only mild transient central pain. Walking with R antalgia slightly and diminished hip ROM but I and able to do what he needs to doat home. Feeling better overall, L knee and back are limiting factors now for which I recommneded he see his pain managemment doctor who he has not seen in a year and possibly back therapy a part of his future maybe in the pool. Goals Goal 1:: Pt feel hip pain is 75% better and 1/10 at worst Goal Progress: 80% Goal 2:: I appropriate HEP to minimize hip pain and max improved activity Goal Progress: Goal Met Goal 3:: LEFS sccore 50 Goal Progress: Progressing Goal 4:: exit chair without hesitation or pain outside of knee Goal Progress: Goal Met Goal 5:: Back to [place]pping wood in [place] Goal Progress: Progressing Plan Plan: d/c to HEP, pt to seek pain management doctor for his back pain whihc is now more limiting than hips. D/C Information d/c sentence: If there are questions or concerns regarding this patient's physical therapy, please feel free to call me at [phone]. Thank you for the referral of thispatient. Sincerely, Spencer Manrique, DPT, OCS, CSCS Balance/Gait/Functional tests Balance/Special Test Scores Lower Extremity Functional Score: 48 Improvement % Improvement: 80 01/23/25 [id number] CC: Dr. Adelfo Garcia MD; Dr. Mohan Brooke DO ~ EBG Signed [facility]05-02-2025 Telephone encounter Note* Telephone Encounter - Cassandra Duran RN - 12/28/2024 3:53 PM EDT S: Elena Purcell called the [facility] access center B: Follow up on a fax that was sent to [facility] A: This patient is not listed as a patient at [facility]. R: They will call back during business hours. Patient instructed to call back with worsening symptoms, concerns or questions. Reason for Disposition [1] Caller requesting NON-URGENT health information AND [2] PCP's office is the best resource Protocols used: Information Only Call - No [id number] [facility] [id number] Miscellaneous Notes* Telephone Encounter - Cassandra Duran RN - 12/28/2024 3:53 PM EDT S: Elena Purcell called the clinical access center B: Follow up on a fax that was sent to [facility] A: This patient is not listed as a patient at [facility]. R: They will call back during business hours. Patient instructed to call back with worsening symptoms, concerns or questions. Reason for Disposition [1] Caller requesting NON-URGENT health information AND [2] PCP's office is the best resource Protocols used: Information Only Call - No [id number] documented in this [facility]03-19-2025 Evaluation note* Diagnosis Onset Date Resolution Status Admit Date Osteoarthritis of right knee acute November 14, 2024 1:15pm Osteoarthritis of right knee acute November 21, 2024 1:16pm Greater trochanteric bursiti s of both hips acute November 28, 2024 12:59pm Lumbago acute November 28 12:59pm Osteoarthritis of right knee acute November 28, 2024 12:59pm Atrial fibrillation acute December 12, 2024 1:37pm Nausea acute December 12 1:37pm Shortness of breath chronic December 12, 2024 1:37pm Type 2 diabetes mellitus chronic December 12, 2024 1:37pm [facility] Work Phone: 1(172) 961-993803-19-2025 Evaluation note* Diagnosis Onset Date Resolution Status Admit Date Osteoarthritis of right knee acute November 14, 2024 1:15pm Osteoarthritis of right knee acute November 21, 2024 1:16pm Greater trochanteric bursiti s of both hips acute November 28, 2024 12:59pm Lumbago acute November 28 12:59pm Osteoarthritis of right knee acute November 28, 2024 12:59pm Atrial fibrillation acute December 12, 2024 1:37pm Nausea acute December 12 1:37pm Shortness of breath chronic December 12, 2024 1:37pm Type 2 diabetes mellitus chronic December 12, 2024 1:37pm Atrial fibrillation acute December 282024 1:23pm Nausea acute January 16, 2025 1:23pm Shortness of breath chronic December 282024 1:23pm Type 2 diabetes mellitus chronic January 16, 2025 1:23pm [facility] Work Phone: 1(429) 881-298503-19-2025 Evaluation note* Diagnosis Onset Date Resolution Status Admit Date Osteoarthritis of right knee acute November 14, 2024 1:15pm Osteoarthritis of right knee acute November 21, 2024 1:16pm Greater trochanteric bursiti s of both hips acute November 28, 2024 12:59pm Lumbago acute November 28 12:59pm Osteoarthritis of right knee acute November 28, 2024 12:59pm Atrial fibrillation acute December 12, 2024 1:37pm Nausea acute December 12 1:37pm Shortness of breath chronic December 12, 2024 1:37pm Type 2 diabetes mellitus chronic December 12, 2024 1:37pm Atrial fibrillation acute December 282024 1:23pm Nausea acute January 16, 2025 1:23pm Shortness of breath chronic December 282024 1:23pm Type 2 diabetes mellitus chronic January 16, 2025 1:23pm Atrial fibrillation acute February 18, 2025 1:56pm Nausea acute February 18 1:56pm Shortness of breath chronic February 18, 2025 1:56pm Type 2 diabetes mellitus chronic February 18, 2025 1:56pm [facility] Work Phone: [phone] Evaluation note* Diagnosis Onset Date Resolution Status Admit Date Osteoarthritis of right knee acute November 14, 2024 1:15pm Osteoarthritis of right knee acute November 21, 2024 1:16pm Greater trochanteric bursiti s of both hips acute November 28, 2024 12:59pm Lumbago acute November 28 12:59pm Osteoarthritis of right knee acute November 28, 2024 12:59pm Atrial fibrillation acute December 12, 2024 1:37pm Nausea acute December 12 1:37pm Shortness of breath chronic December 12, 2024 1:37pm Type 2 diabetes mellitus chronic December 12, 2024 1:37pm Atrial fibrillation acute December 282024 1:23pm Nausea acute January 16, 2025 1:23pm Shortness of breath chronic December 282024 1:23pm Type 2 diabetes mellitus chronic January 16, 2025 1:23pm Atrial fibrillation acute February 18, 2025 1:56pm Nausea acute February 18 1:56pm Shortness of breath chronic February 18, 2025 1:56pm Type 2 diabetes mellitus chronic February 18, 2025 1:56pm Bacterial sinusitis acute February 27, 2025 2:24pm [facility] Work Phone: [phone] NoteHNO ID: [id number] Author: Matias Willis MD Service: ? Author [...] mouth daily ALLERGIES: ALLERGIES Allergen Reactions - Sherri Inhibitors Cough - Penicillins Hives VITALS: BP 128/82 Pulse 77 Temp 36.7 ?C (98 ?F) (Tympanic) Resp 18 Wt 77.4 kg (170 lb 9.6 oz) SpO2 97% BMI 29.28 kg/m? PE: Pleasant, in no acute distress. SKIN: 5mm brown waxy flattened papule mid back. ASSESSMENT/PLAN: 1. 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 Education about tick removal provided. Matias Willis [facility]05-13-2022 History of Present illness Narrative* Matias Willis MD - 01/08/2022 6:17 PM EDT Patient presents with: tick in lower back: noticed it today HPI: Noticed a tick on his back after his shower today. He has tried no treatment. He had a tick removedfrom his kline here 2 days ago. MEDICATIONS: [...] Take 81 mg by mouth once daily. 1tablet(s) by mouth daily ALLERGIES: ALLERGIES Allergen Reactions Sherri Inhibitors Cough Penicillins Hives VITALS: BP 128/82 [...] provided. Matias Willis MD documented [facility] this [facility] NoteHNO ID: [id number] Author: J Carlos Roland APRN.WHOLESALE [employer]ER Service: ? Author Type: Nurse Practitioner Type: [...] history is provided by the patient. No heel painter was used. Review of Systems Constitutional: Negative. [...] COMPARTMENTS - CHOLECYSTECTOMY 2016 DR RICHMOND ALLERGIES Sherri Inhibitors and Penicillins MEDICATIONS amLODIPine (NORVASC) 5 [...] COMPARTMENTS - CHOLECYSTECTOMY 2016 DR RICHMOND ALLERGIES Sherri Inhibitors and Penicillins MEDICATIONS amLODIPine (NORVASC) 5 [...] Patient was okay with this care plan. J Carlos Roland APRN.[facility]05-11-2022 History of Present illness Narrative* J Carlos Roland APRN.[facility] - 01/06/2022 7:31 PM EDT Images from the original note were not included. Subjective Patient came in with complains of tick on right side of jaw under kline. patient said he was just outside a couple hours ago. could not have been on any longer than that. deneis any other symptoms atthis time. The history is provided by the patient. No heel painter was used. Review of Systems Constitutional: Negative. [...] MEDIAL&LAT COMPARTMENTS CHOLECYSTECTOMY 2016 DR RICHMOND ALLERGIES Sherri Inhibitors and Penicillins MEDICATIONS amLODIPine (NORVASC) 5 [...] Take 81 mg by mouth once daily. 1tablet(s) by mouth daily FAMILY HISTORY Problem Relation [...] MEDIAL&LAT COMPARTMENTS CHOLECYSTECTOMY 2016 DR RICHMOND ALLERGIES Sherri Inhibitors and Penicillins MEDICATIONS amLODIPine (NORVASC) 5 [...] Take 81 mg by mouth once daily. 1tablet(s) by mouth daily FAMILY HISTORY Problem Relation [...] Patient was okay with this care plan. J Carlos Roland APRN.BSET documented in this encounterOhio[facility]08-07-2017 History of Past illness Narrative* Problem Noted Date Resolved Date Acute sinusitis 04/04/2017 documented as of this encounter (statuses as of 01/06/2022) [facility] History of Past illness Narrative* Problem Noted Date Resolved Date Acute sinusitis 04/04/2017 documented as of this encounter (statuses as of 01/08/2022) [facility] HospitalEvalubeebe healthcare noteNo assessment information availableWMcCullough-Hy[facility] Work Phone: Evaluation note* Diagnosis Tick bite of other part of head, initial encounter- Primary documented in this encounter [facility]* Diagnosis Seborrheic keratoses- Primary Other seborrheic keratosis documented in this encounter [facility] Summary Purpose Family History No Family History Records Found Relationship Condition Age at Onset Recorded Date/T linda father Cardiac disease Unknown Advance Directives No Advanced Directives Records FoundDocuments on File Type Date Recorded 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 Advance Directive(s) 12/13/2021 8:54 AM Chief Complaint and Reason for Visit Chief Complaint DDD, CERVICAL.RX HER E Chief Complaint DDD, CERVICAL.RX HER E EORDER- DORSALGIA- HIP/ BACK PAIN Chief Complaint DDD, CERVICAL.RX HER E EORDER- DORSALGIA- HIP/ BACK PAIN LUMBAR DISC DEGENERATION Chief Complaint LUMBAR DISC DEGENERA TION Chief Complaint LBP Chief Complaint EORDER- BOTH KNEES Chief Complaint EORDER- BOTH KNEES DYSPHAGIA Chief Complaint DYSPHAGIA Chief Complaint Admit Date EORDER October 03, 2024 1 :59pm RIGHT KNEE November 14, 2024 1:1 5pm RIGHT KNEE November 21, 2024 1:1 6pm RIGHT KNEE November 28, 2024 12:5 9pm 6 M FU December 12, 2024 1:3 7pm PAIN IN LEFT AND RIGHT HIPS. RX HERE January 03, 2025 1:00pm SOB;AFIB January 08, 2025 6:44a m SOB;AFIB January 09, 2025 10:20 am Reason for Visit Admit Date Osteoarthritis of right knee November 14, 2024 1:15pm Osteoarthritis of right knee November 21, 2024 1:16pm Greater trochanteric bursitis of both hi ps November 28, 2024 12:59pm Lumbago November 28, 2024 12:5 9pm Osteoarthritis of right knee November 28, 2024 12:59pm Atrial fibrillation December 12, 2024 1:3 7pm Nausea December 12, 2024 1:3 7pm Shortness of breath December 12, 2024 1:3 7pm Type 2 diabetes mellitus December 12 1:37pm Chief Complaint Admit Date EORDER October 03, 2024 1 :59pm RIGHT KNEE November 14, 2024 1:1 5pm RIGHT KNEE November 21, 2024 1:1 6pm RIGHT KNEE November 28, 2024 12:5 9pm 6 M FU December 12, 2024 1:3 7pm PAIN IN LEFT AND RIGHT HIPS. RX HERE January 03, 2025 1:00pm SOB;AFIB January 08, 2025 6:44a m SOB;AFIB January 09, 2025 10:20 am 4-6 WK FU January 16, 2025 1:23p m Reason for Visit Admit Date Osteoarthritis of right knee November 14, 2024 1:15pm Osteoarthritis of right knee November 21, 2024 1:16pm Greater trochanteric bursitis of both hi ps November 28, 2024 12:59pm Lumbago November 28, 2024 12:5 9pm Osteoarthritis of right knee November 28, 2024 12:59pm Atrial fibrillation December 12, 2024 1:3 7pm Nausea December 12, 2024 1:3 7pm Shortness of breath December 12, 2024 1:3 7pm Type 2 diabetes mellitus December 12 1:37pm Atrial fibrillation January 16, 2025 1:23p m Nausea January 16, 2025 1:23p m Shortness of breath January 16, 2025 1:23p m Type 2 diabetes mellitus January 16, 2025 1:23pm Chief Complaint Admit Date RIGHT KNEE November 14, 2024 1:1 5pm RIGHT KNEE November 21, 2024 1:1 6pm RIGHT KNEE November 28, 2024 12:5 9pm 6 M FU December 12, 2024 1:3 7pm SOB;AFIB January 08, 2025 6:44a m SOB;AFIB January 09, 2025 10:20 am 4-6 WK FU January 16, 2025 1:23p m PAIN IN LEFT AND RIGHT HIPS. RX HERE January 23, 2025 2:00pm Chief Complaint Admit Date RIGHT KNEE November 14, 2024 1:1 5pm RIGHT KNEE November 21, 2024 1:1 6pm RIGHT KNEE November 28, 2024 12:5 9pm 6 M FU December 12, 2024 1:3 7pm SOB;AFIB January 08, 2025 6:44a m SOB;AFIB January 09, 2025 10:20 am 4-6 WK FU January 16, 2025 1:23p m PAIN IN LEFT AND RIGHT HIPS. RX HERE January 23, 2025 2:00pm 4-6 W FU February 18, 2025 1:56 pm Reason for Visit Admit Date Osteoarthritis of right knee November 14, 2024 1:15pm Osteoarthritis of right knee November 21, 2024 1:16pm Greater trochanteric bursitis of both hi ps November 28, 2024 12:59pm Lumbago November 28, 2024 12:5 9pm Osteoarthritis of right knee November 28, 2024 12:59pm Atrial fibrillation December 12, 2024 1:3 7pm Nausea December 12, 2024 1:3 7pm Shortness of breath December 12, 2024 1:3 7pm Type 2 diabetes mellitus December 12 1:37pm Atrial fibrillation January 16, 2025 1:23p m Nausea January 16, 2025 1:23p m Shortness of breath January 16, 2025 1:23p m Type 2 diabetes mellitus January 16, 2025 1:23pm Atrial fibrillation February 18, 2025 1:56 pm Nausea February 18, 2025 1:56 pm Shortness of breath February 18, 2025 1:56 pm Type 2 diabetes mellitus February 18, 2025 1:56pm Chief Complaint Admit Date RIGHT KNEE November 14, 2024 1:1 5pm RIGHT KNEE November 21, 2024 1:1 6pm RIGHT KNEE November 28, 2024 12:5 9pm 6 M FU December 12, 2024 1:3 7pm SOB;AFIB January 08, 2025 6:44a m SOB;AFIB January 09, 2025 10:20 am 4-6 WK FU January 16, 2025 1:23p m PAIN IN LEFT AND RIGHT HIPS. RX HERE January 23, 2025 2:00pm 4-6 W FU February 18, 2025 1:56 pm CONCERN FOR SINUS INFECTION February 27 2:24pm Reason for Visit Admit Date Osteoarthritis of right knee November 14, 2024 1:15pm Osteoarthritis of right knee November 21, 2024 1:16pm Greater trochanteric bursitis of both hi ps November 28, 2024 12:59pm Lumbago November 28, 2024 12:5 9pm Osteoarthritis of right knee November 28, 2024 12:59pm Atrial fibrillation December 12, 2024 1:3 7pm Nausea December 12, 2024 1:3 7pm Shortness of breath December 12, 2024 1:3 7pm Type 2 diabetes mellitus December 12 1:37pm Atrial fibrillation January 16, 2025 1:23p m Nausea January 16, 2025 1:23p m Shortness of breath January 16, 2025 1:23p m Type 2 diabetes mellitus January 16, 2025 1:23pm Atrial fibrillation February 18, 2025 1:56 pm Nausea February 18, 2025 1:56 pm Shortness of breath February 18, 2025 1:56 pm Type 2 diabetes mellitus February 18, 2025 1:56pm Bacterial sinusitis February 27, 2025 2:24p m Additional Source Comments (unrecognized sect ion and content) No Status Records FoundNo Status Records FoundNo Status Records FoundNo Status Records FoundNo Status Records Found INFORMATION SOURCE (unrecogn ized section and content) DATE CREATED AUTHOR 02/16/2018 [facility] DATE CREATED AUTHOR AUTHOR'S ORGANIZ ATION 08/23/2018 [place] [facility] DATE CREATED AUTHOR AUTHOR'S ORGANIZ ATION 01/08/2022 [facility] DATE CREATED AUTHOR AUTHOR'S ORGANIZ ATION 01/03/2025 [facility] DATE CREATED AUTHOR AUTHOR'S ORGANLUISITO ATION 02/28/2025 [facility] Goals (unrecognized section and content) Goals may be documented in a n alternate sectionGoals may be documented in an alternate sectionGoals may be documented in an alternate sectionGoals may be documented in an alternate sectionGoals may be documented in an alternate sectionGoals may be documented in an alternate sectionGoals may be documented in an alternate sectionGoals may be documented in an alternate sectionGoals may be documented in an alternate sectionGoals may be documented in an alternate sectionGoals may be documented in an alternate sectionGoals may be documented in an alternate sectionGoals may be documented in an alternate sectionGoals may be documented in an alternate sectionGoals may be documented in an alternate sectionGoals may be documented in an alternate sectionGoals may be documented in an alternate section Source Comments (unrecognize d section and content) In the event this informatio n is protected by the Federal Confidentiality of Alcohol and Drug Abuse Patient Records regulations: The Federal rules restrict any use of the information to criminally investigate or prosecute any alcohol or drug abuse patient.[facility] HospitalIn the event this information is protected by the Federal Confidentiality of Alcohol and Drug Abuse Patient Records regulations: The Federal rules restrict any use of the information to criminally investigate or prosecute any alcohol or drug abuse patient.[facility] Reason for Visit (unrecogniz ed section and content) Reason Comments tick on jaw first noticed it 1/2 hour ago Reason Comments tick in lower back noticed it today Reason Onset Date Comments Release of Information 12/28/2024 Care Teams (unrecognized sec tion and content) 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 Jaciel Garcia MD Family Provider Active Dr. Jaciel Garcia MD Primary Care Provider Activ e Team Status: Inactive Member Role Status Dates Dr. Jaciel Garcia MD Primary Care Provider, Attending Provider, Referring Provider Active Team Status: Inactive Member Role Status Dates Dr. Jaciel Garcia MD Primary Care Provider Activ e Mouna Franklin MD Attending Provider, Referring Provide r Active Team Status: Inactive Member Role Status Dates Dr. Jaciel Garcia MD Primary Care Provider, Atte nding Provider Active Team Status: Active Member Role Status Dates Dr. Adelfo Garcia MD Family Provider Active Dr. Adelfo Garcia MD Primary Care Provider Acti ve Team Status: Inactive Member Role Status Dates Dr. Adelfo Garcia MD Primary Care Provider, Att ending Provider Active Team Status: Active Member Role Status Dates Dr. Adelfo Garcia MD Primary Care Provider Acti ve Team Status: Inactive Member Role Status Dates Dr. Adelfo Garcia MD Primary Care Provider Acti ve Start: September 21, 2024 End: September 21, 2024 Dr. Adelfo Garcia MD Attending Provider Active Start: September 21, 2024 End: September 21, 2024 Dr. Adelfo Garcia MD Referring Provider Active Start: September 21, 2024 End: September 21, 2024 Team Status: Inactive Member Role Status Dates Dr. Adelfo Garcia MD Primary Care Provider Acti ve Start: October 03, 2024 End: October 03, 2024 Dr. Adelfo Garcia MD Attending Provider Active Start: October 03, 2024 End: October 03, 2024 Dr. Adelfo Garcia MD Referring Provider Active Start: October 03, 2024 End: October 03, 2024 Team Status: Inactive Member Role Status Dates Dr. Adelfo Garcia MD Primary Care Provider Acti ve Start: November 14, 2024 End: November 14, 2024 Dr. Adelfo Garcia MD Referring Provider Active Start: November 14, 2024 End: November 14, 2024 Dr. Mohan Brooke DO Attending Provider Active Start: November 14, 2024 End: November 14, 2024 Team Status: Inactive Member Role Status Dates Dr. Adelfo Garcia MD Primary Care Provider Acti ve Start: November 21, 2024 End: November 21, 2024 Dr. Adelfo Garcia MD Referring Provider Active Start: November 21, 2024 End: November 21, 2024 Dr. Mohan Brooke DO Attending Provider Active Start: November 21, 2024 End: November 21, 2024 Team Status: Inactive Member Role Status Dates Dr. Adelfo Garcia MD Primary Care Provider Acti ve Start: November 28, 2024 End: November 28, 2024 Dr. Adelfo Garcia MD Referring Provider Active Start: November 28, 2024 End: November 28, 2024 Dr. Mohan Brooke DO Attending Provider Active Start: November 28, 2024 End: November 28, 2024 Team Status: Inactive Member Role Status Dates Dr. Adelfo Garcia MD Primary Care Provider Acti ve Start: December 12, 2024 End: December 12, 2024 Dr. Adelfo Garcia MD Referring Provider Active Start: December 12, 2024 End: December 12, 2024 Gilmer Pratt ROLLED GOLD PLATER, ROLLED GOLD PLATER-C Attending Provider Active S tart: December 12, 2024 End: December 12, 2024 Team Status: Active Member Role Status Dates Dr. Adelfo Garcia MD Primary Care Provider Acti ve Start: January 03, 2025 Dr. Mohan Brooke DO Attending Provider Active Start: January 03, 2025 Dr. Mohan Brooke DO Referring Provider Active Start: January 03, 2025 Team Status: Inactive Member Role Status Dates Dr. Adelfo Garcia MD Primary Care Provider Acti ve Start: January 08, 2025 End: January 08, 2025 Gilmer Pratt ROLLED GOLD PLATER, ROLLED GOLD PLATER-C Attending Provider Active S tart: January 08, 2025 End: January 08, 2025 Gilmer Pratt ROLLED GOLD PLATER, ROLLED GOLD PLATER-C Referring Provider Active S tart: January 08, 2025 End: January 08, 2025 Team Status: Active Member Role Status Dates Dr. Adelfo Garcia MD Primary Care Provider Acti ve Start: January 09, 2025 Gilmer Pratt ROLLED GOLD PLATER, ROLLED GOLD PLATER-C Referring Provider Active S tart: January 09, 2025 Gilmer Pratt ROLLED GOLD PLATER, ROLLED GOLD PLATER-C Other Provider Active Start : January 09, 2025 Dr. Ishmael Cancino MD Attending Provider Active S tart: January 09, 2025 Team Status: Inactive Member Role Status Dates Dr. Adelfo Garcia MD Primary Care Provider Acti ve Start: January 16, 2025 End: January 16, 2025 Dr. Adelfo Garcia MD Referring Provider Active Start: January 16, 2025 End: January 16, 2025 Gilmer Pratt ROLLED GOLD PLATER, ROLLED GOLD PLATER-C Attending Provider Active S tart: January 16, 2025 End: January 16, 2025 Team Status: Inactive Member Role Status Dates Dr. Adelfo Garcia MD Primary Care Provider Acti ve Start: January 23, 2025 End: January 23, 2025 Dr. Mohan Brooke DO Attending Provider Active Start: January 23, 2025 End: January 23, 2025 Dr. Mohan Brooke DO Referring Provider Active Start: January 23, 2025 End: January 23, 2025 Team Status: Inactive Member Role Status Dates Dr. Adelfo Garcia MD Primary Care Provider Acti ve Start: February 18, 2025 End: February 18, 2025 Dr. Adelfo Garcia MD Referring Provider Active Start: February 18, 2025 End: February 18, 2025 Gilmer Pratt ROLLED GOLD PLATER, ROLLED GOLD PLATER-C Attending Provider Active S tart: February 18, 2025 End: February 18, 2025 Team Status: Active Member Role/Relationship Status Dates Dr. Adelfo Garcia MD Primary Care Provider Acti ve Team Status: Inactive Member Role/Relationship Status Dates Dr. Adelfo Garcia MD Primary Care Provider Acti ve Start: November 14, 2024 End: November 14, 2024 Dr. Adelfo Garcia MD Referring Provider Active Start: November 14, 2024 End: November 14, 2024 Dr. Mohan Brooke DO Attending Provider Active Start: November 14, 2024 End: November 14, 2024 Team Status: Inactive Member Role/Relationship Status Dates Dr. Adelfo Garcia MD Primary Care Provider Acti ve Start: November 21, 2024 End: November 21, 2024 Dr. Adelfo Garcia MD Referring Provider Active Start: November 21, 2024 End: November 21, 2024 Dr. Mohan Brooke DO Attending Provider Active Start: November 21, 2024 End: November 21, 2024 Team Status: Inactive Member Role/Relationship Status Dates Dr. Adelfo Garcia MD Primary Care Provider Acti ve Start: November 28, 2024 End: November 28, 2024 Dr. Adelfo Garcia MD Referring Provider Active Start: November 28, 2024 End: November 28, 2024 Dr. Mohan Brooke DO Attending Provider Active Start: November 28, 2024 End: November 28, 2024 Team Status: Inactive Member Role/Relationship Status Dates Dr. Adelfo Garcia MD Primary Care Provider Acti ve Start: December 12, 2024 End: December 12, 2024 Dr. Adelfo Garcia MD Referring Provider Active Start: December 12, 2024 End: December 12, 2024 Gilmer Pratt ROLLED GOLD PLATER, ROLLED GOLD PLATER-C Attending Provider Active S tart: December 12, 2024 End: December 12, 2024 Team Status: Inactive Member Role/Relationship Status Dates Dr. Adelfo Garcia MD Primary Care Provider Acti ve Start: January 08, 2025 End: January 08, 2025 Gilmer Pratt ROLLED GOLD PLATER, ROLLED GOLD PLATER-C Attending Provider Active S tart: January 08, 2025 End: January 08, 2025 Gilmer Pratt [employer], [employer]-C Referring Provider Active S tart: January 08, 2025 End: January 08, 2025 Team Status: Active Member Role/Relationship Status Dates Dr. Adelfo Garcia MD Primary Care Provider Acti ve Start: January 09, 2025 Gilmer Pratt [employer] G[employer], [employer] G[employer]-C Referring Provider Active S tart: January 09, 2025 Gilmer Pratt [employer] G[employer]ATER, ROLLED G[employer]ATER-C Other Provider Active Start : January 09, 2025 Dr. Ishmael Cancino MD Attending Provider Active S tart: January 09, 2025 Team Status: Inactive Member Role/Relationship Status Dates Dr. Adelfo Garcia MD Primary Care Provider Acti ve Start: January 16, 2025 End: January 16, 2025 Dr. Adelfo Garcia MD Referring Provider Active Start: January 16, 2025 End: January 16, 2025 Gilmer Pratt NP [employer]-C Attending Provider Active S tart: January 16, 2025 End: January 16, 2025 Team Status: Inactive Member Role/Relationship Status Dates Dr. Adelfo Garcia MD Primary Care Provider Acti ve Start: January 23, 2025 End: January 23, 2025 Dr. Mohan Brooke DO Attending Provider Active Start: January 23, 2025 End: January 23, 2025 Dr. Mohan Brooke DO Referring Provider Active Start: January 23, 2025 End: January 23, 2025 Team Status: Inactive Member Role/Relationship Status Dates Dr. Adelfo Garcia MD Primary Care Provider Acti ve Start: February 18, 2025 End: February 18, 2025 Dr. Adelfo Garcia MD Referring Provider Active Start: February 18, 2025 End: February 18, 2025 Gilmer Pratt NP, NP-C Attending Provider Active S tart: February 18, 2025 End: February 18, 2025 Team Status: Inactive Member Role/Relationship Status Dates Dr. Adelfo Garcia MD Primary Care Provider Acti ve Start: February 27, 2025 End: February 27, 2025 Dr. Adelfo Garcia MD Referring Provider Active Start: February 27, 2025 End: February 27, 2025 MARIE Rocha Attending Provider Active Star t: February 27, 2025 End: February 27, 2025 FOR RECORDS PERTAINING TO PATIENTS WHO ARE [...] BE BASED ON THE PRIMARY CLINICAL RECORDS. [facility] [employer] provides no warranty or guarantee of the accuracy or completeness of information in this document.
== END | disposition home or self-care (01) ==
LOC: MFPLAB 10:13
PROVIDERS: PCP Family Medicine; Referring Provider Family Medicine; Visit Provider Family Medicine
DX: E11.9 Type 2 diabetes mellitus without complications (principal)
CPT/HCPCS: 36415; 80048; 85025

== ENCOUNTER → 2025-05-21 | Outpatient (CLI) | payer MEDICARE, OTHER, SELFPAY ==
--- OUTSIDE RECORDS SUMMARY | 2025-05-21 18:55 | XMS RPT_ITS | CCD ---
Author Organization [facility] CliniSymn Care Team Providers Care Administrative Associate Name Role Phone MECHE TAVERAS Unavailable Unavailable BACHELDER MECHE L Unavailable Unavailable NO REFERRING DR [...] Dr. Mohan Brooke DO Attending Provider Santa GOLD BLOWER-C, Gilmer Vo Attending Provider Dr. Mohan Brooke DO Referring Provider Santa GOLD BLOWER-C, Gilmer Vo Referring Provider Roof GOLD BLOWER-C, Gilmer Vo Other Provider Dr. Ishmael Cancino MD Attending Provider [phone] Adelfo Garcia MD Primary Care Provider Dr. Adelfo Garcia MD Referring Provider Dr. Mohan Brooke DO Referring Provider Moomaw GOLD BLOWER-C, Galo Attending Provider Dr. Adelfo Garcia MD Primary Care Provider Dr. Adelfo Garcia MD Referring Provider [phone] Mendy BURLESON, Dr. Preston Attending Provider Jose MARTINEZ, Dr. Emanuel Attending Provider [phone] Jose MARTINEZ, Dr. Emanuel Primary Care Physicia n Jose MARTINEZ, Dr. Emanuel Referring Provider Roof GOLD BLOWER-C, Gilmer Vo Attending Physician Mendy BURLESON, Dr. Preston Attending Physician Moomaw GOLD BLOWER-C, Galo Attending Physician Jose MARTINEZ, Dr. Emanuel Attending Physician Julita MARTINEZ, Dr. Quiñones Attending Physician [phone] Ranney, Christopher Primary Care Unavailable Ishmael Cancino Attending Unavailable Ranney, Christopher Primary Care Unavailable Ranney, Christopher Referring Unavailable Galo Dupont Attending Unavailable Ranney, Christopher Primary Care Unavailable Ranney, Christopher Referring Unavailable GertrudissoMohan Attending Unavailable Ranney, Christopher Attending Unavailable Ranney, Christopher Primary Care Unavailable Ranney, Christopher Referring Unavailable Ranney, Christopher Primary Care Unavailable Ishmael Cancino Attending Unavailable Ranney, Christopher Primary Care Unavailable BorMohan diaz Attending Unavailable Ranney, Christopher Referring Unavailable Ranney, Christopher Primary Care Unavailable Mohan Brooke Attending Unavailable Mohan Brooke Referring Unavailable Ranney, Christopher Primary Care Unavailable Roof GOLD BLOWER, Gilmer Vo Referring Unavailable Roof GOLD BLOWER, Gilmer Vo Attending Unavailable Ranney, Christopher Primary Care Unavailable Ranney, Christopher Referring Unavailable Danny Lopez Attending Unavailable Ranney, Christopher Attending Unavailable Ranney, Christopher Primary Care Unavailable Ranney, Christopher Referring Unavailable Ranney, Christopher Primary Care Unavailable Ranney, Christopher Referring Unavailable BorrusoMohan Attending Unavailable Ranney, Christopher Primary Care Unavailable Ranney, Christopher Referring Unavailable Roof GOLD BLOWER, Gilmer Vo Attending Unavailable Ranney, Christopher Primary Care Unavailable GertrudissoMohan Attending Unavailable Ranney, Christopher Referring Unavailable Ranney, Christopher Primary Care Unavailable Ishmael Cancino Attending Unavailable Roof GOLD BLOWER, Gilmer H Referring Unavailable Roof GOLD BLOWER, Gilmer H Consulting Unavailable Adelfo Garcia Attending Unavailable Adelfo Garcia Primary Care Unavailable Adelfo Garcia Referring Unavailable Adelfo Garcia Attending Unavailable Adelfo Garcia Primary Care Unavailable Adelfo Garcia Referring Unavailable Adelfo Garcia Primary Care Unavailable Adelfo Garcia Referring Unavailable Adelfo Garcia Attending Unavailable Adelfo Garcia Primary Care Unavailable Adelfo Garcia Referring Unavailable Gilmer Pratt NP Attending Unavailable Adelfo Garcia Primary Care Unavailable Adelfo Garcia Referring Unavailable Gilmer Pratt NP Attending Unavailable Allergies Allergy Classification Reported Allergen(s) Allergy Type Date of Onset Reaction(s) Facility (3 sources) Angiotensin Converting Enzyme (Sherri) Inhibitors; Translations: [SHERRI INHIBITORS] Propensity to adverse reactions (disorder) 6 Cough [facility] Repository (12 sources) Penicillins; Translations: [PENICILLINS] Propensity to adverse reactions (disorder) 6 Hives [facility] Repository (1 source) A.C.E INHIBITORS; Translations: [A.C.E INHIBITORS] Propensity to adverse reactions (disorder) [facility] Repository Medications Current Medications Medication Drug Class(es) Dates Sig (Normalized) Sig (Original) apixaban 5 mg oral tablet (20 sources) Factor Xa Inhibitor Start: 01-16-2025 End: 05-07-2025 take 1 tablet by mouth twice daily Start: 06-26-2024 End: 01-16-2025 take 1 tablet by mouth twice daily Apixaban (Eliquis) 2.5 mg tablet Discontinued 2.5 mg PO TWICE A DAY 180 3 December 12, 2024 4:22pm January 16, 2025 2:19pm Sending to [facility] cholecalciferol 0.05 mg oral capsule (8 sources) Vitamin D Start: 06-26-2024 take 1 capsule by mouth once daily doxycycline monohydrate 100 mg oral capsule (3 sources) Tetracycline-class Drug Start: 02-27-2025 take 1 capsule by mouth twice daily hydroCHLOROthiazide 12.5 mg oral capsule (16 sources) Thiazide Diuretic Start: 02-29-2024 End: 07-17-2024 take 1 capsule by mouth once daily hydrocortisone 25 mg/ml topical cream (8 sources) Corticosteroid Start: 06-26-2024 ipratropium bromide 0.042 mg/actuat metered dose nasal spray (8 sources) Anticholinergic Start: 06-26-2024 metoprolol tartrate 25 mg oral tablet (20 sources) beta-Adrenergic Mirna Start: 02-18-2025 take 1 tablet by mouth twice daily Start: 07-17-2024 End: 01-23-2025 take 1 tablet by mouth twice daily Metoprolol Tartrate 25 mg tablet Discontinued 25 mg PO TWICE A DAY 180 3 August 06, 2024 3:47pm January 23, 2025 [...] omeprazole 40 mg delayed release oral capsule (10 sources) Proton Pump Inhibitor Start: 02-29-2024 take 1 capsule by mouth once daily Start: 10-27-2021 take 1 capsule by mo ut once daily omeprazole (PRILOSEC) 40 mg capsule Take 40 mg by mouth once daily. 0 10/27/2021 Active Comment on above: Take 40 mg by mouth once daily. Completed/Discontinued Medications Medication Drug Class(es) Dates Sig (Normalized) Sig (Original) acetaminophen 250 mg / aspirin 250 mg / caffeine 65 mg oral tablet (8 sources) Platelet Aggregation Inhibitor, Nonsteroidal Anti-inflammatory Drug, [...] hydrochloride 120 mg extended release oral capsule (6 sources) Calcium Channel Mirna Start: 01-23-2025 End: [...] Problem Date Documented Date Episodic/Chronic Cardiac dysrhythmias (20 sources) Atrial fibrillation; Translations: [Unspecified atrial fibrillation] Onset: 12-12-2024 07-17-2024 Chronic Diabetes mellitus without complication (20 sources) Type 2 diabetes mellitus without complications; Translations: [Type 2 diabetes mellitus] Onset: 04-05-2017 11-17-2015 Chronic Disorders of lipid metabolism (3 sources) Hyperlipidemia, unspecified; Translations: [Hyperlipidemia] Onset: 04-15-2017 11-17-2015 Chronic Essential hypertension (5 sources) Essential (primary) hypertension; Translations: [Essential hypertension] Onset: 04-05-2017 11-17-2015 Chronic Nausea and vomiting (20 sources) Nausea; Translations: [Nausea] 12-12-2024 Episodic Osteoarthritis (20 sources) Osteoarthritis of right knee joint; Translations: [Unilateral primary osteoarthritis, right knee] Onset: 05-15-2025 06-26-2024 Chronic Other connective tissue disease (14 sources) Trochanteric bursitis; Translations: [Trochanteric bursitis, right hip] 11-28-2024 Episodic Other ear and sense organ disorders (1 source) Unspecified otitis externa, right ear; Translations: [UNS OTITIS EXTERNA RT EA] Onset: 04-13-2017 Chronic Other lower respiratory disease (20 sources) Dyspnea; Translations: [Shortness of breath] 12-12-2024 Episodic Other non-traumatic joint disorders (1 source) Pain in right hip; Translations: [Pain in right hip] Onset: 02-26-2025 Episodic Other non-traumatic joint disorders (1 source) Pain in left hip; Translations: [Pain in left hip] Onset: 02-26-2025 Episodic Other skin disorders (1 source) Seborrheic keratosis; Translations: [Other seborrheic keratosis] Episodic Other upper respiratory disease (8 sources) Congestion of nasal sinus; Translations: [Nasal congestion] 04-28-2024 Episodic Other upper respiratory infections (8 sources) Bacterial sinusitis; Translations: [Chronic sinusitis, unspecified] 02-27-2025 Chronic Spondylosis; intervertebral disc disorders; other back problems (16 sources) Low back pain; Translations: [Low back pain] 11-28-2024 Episodic Superficial injury; contusion (1 source) Tick bite; Translations: [Insect bite (nonvenomous) of other part of head, initial encounter] Episodic Unclassified (3 sources) Pure hypercholesterolemia, unspecified; Translations: [PURE HYPERCHOLESTEROLEMI] Onset: 04-05-2017 Unclassified (1 source) Unknown / UNK(Unknown) Onset: 11-17-2015 Unclassified (6 sources) M25.551 - Pain in right hip,M25.552 - Pain in left hip,M54.50 - Low back pain, unspecified Unclassified (2 sources) Bilateral hip pain Past or Other Problems Problem Classification Problem Date Documented Da te Episodic/Chronic Malaise and fatigue (9 sources) Fatigue; Translations: [Other fatigue] Onset: 10-19-2024 07-17-2024 Episodic Nutritional deficiencies (1 source) Deficiency of other specified B group vitamins; Translations: [Deficiency of other specified B group vitamins] Onset: 10-12-2024 Episodic Other ear and sense organ disorders (2 sources) Otalgia, right ear; Translations: [OTALGIA RIGHT EAR] Onset: 04-13-2017 Episodic Other lower respiratory disease (2 sources) Shortness of breath; Translations: [Shortness of breath] Onset: 01-30-2025 Episodic Results Test Name Value Interpretation Reference Range Facility Knee 4 or More Viewson 05-15 Knee 4 or More Views [facility] Imaging Services [address] [place] [address] [id number] Knee 4 or More Views MR#: [id number] Acct: [id number] Name: CHET JERONIMO Rep #: [id number] : 1940 M 84 From: Geovani James MD PCP: Dr. Adelfo Garcia MD Status: DEP AMB Study: Knee 4 or More Views Date of Exam: 05/15/25 Exam# [id number] Ordering Dr: Mohan Brooke DO PROCEDURE: KNEE 4 OR MORE VIEWS 05/15/2025 REASON FOR EXAM: PAIN TECHNIQUE: Procedure Code: RADKN Modality: DX Procedure: KNEE 4 OR MORE VIEWS Laterality: Right COMPARISON: 2022 FINDINGS: There is severe medial compartment joint space narrowing and patellofemoral compartment joint space narrowing, [id number]. Sclerotic changes are noted involving the medial compartment. There is resulting varus deformity. There is a small joint effusion present. No acute fracture or dislocation. Atherosclerotic vascular calcifications are noted posterior to the knee. 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 Reading Location: [facility] CC: Dr. Adelfo Garcia MD; Dr. 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 Mohan shaw DO Age/Sex: 84/M Location: [facility] Status: Signed Intake Vital Signs 02/18/25 13:01 Height 5 ft 4 in Intake Visit Reasons: RIGHT KNEE Allergies Penicillins Adverse Reaction (Verified 02/27/25 14:29) Hives Medications ???Medication ???Instructions ???Recorded ???Confirmed ???Type omeprazole 40 mg capsule,delayed 40 mg PO QDAY 02/29/24 05/15/25 Hi story release cholecalciferol (vitamin D3) 50 50 mcg PO QDAY 06/26/24 05/15/25 H istory mcg (2,000 unit) capsule hydrocortisone 2.5 % topical cream 1 applic topical BID PRN 4 05/15/25 History ipratropium bromide 42 mcg (0.06 2 spray intranasal BID 06/26/24 History %) nasal spray hydrochlorothiazide 12.5 mg capsule 12.5 mg PO QDAY #90 caps 05/15/25 Rx metoprolol tartrate 25 mg tablet 25 mg PO BID #180 tabs 02/18/25 Rx doxycycline monohydrate 100 mg 100 mg PO BID #10 caps 02/27/25 Rx capsule apixaban 5 mg tablet (Eliquis) 5 mg PO BID #60 tabs 05/07/2504/29 Rx Have you fallen in the past year?: No PFSH Medical History Bacterial sinusitis Shortness of breath Fatigue Osteoarthritis [...] Type: coffee Number of servings: 3 HPI RIGHT KNEE Details: This documentation accurately reflects the service provided and the decisions made by me, Dr. Mohan Brooke, DO 05/15/25 1120. Part of today???s visit was documented by Suad AUGUSTIN, acting as scribe. CHET JERONIMO is a 84 year old M here today for the right knee to talk about surgery. He did complete the Euflexxa series on 11/28/24 which did give him a few months of relief. He states that his pain is mostly anterior. 11/28/2024 visit: 3rd Euflexxa right knee injection. He also complains of chronic low back pain and bilateral lateral hip pain. Plan: Patient came in for his 3rd Euflexxa injection in the right knee. Patient can follow up in 3 months if needed. Patient is having chronic low back pain and stiffness with pain over bilateral lateral hips he would like to do physical therapy for both will send a referral to [facility] for physical therapy for bilateral bursitis and hip pain. Patient can follow up in 3 months if needed. 04/23/2024 visit: Third Euflexxa injection given 02/29/2024 visit: 83 year old M here today for right knee pain. Patient states the knee has been bothering him for about a year. Patient denies any injury inciting event. He states he did have his right ankle fusion surgery in about 2003 or 2005. Patient states when he was 7 years old he did have a cyst removed from the posterior knee. Patient states once in a while the knee will lock up and he states when he is sitting down and gets up to walk he feels clicking in the posterior knee. Patient describes the pain over the anterior medial aspect of the knee. Patient denies any numbness or tingling down his leg but states he does have a bad back. Patient states he had a steroid injection in the anterior knee about [address] Moss and then about 2 months ago he had an injection in the lateral side of the knee from Dr. Garcia which was very painful. Patient states these both gave him relief for a short time, maybe a couple weeks to a month. He denies any physical therapy for the right knee. Patient states he takes 1000mg Tylenol during the day and 1000mg Tylenol before going to bed to help him sleep. Patient does wear a compression sleeve/elastic brace that he wears on the knee when he is working outside. 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 Plan:Spoke to patient about his x-rays and the medial aspect of the knee is bone on bone. His options would be: steroid injections, viscosupplementation injections, bracing , physical therapy, anti-inflammatory medication such as Ibuprofen or Aleve, Glucosamine Chondroitin supplement that is found over the counter, and total knee arthroplasty. There are some concerns with the surge (more content not included)... Normal [facility] Absolute lymphocyte countOrd ered By: Adelfo Garcia on 03-22-2025 Lymphocytes Auto (Unsp spec) [#/Vol] 1.90 10*3/uL 0.83-4.51 [facility] Absolute neutrophil countOrd ered By: Adelfo Garcia on 03-22-2025 Neutrophils (Bld) [#/Vol] 4.9 10*3/uL 2.0-7.7 [facility] Anion gap in Serum or Plasma Ordered By: Adelfo Garcia on 03-22-2025 Anion gap [Moles/Vol] 11 mmol/L 5-15 [facility] Automated lymphocyte count a s percentage of total leukocytesOrdered By: Adelfo Garcia on 03-22-2025 Lymphocytes/100 WBC Auto (Unsp spec) 24.1 % 19-41 [facility] BUN/creatinine ratioOrdered By: Adelfo Garcia on 03-22-2025 Urea nitrogen/Creatinine [Mass ratio] 15.0 mg/mg 10-20 [facility] Basic Metabolic Profile (BMP )on 03-22-2025 BUN/CRE 15.0 RATIO Normal - [facility] Comment on above: Order Comment: Order Date: 03/22/25Order Info: 666- - BMP Performed By: #### L 100.0100, L500.2500 ####[facility] [address] [place], [address] Calcium [Mass/Vol] 9.2 mg/dL Normal 7.6-11.0 [facility] Comment on above: Order Comment: Order Date: 03/22/25Order Info: 666-08 - BMP Performed By: #### L 100.0100, L500.2500 ####[facility] [address] [place], [address] Chloride [Moles/Vol] 98 mmol/L Normal 98-108 [facility] Comment on above: Order Comment: Order Date: 03/22/25Order Info: 666-08 - BMP Performed By: #### L 100.0100, L500.2500 ####[facility] [address] [place], [address] CO2 [Moles/Vol] 24.5 mmol/L Normal 21.0-32.0 [facility] Comment on above: Order Comment: Order Date: 03/22/25Order Info: 666- - BMP Performed By: #### L 100.0100, L500.2500 ####[facility] [address] [place], [address] Creatinine [Mass/Vol] 1.40 mg/dL High 0.70-1.20 [facility] Comment on above: Order Comment: Order Date: 03/22/25Order Info: 666- - BMP Performed By: #### L 100.0100, L500.2500 ####[facility] [address] [place], [address] GAP 11 Normal 5-15 [facility] Comment on above: Order Comment: Order Date: 03/22/25Order Info: 666-08 - BMP Performed By: #### L 100.0100, L500.2500 ####[facility] [address] [place], [address] GFR/1.73 sq M.predicted among non-blacks MDRD (S/P/Bld) [Vol rate/Area] 50 mL/min/{1.73_m2} Low >60 [facility] Comment on above: Order Comment: Order Date: 03/22/25Order Info: 666-08 - BMP Result Comment: mL/m in/1.73m2 CKD-EPI Creatinine Equation (2020) Performed By: #### L 100.0100, L500.2500 ####[facility] [address], [address] Glucose [Mass/Vol] 465 mg/dL Invalid Interpretation Code 70-99 [facility] Comment on above: Order Comment: Order Date: 03/22/25Order Info: 666-08 - BMP Result Comment: Crit ical Result(s) Called at 1405: TO DR CUADRA by: KCLAPPER??Results read back by same. Performed By: #### L 100.0100, L500.2500 ####[facility] [address] [place], [address] Potassium [Moles/Vol] 4.3 mmol/L Normal 3.3-5.1 [facility] Comment on above: Order Comment: Order Date: 03/22/25Order Info: 06 - BMP Performed By: #### L 100.0100, L500.2500 ####[facility] [address] [place], [address] Sodium [Moles/Vol] 133 mmol/L Normal 133-145 [facility] Comment on above: Order Comment: Order Date: 03/22/25Order Info: 666-08 - BMP Performed By: #### L 100.0100, L500.2500 ####[facility] [address] [place], [address] Urea nitrogen [Mass/Vol] 21 mg/dL High 4-19 [facility] Comment on above: Order Comment: Order Date: 03/22/25Order Info: 0667-1 - BMP Performed By: #### L 100.0100, L500.2500 ####[facility] [address] [place], [address] Basophil percentageOrdered B y: Adelfo Garcia on 03-22-2025 Basophils/100 WBC (Bld) 0.4 % 0-1 [facility] CBC W/Diff, Automatedon 02-27 Absolute Lymph 1.90 X10 3/uL Normal 0.83-4.51 [facility] Comment on above: Order Comment: Order Date: 03/22/25Order Info: 0184-1 - CBCD Performed By: #### L 100.0100, L500.2500 ####[facility] [address] [place], [address] Absolute Neut 4.9 X10 3/uL Normal 2.0-7.7 [facility] Comment on above: Order Comment: Order Date: 03/22/25Order Info: 0184-1 - CBCD Performed By: #### L 100.0100, L500.2500 ####[facility] [address] [place], [address] Basophils/100 WBC (Bld) 0.4 % Normal 0-1 [facility] Comment on above: Order Comment: Order Date: 03/22/25Order Info: 0184-1 - CBCD Performed By: #### L 100.0100, L500.2500 ####[facility] [address] [place], [address] Eosinophils/100 WBC (Bld) 2.3 % Normal 0-5 [facility] Comment on above: Order Comment: Order Date: 03/22/25Order Info: 0184-1 - CBCD Performed By: #### L 100.0100, L500.2500 ####[facility] [address] [place], [address] Erythrocyte distribution width (RBC) [Ratio] 12.0 % Normal 11.6-14.6 [facility] Comment on above: Order Comment: Order Date: 03/22/25Order Info: 0184-1 - CBCD Performed By: #### L 100.0100, L500.2500 ####[facility] [address] [place], [address] Hematocrit (Bld) [Volume fraction] 39.8 % Low 40-54 [facility] Comment on above: Order Comment: Order Date: 03/22/25Order Info: 0184- - CBCD Performed By: #### L 100.0100, L500.2500 ####[facility] [address] [place], [address] Hemoglobin (Bld) [Mass/Vol] 14.1 g/dL Normal 13.0-16.5 [facility] Comment on above: Order Comment: Order Date: 03/22/25Order Info: 0184- - CBCD Performed By: #### L 100.0100, L500.2500 ####[facility] [address] [place], [address] IG% 0.900 Normal 0.0-0.9 [facility] Comment on above: Order Comment: Order Date: 03/22/25Order Info: 0184-1 - CBCD Result Comment: IG% - Immature Granulocytes (promyelocytes, myelocytes and metamyelocytes) > 1% indicates that a LEFT SHIFT is Present. Performed By: #### L 100.0100, L500.2500 ####[facility] [address] [place], [address] Lymphocytes/100 WBC (Bld) 24.1 % Normal 19-41 [facility] Comment on above: Order Comment: Order Date: 03/22/25Order Info: 0184-1 - CBCD Performed By: #### L 100.0100, L500.2500 ####[facility] [address] [place], [address] MCH (RBC) [Entitic mass] 33.6 pg High 27.0-32.0 [facility] Comment on above: Order Comment: Order Date: 03/22/25Order Info: 0184-1 - CBCD Performed By: #### L 100.0100, L500.2500 ####[facility] [address] [place], [address] MCHC (RBC) [Mass/Vol] 35.4 g/dL Normal 32-36 [facility] Comment on above: Order Comment: Order Date: 03/22/25Order Info: 0184-1 - CBCD Performed By: #### L 100.0100, L500.2500 ####[facility] [address] [place], [address] MCV (RBC) [Entitic vol] 94.8 fL High 80-94 [facility] Comment on above: Order Comment: Order Date: 03/22/25Order Info: 0184-1 - CBCD Performed By: #### L 100.0100, L500.2500 ####[facility] [address] [place], [address] Monocytes/100 WBC (Bld) 10.9 % High 0-10 [facility] Comment on above: Order Comment: Order Date: 03/22/25Order Info: 0184-1 - CBCD Performed By: #### L 100.0100, L500.2500 ####[facility] [address] [place], [address] Neutrophils/100 WBC (Bld) 61.4 % Normal 47-70 [facility] Comment on above: Order Comment: Order Date: 03/22/25Order Info: 0184-1 - CBCD Performed By: #### L 100.0100, L500.2500 ####[facility] [address] [place], [address] Nucleated RBC (Bld) [#/Vol] 0 10*3/uL Normal 0-5 [facility] Comment on above: Order Comment: Order Date: 03/22/25Order Info: 0184-1 - CBCD Performed By: #### L 100.0100, L500.2500 ####[facility] [address] [place], [address] Platelet mean volume (Bld) [Entitic vol] 10.0 fL Normal 6.2-12.0 [facility] Comment on above: Order Comment: Order Date: 03/22/25Order Info: 0184-1 - CBCD Performed By: #### L 100.0100, L500.2500 ####[facility] [address] [place], [address] Platelets (Bld) [#/Vol] 220 10*3/uL Normal 150-450 [facility] Comment on above: Order Comment: Order Date: 03/22/25Order Info: 0184-1 - CBCD Performed By: #### L 100.0100, L500.2500 ####[facility] [address] [place], [address] RBC (Bld) [#/Vol] 4.20 10*6/uL Low 4.6-6.2 [facility] Comment on above: Order Comment: Order Date: 03/22/25Order Info: 0184-1 - CBCD Performed By: #### L 100.0100, L500.2500 ####[facility] [address] [place], [address] RDW SD 41.5 fl Normal 35.1-43.9 [facility] Comment on above: Order Comment: Order Date: 03/22/25Order Info: 0184-1 - CBCD Performed By: #### L 100.0100, L500.2500 ####[facility] [address] [place], [place], [address] WBC (Bld) [#/Vol] 7.9 10*3/uL Normal 4.4-11.0 [facility] Comment on above: Order Comment: Order Date: 03/22/25Order Info: 0184-1 - CBCD Performed By: #### L 100.0100, L500.2500 ####[facility] [address] [place], [address] Carbon dioxide, total [Moles /volume] in Central venous bloodOrdered By: Adelfo Gacria on 03-22-2025 CO2 [Moles/Vol] 24.5 mmol/L 21.0-32.0 [facility] Chloride assayOrdered By: Kirstin Garcia on 03-22-2025 Chloride [Moles/Vol] 98 mmol/L 98-108 [facility] Eosinophil percentageOrdered By: Adelfo Garcia on 03-22-2025 Eosinophils/100 WBC (Bld) 2.3 % 0-5 [facility] Erythrocyte distribution wid th ratioOrdered By: Adelfo Garcia on 03-22-2025 Erythrocyte distribution width (RBC) [Ratio] 12.0 % 11.6-14.6 [facility] Erythrocyte distribution wid th standard deviationOrdered By: Adelfo Garcia on 03-22-2025 Erythrocyte distribution width (RBC) [Ratio] 41.5 fl 35.1-43.9 [facility] Glomerular filtration rate ( GFR) estimation/1.73 sq m using serum, plasma, or whole bOrdered By: Adelfo Garcia on 03-22-2025 GFR/1.73 sq M.predicted among non-blacks MDRD (S/P/Bld) [Vol rate/Area] 50 mL/min/{1.73_m2} Low >60 [facility] Comment on above: mL/min/1.73m2 CKD-EP I Creatinine Equation (2020) Hematocrit Auto (Bld) [Volum e fraction]Ordered By: Adelfo Garcia on 03-22-2025 Hematocrit (Bld) [Volume fraction] 39.8 % Low 40-54 [facility] Hemoglobin measurementOrdere d By: Adelfo Garcia on 03-22-2025 Hemoglobin (Bld) [Mass/Vol] 14.1 g/dL 13.0-16.5 [facility] Immature granulocytes/100 WB C Auto (Bld)Ordered By: Adelfo Garcia on 03-22-2025 Immature granulocytes/100 WBC (Bld) 0.900 % 0.0-0.9 [facility] Comment on above: IG% - Immature Granu locytes (promyelocytes, myelocytes and metamyelocytes) > 1% indicates that a LEFT SHIFT is Present. MCV (mean corpuscular volume ) determinationOrdered By: Adelfo Garcia on 03-22-2025 MCV (RBC) [Entitic vol] 94.8 fL High 80-94 [facility] Mean corpuscular hemoglobin (MCH) determinationOrdered By: Adelfo Garcia on 03-22-2025 MCH (RBC) [Entitic mass] 33.6 pg High 27.0-32.0 [facility] Mean corpuscular hemoglobin concentration (MCHC) determinationOrdered By: Adelfo Garcia on 03-22-2025 MCHC (RBC) [Mass/Vol] 35.4 g/dL 32-36 [facility] Mean platelet volume determi nationOrdered By: Adelfo Garcia on 03-22-2025 Platelet mean volume (Bld) [Entitic vol] 10.0 fL 6.2-12.0 [facility] Monocyte percentageOrdered B y: Adelfo Garcia on 03-22-2025 Monocytes/100 WBC (Bld) 10.9 % High 0-10 [facility] Neutrophil percentageOrdered By: Adelfo Garcia on 03-22-2025 Neutrophils/100 WBC (Bld) 61.4 % 47-70 [facility] Nucleated red blood cell per centageOrdered By: Adelfo Garcia on 03-22-2025 Nucleated RBC/100 WBC (Bld) [Ratio] 0 % 0-5 [facility] Platelet countOrdered By: Kirstin Garcia on 03-22-2025 Platelets (Bld) [#/Vol] 220 10*3/uL 150-450 [facility] Potassium measurement (mass/ volume)Ordered By: Adelfo Garcia on 03-22-2025 Potassium (Unsp spec) [Mass/Vol] 4.3 mmol/L 3.3-5.1 [facility] RBC Auto (Bld) [#/Vol]Ordere d By: Adelfo Garcia on 03-22-2025 RBC (Bld) [#/Vol] 4.20 10*6/uL Low 4.6-6.2 [facility] Serum creatinine measurement (mass/volume)Ordered By: Adelfo Garcia on 03-22-2025 Creatinine [Mass/Vol] 1.40 mg/dL High 0.70-1.20 [facility] Serum glucose measurement (m ass/volume)Ordered By: Adelfo Garcia on 03-22-2025 Glucose [Mass/Vol] 465 mg/dL Critically high 70-99 [facility] Comment on above: Critical Result(s) C alled at 1405: TO DR CUADRA by: KCLAPPER Results read back by same. Serum or plasma calcium june urement (mass/volume)Ordered By: Adelfo Garcia on 03-22-2025 Calcium [Mass/Vol] 9.2 mg/dL 7.6-11.0 [facility] Serum or plasma urea nitroge n measurement (mass/volume)Ordered By: Adelfo Garcia on 03-22-2025 Urea nitrogen [Mass/Vol] 21 mg/dL High 4-19 [facility] Sodium levelOrdered By: Gela Garcia on 03-22-2025 Sodium [Moles/Vol] 133 mmol/L 133-145 [facility] White blood cell (WBC) count Ordered By: Adelfo Garcia on 03-22-2025 WBC (Bld) [#/Vol] 7.9 10*3/uL 4.4-11.0 [facility] Urgent Care Visit Reporton 0 02-27-2025 Urgent Care Visit Report [facility] [address], [address] [place] [address] OFFICE VISIT Date of Service: 02/27/25 MR#: [id number] Acct: [id number] Name: CHET JERONIMO Rep #: [id number] : 1940 Provider: MARIE Dupont Age/Sex: 84/M Location: [facility] Status: Signed Intake Vital Signs 02/18/25 13:01 [...] you fallen in the past year?: No [facility] Medical History (Updated 02/27/25 @ [...] Lu Signature: Date (if applicable) CC: Normal [facility] Urgent Care Visit Report [facility] [address], [address] [place] [address] OFFICE VISIT Date of Service: 02/27/25 MR#: [id number] Acct: [id number] Name: CHET JREONIMO Rep #: [id number] : 1940 Provider: MARIE Dupont Age/Sex: 84/M Location: [facility] Status: Signed Intake Vital Signs 02/18/25 13:01 [...] Complaint: fatigue, ear pressure, congest, drainage, ST Third Shift Lieutenant Required: No Is patient in pain?: No Allergies Penicillins Adverse Reaction (Verified 02/27/25 14:29) Hives Have you fallen in the past year?: No Nurse's Note: fatigue, ear pressure, congest, drainage, ST x 2 days. significant hx sinus infections, feels same. denies fever. B12 injection today with PCP but they would not see for MD visit same day. [facility] Medical History (Updated 02/27/25 @ [...] Cosigner Signature: Date (if applicable) CC: Normal [facility] Cardiology Visit Reporton Cardiology Visit Report [facility] [address] [place] [address] OFFICE VISIT Date of Service: 02/18/25 MR#: [id number] Acct: [id number] Name: CHET JERONIMO Rep #: [id number] : 1940 Provider: MARIE jay Age/Sex: 84/M Location: [facility] Status: Signed HPI HPI History of Present Illness Details: Patient is a pleasant 84-year-old white male that comes in today for new patient visit. The patient was in [place] earlier in fall and developed a severe [...] level has remained stable, however; he notes "hard to breath intermittently". Intake Vital Signs 01/16/25 13:35 02/18/25 13:01 Height 5 ft 4 in 5 ft 4 in Weight: 174 lb 174 lb BMI 29.8 29.8 BP 146/74 H 121/72 H Blood Pressure Location Lt brachial Lt brachial Position Sitting Sitting Respiration 16 18 Pulse 52 L 72 Pulse Source NIBP Monitor Pulse Oximetry (%) 95 Intake Visit Reasons: 4-6 W FU Third Shift Lieutenant Required: No Is patient in pain?: No [...] PO BID [facility] 02/[facility]25 Rx [facility] tabs metoprolol tartrate 25 mg tablet 25 mg PO BID #180 tabs 02/18/25 Rx Ejection fraction %: 60 Have you fallen in the past year?: No Nurse's Note: patient thinks he is is taking diltiazem but not sure [facility] Medical History Shortness of breath [...] and orient (more content not included)... Normal [facility] PT D/C Summary (1)on 025 PT D/C Summary (1) [facility] Physical Therapy [facility] [address] [place] [address] [address] [place] [address] / REHABILITATION SERVICES DISCHARGE SUMMARY MR#: [id number] Acct: [id number] Name: CHET JERONIMO Rep #: [id number] : 1940 84 From: Spencer Manrique DPT, [...] please feel free to call me at [phone]. Thank you for the referral of this patient. Sincerely, Spencer Manrique, DPT, OCS, CSCS Balance/Gait/Functional tests Balance/Special Test Scores Lower Extremity Functional Score: 48 Improvement % Improvement: 80 01/23/25 1418 CC: Dr. Adelfo Garcia MD; Dr. Mohan Brooke DO EBG Signed Normal [facility] Cardiology Visit Reporton Cardiology Visit Report [facility] [address] [place] [address] OFFICE VISIT Date of Service: 01/16/25 MR#: [id number] Acct: [id number] Name: CHET JERONIMO Rep #: [id number] : 1940 Provider: MARIE jay Age/Sex: 84/M Location: [facility] Status: Signed HPI HPI History of Present Illness Details: Patient is a pleasant 84-year-old white male that comes in today for new patient visit. The patient was in [place] earlier in fall and developed a severe [...] NIBP Intake Visit Reasons: 4-6 WK FU Third Shift Lieutenant Required: No Is patient in pain?: No [...] visual inspection (more content not included)... Normal [facility] Cardiovascular stress test r eportOrdered By: Ishmael Cancino on 01-09-2025 Study report [facility] [address] [place] [address] MR#: [id number] Acct: [id number] Name: CHET JERONIMO Rep #: [id number] : 1940 84 From: Ishmael Cancino MD Primary Care: Dr. Adelfo Garcia MD Status: REG CLI Referring Dr: Gilmer Pratt NP GOLD BLOWER-C Sex: M C Stress Test Report Pharmacologic [...] 1021 Date _ Ishmael Cancino MD CC: GOLD BLOWER-C Gilmer Pratt; Dr. Adelfo Garcia MD ~ Date Dictated: 01/09/25 1020 Date Transcribed: 01/09/251019 Millinery Department Manager: [place] Signed [facility] Work Phone: Stress Reporton 01-09-2025 Stress Report [facility] [address] [place] [address] MR#: [id number] Acct: [id number] Name: CHET JERONIMO Rep #: [id number] : 1940 84 From: Ishmael Cancino MD Primary Care: Dr. Adelfo Garcia MD Status: REG CLI Referring Dr: Gilmer Pratt NP GOLD BLOWER-C Sex: M C Stress Test Report Pharmacologic [...] Dictated: 01/09/25 1020 Date Transcribed: 01/09/25 1020 Millinery Department Manager: [place] Signed Normal [facility] 36on 12-28-2024 36 S: Elena Purcell called the clinical access center B: Follow up on a fax that was sent to [facility] A: This patient is not listed as a patient at [facility]. R: They will call back during business hours. Patient instructed to call back with worsening symptoms, concerns or questions. Reason for Disposition ? [1] Caller requesting NON-URGENT health information AND [2] PCP's office is the best resource Protocols used: Information Only Call - No [facility] Card[facility] Visit Reporton Cardiology Visit Report [facility] [address] [place] [address] OFFICE VISIT Date of Service: 12/12/24 MR#: [id number] Acct: [id number] Name: CHET JERONIMO Rep #: [id number] : 1940 Provider: MARIE jay Age/Sex: 84/M Location: [facility] Status: Signed HPI HPI History of Present Illness Details: Patient is a pleasant 84-year-old white male that comes in today for new patient visit. The patient was in [place] earlier in fall and developed a severe [...] NIBP Intake Visit Reasons: 6 M FU Third Shift Lieutenant Required: No Is patient in pain?: No [...] Note: Nauseated at times after taking metoprolol. PFS Medical History (Updated 12/12/24 @ 14:29 by Gilmer Pratt GOLD BLOWER, GOLD BLOWER-C) Shortness of breath Fatigue Osteoarthritis of right [...] membranes Eyes (more content not included)... Normal [facility] Inital Evaluation (1) - PTon 12-05-2024 Inital Evaluation (1) - PT [facility] [address] [place] [address]. [address] [place] [address] / REHABILITATION SERVICES INITIAL EVALUATION MR#: [id number] Acct: [id number] Name: CHET JERONIMO Rep #: [id number] : 1940 84 From: Spencer Manrique DPT, [...] Date of Evaluation: 12/05/24 Physical Therapist: Spencer Manrique DPT, OCS, CSCS Visit Plan Frequency: 3x /Week Duration: 4-6 Weeks Plan: 3x/week for 3-6 weeks... IE HEP: priiformis stretch 20" 5x daily adn keep hips , knees, [...] gt a brace for L ankle from [employer] and L ankle support. Is here b/c hips hurt, can walk a couple 100 feet and then L hip starts hurting then R. laterally. 02/05 with ambulating too much adn comforatble at rest. Sleeping is OK as far as hips go. Retired. 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 No regular ex. Hobbies: HAM radios and sitting is fine. Live with who [...] FAXED BA (more content not included)... Normal [facility] Orthopedic Visit Reporton Orthopedic Visit Report [facility] [address] [place] [address] OFFICE VISIT Date of Service: 11/28/24 MR#: [id number] Acct: [id number] Name: CHET JERONIMO Rep #: [id number] : 1940 Provider: Dr. Mohan shaw DO Age/Sex: 84/M Location: [facility] Status: Signed with Addenda ADDENDUM by Dr. [...] cream 1 applic topical BID PRN 4 11/28/24 History ipratropium bromide 42 mcg [...] by me, Dr. Mohan Brooke, DO 11/28/24 08. Part of today???s visit was documented by [...] Performing Provider: Mohan Brooke DO Performing Location: [facility] Administered by: Mohan Brooke DO on 11/28/24 13:21 Dose Route Admin Location Dispensed Lot Number Expiration Date [facility] Michael ufacturer 20 mg intra-articular Right knee 2 mL [id number] 08/18/25 [address]-5 [employer] Supplemental Info 04/05/2023 x-ray right knee: Advanc (more content not included)... Normal [facility] Orthopedic Visit Reporton Orthopedic Visit Report [facility] [address] [place] [address] [place] [address] OFFICE VISIT Date of Service: 11/21/24 MR#: [id number] Acct: [id number] Name: CHET JERONIMO Rep #: [id number] : 1940 Provider: Dr. Mohan shaw, DO Age/Sex: 84/M Location: [facility] Status: Signed Intake Vital Signs 07/17/24 12:07 11/21/24 13:23 Height 5 ft 4 in 5 [...] PO QDAY 02/29/24 11/21/24 Hi story release akvnyog-ieywclxuwydnw-r affeine 250 1 tab PO Q4-6H PRN [...] by me, Dr. Mohan Brooke DO 11/21/24 08. Part of today???s visit was documented by [...] Performing Provider: Mohan Brooke DO Performing Location: [facility] Administered by: Mohan Brokoe DO on 11/21/24 13:41 Dose Route Admin Location Dispensed Lot Number Expiration Date DENISE Rodriguez ufacturer 10 mg intra-articular Right knee 2 mL [id number] 08/18/25 [address]-9 [employer] Supplemental Info 04/05/2023 x-ray right knee: Advanced knee arthrosis kwac-vo-ifss medial compartment with varus deformity moderate patellofemoral arthrosis Coding Level of Care Code Off vis,est,level 3 Diagnoses Primary osteoarthritis of right knee M17.11 Osteoarthritis type: primary Assessment and Plan Assessment and Plan (1) Osteoarthritis of right knee: Status: A (more content not included)... Normal [facility] Orthopedic Visit Reporton Orthopedic Visit Report [facility] [address] [place] [address] OFFICE VISIT Date of Service: 11/14/24 MR#: [id number] Acct: [id number] Name: CHET JERONIMO Rep #: [id number] : 1940 Provider: Dr. Mohan shaw DO Age/Sex: 84/M Location: [facility] Status: Signed Intake Vital Signs 07/17/24 12:07 [...] PO QDAY 02/29/24 11/14/24 Hi story release pjoyltk-fjcqfvgqqeeib-m affeine 250 1 tab PO Q4-6H PRN 06/26/2410/27 History mg-250 mg-65 mg tablet (Excedrin Extra Strength) cholecalciferol (vitamin D3) 50 50 mcg PO QDAY 06/26/24 11/14/24 H istory mcg (2,000 unit) capsule hydrocortisone 2.5 % topical cream 1 applic topical BID PRN 2 4 11/14/24 History ipratropium bromide 42 mcg [...] Performing Provider: Mohan Brooke DO Performing Location: [facility] Administered by: Mohan Brooke DO on 11/14/24 13:24 Dose Route Admin Location Dispensed Lot Number Expiration Date NDC Man ufacturer 20 mg intra-articular right knee 2 mL [id number] 08/18/25 [address]-3 [employer] Supplemental Info 04/05/2023 x-ray right knee: Advanced knee arthrosis alrm-md-fzcx medial compartment with varus deformity moderate patellofemoral arthrosis Coding Level of Care Code Attention Order Picker/Assembler Diagnoses Primary osteoarthritis of right knee M17.11 Osteoarthritis type: primary CPT Codes adult manager.knee (20 (more content not included)... Normal [facility] Absolute lymphocyte countOrd ered By: Adelfo Garcia on 10-03-2024 Lymphocytes Auto (Unsp spec) [#/Vol] 2.27 10*3/uL 0.83-4.51 [facility] Absolute neutrophil countOrd ered By: Adelfo Garcia on 10-03-2024 Neutrophils (Bld) [#/Vol] 4.4 10*3/uL 2.0-7.7 [facility] Albumin to globulin ratioOrd ered By: Adelfo Garcia on 10-03-2024 Albumin/Globulin [Mass ratio] 0.9 {ratio} 0.9-2.4 [facility] Automated lymphocyte count a s percentage of total leukocytesOrdered By: Adelfo Garcia on 10-03-2024 Lymphocytes/100 WBC Auto (Unsp spec) 29.1 % 19-41 [facility] Basophil percentageOrdered B y: Adelfo Garcia on 10-03-2024 Basophils/100 WBC (Bld) 0.5 % 0-1 [facility] Bilirubin, totalOrdered By: Adelfo Garcia on 10-03-2024 Bilirubin [Mass/Vol] 0.30 mg/dL 0.20-1.00 [facility] Comment on above: For patients on eltr ombopag therapy, use of [facility] TBIL is not recommended. Blood urea nitrogen (BUN)/cr eatinine ratioOrdered By: Adelfo Garcia on 10-03-2024 Urea nitrogen/Creatinine [Mass ratio] 16.4 mg/mg 10-20 [facility] Carbon dioxide measurementOr dered By: Adelfo Garcia on 10-03-2024 CO2 [Moles/Vol] 27.0 mmol/L 21.0-32.0 [facility] Chloride measurementOrdered By: Adelfo Garcia on 10-03-2024 Chloride [Moles/Vol] 103 mmol/L 98-107 [facility] Comprehensive Metabolic Prof ilon 10-03-2024 Albumin [Mass/Vol] 3.5 g/dL Normal 3.2-5.0 [facility] Comment on above: Order Comment: Order Date: 10/03/24Order Info: [id number] - CMPOrder Info: 3016-3 - TSH Performed By: #### L 501.9520, L506.1000, L500.4050, L101.9900 ####[facility] [address] [place], [place], [id number] Albumin/Globulin [Mass ratio] 0.9 {ratio} Normal 0.9-2.4 [facility] Comment on above: Order Comment: Order Date: 10/03/24Order Info: [id number] - CMPOrder Info: 3016-3 - TSH Performed By: #### L 501.9520, L506.1000, L500.4050, L101.9900 ####[facility] [address] [place], [address] ALK P 73 U/L Normal 45-117 [facility] Comment on above: Order Comment: Order Date: 10/03/24Order Info: [id number] - CMPOrder Info: [id number] - TSH Performed By: #### L 501.9520, L506.1000, L500.4050, L101.9900 ####[facility] [address] [place], [address] ALT [Catalytic activity/Vol] 25 U/L Normal 16-61 [facility] Comment on above: Order Comment: Order Date: 10/03/24Order Info: 0786- - CMPOrder Info: 3015-3 - TSH Performed By: #### L 501.9520, L506.1000, L500.4050, L101.9900 ####[facility] [address] [place], [address] AST [Catalytic activity/Vol] 15 U/L Normal 15-37 [facility] Comment on above: Order Comment: Order Date: 10/03/24Order Info: 0786- - CMPOrder Info: 3016-3 - TSH Performed By: #### L 501.9520, L506.1000, L500.4050, L101.9900 ####[facility] [address] [place], [address] Bilirubin [Mass/Vol] 0.30 mg/dL Normal 0.20-1.00 [facility] Comment on above: Order Comment: Order Date: 10/03/24Order Info: [id number] - CMPOrder Info: 3016-3 - TSH Result Comment: For patients on eltrombopag therapy, use of [facility] TBIL is not recommended. Performed By: #### L 501.9520, L506.1000, L500.4050, L101.9900 ####[facility] [address] [place], [address] BUN/CRE 16.4 RATIO Normal 10-20 [facility] Comment on above: Order Comment: Order Date: 10/03/24Order Info: [id number] - CMPOrder Info: 3015-3 - TSH Performed By: #### L 501.9520, L506.1000, L500.4050, L101.9900 ####[facility] [address] [place], [address] CA,Total 9.1 mg/dL Normal 8.5-10.1 [facility] Comment on above: Order Comment: Order Date: 10/03/24Order Info: [id number] - CMPOrder Info: 3 - TSH Performed By: #### L 501.9520, L506.1000, L500.4050, L101.9900 ####[facility] [address] [place], [address] Chloride [Moles/Vol] 103 mmol/L Normal 98-107 [facility] Comment on above: Order Comment: Order Date: 10/03/24Order Info: [id number] - CMPOrder Info: 3015-3 - TSH Performed By: #### L 501.9520, L506.1000, L500.4050, L101.9900 ####[facility] [address] [place], [address] CO2 [Moles/Vol] 27.0 mmol/L Normal 21.0-32.0 [facility] Comment on above: Order Comment: Order Date: 10/03/24Order Info: [id number] - CMPOrder Info: 3015-3 - TSH Performed By: #### L 501.9520, L506.1000, L500.4050, L101.9900 ####[facility] [address] [place], [address] Creatinine [Mass/Vol] 1.34 mg/dL High 0.70-1.30 [facility] Comment on above: Order Comment: Order Date: 10/03/24Order Info: 0786-1 - CMPOrder Info: 3016-3 - TSH Result Comment: The validity of the calculated GFR GFRAA in patients over 70 years has not been determined. Clinical correlation is essential. Performed By: #### L 501.9520, L506.1000, L500.4050, L101.9900 ####[facility] [address] [place], [address] EST GFR - AA 65 mL/min Normal >60 [facility] Comment on above: Order Comment: Order Date: 10/03/24Order Info: 0786-1 - CMPOrder Info: 3016-3 - TSH Result Comment: Afri can Nigerien GFR Calc Performed By: #### L 501.9520, L506.1000, L500.4050, L101.9900 ####[facility] [address] [place], [address] GAP 8 Normal 5-15 [facility] Comment on above: Order Comment: Order Date: 10/03/24Order Info: 0786-1 - CMPOrder Info: 3016-3 - TSH Performed By: #### L 501.9520, L506.1000, L500.4050, L101.9900 ####[facility] [address] [place], [address] GFR/1.73 sq M.predicted among non-blacks MDRD (S/P/Bld) [Vol rate/Area] 54 mL/min/{1.73_m2} Low >60 [facility] Comment on above: Order Comment: Order Date: 10/03/24Order Info: 0786-1 - CMPOrder Info: 3016-3 - TSH Result Comment: Non- GFR Calc Performed By: #### L 501.9520, L506.1000, L500.4050, L101.9900 ####[facility] [address] [place], [address] Globulin (S) [Mass/Vol] 4.0 g/dL Normal 2.2-4.2 [facility] Comment on above: Order Comment: Order Date: 10/03/24Order Info: 0786-1 - CMPOrder Info: 3 - TSH Performed By: #### L 501.9520, L506.1000, L500.4050, L101.9900 ####[facility] [address] [place], [address] Glucose [Mass/Vol] 127 mg/dL High 74-106 [facility] Comment on above: Order Comment: Order Date: 10/03/24Order Info: 0786-1 - CMPOrder Info: 3015-10 - TSH Result Comment: Fast ing Glucose result greater than or equal to 126 mg/dL suggests DIABETES MELLITUS per A.D.A. criteria. Performed By: #### L 501.9520, L506.1000, L500.4050, L101.9900 ####[facility] [address] [place], [address] Potassium [Moles/Vol] 4.0 mmol/L Normal 3.5-5.1 [facility] Comment on above: Order Comment: Order Date: 10/03/24Order Info: 0786-1 - CMPOrder Info: 3015-10 - TSH Performed By: #### L 501.9520, L506.1000, L500.4050, L101.9900 ####[facility] [address] [place], [address] Sodium [Moles/Vol] 138 mmol/L Normal 136-145 [facility] Comment on above: Order Comment: Order Date: 10/03/24Order Info: 0786-1 - CMPOrder Info: 3 - TSH Performed By: #### L 501.9520, L506.1000, L500.4050, L101.9900 ####[facility] [address] [place], [address] T PROT 7.5 g/dL Normal 6.4-8.2 [facility] Comment on above: Order Comment: Order Date: 10/03/24Order Info: 0786-1 - CMPOrder Info: 3016-3 - TSH Performed By: #### L 501.9520, L506.1000, L500.4050, L101.9900 ####[facility] [address] [place], [address] Urea nitrogen [Mass/Vol] 22 mg/dL High 7-18 [facility] Comment on above: Order Comment: Order Date: 10/03/24Order Info: 0786-1 - CMPOrder Info: 3016-3 - TSH Performed By: #### L 501.9520, L506.1000, L500.4050, L101.9900 ####[facility] [address] [place], [address] Eosinophil percentageOrdered By: Adelfo Garcia on 10-03-2024 Eosinophils/100 WBC (Bld) 3.3 % 0-5 [facility] Erythrocyte Sed Rateon 10-03 SED RATE 12 mm/hr Normal 0-20 [facility] Comment on above: Order Comment: Order Date: 10/03/24Order Info: 0184-1 - CBCDOrder Info: [id number] - SED Performed By: #### L 501.9520, L506.1000, L500.4050, L101.9900 ####[facility] [address] [place], [address] Erythrocyte distribution wid th ratioOrdered By: Adelfo Garcia on 10-03-2024 Erythrocyte distribution width (RBC) [Ratio] 12.3 % 11.6-14.6 [facility] Erythrocyte distribution wid th standard deviationOrdered By: Adelfo Garcia on 10-03-2024 Erythrocyte distribution width (RBC) [Ratio] 43.6 fl 35.1-43.9 [facility] Erythrocyte sedimentation ra teOrdered By: Adelfo Garcia on 10-03-2024 ESR (Bld) [Velocity] 12 mm/h 0-20 [facility] Glomerular filtration rate ( GFR) estimationOrdered By: Adelfo Garcia on 10-03-2024 GFR/1.73 sq M.predicted among non-blacks MDRD (S/P/Bld) [Vol rate/Area] 54 mL/min/{1.73_m2} Low >60 [facility] Comment on above: Non- GFR Calc Glucose measurementOrdered B y: Adelfo Garcia on 10-03-2024 Glucose [Mass/Vol] 127 mg/dL High 74-106 [facility] Comment on above: Fasting Glucose resu lt greater than or equal to 126 mg/dL suggests DIABETES MELLITUS per A.D.A. criteria. Hematocrit Auto (Bld) [Volum e fraction]Ordered By: Adelfo Garcia on 10-03-2024 Hematocrit (Bld) [Volume fraction] 41.7 % 40-54 [facility] Hemoglobin measurementOrdere d By: Adelfo Garcia on 10-03-2024 Hemoglobin (Bld) [Mass/Vol] 14.2 g/dL 13.0-16.5 [facility] Immature granulocytes/100 WB C Auto (Bld)Ordered By: Adelfo Garcia on 10-03-2024 Immature granulocytes/100 WBC (Bld) 0.400 % 0.0-0.9 [facility] Comment on above: IG% - Immature Granu locytes (promyelocytes, myelocytes and metamyelocytes) > 1% indicates that a LEFT SHIFT is Present. Laboratory - Chemistry and C hemistry - challengeOrdered By: Adelfo Garcia on 10-03-2024 AST [Catalytic activity/Vol] 15 U/L 15-37 [facility] MCV (mean corpuscular volume ) determinationOrdered By: Adelfo Garcia on 10-03-2024 MCV (RBC) [Entitic vol] 96.1 fL High 80-94 [facility] Mean corpuscular hemoglobin (MCH) determinationOrdered By: Adelfo Garcia on 10-03-2024 MCH (RBC) [Entitic mass] 32.7 pg High 27.0-32.0 [facility] Mean corpuscular hemoglobin concentration (MCHC) determinationOrdered By: Adelfo Garcia on 10-03-2024 MCHC (RBC) [Mass/Vol] 34.1 g/dL 32-36 [facility] Mean platelet volume determi nationOrdered By: Adelfo Garcia on 10-03-2024 Platelet mean volume (Bld) [Entitic vol] 9.9 fL 6.2-12.0 [facility] Monocyte percentageOrdered B y: Adelfo Garcia on 10-03-2024 Monocytes/100 WBC (Bld) 9.9 % 0-10 [facility] Neutrophil percentageOrdered By: Adelfo Garcia on 10-03-2024 Neutrophils/100 WBC (Bld) 56.8 % 47-70 [facility] Nucleated red blood cell per centageOrdered By: Adelfo Garcia on 10-03-2024 Nucleated RBC/100 WBC (Bld) [Ratio] 0 % 0-5 [facility] Platelet countOrdered By: Kirstin Garcia on 10-03-2024 Platelets (Bld) [#/Vol] 239 10*3/uL 150-450 [facility] Potassium measurementOrdered By: Adelfo Garcia on 10-03-2024 Potassium [Moles/Vol] 4.0 mmol/L 3.5-5.1 [facility] RBC Auto (Bld) [#/Vol]Ordere d By: Adelfo Garcia on 10-03-2024 RBC (Bld) [#/Vol] 4.34 10*6/uL Low 4.6-6.2 [facility] Serum anion gap measurementO rdered By: Adelfo Garcia on 10-03-2024 Anion gap [Moles/Vol] 8 mmol/L 5-15 [facility] Serum globulin measurementOr dered By: Adelfo Garcia on 10-03-2024 Globulin (S) [Mass/Vol] 4.0 g/dL 2.2-4.2 [facility] Serum or plasma alanine toledo otransferase (ALT) measurementOrdered By: Adelfo Garcia on 10-03-2024 ALT [Catalytic activity/Vol] 25 U/L 16-61 [facility] Serum or plasma albumin june urement (mass/volume)Ordered By: Adelfo Garcia on 10-03-2024 Albumin [Mass/Vol] 3.5 g/dL 3.2-5.0 [facility] Serum or plasma alkaline tashi sphatase measurementOrdered By: Adelfo Garcia on 10-03-2024 ALP [Catalytic activity/Vol] 73 U/L 45-117 [facility] Serum or plasma calcium june urement (mass/volume)Ordered By: Adelfo Garcia on 10-03-2024 Calcium [Mass/Vol] 9.1 mg/dL 8.5-10.1 [facility] Serum or plasma creatinine m easurement (mass/volume)Ordered By: Adelfo Garcia on 10-03-2024 Creatinine [Mass/Vol] 1.34 mg/dL High 0.70-1.30 [facility] Comment on above: The validity of the calculated GFR & GFRAA in patients over 70 years has not been determined. Clinical correlation is essential. Serum or plasma thyroid stim ulating hormone (TSH) measurement (units/volume)Ordered By: Adelfo Garcia on 10-03-2024 TSH Qn 1.830 uIU/mL 0.358-3.740 [facility] Serum or plasma urea nitroge n measurement (mass/volume)Ordered By: Adelfo Garcia on 10-03-2024 Urea nitrogen [Mass/Vol] 22 mg/dL High 7-18 [facility] Sodium levelOrdered By: Gela Garcia on 10-03-2024 Sodium [Moles/Vol] 138 mmol/L 136-145 [facility] Thyroid Stim Hormone (TSH)on 10-03-2024 TSH 1.830 uIU/mL Normal 0.358-3.740 [facility] Comment on above: Order Comment: Order Date: 10/03/24Order Info: 0786-1 - CMPOrder Info: 3016-3 - TSH Performed By: #### L 501.9520, L506.1000, L500.4050, L101.9900 ####[facility] [address] [place], [address] Total proteinOrdered By: Jermaine Garcia on 10-03-2024 Protein [Mass/Vol] 7.5 g/dL 6.4-8.2 [facility] Vitamin D,25 Hydroxyon 10-03 Vitamin D 25-OH 99.7 ng/mL Normal [facility] Comment on above: Order Comment: Order Date: 10/03/24Order Info: [id number] - VITD25 Result Comment: Patti min D 25(OH) Status Range Deficiency <20 ng/mL (50nmol/L) Insufficiency 20 - 30 ng/mL (50 - 75 nmol/L) Sufficiency 30 - 100 ng/mL (75 - 250 nmol/L) Toxicity >100 ng/mL (>250 nmol/L) Performed By: #### L 501.9520, L506.1000, L500.4050, L101.9900 ####[facility] [address] [place], [address] White blood cell (WBC) count Ordered By: Adelfo Garcia on 10-03-2024 WBC (Bld) [#/Vol] 7.8 10*3/uL 4.4-11.0 [facility] Vitamin B12on 09-24-2024 Cobalamin (Vitamin B12) [Mass/Vol] 522 pg/mL Normal 211-911 [facility] Comment on above: Order Comment: Order Date: 04/18/24Order Info: 2132-9 - B12 Performed By: #### L 503.0105 ####[facility] [address] [place], [address] Vitamin B12 measurementOrder ed By: Adelfo Garcia on 09-21-2024 Cobalamin (Vitamin B12) [Mass/Vol] 522 pg/mL 211-911 [facility] 12 Lead EKG performed by [facility] on 07-17-2024 12 Lead EKG performed by [facility] [address] [place] [address] 12 Lead EKG performed by [facility] 07/17/24 1317 MR#: [id number] Acct: [id number] Name: CHET JERONIMO Rep #: [id number] : 1940 83 From: Danny Lopez MD Attending Dr: Dr. Danny Lopez MD Status: DE P AMB Ordering Dr: Danny Lopez MD Date: 07/17/24 [place] [facility] [place] Sex: M C Admitted: [facility]/12 Lead EKG performed by [facility] ECG Report Interpretation ---Sinus Bradycardia -First degree A-V block - occasional PAC Tom = 242 # PACs = 1.BORDERLINE RHYTHMElectronically signed on 07/17/2024 at 14:[address] Danny Lopez [facility] Software Version 8610 07/17/24 1448 Date Danny Lopez MD CC: Dr. Adelfo Garcia MD Date Dictated: 07/17/241316 Date Transcribed: 07/17/241316 [employer] Department Manager: Signed Normal [facility] Cardiology Visit Reporton Cardiology Visit Report [facility] [address] [place] [address] OFFICE VISIT Date of Service: 07/17/24 MR#: [id number] Acct: [id number] Name: CHET JERONIMO Rep #: [id number] : 1940 Provider: Dr. Danny anthony MD Age/Sex: 83/M Location: [facility] [place] Status: Signed HPI HPI History of Present Illness Details: Patient is a pleasant 83-year-old white male that comes in today for new patient visit. 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 Normal [facility] Echo Completeon 06-15-2024 Echo Complete [facility] [address] [place] [address] Echo Complete 06/15/24 1345 MR#: [id number] Acct: [id number] Name: CHET JERONIMO Rep #: [id number] : 1940 83 From: Ishmael Cancino MD Attending Dr: Dr. Adelfo Garcia MD Status: REG CLI Ordering Dr: Adelfo Garcia MD Date: 06/15/24 Location: [facility] Sex: M C Admitted: Reason For Study: [...] Adelfo Garcia Performed By: Faviola Sage RDCS 06/18/241906 Date Ishmael Cancino MD CC: Dr. Adelfo Garcia MD Date Dictated: 06/15/24 1345 Date Transcribed: 06/18/241906 [employer] Department Manager: Signed Normal [facility] CBC W/Diff, Automatedon 10-0 Absolute Lymph 2.48 X10 3/uL Normal 0.83-4.51 [facility] Comment on above: Order Comment: Order Date: 06/04/24 Order Info: 0184-1 - CBCD Performed By: #### L 100.0100, L501.9520, L500.4050, L501.5200 #### [facility] [address] [place], [address] Absolute Neut 5.6 X10 3/uL Normal 2.0-7.7 [facility] Comment on above: Order Comment: Order Date: 06/04/24 Order Info: 0184-1 - CBCD Performed By: #### L 100.0100, L501.9520, L500.4050, L501.5200 #### [facility] [address] [place], [address] Basophils/100 WBC (Bld) 0.4 % Normal 0-1 [facility] Comment on above: Order Comment: Order Date: 06/04/24 Order Info: 0184-1 - CBCD Performed By: #### L 100.0100, L501.9520, L500.4050, L501.5200 #### [facility] [address] [place], [address] Eosinophils/100 WBC (Bld) 1.2 % Normal 0-5 [facility] Comment on above: Order Comment: Order Date: 06/04/24 Order Info: 0184-1 - CBCD Performed By: #### L 100.0100, L501.9520, L500.4050, L501.5200 #### [facility] [address] [place], [address] Erythrocyte distribution width (RBC) [Ratio] 12.2 % Normal 11.6-14.6 [facility] Comment on above: Order Comment: Order Date: 06/04/24 Order Info: 0184-1 - CBCD Performed By: #### L 100.0100, L501.9520, L500.4050, L501.5200 #### [facility] [address] [place], [address] Hematocrit (Bld) [Volume fraction] 42.6 % Normal 40-54 [facility] Comment on above: Order Comment: Order Date: 06/04/24 Order Info: 0184-1 - CBCD Performed By: #### L 100.0100, L501.9520, L500.4050, L501.5200 #### [facility] [address] [place], [address] Hemoglobin (Bld) [Mass/Vol] 14.5 g/dL Normal 13.0-16.5 [facility] Comment on above: Order Comment: Order Date: 06/04/24 Order Info: 0184-1 - CBCD Performed By: #### L 100.0100, L501.9520, L500.4050, L501.5200 #### [facility] [address] [place], [address] IG% 0.400 Normal 0.0-0.9 [facility] Comment on above: Order Comment: Order Date: 06/04/24 Order Info: 0184-1 - CBCD Result Comment: IG% - Immature Granulocytes (promyelocytes, myelocytes and metamyelocytes) > 1% indicates that a LEFT SHIFT is Present. Performed By: #### L 100.0100, L501.9520, L500.4050, L501.5200 #### [facility] [address] [place], [address] Lymphocytes/100 WBC (Bld) 27.3 % Normal 19-41 [facility] Comment on above: Order Comment: Order Date: 06/04/24 Order Info: 0184-1 - CBCD Performed By: #### L 100.0100, L501.9520, L500.4050, L501.5200 #### [facility] [address] [place], [address] MCH (RBC) [Entitic mass] 33.2 pg High 27.0-32.0 [facility] Comment on above: Order Comment: Order Date: 06/04/24 Order Info: 0184- - CBCD Performed By: #### L 100.0100, L501.9520, L500.4050, L501.5200 #### [facility] [address] [place], [address] MCHC (RBC) [Mass/Vol] 34.0 g/dL Normal 32-36 [facility] Comment on above: Order Comment: Order Date: 06/04/24 Order Info: 0184- - CBCD Performed By: #### L 100.0100, L501.9520, L500.4050, L501.5200 #### [facility] [address] [place], [address] MCV (RBC) [Entitic vol] 97.5 fL High 80-94 [facility] Comment on above: Order Comment: Order Date: 06/04/24 Order Info: 0184- - CBCD Performed By: #### L 100.0100, L501.9520, L500.4050, L501.5200 #### [facility] [address] [place], [address] Monocytes/100 WBC (Bld) 9.3 % Normal 0-10 [facility] Comment on above: Order Comment: Order Date: 06/04/24 Order Info: 0184-1 - CBCD Performed By: #### L 100.0100, L501.9520, L500.4050, L501.5200 #### [facility] [address] [place], [address] Neutrophils/100 WBC (Bld) 61.4 % Normal 47-70 [facility] Comment on above: Order Comment: Order Date: 06/04/24 Order Info: 0184-1 - CBCD Performed By: #### L 100.0100, L501.9520, L500.4050, L501.5200 #### [facility] [address] [place], [address] Nucleated RBC (Bld) [#/Vol] 0 10*3/uL Normal 0-5 [facility] Comment on above: Order Comment: Order Date: 06/04/24 Order Info: 018-1 - CBCD Performed By: #### L 100.0100, L501.9520, L500.4050, L501.5200 #### [facility] [address] [place], [address] Platelet mean volume (Bld) [Entitic vol] 9.0 fL Normal 6.2-12.0 [facility] Comment on above: Order Comment: Order Date: 06/04/24 Order Info: 0184-1 - CBCD Performed By: #### L 100.0100, L501.9520, L500.4050, L501.5200 #### [facility] [address] [place], [address] Platelets (Bld) [#/Vol] 282 10*3/uL Normal 150-450 [facility] Comment on above: Order Comment: Order Date: 06/04/24 Order Info: 0184-1 - CBCD Performed By: #### L 100.0100, L501.9520, L500.4050, L501.5200 #### [facility] [address] [place], [address] RBC (Bld) [#/Vol] 4.37 10*6/uL Low 4.6-6.2 [facility] Comment on above: Order Comment: Order Date: 06/04/24 Order Info: 0184-1 - CBCD Performed By: #### L 100.0100, L501.9520, L500.4050, L501.5200 #### [facility] [address] [place], [address] RDW SD 44.6 fl High 35.1-43.9 [facility] Comment on above: Order Comment: Order Date: 06/04/24 Order Info: 0184- - CBCD Performed By: #### L 100.0100, L501.9520, L500.4050, L501.5200 #### [facility] [address] [place], [address] WBC (Bld) [#/Vol] 9.1 10*3/uL Normal 4.4-11.0 [facility] Comment on above: Order Comment: Order Date: 06/04/24 Order Info: 0184-1 - CBCD Performed By: #### L 100.0100, L501.9520, L500.4050, L501.5200 #### [facility] [address] [place], [address] Comprehensive Metabolic Prof njon 06-04-2024 Albumin [Mass/Vol] 3.6 g/dL Normal 3.2-5.0 [facility] Comment on above: Order Comment: Order Date: 06/04/24 Order Info: 0786-1 - CMP Order Info: [id number] - MG Order Info: 3016-3 - TSH 1 Performed By: #### L 100.0100, L501.9520, L500.4050, L501.5200 #### [facility] [address] [place], [address] Albumin/Globulin [Mass ratio] 0.8 {ratio} Low 0.9-2.4 [facility] Comment on above: Order Comment: Order Date: 06/04/24 Order Info: 86-1 - CMP Order Info: [id number] - MG Order Info: 3016-3 - TSH 1 Performed By: #### L 100.0100, L501.9520, L500.4050, L501.5200 #### [facility] [address] [place], [address] ALK P 93 U/L Normal 45-117 [facility] Comment on above: Order Comment: Order Date: 06/04/24 Order Info: 86-1 - CMP Order Info: [id number] - MG Order Info: 6-3 - TSH 1 Performed By: #### L 100.0100, L501.9520, L500.4050, L501.5200 #### [facility] [address] [place], [address] ALT [Catalytic activity/Vol] 19 U/L Normal 16-61 [facility] Comment on above: Order Comment: Order Date: 06/04/24 Order Info: 86-1 - CMP Order Info: [id number] - MG Order Info: 6-3 - TSH 1 Performed By: #### L 100.0100, L501.9520, L500.4050, L501.5200 #### [facility] [address] [place], [address] AST [Catalytic activity/Vol] 15 U/L Normal 15-37 [facility] Comment on above: Order Comment: Order Date: 06/04/24 Order Info: 0786-1 - CMP Order Info: [id number] - MG Order Info: 3016-3 - TSH 1 Performed By: #### L 100.0100, L501.9520, L500.4050, L501.5200 #### [facility] [address] [place], [address] Bilirubin [Mass/Vol] 0.60 mg/dL Normal 0.20-1.00 [facility] Comment on above: Order Comment: Order Date: 06/04/24 Order Info: 0786-1 - CMP Order Info: [id number] - MG Order Info: 3016-3 - TSH 1 Result Comment: For patients on eltrombopag therapy, use of Dimension [place] TBIL is not recommended. Performed By: #### L 100.0100, L501.9520, L500.4050, L501.5200 #### [facility] [address] [place], [address] BUN/CRE 18.0 RATIO Normal 10-20 [facility] Comment on above: Order Comment: Order Date: 06/04/24 Order Info: 0786-1 - CMP Order Info: [id number] - MG Order Info: 3016-3 - TSH 1 Performed By: #### L 100.0100, L501.9520, L500.4050, L501.5200 #### [facility] [address] [place], [address] CA,Total 9.8 mg/dL Normal 8.5-10.1 [facility] Comment on above: Order Comment: Order Date: 06/04/24 Order Info: [id number] - CMP Order Info: [id number] - MG Order Info: 3016-3 - TSH 1 Performed By: #### L 100.0100, L501.9520, L500.4050, L501.5200 #### [facility] [address] [place], [address] Chloride [Moles/Vol] 99 mmol/L Normal 98-107 [facility] Comment on above: Order Comment: Order Date: 06/04/24 Order Info: [id number] - CMP Order Info: [id number] - MG Order Info: 3016-3 - TSH 1 Performed By: #### L 100.0100, L501.9520, L500.4050, L501.5200 #### [facility] [address] [place], [address] CO2 [Moles/Vol] 27.0 mmol/L Normal 21.0-32.0 [facility] Comment on above: Order Comment: Order Date: 06/04/24 Order Info: [id number] - CMP Order Info: [id number] - MG Order Info: 3 - TSH 1 Performed By: #### L 100.0100, L501.9520, L500.4050, L501.5200 #### [facility] [address] [place], [place], [address] Creatinine [Mass/Vol] 1.33 mg/dL High 0.70-1.30 [facility] Comment on above: Order Comment: Order Date: 06/04/24 Order Info: [id number] - CMP Order Info: [id number] - MG Order Info: [id number] - TSH 1 Result Comment: The validity of the calculated GFR GFRAA in patients over 70 years has not been determined. Clinical correlation is essential. Performed By: #### L 100.0100, L501.9520, L500.4050, L501.5200 #### [facility] [address] [place], [place], [address] EST GFR - AA 66 mL/min Normal >60 [facility] Comment on above: Order Comment: Order Date: 06/04/24 Order Info: [id number] - CMP Order Info: [id number] - MG Order Info: 3015-10 - TSH 1 Result Comment: Afri can Nigerien GFR Calc Performed By: #### L 100.0100, L501.9520, L500.4050, L501.5200 #### [facility] [address] [place], [address] GAP 9 Normal 5-15 [facility] Comment on above: Order Comment: Order Date: 06/04/24 Order Info: 86-1 - CMP Order Info: [id number] - MG Order Info: 3 - TSH 1 Performed By: #### L 100.0100, L501.9520, L500.4050, L501.5200 #### [facility] [address] [place], [address] GFR/1.73 sq M.predicted among non-blacks MDRD (S/P/Bld) [Vol rate/Area] 55 mL/min/{1.73_m2} Low >60 [facility] Comment on above: Order Comment: Order Date: 06/04/24 Order Info: [id number] - CMP Order Info: [id number] - MG Order Info: 3016-3 - TSH 1 Result Comment: Non- GFR Calc Performed By: #### L 100.0100, L501.9520, L500.4050, L501.5200 #### [facility] [address] [place], [address] Globulin (S) [Mass/Vol] 4.5 g/dL High 2.2-4.2 [facility] Comment on above: Order Comment: Order Date: 06/04/24 Order Info: [id number] - CMP Order Info: [id number] - MG Order Info: 3016-3 - TSH 1 Performed By: #### L 100.0100, L501.9520, L500.4050, L501.5200 #### [facility] [address] [place], [address] Glucose [Mass/Vol] 146 mg/dL High 74-106 [facility] Comment on above: Order Comment: Order Date: 06/04/24 Order Info: [id number] - CMP Order Info: [id number] - MG Order Info: 3016-3 - TSH 1 Result Comment: Fast ing Glucose result greater than or equal to 126 mg/dL suggests DIABETES MELLITUS per A.D.A. criteria. Performed By: #### L 100.0100, L501.9520, L500.4050, L501.5200 #### [facility] [address] [place], [address] Potassium [Moles/Vol] 3.5 mmol/L Normal 3.5-5.1 [facility] Comment on above: Order Comment: Order Date: 06/04/24 Order Info: [id number] - CMP Order Info: [id number] - MG Order Info: 3016-3 - TSH 1 Performed By: #### L 100.0100, L501.9520, L500.4050, L501.5200 #### [facility] [address] [place], [address] Sodium [Moles/Vol] 136 mmol/L Normal 136-145 [facility] Comment on above: Order Comment: Order Date: 06/04/24 Order Info: [id number] - CMP Order Info: [id number] - MG Order Info: 6-3 - TSH 1 Performed By: #### L 100.0100, L501.9520, L500.4050, L501.5200 #### [facility] [address] [place], [address] T PROT 8.1 g/dL Normal 6.4-8.2 [facility] Comment on above: Order Comment: Order Date: 06/04/24 Order Info: [id number] - CMP Order Info: [id number] - MG Order Info: 3015-3 - TSH 1 Performed By: #### L 100.0100, L501.9520, L500.4050, L501.5200 #### [facility] [address] [place], [address] Urea nitrogen [Mass/Vol] 24 mg/dL High 7-18 [facility] Comment on above: Order Comment: Order Date: 06/04/24 Order Info: [id number] - CMP Order Info: [id number] - MG Order Info: 3016-3 - TSH 1 Performed By: #### L 100.0100, L501.9520, L500.4050, L501.5200 #### [facility] [address] [place], [address] L501.4020on 06-04-2024 TROPONIN-I HS 8 pg/mL Normal 3.0-78.0 [facility] Comment on above: Order Comment: Order Date: 06/04/24Order Info: [id number] - CMPOrder Info: [id number] - MGOrder Info: [id number] - TSH1 Result Comment: Jaci moy Note: New Test Units and Gender Specific Reference Ranges. For more information see Policy Stat Procedure [facility] High Sensitivity Troponin (TNIH) and attachments. Performed By: #### L 501.4020 ####[facility] [address] [place], [address] Magnesiumon 06-04-2024 Magnesium [Mass/Vol] 2.2 mg/dL Normal 1.6-2.6 [facility] Comment on above: Order Comment: Order Date: 06/04/24 Order Info: [id number] - CMP Order Info: [id number] - MG Order Info: 3016-3 - TSH 1 Performed By: #### L 100.0100, L501.9520, L500.4050, L501.5200 #### [facility] [address] [place], [address] Thyroid Stim Hormone (TSH)on 06-04-2024 TSH 1.350 uIU/mL Normal 0.358-3.740 [facility] Comment on above: Order Comment: Order Date: 06/04/24Order Info: [id number] - CMPOrder Info: [id number] - MGOrder Info: [id number] - TSH1 Performed By: #### L 100.0100, L501.9520, L500.4050, L501.5200 ####[facility] [address] [place], [address] Basophil percentageOrdered B y: Adelfo Garcia on 12-28-2023 Chloride [Moles/Vol] 105 mmol/L 98-107 [facility] Glucose [Mass/Vol] 163 mg/dL 74-106 [facility] Comment on above: Fasting Glucose resu lt greater than or equal to 126 mg/dL suggests DIABETES MELLITUS per A.D.A. criteria. Potassium [Moles/Vol] 3.7 mmol/L 3.5-5.1 [facility] Sodium [Moles/Vol] 139 mmol/L 136-145 [facility] Laboratory - Chemistry and C hemistry - challengeOrdered By: Adelfo Garcia on 12-28-2023 CO2 [Moles/Vol] 27.0 mmol/L 21.0-32.0 [facility] Urea nitrogen/Creatinine [Mass ratio] 18.1 mg/mg 10-20 [facility] No Panel InformationOrdered By: Adelfo Garcia on 12-28-2023 Estimated GFR (MDRD) Amer 70 mL/min >60 [facility] Comment on above: GFR Calc Estimated GFR (MDRD) Non-Af Amer 58 mL/min >60 [facility] Comment on above: Non- GFR Calc Serum or plasma calcium june urement (mass/volume)Ordered By: Adelfo Garcia on 12-28-2023 Calcium [Mass/Vol] 9.5 mg/dL 8.5-10.1 [facility] Serum or plasma creatinine m easurement (mass/volume)Ordered By: Adelfo Garcia on 12-28-2023 Creatinine [Mass/Vol] 1.27 mg/dL 0.70-1.30 [facility] Comment on above: The validity of the calculated GFR & GFRAA in patients over 70 years has not been determined. Clinical correlation is essential. Serum or plasma urea nitroge n measurement (mass/volume)Ordered By: Adelfo Garcia on 12-28-2023 Urea nitrogen [Mass/Vol] 23 mg/dL 7-18 [facility] Thin prep Papanicolaou smear with manual screeningOrdered By: Adelfo Garcia on 12-28-2023 Thin prep Papanicolaou smear with manual screening 7 5-15 [facility] Basophil percentageOrdered B y: Jaciel Garcia on 11-08-2023 Chloride [Moles/Vol] 105 mmol/L 98-107 [facility] Glucose [Mass/Vol] 119 mg/dL 74-106 [facility] Comment on above: Fasting Glucose resu lt from 100 to 125 mg/dL suggests IMPAIRED HOMEOSTASIS per A.D.A. criteria. Potassium [Moles/Vol] 3.9 mmol/L 3.5-5.1 [facility] Sodium [Moles/Vol] 139 mmol/L 136-145 [facility] Laboratory - Chemistry and C hemistry - challengeOrdered By: Jaciel Garcia on 11-08-2023 CO2 [Moles/Vol] 27.0 mmol/L 21.0-32.0 [facility] Urea nitrogen/Creatinine [Mass ratio] 17.4 mg/mg 10-20 [facility] No Panel InformationOrdered By: Jaciel Garcia on 11-08-2023 Estimated GFR (MDRD) Amer 74 mL/min >60 [facility] Comment on above: GFR Calc Estimated GFR (MDRD) Non-Af Amer 61 mL/min >60 [facility] Comment on above: Non- GFR Calc Serum or plasma calcium june urement (mass/volume)Ordered By: Jaciel Garcia on 11-08-2023 Calcium [Mass/Vol] 8.8 mg/dL 8.5-10.1 [facility] Serum or plasma creatinine m easurement (mass/volume)Ordered By: Jaciel Garcia on 11-08-2023 Creatinine [Mass/Vol] 1.21 mg/dL 0.70-1.30 [facility] Comment on above: The validity of the calculated GFR & GFRAA in patients over 70 years has not been determined. Clinical correlation is essential. Serum or plasma urea nitroge n measurement (mass/volume)Ordered By: Jaciel Garcia on 11-08-2023 Urea nitrogen [Mass/Vol] 21 mg/dL 7-18 [facility] Thin prep Papanicolaou smear with manual screeningOrdered By: Jaciel Garcia on 11-08-2023 Thin prep Papanicolaou smear with manual screening 7 5-15 [facility] Basophil percentageOrdered B y: Jaciel Garcia on 10-03-2023 Chloride [Moles/Vol] 106 mmol/L 98-107 [facility] Glucose [Mass/Vol] 103 mg/dL 74-106 [facility] Comment on above: Fasting Glucose resu lt from 100 to 125 mg/dL suggests IMPAIRED HOMEOSTASIS per A.D.A. criteria. Potassium [Moles/Vol] 3.8 mmol/L 3.5-5.1 [facility] Sodium [Moles/Vol] 137 mmol/L 136-145 [facility] Laboratory - Chemistry and C hemistry - challengeOrdered By: Jaciel Garcia on 10-03-2023 CO2 [Moles/Vol] 27.0 mmol/L 21.0-32.0 [facility] Urea nitrogen/Creatinine [Mass ratio] 18.8 mg/mg 10-20 [facility] No Panel InformationOrdered By: Jaciel Garcia on 10-03-2023 Estimated GFR (MDRD) Amer 81 mL/min >60 [facility] Comment on above: GFR Calc Estimated GFR (MDRD) Non-Af Amer 67 mL/min >60 [facility] Comment on above: Non- GFR Calc Serum or plasma calcium june urement (mass/volume)Ordered By: Jaciel Garcia on 10-03-2023 Calcium [Mass/Vol] 9.1 mg/dL 8.5-10.1 [facility] Serum or plasma creatinine m easurement (mass/volume)Ordered By: Jaciel aGrcia on 10-03-2023 Creatinine [Mass/Vol] 1.12 mg/dL 0.70-1.30 [facility] Comment on above: The validity of the calculated GFR & GFRAA in patients over 70 years has not been determined. Clinical correlation is essential. Serum or plasma urea nitroge n measurement (mass/volume)Ordered By: Jaciel Garcia on 10-03-2023 Urea nitrogen [Mass/Vol] 21 mg/dL 7-18 [facility] Thin prep Papanicolaou smear with manual screeningOrdered By: Jaciel Garcia on 10-03-2023 Thin prep Papanicolaou smear with manual screening 4 5-15 [facility] Basophil percentageOrdered B y: Mouna Franklin on 03-18-2023 Chloride [Moles/Vol] 102 mmol/L 98-107 [facility] Glucose [Mass/Vol] 165 mg/dL 74-106 [facility] Comment on above: Fasting Glucose resu lt greater than or equal to 126 mg/dL suggests DIABETES MELLITUS per A.D.A. criteria. Potassium [Moles/Vol] 4.3 mmol/L 3.5-5.1 [facility] Sodium [Moles/Vol] 136 mmol/L 136-145 [facility] Laboratory - Chemistry and C hemistry - challengeOrdered By: Mouna Franklin on 03-18-2023 CO2 [Moles/Vol] 27.0 mmol/L 21.0-32.0 [facility] Urea nitrogen/Creatinine [Mass ratio] 12.0 mg/mg 10-20 [facility] No Panel InformationOrdered By: Mouna Franklin on 03-18-2023 Estimated GFR (MDRD) Amer 66 mL/min >60 [facility] Comment on above: GFR Calc Estimated GFR (MDRD) Non-Af Amer 55 mL/min >60 [facility] Comment on above: Non- GFR Calc Serum or plasma calcium june urement (mass/volume)Ordered By: Mouna Franklin on 03-18-2023 Calcium [Mass/Vol] 9.1 mg/dL 8.5-10.1 [facility] Serum or plasma creatinine m easurement (mass/volume)Ordered By: Mouan Franklin on 03-18-2023 Creatinine [Mass/Vol] 1.33 mg/dL 0.70-1.30 [facility] Comment on above: The validity of the calculated GFR & GFRAA in patients over 70 years has not been determined. Clinical correlation is essential. Serum or plasma urea nitroge n measurement (mass/volume)Ordered By: Mouna Franklin on 03-18-2023 Urea nitrogen [Mass/Vol] 16 mg/dL 7-18 [facility] Thin prep Papanicolaou smear with manual screeningOrdered By: Mouna Franklin on 03-18-2023 Thin prep Papanicolaou smear with manual screening 7 5-15 [facility] Absolute lymphocyte countOrd ered By: Jaciel Garcia on 03-09-2023 Lymphocytes Auto (Unsp spec) [#/Vol] 2.16 10*3/uL 0.83-4.51 [facility] Basophil percentageOrdered B y: Jaciel Garcia on 03-09-2023 Basophils/100 WBC (Bld) 0.4 % 0-1 [facility] Eosinophils/100 WBC (Bld) 1.3 % 0-5 [facility] Neutrophils (Bld) [#/Vol] 5.9 10*3/uL 2.0-7.7 [facility] Neutrophils/100 WBC (Bld) 65.8 % 47-70 [facility] WBC (Bld) [#/Vol] 9.0 10*3/uL 4.4-11.0 [facility] Bilirubin [Mass/Vol] 0.70 mg/dL 0.20-1.00 [facility] Comment on above: For patients on eltr ombopag therapy, use of Dimension [facility] TBIL is not recommended. Chloride [Moles/Vol] 103 mmol/L 98-107 [facility] Cholesterol [Mass/Vol] 145 mg/dL <200 [facility] Comment on above: <200 mg/dL Desirable 200-240 mg/dL Borderline >240 mg/dL High Risk Glucose [Mass/Vol] 159 mg/dL 74-106 [facility] Comment on above: Fasting Glucose resu lt greater than or equal to 126 mg/dL suggests DIABETES MELLITUS per A.D.A. criteria. Potassium [Moles/Vol] 3.3 mmol/L 3.5-5.1 [facility] Protein [Mass/Vol] 7.9 g/dL 6.4-8.2 [facility] Sodium [Moles/Vol] 136 mmol/L 136-145 [facility] Testosterone [Mass/Vol] 118.42 ng/dL [facility] Comment on above: CENTRAL 90% REFERENC E RANGES MALE AGE <50 197.44 - 669.58 ng/dL MALE AGE > or = 50 187.72 - 684.19 ng/dL FEMALE AGE <50 8.38 - 35.01 ng/dL FEMALE AGE > or = 50 <7.00 - 35.92 ng/dL Effective as of 03/24/21 Triglyceride [Mass/Vol] 203 mg/dL <199 [facility] Comment on above: The drugs N-Acetylcy steine and Metamizole may falsely depress this assay.Serum Triglycerides Reference Interval Normal <150 mg/dL Borderline high 150 - 199 mg/dL High 200 - 499 mg/dL Very High > or = 500 mg/dL Blood erythrocytes count (nu mber/volume)Ordered By: Jaciel Garcia on 07-12-2023 RBC (Bld) [#/Vol] 4.97 10*6/uL 4.6-6.2 [facility] Blood hemoglobin measurement (mass/volume)Ordered By: Jaciel Garcia on 03-09-2023 Hemoglobin (Bld) [Mass/Vol] 16.1 g/dL 13.0-16.5 [facility] Blood lymphocytes/100 leukoc ytesOrdered By: Jaciel Garcia on 03-09-2023 Lymphocytes/100 WBC (Bld) 23.9 % 19-41 [facility] Blood monocytes/100 leukocyt esOrdered By: Jaciel Garcia on 03-09-2023 Monocytes/100 WBC (Bld) 8.2 % 0-10 [facility] Blood platelet mean volumeOr dered By: Jaciel Garcia on 03-09-2023 Platelet mean volume (Bld) [Entitic vol] 9.4 fL 6.2-12.0 [facility] Culture, urineOrdered By: Kirstin Franklin on 03-09-2023 Bacteria identified Cx Nom (U) Culture exhibits no growth. [facility] Determination of erythrocyte mean corpuscular volume (MCV)Ordered By: Jaciel Garcia on 03-09-2023 MCV (RBC) [Entitic vol] 93.6 fL 80-94 [facility] Hematocrit Auto (Bld) [Volum e fraction]Ordered By: Jaciel Garcia on 03-09-2023 Hematocrit (Bld) [Volume fraction] 46.5 % 40-54 [facility] Laboratory - Chemistry and C hemistry - challengeOrdered By: Jaciel Garcia on 03-09-2023 ALP [Catalytic activity/Vol] 119 U/L 45-117 [facility] ALT [Catalytic activity/Vol] 51 U/L 16-61 [facility] CO2 [Moles/Vol] 23.0 mmol/L 21.0-32.0 [facility] Cobalamin (Vitamin B12) [Mass/Vol] 1109 pg/mL 211-911 [facility] Globulin (S) [Mass/Vol] 4.7 g/dL 2.2-4.2 [facility] Urea nitrogen/Creatinine [Mass ratio] 13.4 mg/mg 10-20 [facility] Laboratory - Hematology and Cell countsOrdered By: Jaciel Garcia on 03-09-2023 Erythrocyte distribution width (RBC) [Entitic vol] 43.2 fL 35.1-43.9 [facility] Erythrocyte distribution width (RBC) [Ratio] 12.4 % 11.6-14.6 [facility] Immature granulocytes/100 WBC (Bld) 0.400 % 0.0-0.9 [facility] Comment on above: IG% - Immature Granu locytes (promyelocytes, myelocytes and metamyelocytes) > 1% indicates that a LEFT SHIFT is Present. MCH (RBC) [Entitic mass] 32.4 pg 27.0-32.0 [facility] Nucleated RBC/100 WBC (Bld) [Ratio] 0 % 0-5 [facility] MCHC Auto (RBC) [Mass/Vol]Or dered By: Jaciel Garcia on 03-09-2023 MCHC (RBC) [Mass/Vol] 34.6 g/dL 32-36 [facility] No Panel InformationOrdered By: Jaciel Garcia on 03-09-2023 Estimated GFR (MDRD) Amer 58 mL/min >60 [facility] Comment on above: GFR Calc Estimated GFR (MDRD) Non-Af Amer 48 mL/min >60 [facility] Comment on above: Non- GFR Calc Thyroid Stimulating Hormone (TSH) 2.38 uIU/mL 0.358-3.74 [facility] Platelets bldOrdered By: Jermaine Garcia on 03-09-2023 Platelets (Bld) [#/Vol] 197 10*3/uL 150-450 [facility] Serum or plasma albumin june urement (mass/volume)Ordered By: Jaciel Garcia on 03-09-2023 Albumin [Mass/Vol] 3.2 g/dL 3.2-5.0 [facility] Serum or plasma albumin/glob ulin mass ratioOrdered By: Jaciel Garcia on 03-09-2023 Albumin/Globulin [Mass ratio] 0.7 {ratio} 0.9-2.4 [facility] Serum or plasma calcium june urement (mass/volume)Ordered By: Jaciel Garcia on 03-09-2023 Calcium [Mass/Vol] 8.9 mg/dL 8.5-10.1 [facility] Serum or plasma cholesterol in HDL measurement (mass/volume)Ordered By: Jaciel Garcia on 03-09-2023 Cholesterol in HDL [Mass/Vol] 28 mg/dL >40 [facility] Comment on above: The drugs N-Acetylcy steine and Metamizole may falsely depress this assay. Reference Range HDL <40 mg/dL Low HDL Cholesterol HDL >or= 60 mg/dL High HDL Cholesterol Serum or plasma cholesterol in VLDL measurement (mass/volume)Ordered By: Jaciel Garcia on 03-09-2023 Cholesterol in VLDL [Mass/Vol] 41 mg/dL 5-40 [facility] Serum or plasma creatinine m easurement (mass/volume)Ordered By: Jaciel Garcia on 03-09-2023 Creatinine [Mass/Vol] 1.49 mg/dL 0.70-1.30 [facility] Comment on above: The validity of the calculated GFR & GFRAA in patients over 70 years has not been determined. Clinical correlation is essential. Serum or plasma low density lipoprotein (LDL) cholesterol measurement (mass/volume)Ordered By: Jaciel Garcia on 03-09-2023 Cholesterol in LDL [Mass/Vol] 76 mg/dL 0-130 [facility] Serum or plasma urea nitroge n measurement (mass/volume)Ordered By: Jaciel Garcia on 03-09-2023 Urea nitrogen [Mass/Vol] 20 mg/dL 7-18 [facility] Thin prep Papanicolaou smear with manual screeningOrdered By: Jaciel Garcia on 03-09-2023 Thin prep Papanicolaou smear with manual screening 29 U/L 15-37 [facility] Thin prep Papanicolaou smear with manual screening 10 5-15 [facility] Laboratory - Chemistry and C hemistry - challengeon 05-11-2022 Cobalamin (Vitamin B12) [Mass/Vol] 977 pg/mL 211-911 [facility] Work Phone: Basophil percentageon 2021 Chloride [Moles/Vol] 104 mmol/L 98-107 [facility] Work Phone: Glucose [Mass/Vol] 106 mg/dL 74-106 [facility] Work Phone: Comment on above: Fasting Glucose resu lt from 100 to 125 mg/dL suggests IMPAIRED HOMEOSTASIS per A.D.A. criteria. Potassium [Moles/Vol] 4.3 mmol/L 3.5-5.1 [facility] Work Phone: Sodium [Moles/Vol] 140 mmol/L 136-145 [facility] Work Phone: WBC (Bld) [#/Vol] 7.6 10*3/uL 4.4-11.0 [facility] Work Phone: Blood erythrocytes count (nu mber/volume)on 05-05-2022 RBC (Bld) [#/Vol] 4.44 10*6/uL 4.6-6.2 [facility] Work Phone: Blood hemoglobin measurement (mass/volume)on 05-05-2022 Hemoglobin (Bld) [Mass/Vol] 14.6 g/dL 13.0-16.5 [facility] Work Phone: Blood platelet mean volumeon 05-05-2022 Platelet mean volume (Bld) [Entitic vol] 9.7 fL 6.2-12.0 [facility] Work Phone: Determination of erythrocyte mean corpuscular volume (MCV)on 05-05-2022 MCV (RBC) [Entitic vol] 96.4 fL 80-94 [facility] Work Phone: Erythrocyte sedimentation ra michaelle 05-05-2022 ESR (Bld) [Velocity] 26 mm/h 0-20 [facility] Work Phone: Hematocrit Auto (Bld) [Volum e fraction]on 05-05-2022 Hematocrit (Bld) [Volume fraction] 42.8 % 40-54 [facility] Work Phone: Iron measurement (mass/mass) on 05-05-2022 Iron (Unsp spec) [Mass/Mass] 124 ug/dL 65-175 [facility] Work Phone: Laboratory - Chemistry and C hemistry - challengeon 05-05-2022 CO2 [Moles/Vol] 29.0 mmol/L 21.0-32.0 [facility] Work Phone: Magnesium [Mass/Vol] 1.7 mg/dL 1.6-2.6 [facility] Work Phone: Urea nitrogen/Creatinine [Mass ratio] 19.3 mg/mg 10-20 [facility] Work Phone: Laboratory - Hematology and Cell countson 05-05-2022 Erythrocyte distribution width (RBC) [Entitic vol] 44.4 fL 35.1-43.9 [facility] Work Phone: Erythrocyte distribution width (RBC) [Ratio] 12.7 % 11.6-14.6 [facility] Work Phone: MCH (RBC) [Entitic mass] 32.9 pg 27.0-32.0 [facility] Work Phone: MCHC Auto (RBC) [Mass/Vol]on 05-05-2022 MCHC (RBC) [Mass/Vol] 34.1 g/dL 32-36 [facility] Work Phone: No Panel Informationon 05-05 Anti-Nuclear Antibody Screen Negative Negative [facility] Work Phone: Comment on above: Performed at: [address] [id number] Director: Guy Hines PhD, Phone: [phone] Estimated GFR (MDRD) Amer 76 mL/min >60 [facility] Work Phone: Comment on above: GFR Calc Estimated GFR (MDRD) Non-Af Amer 62 mL/min >60 [facility] Work Phone: Comment on above: Non- GFR Calc Thyroid Stimulating Hormone (TSH) 1.66 uIU/mL 0.358-3.74 [facility] Work Phone: Vitamin D 25-Hydroxy 69.2 ng/mL [facility] Work Phone: Comment on above: Vitamin D 25(OH) Sta tus Range Deficiency <20 ng/mL (50nmol/L) Insufficiency 20 - 30 ng/mL (50 - 75 nmol/L) Sufficiency 30 - 100 ng/mL (75 - 250 nmol/L) Toxicity >100 ng/mL (>250 nmol/L) Platelets bldon 05-05-2022 Platelets (Bld) [#/Vol] 221 10*3/uL 150-450 [facility] Work Phone: Serum or plasma C reactive p rotein measurement (mass/volume)on 05-05-2022 CRP [Mass/Vol] mg/L 0.0-3.0 [facility] Work Phone: Comment on above: C-Reactive Protein ( CRP) provides useful information for thediagnosis, therapy and monitoring of inflammatory processesand associated diseases. For the evaluation of Relative Riskfor Cardiovascular Disease, a High Sensitivity CRP (HSCRP)should be ordered. Serum or plasma calcium june urement (mass/volume)on 05-05-2022 Calcium [Mass/Vol] 9.2 mg/dL 8.5-10.1 [facility] [place] Work Phone: Serum or plasma creatinine m easurement (mass/volume)on 05-05-2022 Creatinine [Mass/Vol] 1.19 mg/dL 0.70-1.30 [facility] Work Phone: Comment on above: The validity of the calculated GFR & GFRAA in patients over 70 years has not been determined. Clinical correlation is essential. Serum or plasma ferritin lilia surement (mass/volume)on 05-05-2022 Ferritin [Mass/Vol] 84 ng/mL 26-388 [facility] Work Phone: Serum or plasma urea nitroge n measurement (mass/volume)on 05-05-2022 Urea nitrogen [Mass/Vol] 23 mg/dL 7-18 [facility] Work Phone: Thin prep Papanicolaou smear with manual screeningon 05-05-2022 Thin prep Papanicolaou smear with manual screening 7 5-15 [facility] Work Phone: Imani 01-08-2022 [facility] Office Visit (UCWSTR ) PEREZCHET Hodge ([id number]) 1940 M Date Time Provider Department 01/08/22 6:15 PM MATIAS WILLIS WS During your visit today, we recorded the [...] mouth daily ALLERGIES: ALLERGIES Allergen Reactions - Hserri Inhibitors Cough - Penicillins Hives VITALS: BP [...] Encounter Status:Closed by MATIAS WILLIS on 01/08/22 [facility] Imani 01-06-2022 [facility] Office Visit (UCWSTR ) PEREZCHET BRICENO ([id number]) 1940 M Date Time Provider Department 01/06/22 7:30 PM MEHDI ROLANDINIQUE [facility] During your visit today, we recorded the following information about you: Temperature Pulse Respiration Blood pressure 97.5 degrees 57/minute 16/minute 136/82 Weight 78.2 kg J Carlos CHIDI Roland.PROFESSIONAL SERVICES SPECIALIST 01/06/2022 7:45 PM Signed Subjective Patient came in with complains of tick on right side of jaw under kline. patient said he was just outside a couple hours ago. could not have been on any longer than that. deneis any other symptoms at this time. The history is provided by the patient. No language arts teacher was used. Review of Systems Constitutional: Negative. [...] S00.86XA, W57.XX (more content not included)... Normal [facility] Basophil percentageon 2021 Chloride [Moles/Vol] 104 mmol/L 98-107 [facility] Work Phone: Glucose [Mass/Vol] 113 mg/dL 74-106 [facility] [place] Work Phone: Comment on above: Fasting Glucose resu lt from 100 to 125 mg/dL suggests IMPAIRED HOMEOSTASIS per A.D.A. criteria. Potassium [Moles/Vol] 3.3 mmol/L 3.5-5.1 [facility] Work Phone: Sodium [Moles/Vol] 140 mmol/L 136-145 [facility] [place] Work Phone: Laboratory - Chemistry and C hemistry - challengeon 12-17-2021 CO2 [Moles/Vol] 28.0 mmol/L 21.0-32.0 [facility] Work Phone: Urea nitrogen/Creatinine [Mass ratio] 16.9 mg/mg 10-20 [facility] Work Phone: No Panel Informationon 12-17 Estimated GFR (MDRD) Amer 59 mL/min >60 [facility] Work Phone: Comment on above: GFR Calc Estimated GFR (MDRD) Non-Af Amer 49 mL/min >60 [facility] Work Phone: Comment on above: Non- GFR Calc Serum or plasma calcium june urement (mass/volume)on 12-17-2021 Calcium [Mass/Vol] 8.8 mg/dL 8.5-10.1 [facility] [place] Work Phone: Serum or plasma creatinine m easurement (mass/volume)on 12-17-2021 Creatinine [Mass/Vol] 1.48 mg/dL 0.70-1.30 [facility] Work Phone: Comment on above: The validity of the calculated GFR & GFRAA in patients over 70 years has not been determined. Clinical correlation is essential. Serum or plasma urea nitroge n measurement (mass/volume)on 12-17-2021 Urea nitrogen [Mass/Vol] 25 mg/dL 7-18 [facility] Work Phone: Thin prep Papanicolaou smear with manual screeningon 12-17-2021 Thin prep Papanicolaou smear with manual screening 8 5-15 [facility] Work Phone: ED NOTEon 12-13-2021 ED NOTE HNO ID: [id number] Author: Mayra Viera RN Service: ? Author Type: Registered Nurse Type: ED Notes Filed: 12/13/2021 8:48 AM Note Text: Dr Torres at bedside to remove tick Normal [facility] ED NOTE HNO ID: [id number] Author: Mayra Viera RN Service: ? Author Type: Registered Nurse Type: ED Notes Filed: 12/13/2021 8:29 AM Note Text: Pt arrives c/o tick bite to left side Normal [facility] ED PROV NOTEon 12-13-2021 ED PROV NOTE HNO ID: [id number] Author: Adelfo Torres MD Service: Emergency Medicine [...] ARTHRP KNE CONDYLEANDPLATU MEDIALANDLAT COMPARTMENTS - CHOLECYSTECTOMY 2017 DR RICHMOND [facility] H[facility]ORY Problem Relation Age [...] tickborne illnesses (more content not included)... Normal [facility] OBSOLETEon 08-20-2018 OBSOLETE Refill (OTFGFL) CHET DIAZ ([id number]) 1940 MDate Time Provider Owkuwfemvg06/23/18 LYUDMILA CLARKE OTFGFL During your visit today, we recorded the following information about you:Nata Dangelo 08/21/2018 10:14 AM SignedPharmacy faxed requesting the following refillRefill(s) Requested:Pending Prescriptions Disp Refills RANITIDINE 150 MG TABLET 180 tablet 3 Sig: TAKE 1 TABLET BY MOUTH TWICE A DAY JIMENEZ: YesALLERGIESAllergen Reactions- Sherri Inhibitors Cough- Penicillins HivesPhone Number: [phone] (home) [phone] (cell)Last Visit date: Visit date not foundFuture appointment: Visit date not foundThe patients preferred pharmacy has been captured for this encounter? yesRequest is for script(s) to be escript to pharmacy.Nata Joyham 08/21/2018 11:24 AM SignedDr Mariya please disregard this refill request for Mr. Jeronimo. It has beenover a year since you had last seen the pt and when I spoke to the pt he is nolonger taking the medicine.Nata JoyMily As of Date: 08/20/2018 Noted Allergy ReactionACE INHIBITORS 09/19/2015 3 - CoughPENICILLINS 09/19/2015 4 - HivesDate Reviewed: 06/17/2017Reviewed by: Jie ([facility]) Darío - Dionna AssessedReason for Visit: Refill Request [94]Order(s):ranitidine (ZANTAC) 150 [...] Status:Closed by LYUDMILA CLARKE MD on 08/21/18 [facility] Comprehensive Panelon 04-16- 2018 Albumin 3.7 g/dL Normal 3.4-5.0 [facility] Comment on above: Performed By: #### L P14 ####[facility] [place], [place] [address] Alkaline phosphatase (ALP) 62 U/L Normal 46-116 [facility] Comment on above: Performed By: #### L P14 ####[address] [address] ALT-SGPT Blood 27 U/L Normal 14-63 [facility] Comment on above: Performed By: #### L P14 ####[address] [address] Anion gap 8 mmol/L Normal 8-20 [facility] Comment on above: Performed By: #### L P14 ####[address] [address] AST-SGOT Blood 14 U/L Low 15-37 [facility] Comment on above: Performed By: #### L P14 ####[address] [address] Bilirubin Ql (U) 0.8 mg/dL Normal 0.2-1.0 [facility] Comment on above: Performed By: #### L P14 ####[address] [address] BUN (urea nitrogen) 21 mg/dL Normal 7-25 [facility] Comment on above: Performed By: #### L P14 ####[address] [address] BUN/Creatinine Ratio 18 mg/mg Normal 10-20 [facility] Comment on above: Performed By: #### L P14 ####[address] [address] Calcium 9.4 mg/dL Normal 8.5-10.1 [facility] Comment on above: Performed By: #### L P14 ####[address] [address] Chloride 107 mmol/L Normal 98-107 [facility] Comment on above: Performed By: #### L P14 ####[address], [place] [address] CO2 27 mmol/L Normal 21-32 [facility] Comment on above: Performed By: #### L P14 ####[facility] [place], [place] [address] Creatinine 1.16 mg/dL Normal 0.67-1.17 [facility] Comment on above: Performed By: #### L P14 ####[place] [address] Glucose mass conc 132 mg/dL High 70-99 [facility] Comment on above: Performed By: #### L P14 ####[place] [address] Potassium molar conc 3.8 mmol/L Normal 3.5-5.1 [facility] Comment on above: Performed By: #### L P14 ####[place] [address] Protein 7.4 g/dL Normal 6.4-8.2 [facility] Comment on above: Performed By: #### L P14 ####[place] [address] Sodium 138 mmol/L Normal 136-145 [facility] Comment on above: Performed By: #### L P14 ####[place] [address] Lipid Profileon 12-12-2017 Cholesterol 125 mg/dL Normal 0-199 [facility] Comment on above: Performed By: #### L LIPD ####[address] [address] Cholesterol to HDL Ratio 3.0 {ratio} Normal 2.1-7.3 [facility] Comment on above: Performed By: #### L LIPD ####[place] [address] HDL Cholesterol 42 mg/dL Normal >40 [facility] Comment on above: Performed By: #### L LIPD ####[place] [address] LDL Cholesterol 64 mg/dL Normal 0-150 [facility] Comment on above: Performed By: #### L LIPD ####[address] [address] Risk Factor 3.0 Normal [facility] Comment on above: Result Comment: Card [...] >23.4 >11.0 Performed By: #### L LIPD ####[place] [address] Triglyceride Blood 97 mg/dL Normal 0-149 [facility] Comment on above: Performed By: #### L LIPD ####[place] [address] MDRD eGFRon 12-12-2017 eGFR (non-black) mL/min/{1.73_m2} Normal >60mL/m in/1 .73m2 [facility] Comment on above: Result Comment: If t he patient is , multiply the result by 1.210. Performed By: #### L GFR ####[address] [address] TSHon 12-12-2017 Thyroid stimulating hormone (TSH) 1.05 uIU/mL Normal 0.34-4.82 [facility] Comment on above: Performed By: #### L TSH ####[address] [address] Hemoglobin A1Con 04-06-2017 Glucose mass conc 126 mg/dL Normal [facility] Comment on above: Performed By: #### L A1C ####[address] [address] Hemoglobin A1c/Hemoglobin.total mass fraction (Bld) 6.0 % Normal 4.5-6.2 [facility] Comment on above: Performed By: #### L A1C ####[place] [address] Comprehensive Panelon 2016 Albumin 3.4 g/dL Normal 3.4-5.0 [facility] Comment on above: Performed By: #### L P14 ####[place] [address] Alkaline phosphatase (ALP) 66 U/L Normal 46-116 [facility] Comment on above: Performed By: #### L P14 ####[address] [address] ALT-SGPT Blood 22 U/L Normal 12-78 [facility] Comment on above: Performed By: #### L P14 ####[place] [address] Anion gap 10 mmol/L Normal 8-20 [facility] Comment on above: Performed By: #### L P14 ####[place] [address] AST-SGOT Blood 16 U/L Normal 15-37 [facility] Comment on above: Performed By: #### L P14 ####[address] [address] Bilirubin Ql (U) 0.8 mg/dL Normal 0.2-1.0 [facility] Comment on above: Performed By: #### L P14 ####[address] [address] BUN (urea nitrogen) 17 mg/dL Normal 7-25 [facility] Comment on above: Performed By: #### L P14 ####[place] [address] BUN/Creatinine Ratio 16 mg/mg Normal 10-20 [facility] Comment on above: Performed By: #### L P14 ####[address], [place] [address] Calcium 9.1 mg/dL Normal 8.5-10.1 [facility] Comment on above: Performed By: #### L P14 ####[facility] [place], [place] [address] Chloride 106 mmol/L Normal 98-107 [facility] Comment on above: Performed By: #### L P14 ####[facility] [place], [place] [address] CO2 29 mmol/L Normal 21-32 [facility] Comment on above: Performed By: #### L P14 ####[address] [address] Creatinine 1.09 mg/dL Normal 0.67-1.17 [facility] Comment on above: Performed By: #### L P14 ####[address] [address] Glucose mass conc 121 mg/dL High 70-99 [facility] Comment on above: Performed By: #### L P14 ####[address] [address] Potassium molar conc 3.7 mmol/L Normal 3.5-5.1 [facility] Comment on above: Performed By: #### L P14 ####[address] [address] Protein 7.2 g/dL Normal 6.4-8.2 [facility] Comment on above: Performed By: #### L P14 ####[place] [address] Sodium 141 mmol/L Normal 136-145 [facility] Comment on above: Performed By: #### L P14 ####[address] [address] Lipid Profileon 04-05-2017 Cholesterol 132 mg/dL Normal 0-199 [facility] Comment on above: Performed By: #### L LIPD ####[address] [address] Cholesterol to HDL Ratio 2.9 {ratio} Normal 2.1-7.3 [facility] Comment on above: Performed By: #### L LIPD ####[address] [address] HDL Cholesterol 45 mg/dL Normal >40 [facility] Comment on above: Performed By: #### L LIPD ####[address] [address] LDL Cholesterol 68 mg/dL Normal 0-150 [facility] Comment on above: Performed By: #### L LIPD ####[address] [address] Risk Factor 2.9 Normal [facility] Comment on above: Result Comment: Card [...] >23.4 >11.0 Performed By: #### L LIPD ####[place] [address] Triglyceride Blood 96 mg/dL Normal 0-149 [facility] Comment on above: Performed By: #### L LIPD ####[address] [address] MDRD eGFRon 04-05-2017 eGFR (non-black) mL/min/{1.73_m2} Normal >60mL/m in/1 .73m2 [facility] Comment on above: Result Comment: If t he patient is , multiply the result by 1.210. Performed By: #### L GFR ####[address] [address] Microalbumin,Randomon 2016 INR Coag RelTime (Bld) 1.27 mg/dL Normal 0.20-2.50 [facility] Comment on above: Performed By: #### M ALBR ####[facility] [place] [address] MA/Creat Ratio 6.35 mg/g Normal 0.10-30.00 [facility] Comment on above: Performed By: #### M ALBR ####[facility] [place] [address] Creatinine,Urine 200.0 mg/dL Normal [facility] Comment on above: Performed By: #### M ALBR ####[place] [address] Vital Signs Date Time Vital Sign Value Performing Clinician Faci lity 02-27-2025 14:28-0400 Body temperature 97.9 [degF] Dr. Adelfo Garcia MD Work Phone: [facility] 02-27-2025 14:28-0400 Diastolic blood pressure 56 mm[Hg] Dr. Adelfo Garcia MD Work Phone: [facility] 02-27-2025 14:28-0400 Heart rate 50 /min Dr. Adelfo Garcia MD Work Phone: [facility] 02-27-2025 14:28-0400 Respiratory rate 16 /min Dr. Adelfo Garcia MD Work Phone: [facility] 02-27-2025 14:28-0400 SaO2% (BldA) [Mass fraction] 96 % Dr. Adelfo Garcia MD Work Phone: [facility] 02-27-2025 14:28-0400 Systolic blood pressure 128 mm[Hg] Dr. Adelfo Garcia MD Work Phone: [facility] 02-18-2025 13:01-0400 Body mass index (BMI) [Ratio] 29.8 kg/m2 Dr. Adelfo Garcia MD Work Phone: 3(277)766-370720 [place] [address] 02-18-2025 13:01-0400 Body weight 78.[address] Adelfo Garcia MD Work Phone: 0(362)130-747920 [place] [address] 02-18-2025 13:01-0400 Diastolic blood pressure 72 mm[Hg] Dr. Adelfo Garcia MD Work Phone: 8(722)426-457120 [place] [address] 02-18-2025 13:01-0400 Heart rate 72 /min Dr. Adelfo Garcia MD Work Phone: 9(108)028-698220 [place] [address] 02-18-2025 13:01-0400 Respiratory rate 18 /min Dr. Adelfo Garcia MD Work Phone: 0(926)053-515320 [place] [address] 02-18-2025 13:01-0400 SaO2% (BldA) [Mass fraction] 95 % Dr. Adelfo Garcia MD Work Phone: 1(570)160-423620 [place] [address] 02-18-2025 13:01-0400 Systolic blood pressure 121 mm[Hg] Dr. Adelfo Garcia MD Work Phone: 0(240)152-149720 [place] [address] 01-16-2025 13:35-0400 Body height 162.[address] Adelfo Garcia MD Work Phone: 2(116)610-704520 [place] [address] 01-16-2025 13:35-0400 Body mass index (BMI) [Ratio] 29.8 kg/m2 Dr. Adelfo Garcia MD Work Phone: 0(089)248-378720 [place] [address] 01-16-2025 13:35-0400 Body weight 78.[address] Adelfo Garcia MD Work Phone: 9(796)753-599620 [place] [address] 01-16-2025 13:35-0400 Diastolic blood pressure 74 mm[Hg] Dr. Adelfo Garcia MD Work Phone: 8(056)716-711320 [place] [address] 01-16-2025 13:35-0400 Heart rate 52 /min Dr. Adelfo Garcia MD Work Phone: 6(321)779-512620 [place] [address] 01-16-2025 13:35-0400 Respiratory rate 16 /min Dr. Adelfo Garcia MD Work Phone: [facility] 01-16-2025 13:35-0400 Systolic blood pressure 146 mm[Hg] Dr. Adelfo Garcia MD Work Phone: [facility] 12-12-2024 13:40-0400 Body height 162.[address] Adelfo Garcia MD Work Phone: [facility] 12-12-2024 13:40-0400 Body mass index (BMI) [Ratio] 29.8 kg/m2 Dr. Adelfo Garcia MD Work Phone: [facility] 12-12-2024 13:40-0400 Body weight 78.[address] Adelfo Garcia MD Work Phone: [facility] 12-12-2024 13:40-0400 Diastolic blood pressure 61 mm[Hg] Dr. Adelfo Garcia MD Work Phone: [facility] 12-12-2024 13:40-0400 Heart rate 52 /min Dr. Adelfo Garcia MD Work Phone: [facility] 12-12-2024 13:40-0400 Respiratory rate 18 /min Dr. Adelfo Garcia MD Work Phone: [facility] 12-12-2024 13:40-0400 Systolic blood pressure 134 mm[Hg] Dr. Adelfo Garcia MD Work Phone: [facility] 01-08-2022 18:09-0400 Body temperature 98.01 [degF] Matias Willis MD Work Phone: [facility] 01-08-2022 18:09-0400 Body weight 77.38 kg Matias Willis MD Work Phone: [facility] 01-08-2022 18:09-0400 Diastolic blood pressure 82 mm[Hg] Matias Willis MD Work Phone: [facility] 01-08-2022 18:09-0400 Heart rate 77 /min Matias Willis MD Work Phone: [facility] 01-08-2022 18:09-0400 Respiratory rate 18 /min Matias Willis MD Work Phone: [facility] 01-08-2022 18:09-0400 SaO2% (BldA) [Mass fraction] 97 % Matias Willis MD Work Phone: [facility] 01-08-2022 18:09-0400 Systolic blood pressure 128 mm[Hg] Matias Willis MD Work Phone: [facility] 01-06-2022 19:32-0400 Body temperature 97.5 [degF] J Carlos Roland APRN.PROFESSIONAL SERVICES SPECIALIST Work Phone: [facility] 01-06-2022 19:32-0400 Body weight 78.2 kg J Carlos Roland APRN.PROFESSIONAL SERVICES SPECIALIST Work Phone: [facility] 01-06-2022 19:32-0400 Diastolic blood pressure 82 mm[Hg] J Carlos Roland APRN.PROFESSIONAL SERVICES SPECIALIST Work Phone: [facility] 01-06-2022 19:32-0400 Heart rate 57 /min J Carlos Roland APRN.PROFESSIONAL SERVICES SPECIALIST Work Phone: [facility] 01-06-2022 19:32-0400 Respiratory rate 16 /min J Carlos Roland APRN.PROFESSIONAL SERVICES SPECIALIST Work Phone: [facility] 01-06-2022 19:32-0400 SaO2% (BldA) [Mass fraction] 97 % J Carlos Roland APRN.PROFESSIONAL SERVICES SPECIALIST Work Phone: [facility] 01-06-2022 19:32-0400 Systolic blood pressure 136 mm[Hg] J Carlos Roland APRN.PROFESSIONAL SERVICES SPECIALIST Work Phone: [facility] Encounters Encounter Date Encounter Type Care Provider Facility Start: 05-15-2025 End: 05-15-[address] Ishmael Cancino MD -[facility] Start: 05-15-2025 End: 05-15-[address] Adelfo Garcia MD Work Phone: -[facility] Start: 03-22-2025 End: 03-22-[address] Adelfo Garcia MD Work Phone: -[facility] Start: 03-22-2025 End: 03-22-[address] Adelfo Garcia MD -[facility] Start: 03-22-2025 End: 03-22-2025 ambulatory Adelfo Garcia Facility:[facility] Start: 02-27-2025 End: 02-27-2025 Patient encounter procedure Galo Moncadamanoj G[facility] -[facility] Work Phone: Start: 02-27-2025 End: 02-27-[address] Adelfo Garcia MD Work Phone: [facility] Start: 02-18-2025 End: 02-18-2025 Patient encounter procedure Gilmer Pratt G[facility] BLOWER-C -[facility] Work Phone: Start: 02-18-2025 End: 02-18-[address] Adelfo Garcia MD Work Phone: [facility] Work Phone: Start: 01-23-2025 End: 01-23-[address] Adelfo Garcia MD Work Phone: [facility] Work Phone: Start: 01-23-2025 End: 01-23-[address] Mohan Brooke DO -Physical Therapy Work Phone: Start: 01-16-2025 End: 01-16-2025 Patient encounter procedure Gilmer Pratt G[facility] BLOWER-C -[facility] Work Phone: Start: 01-16-2025 End: 01-16-[address] Adlefo Garcia MD Work Phone: [facility] Work Phone: Start: 01-09-2025 ambulatory Adelfo Pacheco lity:[facility] Start: 01-09-2025 Non-patient / Non-visit Dr. Ishmael Cancino MD -[facility] Start: 01-08-2025 End: 01-08-[address] Adelfo Garcia MD Work Phone: [facility] Work Phone: Start: 01-08-2025 End: 01-08-2025 Patient encounter procedure Gilmer Pratt G[facility] BLOWER-C -[facility] Work Phone: Start: 01-08-2025 End: 01-08-2025 ambulatory Adelfo Garcia Facility:[facility] Start: 01-03-[address] Mohan samaniego DO -Physical Therapy Work Phone: Start: 12-28-2024 End: 12-28-2024 ambulatory Cassandra Duran RN [facility] Clinical Communication Start: 12-28-2024 End: 12-28-2024 Patient encounter procedure Cassandra Duran RN [facility] Clinical Communication Start: 12-12-2024 End: 12-12-2024 Patient encounter procedure Gilmer SALAZAR -[facility] Work Phone: Start: 12-12-2024 End: 12-12-2024 ambulatory Adelfo Garcia Facility:[facility] Start: 11-28-2024 End: 11-28-[address] oMhan Brooke DO -[facility] Work Phone: Start: 11-28-2024 End: 11-28-2024 ambulatory Adelfo Garcia Facility:[facility] Start: 11-21-2024 End: 11-21-[address] Mohan Brooke DO -[facility] Work Phone: Start: 11-21-2024 End: 11-21-2024 ambulatory Adelfo Garcia Facility:[facility] Start: 11-14-2024 End: 11-14-2024 ambulatory Adelfo Garcia Facility:[facility] Start: 11-14-2024 End: 11-14-[address] Mohan Brooke DO -[facility] Work Phone: Start: 10-03-2024 End: 10-03-[address] Adelfo Garcia MD -[facility] [place] Work Phone: Start: 10-03-2024 End: 10-03-2024 ambulatory Adelfo Garcia Facility:[facility] Start: 09-21-2024 End: 09-21-[address] Adelfo Garcia MD -[facility] Start: 09-21-2024 End: 09-21-2024 ambulatory Adelfo Garcia Facility:[facility] Start: 07-17-2024 End: 07-17-2024 ambulatory Adelfo Garcia Facility:[facility] Start: 06-15-2024 ambulatory Adelfo Garcia Faci lity:[facility] Start: 06-15-2024 End: 06-15-2024 ambulatory Adelfo Garcia Facility:[facility] Start: 06-04-2024 End: 06-04-2024 ambulatory [facility]3]gerald Facility:[facility] Start: 12-28-2023 End: 12-28-2023 ambulatory [facility] Work Phone: Start: 12-28-2023 End: 12-28-2023 Patient encounter procedure [facility] Start: 11-08-2023 End: 11-08-2023 ambulatory [facility] Work Phone: Start: 11-08-2023 End: 11-08-2023 Patient encounter procedure [facility] Start: 10-03-2023 End: 10-03-2023 ambulatory [facility] Work Phone: Start: 10-03-2023 End: 10-03-2023 Patient encounter [facility] Start: 07-11-2023 End: 07-11-2023 ambulatory [facility] Work Phone: Start: 07-11-2023 End: 07-11-2023 Patient encounter procedure [facility] Work Phone: Start: 04-05-2023 End: 04-05-2023 ambulatory [facility] Work Phone: Start: 04-05-2023 End: 04-05-2023 Patient encounter procedure [facility] Start: 03-18-2023 End: 03-18-2023 Patient encounter procedure [facility] Work [facility]: Start: 03-09-2023 End: 03-09-2023 ambulatory [facility] Work Phone: Start: 03-09-2023 End: 03-09-2023 [facility] Work [facility]: Start: 11-10-2022 End: 11-10-2022 ambulatory [facility] Work Phone: Start: 11-10-2022 End: 11-10-2022 Patient encounter procedure [facility]-MRI - [facility] Start: 08-04-2022 End: 08-04-2022 ambulatory [facility] Work Phone: Start: 08-04-2022 End: 08-04-2022 Patient encounter procedure [facility]3] Start: 05-11-2022 End: 05-11-2022 ambulatory [facility] Work Phone: Start: 05-11-2022 End: 05-11-2022 [facility] Start: 05-05-2022 End: 05-05-2022 [facility] Start: 01-19-2022 End: 01-19-2022 Patient encounter procedure [facility]-Outpatient Bone Densitometry Start: 01-08-2022 End: 01-08-2022 Patient encounter procedure Matias Willis MD Work Phone: [facility] Comment on above: Seborrheic keratoses (Primary Dx) Start: 01-06-2022 End: 01-06-2022 Patient encounter procedure J Carlos Roland APRN.CNP Work Phone: [facility] Comment on above: Tick bite of other p art of head, initial encounter (Primary Dx) Start: 01-06-2022 End: 01-06-2022 Patient encounter procedure [facility]-Radiology, [place] Start: 12-17-2021 End: 12-17-2021 Patient encounter procedure [facility]-Laboratory, [place] [facility] Start: 11-23-2021 End: 11-23-2021 Discharged Recurring [facility]-Physical Therapy Start: 11-29-2017 Ambulatory MECHE L CARMELER [facility] Start: 05-31-2017 End: 05-31-2017 Ambulatory MECHE L BACHCINDYER Facility:[facility] Start: 04-15-2017 End: 04-15-2017 [facility] Start: 04-13-2017 End: 04-13-2017 [facility] Start: 04-05-2017 End: 04-06-2017 Ambulatory MECHE L DARCY Facility:[facility] Start: 04-04-2017 End: 04-04-2017 Ambulatory MECHE L BACHCINDYER Facility:[facility] Procedures Date Procedure Procedure Detail Performing [...] Treatment Date Care Activity Detail Author Start: 05-15-2025 Radiologic exam knee complete 4/more views Knee 4 or More Views [facility] Start: 05-15-2025 XR Knee GE 4 Views [facility] Start: 11-28-2024 Patient referral [facility] Work Phone: Start: 01-19-2022 Dual energy X-ray absorptiometry Dexa Bone Density Study [facility] Work Phone: Start: 08-29-2021 ADVANCE DIRECTIVE DISCUSSION ADVANCE DIRECTIVE DISCUSSION [facility] Start: 12-12-2018 Hepatitis B surface antibody level LDL CHOLESTEROL [facility] Start: 05-31-2018 ANNUAL PCP TEAM CHRONIC DISEASE VISIT ANNUAL PCP TEAM CHRONIC DISEASE VISIT [facility] Start: 04-05-2018 Hepatitis B screening URINE ALBUMIN:CREATININE RATIO [facility] Start: 11-02-2017 3 comp foot exam completed DIABETIC FOOT EXAM [facility] Start: 10-06-2017 Hemoglobin A1c/Hemoglobin.total in Blood HBA1C [facility] Start: 07-08-2016 Hepatitis C antibody, confirmatory test DILATED RETINAL EXAM [facility] Start: 1991 SHINGRIX VACCINE (1 of 2) SHINGRIX VACCINE (1 of 2) [facility] Start: 1960 Urine microalbumin profile DTAP,TDAP,TD (1 - Tdap) [facility] Start: 1959 BP CONTROLLED (<130/80) BP CONTROLLED (<130/80) [facility] Start: 1953 Adult depression screening assessment DEPRESSION SCREENING [facility] Start: 1946 COVID-19 VACCINE (#1) COVID-19 VACCINE (#1) [facility] Patient referral [facility] Work Phone: Immunizations Immunization Date Immunization Notes Care Provider Drew wilhelm 05-31-2017 influenza, high dose seasonal, preservative-free J Carlos Roland APRN.CNP Work Phone: [facility] 05-14-2016 pneumococcal conjuga te vaccine, 13 valent J Carlos Roland NURSE EMERGENCY ROOM.PROFESSIONAL SERVICES SPECIALIST Work Phone: [facility] 05-19-2015 influenza, high dose seasonal, preservative-free J Carlos Roland NURSE EMERGENCY ROOM.PROFESSIONAL SERVICES SPECIALIST Work Phone: [facility] 08-29-2009 pneumococcal polysaccharide vaccine, 23 valent J Carlos Dre NURSE EMERGENCY ROOM.PROFESSIONAL SERVICES SPECIALIST Work Phone: [facility] Payers Date Payer Category Payer Private Health Insurance [facility] [id number] 2024 Self-pay [id number] 2015 Private Health Insurance [employer] ETNA MEDICARE SUPPLEMENT [id number] 2015-Present [phone] [address] [address] [place] [address] Indemnity [id number] 2006 Medicare MEDICARE MEDICAR E A AND B [id number] 2006-Present [phone] [address] [address] [place] [address] Medicare [id number] 2006 Medicare [id number] Medicare [id number] Unknown [id number] .2.462 Unknown [id number] 2.840.1.671551.3.579 .2.462 Unknown [id number] 2.16.840.1.157543.3.579 .2.462 Unknown [id number] 2.16840.1.798097.3.579 .2.462 Unknown [id number] 2.16.840.1.676034.3.579 .2.462 Unknown [id number] 2.16.840.1.604124.3.579 .2.462 Unknown [id number] 2.16.840.1.533788.3.579 .2.462 Unknown [id number] 2.16.840.1.478692.3.579 .2.462 Unknown [id number] 2.16.840.1.584885.3.579 .2.462 Unknown [id number] 2.16.840.1.571182.3.579 .2.462 Unknown [id number] 2.16.840.1.609033.3.579 .2.462 Unknown [id number] 2.16.840.1.470435.3.579 .2.462 Unknown [id number] 2.16.840.1.008844.3.579 .2.462 Unknown [id number] 2.16.840.1.143629.3.579 .2.462 Unknown [id number] 2.16.840.1.005940.3.579 .2.462 Unknown [id number] 2.16.840.1.484315.3.579 .2.462 Unknown [id number] 2.16.840.1.287548.3.579 .2.462 Unknown [id number] 2.16.840.1.366247.3.579 .2.462 Unknown [id number] 2.16.840.1.586861.3.579 .2.462 Social History Date Type Detail Facility Tobacco smoking status GAIS Unknown if ever smoked [facility] Work Phone: Start: 1940 Sex Assigned At Male [facility] Start: 11-17-2015 End: 12-12-2024 Tobacco smoking status GAIS Ex-smoker [facility] Start: 11-17-2015 Tobacco use and exposure Smokeless tobacco non-user [facility] Start: 01-06-2022 End: 01-08-2022 Alcohol intake Current non-drinker of alcohol (finding) [facility] Start: 1940 Sex Assigned At Not on file [facility] Start: 12-27-2021 End: 01-06-2022 Exposure to SARS-CoV-2 (event) Not sure [facility] Tobacco smoking status NHIS Tobacco smoking consumption unknown [facility] Start: 03-29-2022 Sex Male (finding) [facility] Gender identity Not on file [facility] Clinical Notes 04-04-2017 to 05-15-2025 Note Date & Type Note Facility 05-15-2025 Progress note [facility] 05-15-2025 Progress note Note Date/Time May 15, 2025 3:16pm [facility] [address] [place] [address] [address] [place] [address] OFFICE VISIT Date of Service: 05/15/25 MR#: [id number] Acct: [id number] Name: CHET JERONIMO Rep #: [id number] : 1940 Provider: Dr. Jorge Brooke DO Age/Sex: 84/M Location: [facility] Status: Signed Intake Vital Signs 02/18/25 13:01 Height 5 ft 4 in Intake Visit Reasons: RIGHT KNEE Allergies Penicillins Adverse Reaction (Verified 02/27/25 14:29) Hives Medications ?Medication ?Instructions ?Recorded ?Confirmed ?Type omeprazole 40 mg capsule,delayed 40 mg PO QDAY 4 05/15/25 History release cholecalciferol (vitamin D3) 50 50 mcg PO QDAY 4 05/15/25 History mcg (2,000 unit) capsule hydrocortisone 2.5 % topical cream 1 applic topical BI D PRN 06/26/24 05/15/25 History ipratropium bromide 42 mcg (0.06 2 spray intranasal BI D 06/26/24 05/15/25 History %) nasal spray hydrochlorothiazide 12.5 mg capsule 12.5 mg PO QDAY #9 0 caps 07/17/24 05/15/25 Rx metoprolol tartrate 25 mg tablet 25 mg PO BID #180 tab s 02/18/25 05/15/25 Rx doxycycline monohydrate 100 mg 100 mg PO BID #10 caps 02/27/25 05/15/25 Rx capsule apixaban 5 mg tablet (Eliquis) 5 mg PO BID #60 tabs 05/15/25 Rx Have you fallen in the past year?: No PFSH Medical History Bacterial sinusitis Shortness of breath Fatigue Osteoarthritis [...] Type: coffee Number of servings: 3 HPI RIGHT KNEE Details: This documentation accurately reflects the service provided and the decisions made by me, Dr. Mohan Brooke, DO 05/15/25 1120. Part of today?s visit was documented by Suad AUGUSTIN, acting as scribe. CHET JERONIMO is a 84 year old M here today for the right knee to talk about surgery. He did complete the Euflexxa series on 11/28/24 which did give him a few months of relief. He states that his pain is mostly anterior. 11/28/2024 visit: 3rd Euflexxa right knee injection. He also complains of chroniclow back pain and bilateral lateral hip pain. Plan: Patient came in for his 3rd Euflexxa injection in the right knee. Patient can follow up in 3 months if needed. Patient is having chronic low back pain and stiffness with pain over bilateral lateral hips he would like to do physical therapy for both will send a referral to [facility] for physical therapy for bilateral bursitis and hip pain. Patient can follow up in 3 months if needed. 04/23/2024 visit: Third Euflexxa injection given 02/29/2024 visit: 83 year old M here today for right knee pain. Patient states the knee has been bothering him for about a year. Patient denies any injury inciting event. He states he did have his right ankle fusion surgery in about 2003 or 2005. Patient states when he was 7 years old he did have a cyst removed from the posterior knee. Patient states once in a while the knee will lock up and he states when he is sitting down and gets up to walk he feels clicking in the posterior knee. Patient describes the pain over the anterior medial aspect of the knee. Patient denies any numbness or tingling down his leg but states he does have a bad back. Patient states he had a steroid injection in the anterior knee about [address] Moss and then about 2 months ago he had an injection in the lateral side of the knee from Dr. Garcia which was very painful. Patient states these both gave him relief for a short time, maybe a couple weeks to a month. He denies any physical therapy for the right knee. Patient states he takes 1000mg Tylenol during the day and 1000mg Tylenol before going to bed to help him sleep. Patient does wear a compression sleeve/elastic brace that he wears on the knee when he is working outside. 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 Plan:Spoke to patient about his x-rays and the medial aspect of the knee is boneon bone. His options would be: steroid injections, viscosupplementation injections, bracing , physical therapy, anti-inflammatory medication such as Ibuprofen or Aleve, Glucosamine Chondroitin supplement that is found over the counter, and total knee arthroplasty. There are some concerns with the surgery since his ankle is everted due to the previous ankle fusion and if his leg would straighten during surgery it would make him even more everted and could possibly cause some ankle pain, the patient's age is also a concern as well. Overall however he does not have majormedical problems and is a candidate for surgery. 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 Spoke to patient that if he would move forward with a steroid injection he would not be able to have a TKA for 3 months from the time of injection. If patient would be interested in a TKA he would want to wait until more towards the end of the year. Patient would like to move forward with the steroid injection today and then we will start a prior auth for the visco injections andsee how he responds. We discussed risk and benefits of surgical versus nonsurgical intervention and surgical interventions included but not limited to bleeding, infection, nerve, artery and/or tissue damage, fracture, VTE, mechanical feel of the knee, continued pain, stiffness and expected post-operative course. Follow up once the viscosupplementation injections are approved or sooner if pain, swelling, numbness or associated symptoms, or concerns develop. All questions answered. Patient in agreement of plan. Ortho Exam General General: Yes no acute distress and Yes well groomed Neurologic: Yes alert and Yes oriented x3 Psychologic: Yes reasonable and appropriate Right Knee Skin/Wound: Yes CDI, No erythema, No ecchymosis and No swelling Homans Sign: No 2+: Effusion Knee ROM: Yes ROM-Extension -20 to 0 (-16) and Yes ROM-Flexion 0-140 (90) Examination: Yes Med jt line tenderness, No Lat jt line tenderness and Yes TTP Pes Anserine Stability: NML: Anterior Drawer, NML: Valgus 0, NML: Valgus 30, NML: Varus 0 andNML: Varus 30 Patella Translation: 1 Patella Grind: Yes KNEE: fixed varus deformity Left Knee Patella Translation: 1 Right Hip HIP: He is tender over bilateral trochanteric bursa does have lumbar stiffness Supplemental Info 04/05/2023 x-ray right knee: Advanced knee arthrosis [id number]-[id number] medial compartment with varus deformity moderate patellofemoral arthrosis Coding Level of Care Code Off vis,est,level 3 Diagnoses Primary osteoarthritis of right knee M17.11 Osteoarthritis type: primary Assessment and Plan Assessment and Plan (1) Osteoarthritis of right knee: Status: Acute Qualifiers: Osteoarthritis type: primary Qualified Code(s): M17.11 - Unilateral primary osteoarthritis, right knee Orders: Orders Knee 4 or More Views Today M17.11 - Unilateral primary osteoarthritis, right knee Plan Patient is here today for continued right knee pain. I did obtain and review xrays taken today that does show severe arthritis of the knee which has caused avarus deformity of 13 degrees. Spoke with patient that the surgical treatment would be a total knee arthroplasty. Patient was very active before the knee started to become painful and bothersome and states that now it has caused him to become less active and prevent him to do the things he likes to do. He would need to stop his Eliquis 3 days before surgery. I would also need a medical clearance from his PCP and [employer]. Patient did have a high blood glucose and an A1C of 9 which he would need to get down to 7 or below. If his A1C is still high he will need to work on getting it down before surgery. He will also need to have his sinus infection resolved as well . we can not have any injections before or after surgery. He does have an upcoming appointment with his PCP and at that time they will re-check his A1C. After he gets the results of the A1C he should call the office to let us know. Discussed the Iovera procedure with patient today and recommend he proceed with this if his insurancecovers it. Risks, benefits and alternatives of surgery reviewed including but not limited to bleeding, infection, nerve, artery and/or tissue damage, fracture, VTE, mechanical feel of the knee, continued pain, stiffness and expected post-operative course. Clinical Quality Measures Falls Risk Screening/Assistive Devices Have you fallen in the past year?: No 05/15/25 1516 <Electronically signed by Mohan cho DO> Date _ Mohan Brooke DO Cosigner Signature: Date (if applicable) CC: ~ [facility] Work Phone: 1(653) 531-864705-28-2025 Discharge summary Author Spencer Manrique [facility] Note Date/Time January 23, 2025 7:00p m [facility] Physical Therapy [facility] [address] [place] [address]. [address] [place] [address] / REHABILITATION SERVICES DISCHARGE SUMMARY MR#: [id number] Acct: [id number] Name: CHET JERONIMO Rep #: [id number] : 1940 84 From: Spencer Manrique DPT, [...] please feel free to call me at [phone]. Thank you for the referral of thispatient. Sincerely, Spencer Manrique, DPT, OCS, CSCS Balance/Gait/Functional tests Balance/Special Test Scores Lower Extremity Functional Score: 48 Improvement % Improvement: 80 <Electronically signed by SARAHI Brown DPT CSCS> 01/23/25 1418 CC: Dr. Adelfo Garcia MD; Dr. Mohan Brooke DO ~ EBG Signed [facility] Work Phone: 1(553) 531-284105-28-2025 Discharge summary [facility] Physical Therapy [facility] [address] [place] [address] / REHABILITATION SERVICES DISCHARGE SUMMARY MR#: [id number] Acct: [id number] Name: CHET JERONIMO Rep #: [id number] : 1940 84 From: SARAHI Brown DPT, LEESA Referring Dr.: Dr. oMhan Brooke DO Status: REG RCR Insurance: MEDICARE [...] well at home. No f/u with doctor Olivas. Pain L hip: Pain Intensity (Out of [...] please feel free to call me at [phone]. Thank you for the referral of thispatient. Sincerely, Spencer Manrique, DPT, OCS, CSCS Balance/Gait/Functional tests Balance/Special Test Scores Lower Extremity Functional Score: 48 Improvement % Improvement: 80 01/23/25 1418 CC: Dr. Adelfo Garcia MD; Dr. Mohan Brooke, DO ~ [facility] Signed [facility]05-21-2025 Evaluation note* Diagnosis Onset Date Resolution Status Admit Date Atrial fibrillation acute December 282024 1:23pm Nausea [...] Bacterial sinusitis acute February 27, 2025 2:24pm Osteoarthritis of right knee acute May 15, 2025 2:17pm [facility] Work Phone: 1(396) 895-283805-02-2025 Telephone encounter Note* Telephone Encounter - Cassandra Duran RN - 12/28/2024 3:53 PM EDT S: Elena Purcell called the clinical access center B: Follow up on a fax that was sent to [facility] A: This patient is not listed as a patient at [facility]. R: They will call back during business hours. Patient instructed to call back with worsening symptoms, concerns or questions. Reason for Disposition [1] Caller requesting NON-URGENT health information AND [2] PCP's office is the best resource Protocols used: Information Only Call - No Dulrud[facility]NARYZ-OT [id number] Miscellaneous Notes* Telephone Encounter - Cassandra Duran RN - 12/28/2024 3:53 PM EDT S: Elena Ortizmalini called the clinical access center B: Follow up on a fax that was sent to [facility] A: This patient is not listed as a patient at [facility]. R: They will call back during business hours. Patient instructed to call back with worsening symptoms, concerns or questions. Reason for Disposition [1] Caller requesting NON-URGENT health information AND [2] PCP's office is the best resource Protocols used: Information Only Call - No [id number] documented in this [facility]04-02-2025 Evaluation note* Diagnosis Onset Date Resolution Status Admit Date Greater trochanteric bursiti s of both hips [...] Bacterial sinusitis acute February 27, 2025 2:24pm [facility] Work Phone: 1(695) 139-136903-19-2025 Evaluation note* Diagnosis Onset Date Resolution Status [...] diabetes mellitus chronic December 12, 2024 1:37pm [facility] Work Phone: 1(577) 986-654003-19-2025 Evaluation note* Diagnosis Onset Date Resolution Status [...] diabetes mellitus chronic January 16, 2025 1:23pm [facility] Work Phone: 1(753) 159-576503-19-2025 Evaluation note* Diagnosis Onset Date Resolution Status [...] diabetes mellitus chronic February 18, 2025 1:56pm [facility] Work Phone: 1(643) 724-595703-19-2025 Evaluation note* Diagnosis Onset Date Resolution Status [...] Bacterial sinusitis acute February 27, 2025 2:24pm [facility] Work Phone: 1(517) 887-127005-13-2022 NoteHNO ID: [id number] Author: Matias Willis MD Service: ? Author [...] Education about tick removal provided. Matias Willis [facility]05-13-2022 History of Present illness Narrative* Matias [...] provided. Matias Willis MD [facility]22 NoteHNO ID: [id number] Author: J Carlos Roland APRN.[facility] Service: ? Author Type: Nurse Practitioner Type: [...] history is provided by the patient. No language arts teacher was used. Review of Systems Constitutional: Negative. [...] with this care plan. J Carlos Roland APRN.[facility]05-11-2022 History of Present illness Narrative* J Carlos Roland APRN.[facility] - 01/06/2022 7:31 PM EDT Images from the original note were not included. Subjective Patient came in with complains of tick on right side of jaw under kline. patient said he was just outside a couple hours ago. could not have been on any longer than that. deneis any other symptoms atthis time. The history is provided by the patient. No language arts teacher was used. Review of Systems Constitutional: Negative. [...] with this care plan. J Carlos Roland APRN.[facility] History of Past illness Narrative* Problem Noted Date Resolved Date Acute sinusitis 04/04/2017 documented as of this encounter (statuses as of 01/06/2022) [facility] of [facility] illness Narrative* Problem Noted Date Resolved Date Acute sinusitis 04/04/2017 documented as of this encounter (statuses as of 01/08/2022) [facility] noteNo assessment information availableWOhio [facility] Work Phone: Evaluation note* Diagnosis Tick bite of other part of head, initial encounter- Primary [facility] this encounter [facility]* Diagnosis Seborrheic keratoses- Primary Other seborrheic keratosis documented in this encounter [facility] (narrative)No reason for referral information availableSelma [facility] Work Phone: Summary Purpose Family History No Family History Records Found Relationship Condition Age at Onset Recorded Date/T linda father Cardiac disease Unknown Advance Directives No Advanced Directives Records FoundDocuments on File Type Date Recorded 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 RX HERE January 23, 2025 2:00pm 4-6 W FU February 18, 2025 1:56 pm CONCERN FOR SINUS INFECTION February 27 2:24pm RIGHT KNEE May 15, 2025 2:17pm RM 2 May 15, 2025 2:38pm Reason for Visit Admit Date Atrial fibrillation January 16, 2025 1:23p m [...] Bacterial sinusitis February 27, 2025 2:24p m Osteoarthritis of right knee April 292024 2:17pm Additional Source Comments (unrecognized sect ion and content) No Status Records FoundNo Status Records FoundNo Status Records FoundNo Status Records FoundNo Status Records Found INFORMATION SOURCE (unrecogn ized section and content) DATE CREATED AUTHOR 02/16/2018 [facility] DATE CREATED AUTHOR AUTHOR'S ORGANIZ ATION 08/23/2018 [facility] DATE CREATED AUTHOR AUTHOR'S ORGANIZ ATION 01/08/2022 [facility] DATE CREATED AUTHOR AUTHOR'S ORGANIZ ATION 01/03/2025 [facility] DATE CREATED AUTHOR AUTHOR'S ORGANIZ ATION 05/19/2025 [facility] Goals (unrecognized section and content) Goals may [...] this informatio n is protected by the [facility] of Alcohol and Drug Abuse Patient Records regulations: The Federal rules restrict any use of the information to criminally investigate or prosecute any alcohol or drug abuse patient.[facility] SystemIn the event this information is protected by the Federal Confidentiality of Alcohol and Drug Abuse Patient Records regulations: The Federal rules restrict any use of the information to criminally investigate or prosecute any alcohol or drug abuse patient.[facility] Reason for Visit (unrecogniz ed section and content) Reason Comments tick on jaw first noticed it 1/2 hour ago Reason Comments tick in lower back noticed it today Reason Onset Date Comments Release of Information 12/28/2024 Care Teams (unrecognized sec tion and content) Administrative Associate Relationship Specialty Start Date End Date Adelfo Garcia MD [address] [place] [id number] PCP - General Family Practice 01/10/19 Team [...] 2024 End: December 12, 2024 Gilmer Pratt GOLD BLOWER, GOLD BLOWER-C Attending Provider Active S tart: December 12, [...] 2025 End: January 08, 2025 Gilmer Pratt GOLD BLOWER, GOLD BLOWER-C Attending Provider Active S tart: January 08, 2025 End: January 08, 2025 Gilmer Pratt GOLD BLOWER, GOLD BLOWER-C Referring Provider Active S tart: January 08, 2025 End: January 08, 2025 Team Status: Active Member Role Status Dates Dr. Adelfo Garcia MD Primary Care Provider Acti ve Start: January 09, 2025 Gilmer Pratt GOLD BLOWER, GOLD BLOWER-C Referring Provider Active S tart: January 09, 2025 Gilmer Pratt GOLD BLOWER, GOLD BLOWER-C Other Provider Active Start : January 09, 2025 Dr. Ishmael Cancino MD Attending Provider Active S tart: January 09, 2025 Team Status: Inactive Member Role Status Dates Dr. Adelfo Garcia MD Primary Care Provider Acti ve Start: January 16, 2025 End: January 16, 2025 Dr. Adelfo Garcia MD Referring Provider Active Start: January 16, 2025 End: January 16, 2025 Gilmer Pratt GOLD BLOWER, GOLD BLOWER-C Attending Provider Active S tart: January 16, [...] February 18, 2025 End: February 18, 2025 Gimler Pratt GOLD BLOWER, GOLD BLOWER-C Attending Provider Active S tart: February 18, [...] 2024 End: December 12, 2024 Gilmer Pratt GOLD BLOWER, GOLD BLOWER-C Attending Provider Active S tart: December 12, 2024 End: December 12, 2024 Team Status: Inactive Member Role/Relationship Status Dates Dr. Adelfo Garcia MD Primary Care Provider Acti ve Start: January 08, 2025 End: January 08, 2025 Gilmer Pratt GOLD BLOWER, GOLD BLOWER-C Attending Provider Active S tart: January 08, 2025 End: January 08, 2025 Gilmer Pratt GOLD BLOWER, GOLD BLOWER-C Referring Provider Active S tart: January 08, 2025 End: January 08, 2025 Team Status: Active Member Role/Relationship Status Dates Dr. Adelfo Garcia MD Primary Care Provider Acti ve Start: January 09, 2025 Gilmer Pratt GOLD BLOWER, GOLD BLOWER-C Referring Provider Active S tart: January 09, 2025 Gilmer Pratt GOLD BLOWER, GOLD BLOWER-C Other Provider Active Start : January 09, 2025 Dr. Ishmael Cancino MD Attending Provider Active S tart: January 09, 2025 Team Status: Inactive Member Role/Relationship Status Dates Dr. Adelfo Garcia MD Primary Care Provider Acti ve Start: January 16, 2025 End: January 16, 2025 Dr. Adelfo Garcia MD Referring Provider Active Start: January 16, 2025 End: January 16, 2025 Gilmer Pratt GOLD BLOWER, GOLD BLOWER-C Attending Provider Active S tart: January 16, [...] 2025 End: February 18, 2025 Gilmer Pratt GOLD BLOWER, GOLD BLOWER-C Attending Provider Active S tart: February 18, 2025 End: February 18, 2025 Team Status: Inactive Member Role/Relationship Status Dates Dr. Adelfo Garcia MD Primary Care Provider Acti ve Start: February 27, 2025 End: February 27, 2025 Dr. Adelfo Garcia MD Referring Provider Active Start: February 27, 2025 End: February 27, 2025 Galo Dupont NP-C Attending Provider Active Star t: February 27, 2025 End: February 27, 2025 Team Status: Inactive Member Role/Relationship Status [...] 2024 End: December 12, 2024 Gilmer Pratt GOLD BLOWER, GOLD BLOWER-C Attending Provider Active S tart: December 12, 2024 End: December 12, 2024 Team Status: Inactive Member Role/Relationship Status Dates Dr. Adelfo Garcia MD Primary Care Provider Acti ve Start: January 08, 2025 End: January 08, 2025 Gilmer Pratt GOLD BLOWER, GOLD BLOWER-C Attending Provider Active S tart: January 08, 2025 End: January 08, 2025 Gilmer Pratt GOLD BLOWER, GOLD BLOWER-C Referring Provider Active S tart: January 08, 2025 End: January 08, 2025 Team Status: Active Member Role/Relationship Status Dates Dr. Adelfo Garcia MD Primary Care Provider Acti ve Start: January 09, 2025 Gilmer Pratt GOLD BLOWER, GOLD BLOWER-C Referring Provider Active S tart: January 09, 2025 Gilmer Pratt GOLD BLOWER, GOLD BLOWER-C Other Provider Active Start : January 09, 2025 Dr. Ishmael Cancino MD Attending Provider Active S tart: January 09, 2025 Team Status: Inactive Member Role/Relationship Status Dates Dr. Adelfo Garcia MD Primary Care Provider Acti ve Start: January 16, 2025 End: January 16, 2025 Dr. Adelfo Garcia MD Referring Provider Active Start: January 16, 2025 End: January 16, 2025 Gilmer Pratt GOLD BLOWER, GOLD BLOWER-C Attending Provider Active S tart: January 16, [...] 2025 End: February 18, 2025 Gilmer Pratt GOLD BLOWER, GOLD BLOWER-C Attending Provider Active S tart: February 18, 2025 End: February 18, 2025 Team Status: Inactive Member Role/Relationship Status Dates Dr. Adelfo Garcia MD Primary Care Provider Acti ve Start: February 27, 2025 End: February 27, 2025 Dr. Adelfo Garcia MD Referring Provider Active Start: February 27, 2025 End: February 27, 2025 Galo Dupont NP-C Attending Provider Active Star t: February 27, 2025 End: February 27, 2025 Team Status: Inactive Member Role/Relationship Status Dates Dr. Adelfo Garcia MD Primary Care Provider Acti ve Start: March 22, 2025 End: March 22, 2025 Dr. Adelfo Garcia MD Attending Provider Active Start: March 22, 2025 End: March 22, 2025 Dr. Adelfo Garcia MD Referring Provider Active Start: March 22, 2025 End: March 22, 2025 Team Status: Active Member Role/Relationship Status Dates Dr. Adelfo Garcia MD Primary care physician Act jonn Team Status: Inactive Member Role/Relationship Status Dates Dr. Adelfo Garcia MD Primary care physician Act jonn Start: January 16, 2025 End: January 16, 2025 Dr. Adelfo Garcia MD Referring Provider Active Start: January 16, 2025 End: January 16, 2025 Gilmer Pratt GOLD BLOWER, GOLD BLOWER-C Attending physician Active Start: January 16, 2025 End: January 16, 2025 Team Status: Inactive Member Role/Relationship Status Dates Dr. Adelfo Garcia MD Primary care physician Act jonn Start: January 23, 2025 End: January 23, 2025 Dr. Mohan Brooke DO Attending physician Active Start: January 23, 2025 End: January 23, 2025 Dr. Mohan Brooke DO Referring Provider Active Start: January 23, 2025 End: January 23, 2025 Team Status: Inactive Member Role/Relationship Status Dates Dr. Adelfo Garcia MD Primary care physician Act jonn Start: February 18, 2025 End: February 18, 2025 Dr. Adelfo Garcia MD Referring Provider Active Start: February 18, 2025 End: February 18, 2025 Gilmer Pratt GOLD BLOWER, GOLD BLOWER-C Attending physician Active Start: February 18, 2025 End: February 18, 2025 Team Status: Inactive Member Role/Relationship Status Dates Dr. Adelfo Garcia MD Primary care physician Act jonn Start: February 27, 2025 End: February 27, 2025 Dr. Adelfo Garcia MD Referring Provider Active Start: February 27, 2025 End: February 27, 2025 Galo Dupont NP-C Attending physician Active Sta rt: February 27, 2025 End: February 27, 2025 Team Status: Inactive Member Role/Relationship Status Dates Dr. Adelfo Garcia MD Primary care physician Act jonn Start: March 22, 2025 End: March 22, 2025 Dr. Adelfo Garcia MD Attending physician Active Start: March 22, 2025 End: March 22, 2025 Dr. Adelfo Garcia MD Referring Provider Active Start: March 22, 2025 End: March 22, 2025 Team Status: Active Member Role/Relationship Status Dates Dr. Adelfo Garcia MD Primary care physician Act jonn Start: May 15, 2025 Dr. Adelfo Garcia MD Referring Provider Active Start: May 15, 2025 Dr. Mohan Brooke DO Attending physician Active Start: May 15, 2025 Team Status: Inactive Member Role/Relationship Status Dates Dr. Adelfo Garcia MD Primary care physician Act jonn Start: May 15, 2025 End: May 15, 2025 Dr. Ishmael Cancino MD Attending physician Active Start: May 15, 2025 End: May 15, 2025 Team Status: Inactive Member Role/Relationship Status Dates Dr. Adelfo Garcia MD Primary care physician Act jonn Start: May 15, 2025 End: May 15, 2025 Dr. Adelfo Garcia MD Referring Provider Active Start: May 15, 2025 End: May 15, 2025 Dr. Mohan Brooke DO Attending physician Active Start: May 15, 2025 End: May 15, 2025 FOR RECORDS PERTAINING TO PATIENTS WHO [...] BE BASED ON THE PRIMARY CLINICAL RECORDS. [facility] [employer] [facility]. provides no warranty or guarantee of the accuracy or completeness of information in this document.
[2025-05-21 19:11] LABS: Creatinine, Urine (random) 35.10 mg/dL (39.00-259.00); Microalbumin,Random Urine < 12.0 mg/L (<20 mg/L)
== END | disposition home or self-care (01) ==
PROVIDERS: PCP Family Medicine; Visit Provider Family Medicine
DX: E11.9 Type 2 diabetes mellitus without complications (principal)
CPT/HCPCS: 82043; 82570

== ENCOUNTER → 2025-07-24 | Outpatient (CLI) | payer MEDICARE, OTHER, SELFPAY ==
--- NOTE | 2025-07-24 16:35 | CT_ITS ---
PROCEDURE: EXTREMITY LOWER WITHOUT CONTRA 07/24/2025 REASON FOR EXAM: TEMPLATING FOR RIGHT TKA TECHNIQUE: Procedure Code: CTELWO Modality: CT Procedure: EXTREMITY LOWER WITHOUT CONTRA Coronal and Sagittal reconstruction series were provided. CONTRAST: None One or more dose reduction techniques were used (e.g., Automated exposure control, adjustment of the mA and/or kV according to patient size, use of iterative reconstruction technique). RADIATION DOSE SUMMARY: DLP: 1380 mGycm COMPARISON: None FINDINGS: There is severe osteoarthritis of the right knee with joint space narrowing, subcortical cyst formation, and marginal osteophytes. There is no acute fracture or dislocation identified. Lateral tibial subluxation is noted. There is loss of height of the medial tibial plateau, which may indicate a remote fracture. There is no soft tissue mass or cyst. Atherosclerotic calcifications are visible. Hardware is noted at the ankle with fusion changes, and osteoarthritis. CT/Extremity Lower without Contra IMPRESSION: There is severe osteoarthritis of the right knee with joint space narrowing, caldwell bcortical cyst formation, and marginal osteophytes. Reading Location: [facility]
== END | disposition home or self-care (01) ==
LOC: CT 16:34
PROVIDERS: PCP Family Medicine; Referring Provider Orthopaedic Surgery; Visit Provider Orthopaedic Surgery
DX: M17.11 Unilateral primary osteoarthritis, right knee (principal)
CPT/HCPCS: 73700